=== PATIENT | female | born 1940 | race Caucasian/White ===

== ENCOUNTER → 2016-11-03 | Outpatient (CLI) | payer MEDICARE, BC ==
--- NOTE | 2016-11-04 07:09 | WWHP ---
CHIEF COMPLAINT: Patient is here for her routine gynecologic exam and mammogram. HPI: This is a 76-year-old G4, P4 with an LMP of 1991 who is status post IVY/BSO for uterine fibroids. The patient is without gynecologic complaints. 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 MEDICATIONS: 1. Eliquis daily. 2. Sotalol 80 mg 2 daily. 3. Losartan 125 mg daily. 4. Simvastatin 40 mg daily. 5. Alprazolam 0.5 mg q.h.s. 6. PreserVision with lutein 1 b.i.d. 7. Vitamin D 5000 units daily. 8. Allopurinol 100 mg daily. 9. Potassium supplement daily. 10. Magnesium supplement daily. ALLERGIES: IODINE AND SEAFOOD. 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 SOCIAL HISTORY: She quit smoking in 2013, but briefly smoked again when she stayed with her daughter who does smoke. She has since again quit. She has about 0 to 2 alcoholic drinks per day and denies drug use. She is a and is not sexually active. She does not work outside the home. REVIEW OF SYSTEMS: She has been about 16 pounds over the last year. She denies respiratory, cardiac, or GI problems. She denies maltreatment or falling. : She is not having any significant problems with bladder control. PHYSICAL EXAM: Blood pressure 133/79. Height 5 feet 6 inches. Weight 230 pounds. Temperature 98.3, pulse 93. This a well-developed, heavyset white female who is alert and oriented x3 in no acute distress. HEENT is within normal limits. NECK: Supple without mass or thyromegaly. CHEST AND LUNGS: There is mild prolonged expiration with no wheezes or rales or rhonchi noted. HEART: Regular rate and rhythm. Breasts are without mass or discharge. Axillary exam is negative for adenopathy. BACK: Negative for CVA tenderness. ABDOMEN: Mildly obese, soft, nontender, without palpable masses. PELVIC EXAM: External genitalia reveals mild to moderate atrophy without lesions. Vagina reveals mild to moderate atrophy without lesions. There is no evidence of prolapse. Bimanual exam is negative for mass or tenderness. Rectovaginal exam is negative for mass or tenderness and is negative for occult blood. EXTREMITIES: Nontender. IMPRESSION: 1. A 76-year-old menopausal female, status post total abdominal hysterectomy/bilateral salpingo-oophorectomy for benign reasons. 2. History of osteopenia. 3. Multiple medical problems. PLAN: 1. Pap smears have been discontinued. 2. Self breast examination was discussed. 3. Mammogram will be done today. 4. Osteoporosis prevention was discussed. Will plan on repeating bone density testing in one year. 5. She is planning to get flu shot in the fall. 6. She will return in one year.
--- NOTE | 2016-11-06 13:26 | MM ---
Reason for exam: screening (asymptomatic). Last mammogram was performed 7 months ago. History: Patient is postmenopausal and history of other cancer. Benign US biopsy breast VAD RT of the right breast, March 27, 2016. Benign US biopsy breast VAD RT of the right breast, September 13, 2015. Benign excisional biopsy of the left breast. Physical Findings: A clinical breast exam by your physician is recommended on an annual basis and results should be correlated with mammographic findings. MG 3D Screening Mammo W/Cad Bilateral CC and MLO view(s) were taken. Prior study comparison: March 27, 2016, right breast MG diagnostic mammo RT wo CAD. September 13, 2015, right breast MG diagnostic mammo RT wo CAD. July 13, 2014, bilateral MG screening mammo w CAD. June 12, 2013, bilateral digital screening mammo w/CAD. The breast tissue is heterogeneously dense. This may lower the sensitivity of mammography. Previous mammotome biopsy within the right breast. There is chronic nodularity in the right breast. Grouped calcifications 12 o'clock posterior right breast continue to increase. ASSESSMENT: Incomplete: need additional imaging evaluation, BI-RAD 0 RECOMMENDATION: Special view mammogram of the right breast. If lesion persists on supplemental views, image directed ultrasound is recommended. [facility] will attempt to contact patient to return for supplemental views and ultrasound if indicated.
== END | disposition home or self-care (01) ==
LOC: WWCWWP 13:10
PROVIDERS: ATTEND Obstetrics & Gynecology
DX: Z12.31 Encounter for screening mammogram for malignant neoplasm of breast (principal); R92.8 Other abnormal and inconclusive findings on diagnostic imaging of breast
CPT/HCPCS: 77063; G0202

== ENCOUNTER → 2016-11-11 | Outpatient (CLI) | payer MEDICARE, BC ==
--- NOTE | 2016-11-12 07:04 | MM ---
Reason for exam: additional evaluation requested from abnormal screening. Last mammogram was performed less than 1 month ago. History: Patient is postmenopausal and history of other cancer. Benign US biopsy breast VAD RT of the right breast, March 27, 2016. Benign US biopsy breast VAD RT of the right breast, September 13, 2015. Benign excisional biopsy of the left breast. Physical Findings: Nurse did not find any significant physical abnormalities on exam. MG 3D Work Up W/Cad RT LM, MLO with magnification, and CC with magnification view(s) were taken of the right breast. Prior study comparison: November 03, 2016, bilateral MG 3d screening mammo w/cad. March 27, 2016, right breast MG diagnostic mammo RT wo CAD. March 16, 2016, right breast US breast RT. Finding: There are coarse heterogeneous, grouped/clustered calcifications in the upper quadrant, middle position of the right breast does not layer. These results were verbally communicated with the patient and result sheet given to the patient on 11/11/16. ASSESSMENT: Suspicious, BI-RAD 4 RECOMMENDATION: Stereotactic core biopsy of the right breast. Called Dr. Avila with mammographic findings and has scheduled an appointment for the patient for 11/16/16 at 3:[address] Salinas. PRELIMINARY REPORT CALLED AND FAXED TO DR. SALINAS ON 11/12/16 AT 300/TP.
== END | disposition home or self-care (01) ==
LOC: RADMAMWWP 13:36
PROVIDERS: ATTEND Obstetrics & Gynecology
DX: R92.8 Other abnormal and inconclusive findings on diagnostic imaging of breast (principal)
CPT/HCPCS: G0206; G0279

== ENCOUNTER → 2016-12-03 | Day surgery (SDC) | payer MEDICARE, BC ==
[~2016-12-03] MED LIST: BACITRACIN OINT 1 EACH PACKET TOPICAL ONE; BUPIVACAINE (PF) 0.25% 30 ML VIAL ONE
--- NOTE | 2016-12-03 11:46 | MM ---
EXAMINATION TYPE: MG stereo VAD BX RT DATE OF EXAM: 12/03/2016 COMPARISON: 3-D mammogram November 11, 2016 and older mammograms. CLINICAL HISTORY: Abnormal mammogram, new group of suspicious calcifications right breast. TECHNIQUE: Stereotactic guided core biopsy of right breast with clip placement and follow-up two-view mammogram. FINDINGS: The procedure of stereotactic guided core biopsy was explained to the patient. Benefits, alternatives, and risks were discussed. An informed consent was then obtained. The shortness pathway for biopsy was chosen. Shortness pathway was cranial approach. I performed the localization, then surgeon, Dr. Salinas performed the remainder of the procedure. A vacuum assisted biopsy gun was used to obtain multiple core samples. The patient tolerated the procedure well without any immediate complication. The patient was kept in the radiology department for short stay after the procedure and then discharged home in stable condition. Targeted calcifications are identified in specimen mammogram. Post biopsy mammogram shows the clip to appear in satisfactory position relative to the targeted area of concern on the preprocedure images. IMPRESSION: SUCCESSFUL, UNCOMPLICATED STEREOTACTIC GUIDED CORE BIOPSY OF AREA OF CONCERN IN THE RIGHT BREAST, FULL PATHOLOGY RESULTS TO FOLLOW. Low index of suspicion noted at time of procedure. Pathology Results: Benign BREAST, RIGHT, CORE BIOPSY: FIBROCYSTIC CHANGES INCLUDING FIBROADENOMATOID HYPERPLASIA WITH CALCIFICATIONS, FIBROSIS, SCLEROSING ADENOSIS, CYSTS AND MILD USUAL TYPE DUCTAL HYPERPLASIA. SEE NOTE. Recommendation Follow up mammogram of the right breast in 6 months. MADID
--- NOTE | 2016-12-03 21:25 | PCN ---
DATE OF PROCEDURE: PREPROCEDURE DIAGNOSIS: Suspicious mammogram, calcification right breast. POSTOPERATIVE DIAGNOSIS: Defer to pathology. PROCEDURE: Mammotome biopsy with clip application. This is a 76-year-old female who presented with abnormal mammogram, suspicious calcification of the right breast. The patient was taken to [facility], placed on the mammotome table in the prone position. After coordinates were obtained by the radiologist, the skin was cleaned with Betadine, infiltrating the skin Marcaine 25% plain. The mammotome needle was advanced according to coordinates. Multiple cores were taken. X-rays of the cores showed the calcification in question. Clip was placed for future identification of the area. X-ray showed the clip in good position. The patient tolerated the procedure well.
== END ==
LOC: RADMAMWWP 10:11
PROVIDERS: ATTEND Surgery
DX: N60.31 Fibrosclerosis of right breast (principal); R92.1 Mammographic calcification found on diagnostic imaging of breast; N60.21 Fibroadenosis of right breast; N60.91 Unspecified benign mammary dysplasia of right breast
CPT/HCPCS: 88305; 88342; 88341; 19081; A4648

== ENCOUNTER → 2017-09-21 | Outpatient (CLI) | payer MEDICARE, BC ==
--- NOTE | 2017-09-22 08:06 | MM ---
Reason for exam: additional evaluation requested from prior study. Last mammogram was performed 10 months ago. History: Patient is postmenopausal and history of other cancer. Benign MG stereo VAD BX RT of the right breast, December 03, 2016. Benign US biopsy breast VAD RT of the right breast, March 27, 2016. Benign US biopsy breast VAD RT of the right breast, September 13, 2015. Benign excisional biopsy of the left breast. Physical Findings: Nurse did not find any significant physical abnormalities on exam. MG 3D Diag Mammo W/Cad RT CC and MLO view(s) were taken of the right breast. Prior study comparison: November 11, 2016, right breast MG 3d work up w/cad RT. November 03, 2016, bilateral MG 3d screening mammo w/cad. The breast tissue is heterogeneously dense. This may lower the sensitivity of mammography. No significant new findings when compared with previous films. These results were verbally communicated with the patient and result sheet given to the patient on 09/21/17. ASSESSMENT: Benign, BI-RAD 2 RECOMMENDATION: Follow-up diagnostic mammogram of both breasts in 2 months. Back on schedule for October 2017.
== END | disposition home or self-care (01) ==
LOC: RADMAMWWP 12:57
PROVIDERS: ATTEND Obstetrics & Gynecology
DX: R92.8 Other abnormal and inconclusive findings on diagnostic imaging of breast (principal)
CPT/HCPCS: 77065; G0279

== ENCOUNTER → 2017-12-14 | Outpatient (CLI) | payer MEDICARE, BC ==
[2017-12-14 15:58] VITALS: BP 147/72; PULSE 71; RESP 18; TEMP 97.4; BMI 37.5
--- NOTE | 2017-12-14 17:21 | P.HPOB ---
History of Present Illness H&P Date: 12/14/17 Chief Complaint: The patient is here for her routine gynecologic exam and mammogram. This is a 77-year-old with an LMP of 1991. She is status post IVY BSO for uterine fibroids. The patient is without gynecologic complaints. Review of Systems She has lost about 3 pounds over the last year. She denies respiratory, cardiac , or G.I. problems. : she has a occasional urinary leakage with coughing and sneezing. She is declining a referral for incontinence. She denies maltreatment or falling. Past Medical History Past Medical History: Cancer (Facial skin cancer), COPD, Hyperlipidemia, Hypertension Additional Past Medical History / Comment(s): rapid heart beat, osteopenia. 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 History of Any Multi-Drug Resistant Organisms: None Reported Past Surgical History: Breast Surgery (Benign breast mass removed in 1985. Multiple breast biopsies.), Hysterectomy (IVY BSO in 1991), Tubal Ligation Additional Past Surgical History / Comment(s): kidney surgery for benign masses. thyroid tumors. Colonoscopy 2013. Past Anesthesia/Blood Transfusion Reactions: No Reported Reaction Past Psychological History: No Psychological Hx Reported Smoking Status: Former smoker (Quit June 2017.) Past Alcohol Use History: Occasional (0 3 per day) Past Drug Use History: None Reported Additional History: She is a and is not sexually active. - Past Family History Mother Additional Family Medical History / Comment(s): Maternal grandfather had an NE, maternal aunt had rectal cancer. Medications and Allergies Home Medications Medication Instructions Recorded Confirmed Type ALPRAZolam [Xanax] 0.5 mg PO DAILY PRN 12/14/17 12/14/17 History Cholecalciferol [Vitamin D3] 1,000 unit PO DAILY 12/14/17 12/14/17 History Esomeprazole Magnesium [NexIUM] 20 mg PO DAILY 12/14/17 12/14/17 History Losartan/Hydrochlorothiazide 1 each PO DAILY 12/14/17 12/14/17 History [Losartan-Hctz 100-25 mg Tab] Magnesium Oxide [Mag-Ox] 400 mg PO DAILY 12/14/17 12/14/17 History Potassium Chloride ER [K-Dur 10] 10 meq PO DAILY 12/14/17 12/14/17 History Simvastatin 40 mg PO DAILY 12/14/17 12/14/17 History Sotalol HCl [Sotalol AF] 80 mg PO DAILY 12/14/17 12/14/17 History Allergies Allergy/AdvReac Type Severity Reaction Status Date / Time iodine Allergy Unknown Verified 12/14/17 17:17 Exam - Vital Signs Vital signs: Vital Signs Temp Pulse Resp BP 12/14/17 15:49 97.4 F L 71 18 147/72 Intake and Output 12/14/17 12/14/17 12/14/17 06:59 14:59 22:59 Other: Weight 105.687 kg Height 5'6", BMI 37.6. This is a well-developed well-nourished heavyset white female who is alert and oriented times 3 in no acute distress. HEENT: Within normal limits. NECK: Supple without mass or thyromegaly. CHEST AND LUNGS: Clear to auscultation. HEART: Regular rate and rhythm. BREASTS: Are without mass or discharge. AXILLARY EXAM: Negative for adenopathy. BACK: Negative for CVA tenderness. ABDOMEN: Soft, obese, nontender, without palpable masses. PELVIC EXAM: External genitalia appears normal with mild to moderate atrophy. Vagina appears normal with mild to moderate atrophy. There is no evidence of prolapse. Bimanual examination is negative for mass or tenderness. RECTAL EXAM: Rectovaginal exam is negative for mass or tenderness and is negative for occult blood. EXTREMITIES: Nontender. IMPRESSION: 1. 77-year-old menopausal female who is status post IVY BSO for benign reasons with normal gynecologic exam. 2. History of osteopenia. 3. Multiple medical problems. PLAN: 1. Pap smears have been discontinued. 2. Self breast awareness was discussed. 3. Bilateral diagnostic mammogram was done today. 4. Osteoporosis prevention was discussed. I have recommended bone density testing since it has been about 3 years. She would like to have this done next year. 5. She does get flu shots in the fall. 6. She will check with Dr. Hardin to see what her next colonoscopy will be due. 7. She will return one year.
--- NOTE | 2017-12-15 08:30 | MM ---
Reason for exam: follow-up at short interval from prior study. Last mammogram was performed 3 months ago. History: Patient is postmenopausal and history of other cancer. Benign MG stereo VAD BX RT of the right breast, December 03, 2016. Benign US biopsy breast VAD RT of the right breast, March 27, 2016. Benign US biopsy breast VAD RT of the right breast, September 13, 2015. Benign excisional biopsy of the left breast. Physical Findings: Nurse did not find any significant physical abnormalities on exam. MG 3D Diag Mammo W/Cad YASMANI Bilateral CC and MLO view(s) were taken. Prior study comparison: September 21, 2017, right breast MG 3d diag mammo w/cad RT. November 11, 2016, right breast MG 3d work up w/cad RT. The breast tissue is heterogeneously dense. This may lower the sensitivity of mammography. Finding: There are typically benign vascular, round calcifications in both breasts. Previous mammotome biopsy in the right breast x 3. There is a chronic nodularity in the right breast. Asymmetric breast tissue left inferior position is stable. These results were verbally communicated with the patient and result sheet given to the patient on 12/14/17. ASSESSMENT: Benign, BI-RAD 2 RECOMMENDATION: Routine screening mammogram of both breasts in 1 year.
== END | disposition home or self-care (01) ==
LOC: RADMAMWWP 14:51
PROVIDERS: ATTEND Obstetrics & Gynecology
DX: R92.8 Other abnormal and inconclusive findings on diagnostic imaging of breast (principal)
CPT/HCPCS: 77066; G0279; 77062

== ENCOUNTER → 2018-02-01 | Outpatient (CLI) | payer MEDICARE, BC ==
--- NOTE | 2018-02-01 22:45 | US ---
EXAMINATION TYPE: US venous doppler duplex LE BI DATE OF EXAM: 02/01/2018 4:00 PM COMPARISON: NONE CLINICAL HISTORY: 78-year-old female R60.9 Edema. Off and on for weeks SIDE PERFORMED: Bilateral TECHNIQUE: The lower extremity deep venous system is examined utilizing real time linear array sonog tessa with graded compression, doppler sonography and color-flow sonography. FINDINGS: VESSELS IMAGED: External Iliac Vein (EIV) Common Femoral Vein Deep Femoral Vein Greater Saphenous Vein * Femoral Vein Popliteal Vein Small Saphenous Vein * Right Leg: Negative for DVT Left Leg: Negative for DVT IMPRESSION: No evidence for DVT within the bilateral lower extremities imaged from the groin to the knees.
== END | disposition home or self-care (01) ==
LOC: RADUSWWP 15:04
PROVIDERS: ATTEND Internal Medicine
DX: R60.9 Edema, unspecified (principal)
CPT/HCPCS: 93970

== ENCOUNTER → 2018-02-21 | Outpatient (CLI) | payer MEDICARE, BC ==
--- NOTE | 2018-02-22 14:53 | MR ---
MRCP HISTORY: Abnormal liver function tests Multiplanar multisequence imaging obtained through the biliary system. No comparisons There is cystic focus present within the inferior right lobe of the liver medially measuring 19 mm. P ancreatic head is normal. There is no retroperitoneal adenopathy. Biliary system shows no abnormal fi lling defect. There is a focal stenosis suspected within the left hepatic duct. Question technical fi nding due to patient motion. Common bile duct measures approximately 13 mm. No definite ampullary abn ormality. Gallbladder is normal. Right kidney is not seen. The mediastinal hiatal hernia. Lung bases are clear. IMPRESSION: No evident biliary stone. Question biliary stenosis. Question mild dilation of the common bile duct.
== END | disposition home or self-care (01) ==
LOC: RADMRIMAIN 16:45
PROVIDERS: ATTEND Internal Medicine
DX: R94.5 Abnormal results of liver function studies (principal)
CPT/HCPCS: 74181

== ENCOUNTER → 2018-10-27 | Outpatient (CLI) | payer MEDICARE, BC ==
[2018-10-27 13:14] LABS: Basophils # (A) 0.1 k/uL (0-0.2); Basophils % (A) 1 %; Eosinophils # (A) 0.8 k/uL (0-0.7); Eosinophils % (A) 14 %; HCT 44.8 % (34.0-46.0); HGB 14.4 gm/dL (11.4-16.0); Lymphocytes # (A) 1.4 k/uL (1.0-4.8); Lymphocytes % (A) 24 %; MCH 30.9 pg (25.0-35.0); MCHC 32.1 g/dL (31.0-37.0); MCV 96.2 fL (80.0-100.0); Mean Platelet Volume 6.8; Monocytes # (A) 0.4 k/uL (0-1.0); Monocytes % (A) 7 %; Neutrophils # (A) 3.1 k/uL (1.3-7.7); Neutrophils % (A) 52 %; Platelet Count 157 k/uL (150-450); RBC 4.66 m/uL (3.80-5.40); RDW 13.2 % (11.5-15.5)
[2018-10-27 13:17] LABS: Appearance,Urine Clear (Clear); Bilirubin,Urine Negative (Negative); Blood,Urine Negative (Negative); Color,Urine Yellow; Glucose,Urine (UA) Negative (Negative); Ketones,Urine Negative (Negative); Leukocyte Esterase,Urine Moderate (Negative); Mucus,Urine Rare /hpf; Nitrite,Urine Negative (Negative); PH, Urine 6.5 (5.0-8.0); Protein,Urine Negative (Negative); Specific Gravity,Urine 1.018 (1.001-1.035); Squamous Epithelial Cell,Urine 1 /hpf (0-4); Urobilinogen,Urine <2.0 mg/dL (<2.0); WBC,Urine 11 /hpf (0-5)
[2018-10-27 13:21] LABS: INR 2.2 (<1.2); Prothrombin Time 21.3 sec (9.0-12.0)
[2018-10-27 18:16] LABS: Albumin 4.5 g/dL (3.80-4.90); Albumin/Globulin Ratio 2.25 (1.60-3.17); Anion Gap 8.6 mmol/L (4.00-12.00); Calcium 9.4 mg/dL (8.7-10.3); Carbon Dioxide 27.4 mmol/L (21.6-31.8); LDL Cholesterol,Calculated 95.6 mg/dL (0.0-131.0); Magnesium 1.6 mg/dL (1.5-2.4); Potassium 4.3 mmol/L (3.5-5.5); T4, Free (Free Thyroxine) 1.1 ng/dL (0.80-1.80); Total Protein 6.5 g/dL (6.2-8.2); Uric Acid 7.2 mg/dL (2.9-7.7); VLDL Calculation 38.4 mg/dL (5.00-40.00)
[2018-10-27 20:38] LABS: Hemoglobin A1C 5.4 % (4.0-6.0)
== END ==
LOC: LABWHC1 12:03
PROVIDERS: ATTEND Internal Medicine
DX: R79.9 Abnormal finding of blood chemistry, unspecified (principal); I10 Essential (primary) hypertension; E78.2 Mixed hyperlipidemia; I48.91 Unspecified atrial fibrillation
CPT/HCPCS: 36415; 80053; 80061; 81001; 82550; 83036; 83735; 84439; 84443; 84550; 85025; 85610

== ENCOUNTER 2018-12-18 09:39 | Emergency (ER) | payer MEDICARE, BC ==
[2018-12-18 09:45] VITALS: RESP 18
--- NOTE | 2018-12-18 10:29 | ED ---
Lower Extremity Injury HPI - General Chief Complaint: Extremity Injury, Lower Stated Complaint: misstep on stairway Time Seen by Provider: 12/18/18 10:04 Source: patient Mode of arrival: wheelchair Limitations: no limitations - History of Present Illness Initial Comments: Patient is a 78-year-old female complaining of left knee pain 2 days after falling. Patient states she missed the last step of stairs and fell onto both knees and also hitting the top of her head on a cement wall. Patient states she had a mild headache at the time of the fall but currently denies headache. Patient admits to being on Coumadin. Patient states pain in her left knee is increasing and also has associated swelling and bruising. Pain in worse with getting up from seated position and pain with walking. Patient denies any other complaints at this time. Patient denies any change in vision, dizziness, nausea, vomiting. - Related Data Home Medications Medication Instructions Recorded Confirmed ALPRAZolam [Xanax] 0.5 mg PO DAILY PRN 12/14/17 12/14/17 Cholecalciferol [Vitamin D3] 1,000 unit PO DAILY 12/14/17 12/14/17 Esomeprazole Magnesium [NexIUM] 20 mg PO DAILY 12/14/17 12/14/17 Losartan/Hydrochlorothiazide 1 each PO DAILY 12/14/17 12/14/17 [Losartan-Hctz 100-25 mg Tab] Magnesium Oxide [Mag-Ox] 400 mg PO DAILY 12/14/17 12/14/17 Potassium Chloride ER [K-Dur 10] 10 meq PO DAILY 12/14/17 12/14/17 Simvastatin 40 mg PO DAILY 12/14/17 12/14/17 Sotalol HCl [Sotalol AF] 80 mg PO DAILY 12/14/17 12/14/17 Allergies Allergy/AdvReac Type Severity Reaction Status Date / Time iodine Allergy Unknown Verified 12/18/18 09:45 Review of Systems ROS Statement: Those systems with pertinent positive or pertinent negative responses have been documented in the HPI. ROS Other: All systems not noted in ROS Statement are negative. Past Medical History Past Medical History: Cancer, COPD, Hyperlipidemia, Hypertension Additional Past Medical History / Comment(s): rapid heart beat, osteopenia. 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 History of Any Multi-Drug Resistant Organisms: None Reported Past Surgical History: Breast Surgery, Hysterectomy, Tubal Ligation Additional Past Surgical History / Comment(s): kidney surgery for benign masses. thyroid tumors. Colonoscopy 2013. Past Anesthesia/Blood Transfusion Reactions: No Reported Reaction Past Psychological History: No Psychological Hx Reported Smoking Status: Former smoker Past Alcohol Use History: Occasional Past Drug Use History: None Reported - Past Family History Mother Additional Family Medical History / Comment(s): Maternal grandfather had an ID, maternal aunt had rectal cancer. General Exam - General Exam Comments Initial Comments: GENERAL: Well-appearing, well-nourished and in no acute distress. HEAD: Atraumatic, normocephalic. EYES: Pupils equal round and reactive to light, extraocular movements intact, sclera anicteric, conjunctiva are normal. ENT: TMs normal, nares patent, oropharynx clear without exudates. Moist mucous membranes. NECK: Normal range of motion, supple without lymphadenopathy or JVD. LUNGS: Breath sounds clear to auscultation bilaterally and equal. No wheezes rales or rhonchi. HEART: Regular rate and rhythm without murmurs, rubs or gallops. ABDOMEN: Soft, nontender, normoactive bowel sounds. No guarding, no rebound. No masses appreciated. : Deferred EXTREMITIES: Pain with palpation of the left knee, lateral aspect distal to the joint line. Patient has moderate swelling and bruising. Patient has +1 edema of the left ankle. Patient has mild abrasion to left knee. NEUROLOGICAL: Cranial nerves II through XII grossly intact. Normal speech, normal gait. PSYCH: Normal mood, normal affect. SKIN: Warm, Dry, normal turgor, no rashes or lesions noted. Limitations: no limitations Course Vital Signs 12/18/18 09:42 Temperature 97.3 F L Pulse Rate 90 Respiratory 18 Rate Blood Pressure 121/81 O2 Sat by Pulse 98 Oximetry Medical Decision Making - Medical Decision Making Patient is a 78-year-old female complaining of left knee pain after falling 2 days ago. Patient states she missed the last stair and fell head first into a cement wall and landing on both knees. Patient admits to having a slight headache the day of the fall but denies one currently. Patient states her pain in the left knee is increasing as she is having trouble walking. Patient admits to being on Coumadin. On exam patient's left knee has bruising, edema and pain with flexion. CT of the brain shows no acute bleeding. X-ray of the left knee shows no acute fractures. Patient will be discharged home with instructions to ice and elevate her lower leg. Patient is okay with this plan. No other complaints at this time. Disposition Clinical Impression: Contusion of left lower leg, Fall (on) (from) other stairs and steps, initial encounter Disposition: HOME SELF-CARE Condition: Stable Instructions (If sedation given, give patient instructions): Knee Pain (ED) Additional Instructions: Please return to the Emergency Department if symptoms worsen or any other concerns. Ice and elevate the leg. Follow-up with PCP if symptoms continue. Is patient prescribed a controlled substance at d/c from ED?: No Referrals: Melissa Hardin MD [Primary Care Provider] - 1-2 days
--- NOTE | 2018-12-18 10:42 | XR ---
EXAMINATION TYPE: XR knee complete LT , 3 VIEWS DATE OF EXAM ORDERED: 12/18/2018 HISTORY: Pain. COMPARISON: None. FINDINGS: The study is limited by the patient's tremendous size. No fracture or dislocation is seen. Fullness in the suprapatellar region makes it impossible to exclu de a small knee joint effusion. IMPRESSION: 1. I DO NOT SEE AN ACUTE OSSEOUS LESION. 2. I COULD NOT EXCLUDE A SMALL KNEE JOINT EFFUSION.
--- NOTE | 2018-12-18 10:43 | XR ---
EXAMINATION TYPE: XR tibia fibula LT , 2 VIEWS DATE OF EXAM ORDERED: 12/18/2018 HISTORY: Pain. COMPARISON: None. FINDINGS: No long bone fracture is seen. Note is made of both plantar and calcaneal spurs. IMPRESSION: NO ACUTE OSSEOUS LESION.
--- NOTE | 2018-12-18 10:57 | CT ---
EXAMINATION TYPE: CT brain wo con DATE OF EXAM: 12/18/2018 COMPARISON: NONE HISTORY: HDZ, post fall on Wednesday, struck top of head CT DLP: 1099.4 mGycm Automated exposure control for dose reduction was used. FINDINGS: There are mild, generalized changes of sulcal prominence and ventriculomegaly, compatible with atroph ic change. There is diffuse periventricular white matter lucency, compatible with chronic white matte r ischemic change. There is no focal lesion, mass effect or midline shift identified. I do not see ev idence of intracranial blood. Visualized portions of the paranasal sinuses and mastoids are clear. The bony calvarium is intact. IMPRESSION: 1. NO ACUTE INTRACRANIAL ABNORMALITY. 2. MILD DEGENERATIVE CHANGE.
[2018-12-18 11:42] VITALS: BP 146/74; PULSE 80; TEMP 97.9
== END 2018-12-18 11:30 | disposition home or self-care (01) ==
LOC: EC 09:39
DX: S80.02XA Contusion of left knee, initial encounter (principal); R51 Headache; E78.5 Hyperlipidemia, unspecified; I10 Essential (primary) hypertension; M85.80 Other specified disorders of bone density and structure, unspecified site; Z85.9 Personal history of malignant neoplasm, unspecified; Z87.891 Personal history of nicotine dependence; Z79.899 Other long term (current) drug therapy; Z91.048 Other nonmedicinal substance allergy status; W10.9XXA Fall (on) (from) unspecified stairs and steps, initial encounter; Y93.01 Activity, walking, marching and hiking
CPT/HCPCS: 70450; 99284

== ENCOUNTER → 2019-01-30 | Outpatient (CLI) | payer MEDICARE, BC ==
--- NOTE | 2019-02-01 09:39 | MM ---
Reason for exam: screening (asymptomatic). Last mammogram was performed 1 year and 2 months ago. History: Patient is postmenopausal and history of other cancer. Benign MG stereo VAD BX RT of the right breast, December 03, 2016. Benign US biopsy breast VAD RT of the right breast, March 27, 2016. Benign US biopsy breast VAD RT of the right breast, September 13, 2015. Benign excisional biopsy of the left breast. Physical Findings: A clinical breast exam by your physician is recommended on an annual basis and results should be correlated with mammographic findings. MG 3D Screening Mammo W/Cad Bilateral CC and MLO view(s) were taken. Prior study comparison: December 14, 2017, bilateral MG 3d diag mammo w/cad YASMANI. September 21, 2017, right breast MG 3d diag mammo w/cad RT. The breast tissue is extremely dense which could obscure a lesion on mammography. Extensive calcifications. No significant changes when compared with prior studies. ASSESSMENT: Benign, BI-RAD 2 RECOMMENDATION: Routine screening mammogram of both breasts in 1 year.
== END | disposition home or self-care (01) ==
LOC: RADMAMWWP 11:43
PROVIDERS: ATTEND Obstetrics & Gynecology
DX: Z12.31 Encounter for screening mammogram for malignant neoplasm of breast (principal)
CPT/HCPCS: 77063; 77067

== ENCOUNTER → 2019-01-30 | Outpatient (CLI) | payer MEDICARE, BC ==
--- NOTE | 2019-01-31 11:53 | BD ---
EXAMINATION TYPE: Axial Bone Density DATE OF EXAM: 01/30/2019 COMPARISON: 2014 CLINICAL HISTORY: M 82.0 Height: 65.5 Weight: 230 FRAX RISK QUESTIONS: Alcohol (3 or more units per day): no Family History (Parent hip fracture): no Glucocorticoids (More than 3mos): no (Ex: prednisone, prednisolone, methylprednisolone, dexamethasone, and hydrocortisone). History of Fracture in Adulthood: no Secondary Osteoporosis: 1. Type 1 Diabetes: no 2. Hyperthyroidism: no 3. Menopause before 45: no 4. Malnutrition: no 5. Chronic liver disease: no Rheumatoid Arthritis: no Current Tobacco Use: yes RISK FACTORS HISTORY OF: Family History of Osteoporosis: no Active: no Diet low in dairy products/other sources of calcium: somewhat Postmenopausal woman: yes Take estrogen and/or progesterone medications: no Lost more than 2 inches in height since high school: unsure..states height may have been about 5 ft 7 at one time Frequent falls: no Poor Health: no Hyperparathyroidism: no Adrenal Insufficiency: no MEDICATIONS: Prednisone or other steroids: no Thyroid Medications: no Osteoporosis Medications: no Additional Medications: blood pressure med; cholesterol med; heart meds Additional History: one kidney EXAM MEASUREMENTS: Bone mineral densitometry was performed using the [employer] System. Bone mineral density as measured about the Lumbar spine is: ----- L1-L4(G/cm2): 1.196 T Score Values are as follows: ----- L2: 0.2 ----- L3: -0.3 ----- L4: 0.5 ----- L1-L4: 0.1 Bone mineral density has: Decreased -0.9% since study of: 07/13/2014 Bone mineral density about the R hip (g/cm2): 0.806 Bone mineral density about the L hip (g/cm2): 0.864 T Score values are as follows: -----R Neck: -1.7 -----L Neck: -1.3 -----R Total: -0.6 -----L Total: -0.6 Bone mineral density has: Decreased -1.7% since study of: 07/13/2014 IMPRESSION: Osteopenia (T Score between -2.5 and -1). There is slightly increased risk of fracture and the patient may be considered for treatment. Re-Screen 2-5 years. NOTE: T-SCORE=SD OF THE YOUNG ADULT MEAN.
== END | disposition home or self-care (01) ==
LOC: RADBDWWP 11:40
PROVIDERS: ATTEND Internal Medicine
DX: M85.80 Other specified disorders of bone density and structure, unspecified site (principal)
CPT/HCPCS: 77080

== ENCOUNTER 2019-02-05 17:12 | Inpatient (IN) | payer MEDICARE, BC ==
[2019-02-05] MEDS ORDERED: SODIUM CHLORIDE 0.9% 1,000 ML IV STA (18:14)
[2019-02-05] MEDS ORDERED: MORPHINE SULFATE 4 MG/ML SYRINGE IV STA (18:14)
[2019-02-05 18:36] LABS: Basophils % (A) 0 %; Eosinophils # (A) 0.6 k/uL (0-0.7); Eosinophils % (A) 8 %; HGB 15.1 gm/dL (11.4-16.0); Lymphocytes # (A) 1.1 k/uL (1.0-4.8); Lymphocytes % (A) 15 %; MCH 31.2 pg (25.0-35.0); MCV 97.5 fL (80.0-100.0); Mean Platelet Volume 7.1; Monocytes # (A) 0.1 k/uL (0-1.0); Monocytes % (A) 1 %; Neutrophils # (A) 5.6 k/uL (1.3-7.7); Neutrophils % (A) 75 %; Platelet Count 148 k/uL (150-450); RBC 4.82 m/uL (3.80-5.40); RDW 13.1 % (11.5-15.5); WBC 7.5 k/uL (3.8-10.6)
[2019-02-05] MEDS ORDERED: ONDANSETRON 4 MG/2 ML VIAL IVP STA (18:37)
[2019-02-05 18:44] LABS: Albumin 4.2 g/dL (3.5-5.0); Calcium 8.9 mg/dL (8.4-10.2); Potassium 3.9 mmol/L (3.5-5.1); Total Bilirubin 2.1 mg/dL (0.2-1.3); Total Protein 7.2 g/dL (6.3-8.2)
[2019-02-05 18:45] LABS: INR 2.8 (<1.2); Partial Thromboplastin Time 34.3 sec (22.0-30.0)
--- NOTE | 2019-02-05 18:59 | ED ---
General Adult HPI - General Source: patient, RN notes reviewed, old records reviewed Mode of arrival: ambulatory Limitations: no limitations <Pankaj Suggs - Last Filed: 02/05/19 23:12> <China Cespedes - Last Filed: 02/06/19 01:08> - General Chief complaint: Abdominal Pain Stated complaint: Abd pain Time Seen by Provider: 02/05/19 18:03 - History of Present Illness Initial comments: 79-year-old female patient past medical history of COPD, hypertension, atrial fibrillation anticoagulated on warfarin presents to ED with epigastric abdominal pain which she reports radiates to her back. Patient also had associated nausea and vomiting. Patient reports that this began on Wednesday and has been progressively worse. Patient was that she has been drinking an excessive amount of alcohol recently due to loss of loved one. No ETOH today. Patient also reports that she had transient pain which radiated up to her substernal chest region. Patient denies any chest pain at this time. Denies any previous heart disease. Denies any other complaints at this time. Systemic: Pt denies fatigue, fever/chills, rash. Pt denies weakness, night sweats, weight loss. Neuro: Pt denies headache, visual disturbances, syncope or pre-syncope. HEENT: Pt denies ocular discharge or irritation, otalgia, rhinorrhea, pharyngitis or notable lymphadenopathy. Cardiopulmonary: Pt denies SOB, heart palpitations, dyspnea on exertion. Abdominal/GI: Pt denies diarrhea. : Pt denies dysuria, burning w/ urination, frequency/urgency. Denies new onset urinary or bowel incontinence. MSK: Pt denies myalgia, loss of strength or function in extremities. Neuro: Pt denies new onset weakness, paresthesias. (Pankaj Suggs) - Related Data Home Medications Medication Instructions Recorded Confirmed ALPRAZolam [Xanax] 0.5 mg PO DAILY PRN 12/14/17 12/14/17 Cholecalciferol [Vitamin D3] 1,000 unit PO DAILY 12/14/17 12/14/17 Esomeprazole Magnesium [NexIUM] 20 mg PO DAILY 12/14/17 12/14/17 Losartan/Hydrochlorothiazide 1 each PO DAILY 12/14/17 12/14/17 [Losartan-Hctz 100-25 mg Tab] Magnesium Oxide [Mag-Ox] 400 mg PO DAILY 12/14/17 12/14/17 Potassium Chloride ER [K-Dur 10] 10 meq PO DAILY 12/14/17 12/14/17 Simvastatin 40 mg PO DAILY 12/14/17 12/14/17 Sotalol HCl [Sotalol AF] 80 mg PO DAILY 12/14/17 12/14/17 Allergies Allergy/AdvReac Type Severity Reaction Status Date / Time iodine Allergy Unknown Verified 02/05/19 22:17 Review of Systems ROS Other: All systems not noted in ROS Statement are negative. <Pankaj Suggs - Last Filed: 02/05/19 23:12> ROS Other: All systems not noted in ROS Statement are negative. <China Cespedes - Last Filed: 02/06/19 01:08> ROS Statement: Those systems with pertinent positive or pertinent negative responses have been documented in the HPI. Past Medical History Past Medical History: Cancer, COPD, Hyperlipidemia, Hypertension Additional Past Medical History / Comment(s): rapid heart beat, osteopenia. Past [employer] history: she is no history of STDs. History of Any Multi-Drug Resistant Organisms: None Reported Past Surgical History: Breast Surgery, Hysterectomy, Tubal Ligation Additional Past Surgical History / Comment(s): kidney surgery for benign masses. thyroid tumors. Colonoscopy 2013. Past Anesthesia/Blood Transfusion Reactions: No Reported Reaction Past Psychological History: No Psychological Hx Reported Smoking Status: Former smoker Past Alcohol Use History: Occasional Past Drug Use History: None Reported - Past Family History Mother Additional Family Medical History / Comment(s): Maternal grandfather had an CT, maternal aunt had rectal cancer. <Pankaj Suggs - Last Filed: 02/05/19 23:12> General Exam Limitations: no limitations <Pankaj Suggs - Last Filed: 02/05/19 23:12> - General Exam Comments Initial Comments: Constitutional: NAD, AOX3, Pt has pleasant affect. HEENT: NC/AT, trachea midline, neck supple, no lymphadenopathy. Posterior pharynx non erythematous, without exudates. External ears appear normal, without discharge. Mucous membranes moist. Eyes PERRLA, EOM intact. There is no scleral icterus. No pallor noted. Cardiopulmonary: RRR, no murmurs, rubs or gallops, no JVD noted. Lungs CTAB in anterior and posterior chandler. No peripheral edema. Abdominal exam: Abdomen soft and non-distended. Abdomen mildly tender to palpation in epigastric region. No other areas of abdominal tenderness. Bowel sounds active in LLQ. No hepatosplenomegaly. No ecchymosis Neuro: CN II-XII grossly intact. No nuchal rigidity. No raccon eyes, no moreno sign, no hemotympanum. No cervical spinal tenderness. MSK: No posterior calf tenderness bilaterally, homans sign negative bilaterally. Posterior tibialis and radial pulse +2 bilaterally. Sensation intact in upper and lower extremities. Full active ROM in upper and lower extremities, 5/5 stregnth. (Pankaj Suggs) Course Vital Signs 02/05/19 02/05/19 02/05/19 17:49 18:37 21:00 Temperature 97.8 F Pulse Rate 69 98 146 H Respiratory 18 16 Rate Blood Pressure 122/64 129/66 O2 Sat by Pulse 97 99 Oximetry 02/05/19 02/05/19 02/05/19 21:14 21:44 22:30 Temperature Pulse Rate 128 H 123 H 105 H Respiratory 23 Rate Blood Pressure 145/90 105/29 O2 Sat by Pulse 97 97 Oximetry 02/05/19 23:00 Temperature Pulse Rate 109 H Respiratory 24 Rate Blood Pressure 92/80 O2 Sat by Pulse 97 Oximetry Medical Decision Making - Lab Data Result diagrams: 02/05/19 18:22 02/05/19 18:22 - EKG Data -: EKG Interpreted by Ny (and Dr. Cespedes) <Pankaj Suggs - Last Filed: 02/05/19 23:12> - Lab Data Result diagrams: 02/05/19 18:22 02/05/19 18:22 <China Cespedes - Last Filed: 02/06/19 01:08> - Medical Decision Making 79-year-old female patient presents ED chief complaint of epigastric abdominal pain, nausea vomiting. Also transient chest pain which has resolved without intervention. Patient vital signs stable upon presentation. Physical exam displayed mild epigastric tenderness. CBC non-impressive. CMP revealed therapeutic INR. Patient is on warfarin for atrial fibrillation. CMP revealed transaminitis, 2-1 AST and ALT ratio. Troponin negative. Lipase 46. UA displayed mild tract infection, patient started on Rocephin. CT chest and pelvis without contrast displayed previously known goiter. Displayed No Gallstones, Large, Bile Duct. During Evaluation Patient Did Go into A. fib with Rapid Ventricular Rate. Patient Has a History of This. Patient Not Taken Beta Declan. Patient Administered Lopressor, Heart Rate Stabilized Patient Will Be Admitted for Continued Evaluation Transaminitis, UTI, serial troponins. Case discussed in depth with Dr. Cespedes. (Pankaj Suggs I, Dr. China Cespedes, Personally saw and examined the patient. I have reviewed and agree with the HEALTHCARE BUSINESS ANALYST/PA findings, including all diagnostic interpretations and treatment plans as written unless otherwise stated. I was present for the salazar portions of any procedures and the inclusive time noted for any critical care treatment. (China Cespedes) - Lab Data Lab Results 02/05/19 02/05/19 02/05/19 Range/Units 18:22 18:22 18:22 WBC 7.5 (3.8-10.6) k/uL RBC 4.82 (3.80-5.40) m/uL Hgb 15.1 (11.4-16.0) gm/dL Hct 47.0 H (34.0-46.0) % MCV 97.5 (80.0-100.0) fL MCH 31.2 (25.0-35.0) pg MCHC 32.0 (31.0-37.0) g/dL RDW 13.1 (11.5-15.5) % Plt Count 148 L (150-450) k/uL Neutrophils % 75 % Lymphocytes % 15 % Monocytes % 1 % Eosinophils % 8 % Basophils % 0 % Neutrophils # 5.6 (1.3-7.7) k/uL Lymphocytes # 1.1 (1.0-4.8) k/uL Monocytes # 0.1 (0-1.0) k/uL Eosinophils # 0.6 (0-0.7) k/uL Basophils # 0.0 (0-0.2) k/uL PT (9.0-12.0) sec INR (<1.2) APTT (22.0-30.0) sec Sodium 144 (137-145) mmol/L Potassium 3.9 (3.5-5.1) mmol/L Chloride 105 (98-107) mmol/L Carbon Dioxide 28 (22-30) mmol/L Anion Gap 11 mmol/L BUN 18 H (7-17) mg/dL Creatinine 0.92 (0.52-1.04) mg/dL Est GFR (CKD-EPI)AfAm 69 (>60 ml/min/1.73 sqM) Est GFR (CKD-EPI)NonAf 60 (>60 ml/min/1.73 sqM) Glucose 122 H (74-99) mg/dL Lactic Ac Sepsis Rflx Plasma Lactic Acid Dilip 2.7 H* (0.7-2.0) mmol/L Calcium 8.9 (8.4-10.2) mg/dL Magnesium (1.6-2.3) mg/dL Total Bilirubin 2.1 H (0.2-1.3) mg/dL AST 517 H (14-36) U/L ALT 288 H (9-52) U/L Alkaline Phosphatase 332 H (38-126) U/L Troponin I (0.000-0.034) ng/mL Total Protein 7.2 (6.3-8.2) g/dL Albumin 4.2 (3.5-5.0) g/dL Lipase 486 H (23-300) U/L Urine Color Urine Appearance (Clear) Urine pH (5.0-8.0) Ur Specific [place] (1.001-1.035) Urine Protein (Negative) Urine Glucose (UA) (Negative) Urine Ketones (Negative) Urine Blood (Negative) Urine Nitrite (Negative) Urine Bilirubin (Negative) Urine Urobilinogen (<2.0) mg/dL Ur Leukocyte Esterase (Negative) Urine RBC (0-5) /hpf Urine WBC (0-5) /hpf Ur Squamous Epith Cells (0-4) /hpf Urine Bacteria (None) /hpf Urine Mucus (None) /hpf 02/05/19 02/05/19 02/05/19 Range/Units 18:22 18:22 18:22 WBC (3.8-10.6) k/uL RBC (3.80-5.40) m/uL Hgb (11.4-16.0) gm/dL Hct (34.0-46.0) % MCV (80.0-100.0) fL MCH (25.0-35.0) pg MCHC (31.0-37.0) g/dL RDW (11.5-15.5) % Plt Count (150-450) k/uL Neutrophils % % Lymphocytes % % Monocytes % % Eosinophils % % Basophils % % Neutrophils # (1.3-7.7) k/uL Lymphocytes # (1.0-4.8) k/uL Monocytes # (0-1.0) k/uL Eosinophils # (0-0.7) k/uL Basophils # (0-0.2) k/uL PT 27.0 H (9.0-12.0) sec INR 2.8 H (<1.2) APTT 34.3 H (22.0-30.0) sec Sodium (137-145) mmol/L Potassium (3.5-5.1) mmol/L Chloride (98-107) mmol/L Carbon Dioxide (22-30) mmol/L Anion Gap mmol/L BUN (7-17) mg/dL Creatinine (0.52-1.04) mg/dL Est GFR (CKD-EPI)AfAm (>60 ml/min/1.73 sqM) Est GFR (CKD-EPI)NonAf (>60 ml/min/1.73 sqM) Glucose (74-99) mg/dL Lactic Ac Sepsis Rflx Plasma Lactic Acid Dilip (0.7-2.0) mmol/L Calcium (8.4-10.2) mg/dL Magnesium 1.7 (1.6-2.3) mg/dL Total Bilirubin (0.2-1.3) mg/dL AST (14-36) U/L ALT (9-52) U/L Alkaline Phosphatase (38-126) U/L Troponin I <0.012 (0.000-0.034) ng/mL Total Protein (6.3-8.2) g/dL Albumin (3.5-5.0) g/dL Lipase (23-300) U/L Urine Color Urine Appearance (Clear) Urine pH (5.0-8.0) Ur Specific [place] (1.001-1.035) Urine Protein (Negative) Urine Glucose (UA) (Negative) Urine Ketones (Negative) Urine Blood (Negative) Urine Nitrite (Negative) Urine Bilirubin (Negative) Urine Urobilinogen (<2.0) mg/dL Ur Leukocyte Esterase (Negative) Urine RBC (0-5) /hpf Urine WBC (0-5) /hpf Ur Squamous Epith Cells (0-4) /hpf Urine Bacteria (None) /hpf Urine Mucus (None) /hpf 02/05/19 02/05/19 Range/Units 18:56 20:11 WBC (3.8-10.6) k/uL RBC (3.80-5.40) m/uL Hgb (11.4-16.0) gm/dL Hct (34.0-46.0) % MCV (80.0-100.0) fL MCH (25.0-35.0) pg MCHC (31.0-37.0) g/dL RDW (11.5-15.5) % Plt Count (150-450) k/uL Neutrophils % % Lymphocytes % % Monocytes % % Eosinophils % % Basophils % % Neutrophils # (1.3-7.7) k/uL Lymphocytes # (1.0-4.8) k/uL Monocytes # (0-1.0) k/uL Eosinophils # (0-0.7) k/uL Basophils # (0-0.2) k/uL PT (9.0-12.0) sec INR (<1.2) APTT (22.0-30.0) sec Sodium (137-145) mmol/L Potassium (3.5-5.1) mmol/L Chloride (98-107) mmol/L Carbon Dioxide (22-30) mmol/L Anion Gap mmol/L BUN (7-17) mg/dL Creatinine (0.52-1.04) mg/dL Est GFR (CKD-EPI)AfAm (>60 ml/min/1.73 sqM) Est GFR (CKD-EPI)NonAf (>60 ml/min/1.73 sqM) Glucose (74-99) mg/dL Lactic Ac Sepsis Rflx Y Plasma Lactic Acid Dilip (0.7-2.0) mmol/L Calcium (8.4-10.2) mg/dL Magnesium (1.6-2.3) mg/dL Total Bilirubin (0.2-1.3) mg/dL AST (14-36) U/L ALT (9-52) U/L Alkaline Phosphatase (38-126) U/L Troponin I (0.000-0.034) ng/mL Total Protein (6.3-8.2) g/dL Albumin (3.5-5.0) g/dL Lipase (23-300) U/L Urine Color Yellow Urine Appearance Clear (Clear) Urine pH 5.5 (5.0-8.0) Ur Specific [place] 1.016 (1.001-1.035) Urine Protein Trace H (Negative) Urine Glucose (UA) Negative (Negative) Urine Ketones Negative (Negative) Urine Blood Moderate H (Negative) Urine Nitrite Negative (Negative) Urine Bilirubin Negative (Negative) Urine Urobilinogen 6.0 (<2.0) mg/dL Ur Leukocyte Esterase Moderate H (Negative) Urine RBC 43 H (0-5) /hpf Urine WBC 15 H (0-5) /hpf Ur Squamous Epith Cells <1 (0-4) /hpf Urine Bacteria Few H (None) /hpf Urine Mucus Rare H (None) /hpf - EKG Data EKG Comments: 1) Ventricular rate 134, QRS 82, QT/QTC 396/591. A. fib with RVR. left of his deviation, low-voltage QRS, cannot rule out anterior infarct, age undetermined. No concern for acute ischemia. 2) Ventricular rate 13, patient full 112, QRS 82, QT/QTC 366 is 479. Sinus tachycardia. Anterior infarct age undetermined.objective acute ischemia. (Pankaj Suggs) Disposition Is patient prescribed a controlled substance at d/c from ED?: No <Pankaj Suggs - Last Filed: 02/05/19 23:12> <China Cespedes - Last Filed: 02/06/19 01:08> Clinical Impression: Atrial fibrillation with RVR, Transaminitis, UTI (urinary tract infection) Disposition: ADMITTED IP TO THIS HOSP Condition: Serious
--- NOTE | 2019-02-05 19:18 | CT ---
EXAMINATION TYPE: CT ChestAbdPelvis wo con DATE OF EXAM: 02/05/2019 COMPARISON: None HISTORY: Abdomen pain, radiating into back. Hx single kidney. No contrast. No prior. CT DLP: 925.4 mGycm. Automated Exposure Control for Dose Reduction was Utilized. TECHNIQUE: CT scan of the thorax, abdomen and pelvis is performed without IV contrast. FINDINGS: There is asymmetric enlargement of the left thyroid lobe that extends into the superior mediastinum a nd measures 6 x 4 cm. Thoracic aorta is atheromatous. There are no hilar masses. Heart size is fairly normal. There are a few subpleural noncalcified nodules in the periphery of the lungs that measure 2 to 4 mm. There is no pleural effusion. There is a 5 mm calcified granuloma in the anterior right upp er lobe. Stomach appears normal. Spleen is intact. There is small calcified splenic granuloma. There is no eunice dence of pancreatic mass. Gallbladder appears normal. There is a 2 cm cyst in the inferior right lobe of the liver. The bile ducts are not dilated. There is no adrenal mass. Right kidney is absent. Left kidney shows compensatory hypertrophy. There i s no hydronephrosis. There is no retroperitoneal adenopathy. Bladder distends smoothly. There is no i nguinal hernia. There are numerous diverticula in the large bowel. I see no sign of diverticulitis. There is no ascit es or free air. There is no mesenteric edema. Abdominal aorta is atheromatous. Lumbar spine and thora cic spine appear intact. I see no bony destructive process. Appendix appears normal. IMPRESSION: Atherosclerotic vascular disease. Extensive colonic diverticulosis without diverticulitis. Old granulomatous disease. 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 Some follow-up is recommended since this appears to be a change compared to multiple previous chest x-rays up to 07/13/2014.
--- NOTE | 2019-02-05 20:21 | US ---
EXAMINATION TYPE: US gallbladder DATE OF EXAM: 02/05/2019 COMPARISON: CLINICAL HISTORY: Pain. hx right kidney removal due to benign tumors. N/V. Suboptimal visualization due to patient rapid breathing EXAM MEASUREMENTS: Liver Length: 13.4 cm Gallbladder Wall: 0.3 cm CBD: 1.1 cm Pancreas: Tail obscured by overlying bowel gas. Appears echogenic in appearance. Main pancreatic d uct = 3.6 mm Liver: right posterior cystic appearing lesion = 1.7 x 1.7 x 1.6 cm Gallbladder: wall appears upper limits of normal. No stones or sludge visualized. Evidence for sonographic Silva's sign: neg CBD: Appears dilated Right Kidney: Surgically absent IMPRESSION: No gallstones. Large common bile duct consistent with gallbladder dysfunction. Simple hep atic cyst.
[2019-02-05 20:27] LABS: Appearance,Urine Clear (Clear); Bacteria,Urine Few /hpf; Bilirubin,Urine Negative (Negative); Blood,Urine Moderate (Negative); Color,Urine Yellow; Glucose,Urine (UA) Negative (Negative); Ketones,Urine Negative (Negative); Leukocyte Esterase,Urine Moderate (Negative); Mucus,Urine Rare /hpf; Nitrite,Urine Negative (Negative); PH, Urine 5.5 (5.0-8.0); Protein,Urine Trace (Negative); RBC,Urine 43 /hpf (0-5); Specific Gravity,Urine 1.016 (1.001-1.035); Squamous Epithelial Cell,Urine <1 /hpf (0-4); WBC,Urine 15 /hpf (0-5)
[2019-02-05] MEDS ORDERED: SODIUM CHLORIDE 0.9% 500 ML 500 ML IV STA (21:01)
[2019-02-05] MEDS ORDERED: METOPROLOL TARTRATE 25 MG TAB PO STA (21:04)
[2019-02-05] MEDS ORDERED: METOPROLOL TARTRATE 5 MG/5 ML VIAL IVP STA (21:04)
[2019-02-05] MEDS: METOPROLOL TARTRATE 5 MG/5 ML VIAL IVP SCH (22:17)
[2019-02-05] MEDS ORDERED: NITROGLYCERIN SL TABS 0.4 MG TAB SUBLINGUAL PRN (23:09)
[2019-02-05] MEDS: SODIUM CHLORIDE 0.9% 1,000 ML IV SCH (23:49)
[2019-02-06 07:15] LABS: Cholesterol 103 mg/dL (<200); HDL Cholesterol 34 mg/dL (40-60); LDL Cholesterol,Calculated 40 mg/dL (0-99); Triglycerides 145 mg/dL (<150)
--- NOTE | 2019-02-06 08:36 | P.CRDCN ---
History of Present Illness Consult date: 02/06/19 Requesting physician: Vidya Love Consult reason: atrial fibrillation Chief complaint: Abdominal discomfort and back discomfort History of present illness: This is a pleasant 79-year-old female who used to see Dr. Saucedo in the office, she follows now with Dr. Arzate in the office. She has history of hypertension, hyperlipidemia, emphysema, nicotine dependence, EtOH use, she's b een drinking more heavily recently then she had in the past. She also has history of paroxysmal atrial fibrillation for which she has been taking Coumadin. Patient has not had her INR checked in the office since November. She presents to the hospital on this occasion with symptoms of back pain with associated epigastric discomfort. Symptoms have been occurring since Wednesday. She states that the symptoms initially started in her back, lower back up into her upper back region, ultimately she was noticing symptoms in her mid back epigastric area and lower chest area that she described as a pressure feeling. A CAT scan of the abdomen and pelvis was performed which revealed atherosclerotic vascular disease, extensive colonic diverticulosis without diverticulitis. 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 Ultrasound of the gallbladder was also performed which did not reveal any evidence of gallstones, it did reveal large common bile duct consistent with gallbladder dysfunction. There is also a cyst noted on the liver. EKG on presentation here showed atrial fibrillation with a rapid ventricular response. Blood pressure 102/40, heart rate in the 90s, 94% on room air. White blood cell count is normal, hemoglobin 15.1, platelet count 148. INR 2.8. Sodium 144, potassium 3.9, BUN 18, creatinine 0.9. Plasma lactic acid 2.8 on admission magnesium 1.7 total bilirubin 2.1, AST 517, ALT 288, alk phos 332, troponins negative 3. Lipase 486. Positive UTI. At the time of my examination this morning, patient has no discomfort, she does state that she had a cardiac catheterization by Dr. Saucedo in 2005 which revealed a 20% lesion in the LAD. Most recent stress test was in January 2017 she had a dobutamine echo at that time which was reported to be normal. Past Medical History Past Medical History: Cancer, COPD, Hyperlipidemia, Hypertension Additional Past Medical History / Comment(s): rapid heart beat, osteopenia. 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 History of Any Multi-Drug Resistant Organisms: None Reported Past Surgical History: Breast Surgery, Hysterectomy, Tubal Ligation Additional Past Surgical History / Comment(s): kidney surgery for benign masses. thyroid tumors. Colonoscopy 2013. Past Anesthesia/Blood Transfusion Reactions: No Reported Reaction Past Psychological History: No Psychological Hx Reported Smoking Status: Current every day smoker Past Alcohol Use History: Occasional Past Drug Use History: None Reported - Past Family History Mother Additional Family Medical History / Comment(s): Maternal grandfather had an [place], maternal aunt had rectal cancer. Medications and Allergies Home Medications Medication Instructions Recorded Confirmed Type ALPRAZolam [Xanax] 0.5 mg PO DAILY PRN 12/14/17 12/14/17 History Cholecalciferol [Vitamin D3] 1,000 unit PO DAILY 12/14/17 12/14/17 History Esomeprazole Magnesium [NexIUM] 20 mg PO DAILY 12/14/17 12/14/17 History Losartan/Hydrochlorothiazide 1 each PO DAILY 12/14/17 12/14/17 History [Losartan-Hctz 100-25 mg Tab] Magnesium Oxide [Mag-Ox] 400 mg PO DAILY 12/14/17 12/14/17 History Potassium Chloride ER [K-Dur 10] 10 meq PO DAILY 12/14/17 12/14/17 History Simvastatin 40 mg PO DAILY 12/14/17 12/14/17 History Sotalol HCl [Sotalol AF] 80 mg PO DAILY 12/14/17 12/14/17 History Allergies Allergy/AdvReac Type Severity Reaction Status Date / Time iodine Allergy Unknown Verified 02/05/19 22:17 Physical Exam Vitals: Vital Signs Temp Pulse Pulse Resp BP BP Pulse Ox 02/06/19 07:32 98 02/06/19 04:00 98 F 96 16 102/44 94 L 02/06/19 00:00 97 F L 98 16 100/52 99 02/05/19 23:09 99 02/05/19 23:00 109 H 24 92/80 97 02/05/19 22:30 105 H 23 105/29 97 02/05/19 21:44 123 H 02/05/19 21:14 128 H 145/90 97 02/05/19 21:00 146 H 02/05/19 18:37 98 16 129/66 99 02/05/19 17:49 97.8 F 69 18 122/64 97 Intake and Output 02/05/19 02/06/19 02/06/19 22:59 06:59 14:59 Output Total 1 Balance -1 Output: Urine 1 Other: # Voids 0 Weight 105.233 kg 106.5 kg PHYSICAL EXAMINATION: GENERAL: 79-year-old female in no acute distress at the time of my examination HEENT: Head is atraumatic, normocephalic. Pupils equal, round. Sclera anicteric. Conjunctiva are clear. Mucous membranes of the mouth are moist. Neck is supple. There is no elevated jugular venous pressure. No carotid bruit is heard. HEART EXAMINATION: Heart S1 and S2 irregularly irregular systolic murmur is he abhi. CHEST EXAMINATION: Lungs revealed decreased air exchange with wheezing throughout ABDOMEN: Soft, positive mid epigastric and right upper quadrant tenderness on palpation. EXTREMITIES: 2+ peripheral pulses with trace evidence of peripheral edema and no calf tenderness noted. NEUROLOGIC patient is awake, alert and oriented 3 . . Results 02/05/19 18:22 02/05/19 18:22 Cardiac Enzymes 02/05/19 02/05/19 02/06/19 Range/Units 18:22 18:22 00:52 AST 517 H (14-36) U/L Troponin I <0.012 <0.012 (0.000-0.034) ng/mL 02/06/19 Range/Units 06:29 AST (14-36) U/L Troponin I <0.012 (0.000-0.034) ng/mL Coagulation 02/05/19 Range/Units 18:22 PT 27.0 H (9.0-12.0) sec APTT 34.3 H (22.0-30.0) sec Lipids 02/06/19 Range/Units 06:29 Triglycerides 145 (<150) mg/dL Cholesterol 103 (<200) mg/dL HDL Cholesterol 34 L (40-60) mg/dL CBC 02/05/19 Range/Units 18:22 WBC 7.5 (3.8-10.6) k/uL RBC 4.82 (3.80-5.40) m/uL Hgb 15.1 (11.4-16.0) gm/dL Hct 47.0 H (34.0-46.0) % Plt Count 148 L (150-450) k/uL Comprehensive Metabolic Panel 02/05/19 Range/Units 18:22 Sodium 144 (137-145) mmol/L Potassium 3.9 (3.5-5.1) mmol/L Chloride 105 (98-107) mmol/L Carbon Dioxide 28 (22-30) mmol/L BUN 18 H (7-17) mg/dL Creatinine 0.92 (0.52-1.04) mg/dL Glucose 122 H (74-99) mg/dL Calcium 8.9 (8.4-10.2) mg/dL AST 517 H (14-36) U/L ALT 288 H (9-52) U/L Alkaline Phosphatase 332 H (38-126) U/L Total Protein 7.2 (6.3-8.2) g/dL Albumin 4.2 (3.5-5.0) g/dL Current Medications Generic Name Dose Route Start Last Admin Trade Name Freq PRN Reason Stop Dose Admin Aspirin 325 mg 02/06/19 09:00 Aspirin PO DAILY TYRELL Ceftriaxone Sodium 1 gm/ 50 mls @ 100 mls/hr 02/05/19 23:15 02/05/19 23:48 Sodium Chloride IVPB 100 mls/hr Q24HR TYRELL Administration Sodium Chloride 1,000 mls @ 75 mls/hr 02/05/19 23:30 02/05/19 23:49 Saline 0.9% IV 75 mls/hr .[id number] TYRELL Administration Nitroglycerin 0.4 mg 02/05/19 23:09 Nitrostat SUBLINGUAL Q5M PRN Chest Pain Intake and Output 02/05/19 02/06/19 02/06/19 22:59 06:59 14:59 Output Total 1 Balance -1 Output: Urine 1 Other: # Voids 0 Weight 105.233 kg 106.5 kg 02/05/19 18:22 02/05/19 18:22 EKG Interpretations (text) EKG shows A. fib with RVR Assessment and Plan Plan: Assessment and plan #1 symptoms of back discomfort with associated abdominal and mid epigastric discomfort. Atypical symptoms for acute coronary syndrome. Troponins negative 3. Elevated liver enzymes. Gallbladder ultrasound does not reveal any gallstones, large common bile duct consistent with gallbladder dysfunction. Patient did undergo cardiac catheterization in 2005 that revealed a 20% lesion in the LAD, dobutamine echo in 2017 negative #2 hypertension #3 hyperlipidemia #4 nicotine dependence #5 EtOH abuse #6 emphysema #7 atrial fibrillation with rapid ventricular response, patient has history of paroxysmal A. fib Plan We will obtain an echocardiogram with Doppler study. We'll also check into Eliquis coverage for the patient as she does not have consistent follow-up with her INRs. Discontinue aspirin. Resume statin, replace magnesium, start the patient on beta naomi, if LV function is normal resume the sotalol. Check a TSH level. Further recommendations to follow. DNP note has been reviewed, I agree with a documented findings and plan of care. Patient was seen and examined.
[2019-02-06] MEDS: METOPROLOL TARTRATE 25 MG TAB PO SCH ×2 (08:42→21:05)
[2019-02-06] MEDS: SODIUM CHLORIDE 0.9% 1,000 ML IV SCH (08:44)
[2019-02-06] MEDS ORDERED: ASPIRIN 325 MG TAB PO SCH (09:00)
--- NOTE | 2019-02-06 13:39 | P.HPIM ---
History of Present Illness H&P Date: 02/06/19 Chief Complaint: Abdominal pain This is a 79-year-old female patient of Dr. Hardin with past medical history of hypertension, hyperlipidemia, COPD, nicotine dependence, alcohol abuse, paroxysmal atrial fibrillation on chronic Coumadin, gastroesophageal reflux disease, gout, generalized anxiety disorder. She states she [facility] with [facility] regarding her [facility]R in November and does not have a good explanation why she has been back is that it is summer. She states she normally sees Dr. Arzate every 6 months. Patient states that for several days she has been complaining of back pain which she thought originally was from sitting on zay furniture on her deck. Back pain seemed to be quite severe and worsening and on Wednesday she did not feel right she was too tired to go out with her family and stayed home. On Wednesday, she took an Aleve and did go to the [facility] a friend's birthday republican. She saw the pain was all related to her back as it was going down her spine and she has seen a chiropractor in the past but yesterday she finally realized that it was really coming from her abdomen in the right upper quadrant mid area. She complains of nausea and had emesis in the emergency center. She complains of chills without fever. She denies any urinary symptoms such as dysuria, frequency. She states she does have some memory problems recently. Patient relates that she is drinking at least 3 alcoholic beverages per day and has been drinking for 40 years. She denies having any withdrawal symptoms when she has been without alcohol. Patient is actively smoking 2 packs per day for 40 years. Patient came to [facility] emergency center for evaluation. She was afebrile, heart rate running up to 146, blood pressure 129/66, pulse ox 97%. CBC noted thrombocytopenia 148. Electrolytes were within normal limits, creatinine 0.92, blood sugar 122. Lactic acid 2.7. Total bilirubin 2.1, AST 517, ALT 288, alkaline phosphatase 332, lipase 486. INR is 2.8. Magnesium 1.7, troponin negative. Urinalysis was clear, moderate blood, leukoesterase moderate, RBCs 43, wbc's 15. EKG was atrial fibrillation with RVR. CAT scan of the chest abdomen and pelvis without contrast revealed atherosclerotic vascular disease. Extensive colonic diverticulosis without diverticulitis. Old granulomatous disease. 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 The patient was given Lopressor 5 mg IV push followed by oral 25 mg, Zofran, IV fluids and admitted to the cardiac stepdown unit and cardiology consult requested. Review of Systems Constitutional: Reports poor appetite, Denies chills, Denies fatigue, Denies fever, Denies weakness Ears, nose, mouth and throat: Denies dental pain, Denies dysphagia, Denies nasal congestion, Denies nasal discharge, Denies vertigo Cardiovascular: Denies chest pain, Denies decreased exercise tolerance, Denies dyspnea on exertion, Denies edema, Denies irregular heart beat, Denies leg edema, Denies palpitations, Denies shortness of breath, Denies syncope Respiratory: Denies congestion, Denies cough, Denies cough with sputum, Denies dyspnea, Denies excessive sputum, Denies hemoptysis, Denies home oxygen, Denies wheezing Gastrointestinal: Reports abdominal pain, Reports loss of appetite, Reports nausea, Reports vomiting, Denies constipation, Denies diarrhea Genitourinary: Denies difficulty voiding, Denies dysuria, Denies urgency, Denies urinary frequency Musculoskeletal: Denies frequent falls, Denies gait dysfunction, Denies muscle weakness, Denies myalgias Integumentary: Denies pruritus, Denies rash, Denies wounds Neurological: Denies aphasia, Denies change in mentation, Denies change in speech, Denies gait dysfunction, Denies seizures, Denies vertigo Psychiatric: Denies anxiety, Denies depression Endocrine: Denies fatigue, Denies weight change Past Medical History Past Medical History: Atrial Fibrillation, Cancer, COPD, Hyperlipidemia, Hypertension Additional Past Medical History / Comment(s): Skin cancer, osteopenia. 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 History of Any Multi-Drug Resistant Organisms: None Reported Past Surgical History: Breast Surgery, Hysterectomy, Tubal Ligation Additional Past Surgical History / Comment(s): Right kidney surgery for benign masses. thyroid tumors. Colonoscopy 2013. Past Anesthesia/Blood Transfusion Reactions: No Reported Reaction Past Psychological History: No Psychological Hx Reported Smoking Status: Current every day smoker Past Alcohol Use History: Occasional Additional Past Alcohol Use History / Comment(s): Patient is a smoker of 2 packs per day for 40 years. She drinks alcohol up to 3 drinks per day for 40 years. Patient lives alone. Past Drug Use History: None Reported - Past Family History Mother Additional Family Medical History / Comment(s): Maternal grandfather had an [place], maternal aunt had rectal cancer. Mother at age 91 from old age. Father Additional Family Medical History / Comment(s): Father at age 69 from competitions of COPD and alcohol abuse. Brother(s) Additional Family Medical History / Comment(s): Patient has one brother with diabetes. She does not have any sisters. Patient has 4 children with no major medical problems. Medications and Allergies Home Medications Medication Instructions Recorded Confirmed Type ALPRAZolam [Xanax] 0.5 mg PO DAILY PRN 12/14/17 02/06/19 History Cholecalciferol [Vitamin D3] 5,000 unit PO DAILY 12/14/17 02/06/19 History Losartan/Hydrochlorothiazide 1 tab PO DAILY 12/14/17 02/06/19 History [Losartan-Hctz 100-25 mg Tab] Magnesium Oxide [Mag-Ox] 400 mg PO DAILY 12/14/17 02/06/19 History Potassium Chloride ER [K-Dur 10] 10 meq PO DAILY 12/14/17 02/06/19 History Simvastatin 40 mg PO HS 12/14/17 02/06/19 History Allopurinol [Zyloprim] 100 mg PO DAILY 02/06/19 02/06/19 History Furosemide [Lasix] 40 mg PO DAILY 02/06/19 02/06/19 History Metoprolol Succinate (ER) [Toprol 50 mg PO DAILY 02/06/19 02/06/19 History Xl] Omeprazole 20 mg PO DAILY 02/06/19 02/06/19 History Vit C/E/Zn/Coppr/Lutein/Zeaxan 1 cap PO BID 02/06/19 02/06/19 History [Preservision Areds 2 Softgel] Warfarin Sodium 2.5 mg PO MOWEFR 02/06/19 02/06/19 History Warfarin Sodium 5 mg PO SUTUTHSA 02/06/19 02/06/19 History Allergies Allergy/AdvReac Type Severity Reaction Status Date / Time iodine Allergy Unknown Verified 02/06/19 11:07 Physical Exam Vitals: Vital Signs Temp Pulse Pulse Resp BP BP Pulse Ox 02/06/19 11:26 98.1 F 83 16 107/55 94 L 02/06/19 08:00 98.2 F 89 16 111/61 95 02/06/19 07:32 98 02/06/19 04:00 98 F 96 16 102/44 94 L 02/06/19 00:00 97 F L 98 16 100/52 99 02/05/19 23:09 99 02/05/19 23:00 109 H 24 92/80 97 02/05/19 22:30 105 H 23 105/29 97 02/05/19 21:44 123 H 02/05/19 21:14 128 H 145/90 97 02/05/19 21:00 146 H 02/05/19 18:37 98 16 129/66 99 02/05/19 17:49 97.8 F 69 18 122/64 97 Intake and Output 02/05/19 02/06/19 02/06/19 22:59 06:59 14:59 Output Total 1 Balance -1 Output: Urine 1 Other: # Voids 0 Weight 105.233 kg 106.5 kg Gen: This is a 79-year-old obese female. Patient is resting in bed and appears to be comfortable and in no acute distress. No respiratory distress noted. HEENT: Head is atraumatic, normocephalic. Pupils equal, round. Sclerae is anicteric. Mucous members of the mouth are moist. NECK: Supple. No JVD. No lymphadenopathy. No thyromegaly. LUNGS: Clear to auscultation. No wheezes or rhonchi. No intercostal retractions. HEART: Irregularly irregular rate and rhythm. Systolic murmur. ABDOMEN: Soft. Bowel sounds are present. No masses. Right upper quadrant tenderness. EXTREMITIES: No pedal edema. No calf tenderness. Dorsalis pedis +2 bilaterally. NEUROLOGICAL: Patient is awake, alert and oriented x3. Cranial nerves 2 through 12 are grossly intact. Results CBC & Chem 7: 02/05/19 18:22 02/05/19 18:22 Labs: Abnormal Lab Results - Last 24 Hours (Table) 02/05/19 02/05/19 02/05/19 Range/Units 18:22 18:22 18:22 Hct 47.0 H (34.0-46.0) % Plt Count 148 L (150-450) k/uL PT (9.0-12.0) sec INR (<1.2) APTT (22.0-30.0) sec BUN 18 H (7-17) mg/dL Glucose 122 H (74-99) mg/dL Plasma Lactic Acid Dilip 2.7 H* (0.7-2.0) mmol/L Total Bilirubin 2.1 H (0.2-1.3) mg/dL AST 517 H (14-36) U/L ALT 288 H (9-52) U/L Alkaline Phosphatase 332 H (38-126) U/L HDL Cholesterol (40-60) mg/dL Lipase 486 H (23-300) U/L Urine Protein (Negative) Urine Blood (Negative) Ur Leukocyte Esterase (Negative) Urine RBC (0-5) /hpf Urine WBC (0-5) /hpf Urine Bacteria (None) /hpf Urine Mucus (None) /hpf 02/05/19 02/05/19 02/05/19 Range/Units 18:22 20:11 22:54 Hct (34.0-46.0) % Plt Count (150-450) k/uL PT 27.0 H (9.0-12.0) sec INR 2.8 H (<1.2) APTT 34.3 H (22.0-30.0) sec BUN (7-17) mg/dL Glucose (74-99) mg/dL Plasma Lactic Acid Dilip 2.8 H* (0.7-2.0) mmol/L Total Bilirubin (0.2-1.3) mg/dL AST (14-36) U/L ALT (9-52) U/L Alkaline Phosphatase (38-126) U/L HDL Cholesterol (40-60) mg/dL Lipase (23-300) U/L Urine Protein Trace H (Negative) Urine Blood Moderate H (Negative) Ur Leukocyte Esterase Moderate H (Negative) Urine RBC 43 H (0-5) /hpf Urine WBC 15 H (0-5) /hpf Urine Bacteria Few H (None) /hpf Urine Mucus Rare H (None) /hpf 02/06/19 02/06/19 02/06/19 Range/Units 02:41 06:29 06:29 Hct (34.0-46.0) % Plt Count (150-450) k/uL PT (9.0-12.0) sec INR (<1.2) APTT (22.0-30.0) sec BUN (7-17) mg/dL Glucose (74-99) mg/dL Plasma Lactic Acid Dilip 3.5 H* 2.3 H* (0.7-2.0) mmol/L Total Bilirubin (0.2-1.3) mg/dL AST (14-36) U/L ALT (9-52) U/L Alkaline Phosphatase (38-126) U/L HDL Cholesterol 34 L (40-60) mg/dL Lipase (23-300) U/L Urine Protein (Negative) Urine Blood (Negative) Ur Leukocyte Esterase (Negative) Urine RBC (0-5) /hpf Urine WBC (0-5) /hpf Urine Bacteria (None) /hpf Urine Mucus (None) /hpf 02/06/19 Range/Units 10:49 Hct (34.0-46.0) % Plt Count (150-450) k/uL PT (9.0-12.0) sec INR (<1.2) APTT (22.0-30.0) sec BUN (7-17) mg/dL Glucose (74-99) mg/dL Plasma Lactic Acid Dilip 2.1 H* (0.7-2.0) mmol/L Total Bilirubin (0.2-1.3) mg/dL AST (14-36) U/L ALT (9-52) U/L Alkaline Phosphatase (38-126) U/L HDL Cholesterol (40-60) mg/dL Lipase (23-300) U/L Urine Protein (Negative) Urine Blood (Negative) Ur Leukocyte Esterase (Negative) Urine RBC (0-5) /hpf Urine WBC (0-5) /hpf Urine Bacteria (None) /hpf Urine Mucus (None) /hpf Microbiology - Last 24 Hours (Table) 02/05/19 20:11 Urine Culture - Preliminary Urine,Clean Catch Thrombosis Risk Factor Assmnt - DVT/VTE Prophylaxis DVT/VTE Prophylaxis: Pharmacologic Prophylaxis ordered Assessment and Plan Plan: 1. Back pain and abdominal pain possibly related to passed gallbladder stone, pancreatitis. HIDA scan ordered. After this is completed patient will be started on a clear liquid diet. Recheck CMP and lipase in the morning. Continue IV fluids. 2. Paroxysmal atrial fibrillation presenting with RVR. Cardiology consult appreciated. Eliquis coverage to be checked by telehealth case manager. Coumadin currently on hold, aspirin discontinued. Patient has been started on metoprolol 25 mg twice daily. 3. Acute pancreatitis. Continue IV fluids, clear liquid diet. Recheck lipase in the morning. 4. Acute hepatitis possibly alcoholic hepatitis. Acute hepatitis panel ordered. Patient has been advised to stop alcohol intake. 5. Thrombocytopenia possibly related to suppression from alcohol abuse. Recheck CBC in the morning. 6. Hypertension, patient currently hypotensive. Losartan hydrochlorothiazide on hold. 7. Hyperlipidemia. Continue Lipitor 40 mg at bedtime. 8. Gastroesophageal reflux disease. Continue omeprazole 20 g daily. 9. Gout, chronic. Continue allopurinol 100 mg daily. 10. Generalized anxiety disorder. Continue Xanax 0.5 milligrams daily as needed. 11. Alcohol abuse. Patient counseled regarding alcohol cessation. Medical social work consult to provide information regarding AA etc. 12. Tobacco use and dependence. Patient counseled regarding smoking cessation. 13. DVT prophylaxis. Patient is currently therapeutic with Coumadin, eliquis to be started. Patient will be admitted to the hospital for a minimum of 2 night stay. Discharge plan: Return home Impression and plan of care have been directed as dictated by the signing physician. Farzaneh Delaney nurse practitioner acting as scribe for signing physician.
--- NOTE | 2019-02-06 16:47 | NM ---
EXAMINATION TYPE: NM hepatobiliary wo EF DATE OF EXAM: 02/06/2019 COMPARISON: NONE HISTORY: Right upper quadrant pain TECHNIQUE: After the intravenous administration of 4.9 mCi Tc 99m Mebrofenin hepatobiliary scintigrap hy is performed. Immediate images post injection. FINDINGS: There is uptake of the tracer by the liver that is borderline enlarged. I see no focal defect. Images were obtained up to 4 hours that show persistent tracer in the liver without evidence of any tracer excretion into the biliary tree or the gallbladder. IMPRESSION: No tracer excretion. I would consider possibilities of cystic duct and common bile duct o bstruction as well as severe hepatocellular disease. The ultrasound yesterday showed a large common b ile duct measured 11 mm and distal common bile duct obstruction should be considered.
--- NOTE | 2019-02-06 18:34 | ECHOF ---
Referral Reason:chest pain MEASUREMENTS -------- HEIGHT: 165.1 cm WEIGHT: 106.1 kg BP: 102/44 IVSd: 1.4 cm (0.6 - 1.1) LVIDd: 3.3 cm (3.9 - 5.3) LVPWd: 1.6 cm (0.6 - 1.1) IVSs: 2.6 cm LVIDs: 3.4 cm LVPWs: 1.6 cm LA Diam: 3.8 cm (2.7 - 3.8) RVIDd: 3.9 cm (< 3.3) LAESV Index (A-L): 28.32 ml/m Ao Diam: 2.9 cm (2.0 - 3.7) LA Diam: 4.3 cm (2.7 - 3.8) AV Cusp: 1.6 cm (1.5 - 2.6) EPSS: 0.6 cm MV E Chris: 0.96 m/s MV DecT: 122 ms MV A Chris: 0.21 m/s MV E/A Ratio: 4.61 RAP: 5.00 mmHg RVSP: 24.33 mmHg MV EF SLOPE: 134.00 mm/s (70 - 150) MV EXCURSION: 15.25 mm (> 18.000) FINDINGS -------- Undetermined rhythm. This was a technically adequate study. The left ventricular size is normal. There is mild concentric left ventricular hypertrophy. Overa ll left ventricular systolic function is normal with, an EF between 55 - 60 %. The right ventricle is mild to moderately enlarged. The left atrial size is normal. The right atrial size is normal. There is mild aortic valve sclerosis. There is no evidence of aortic regurgitation. The mitral valve leaflets are mildly thickened. Mild mitral annular calcification present. Mild tricuspid regurgitation present. There is no evidence of pulmonary hypertension. The right v entricular systolic pressure, as measured by Doppler, is 24.33mmHg. There is no pulmonic regurgitation present. The aortic root size is normal. There is no pericardial effusion. CONCLUSIONS -------- 1. This was a technically adequate study. 2. The left ventricular size is normal. 3. There is mild concentric left ventricular hypertrophy. 4. Overall left ventricular systolic function is normal with, an EF between 55 - 60 %. 5. The right ventricle is mild to moderately enlarged. 6. The left atrial size is normal. 7. The right atrial size is normal. 8. There is mild aortic valve sclerosis. 9. The mitral valve leaflets are mildly thickened. 10. Mild mitral annular calcification present. 11. Mild tricuspid regurgitation present. 12. There is no evidence of pulmonary hypertension. 13. The right ventricular systolic pressure, as measured by Doppler, is 24.33mmHg. 14. There is no pulmonic regurgitation present. 15. The aortic root size is normal. 16. There is no pericardial effusion. ELEMENTARY SECRETARY: Shana Hull RDCS
[2019-02-06] MEDS: VIT A,C & E-LUTEIN-MINERALS 1 EACH TAB PO SCH (21:05)
[2019-02-06] MEDS: ATORVASTATIN 40 MG TAB PO SCH ×2 (21:06→22:32)
[2019-02-07] MEDS: ALPRAZolam 0.5 MG TAB PO PRN ×2 (00:15→23:49)
[2019-02-07 01:41] LABS: Appearance,Urine Clear (Clear); Bacteria,Urine Rare /hpf; Bilirubin,Urine 1+ (Negative); Blood,Urine Trace (Negative); Color,Urine Yellow; Glucose,Urine (UA) Negative (Negative); Ketones,Urine Negative (Negative); Leukocyte Esterase,Urine Moderate (Negative); Nitrite,Urine Negative (Negative); PH, Urine 5.5 (5.0-8.0); Protein,Urine Trace (Negative); RBC,Urine 1 /hpf (0-5); Specific Gravity,Urine 1.009 (1.001-1.035); Squamous Epithelial Cell,Urine <1 /hpf (0-4)
[2019-02-07] MEDS: SODIUM CHLORIDE 0.9% 1,000 ML IV SCH ×2 (02:29→15:08)
[2019-02-07 06:23] LABS: Basophils % (A) 0 %; Eosinophils # (A) 0.5 k/uL (0-0.7); Eosinophils % (A) 5 %; HCT 39.3 % (34.0-46.0); HGB 12.7 gm/dL (11.4-16.0); Lymphocytes # (A) 0.7 k/uL (1.0-4.8); Lymphocytes % (A) 7 %; MCH 31.5 pg (25.0-35.0); MCHC 32.2 g/dL (31.0-37.0); MCV 97.9 fL (80.0-100.0); Mean Platelet Volume 7.5; Monocytes # (A) 0.3 k/uL (0-1.0); Monocytes % (A) 3 %; Neutrophils # (A) 8.2 k/uL (1.3-7.7); Neutrophils % (A) 84 %; Platelet Count 112 k/uL (150-450); RBC 4.02 m/uL (3.80-5.40); RDW 13.4 % (11.5-15.5); WBC 9.8 k/uL (3.8-10.6)
[2019-02-07 06:37] LABS: Calcium 7.9 mg/dL (8.4-10.2); Potassium 3.6 mmol/L (3.5-5.1); Total Bilirubin 6.2 mg/dL (0.2-1.3); Total Protein 5.5 g/dL (6.3-8.2)
[2019-02-07] MEDS: PANTOPRAZOLE 40 MG TABLET PO SCH (06:37)
[2019-02-07] MEDS: ALLOPURINOL 100 MG TAB PO SCH (10:04)
[2019-02-07] MEDS: MAGNESIUM OXIDE 400 MG TAB PO SCH (10:04)
[2019-02-07] MEDS: METOPROLOL TARTRATE 50 MG TAB PO SCH ×2 (10:04→21:24)
[2019-02-07] MEDS: VIT A,C & E-LUTEIN-MINERALS 1 EACH TAB PO SCH ×2 (10:04→21:23)
[2019-02-07] MEDS: CHOLECALCIFEROL 1,000 UNIT TAB PO SCH (10:04)
--- NOTE | 2019-02-07 11:30 | P.CONS ---
History of Present Illness - Reason for Consult Consult date: 02/07/19 ERCP evaluation Requesting physician: Vidya Love - Chief Complaint back pain - History of Present Illness 79-year-old female with a past medical history of EtOH abuse, benign right nephrectomy, A. fib maintained on warfarin, COPD, hyperlipidemia, hypertension. Patient with back pain wrapping to the upper abdomen for several days. Now reports darker colored urine. Drinks alcohol on a daily basis. CT chest abdomen and pelvis reported no evidence of pancreatic mass. Gallbladder appeared normal. A 2 cm cyst inferior right lobe of the liver. Bile ducts are not dilated. HIDA scan no tracer excretion consider possibilities of cystic duct and common bile duct obstruction to be considered as well as severe hepatocellular disease. Ultrasound reported a large common bile duct measuring 11 mm. Ultrasound abdomen and gallbladder wall 0.3 cm. CBC 1.1 cm. No gallstones. Large common bile duct consistent with gallbladder dysfunction simple hepatic cyst. 02/05/2019 INR 2.8 Admission total bilirubin 2.1. AST 2017. ALT 280. AP 332. Lipase 46. Today total bilirubin 6.2. AST 419. ALT 560. AP 246. Hepatitis screen nonreactive. White count 9.8. Hemoglobin 12.7. Platelet 112. LFTs normal in October 2018. Review of Systems MConstitutional: Denies fever, chills, sweats, weight gain, or loss. HEENT: Negative for migraines, blurred vision or loss, earaches, drainage, tinnitus, oral mucosal lesions, dysphagia, or odynophagia. CARDIAC: Negative for chest pain, arrhythmias, or palpitation. RESPIRATORY: Negative for shortness of breath, hemoptysis, cough, or sputum production. GI: See HPI for pertinent findings. : Negative for hematuria, urgency, frequency, polyuria, or dysuria. GYNc: Negative vaginal discharge. MUSCULOSKELETAL: Negative for muscle aches, swelling, arthritis, and arthralgias. NEUROLOGIC: Negative for stroke or TIA. ENDOCRINE: Negative for thyroid problems. SKIN: Negative for rash or itching. PSYCHIATRIC: Negative history for depression and anxiety Past Medical History Past Medical History: Atrial Fibrillation, Cancer, COPD, Hyperlipidemia, Hypertension Additional Past Medical History / Comment(s): Skin cancer, osteopenia. 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 History of Any Multi-Drug Resistant Organisms: None Reported Past Surgical History: Breast Surgery, Hysterectomy, Tubal Ligation Additional Past Surgical History / Comment(s): Right kidney surgery for benign masses. thyroid tumors. Colonoscopy 2013. Past Anesthesia/Blood Transfusion Reactions: No Reported Reaction Past Psychological History: No Psychological Hx Reported Smoking Status: Current every day smoker Past Alcohol Use History: Occasional Additional Past Alcohol Use History / Comment(s): Patient is a smoker of 2 packs per day for 40 years. She drinks alcohol up to 3 drinks per day for 40 years. Patient lives alone. Past Drug Use History: None Reported - Past Family History Mother Additional Family Medical History / Comment(s): Maternal grandfather had an SD, maternal aunt had rectal cancer. Mother at age 91 from old age. Father Additional Family Medical History / Comment(s): Father at age 69 from competitions of COPD and alcohol abuse. Brother(s) Additional Family Medical History / Comment(s): Patient has one brother with diabetes. She does not have any sisters. Patient has 4 children with no major medical problems. Medications and Allergies Home Medications Medication Instructions Recorded Confirmed Type ALPRAZolam [Xanax] 0.5 mg PO DAILY PRN 12/14/17 02/06/19 History Cholecalciferol [Vitamin D3] 5,000 unit PO DAILY 12/14/17 02/06/19 History Losartan/Hydrochlorothiazide 1 tab PO DAILY 12/14/17 02/06/19 History [Losartan-Hctz 100-25 mg Tab] Magnesium Oxide [Mag-Ox] 400 mg PO DAILY 12/14/17 02/06/19 History Potassium Chloride ER [K-Dur 10] 10 meq PO DAILY 12/14/17 02/06/19 History Simvastatin 40 mg PO HS 12/14/17 02/06/19 History Allopurinol [Zyloprim] 100 mg PO DAILY 02/06/19 02/06/19 History Furosemide [Lasix] 40 mg PO DAILY 02/06/19 02/06/19 History Metoprolol Succinate (ER) [Toprol 50 mg PO DAILY 02/06/19 02/06/19 History Xl] Omeprazole 20 mg PO DAILY 02/06/19 02/06/19 History Vit C/E/Zn/Coppr/Lutein/Zeaxan 1 cap PO BID 02/06/19 02/06/19 History [Preservision Areds 2 Softgel] Warfarin Sodium 2.5 mg PO MOWEFR 02/06/19 02/06/19 History Warfarin Sodium 5 mg PO SUTUTHSA 02/06/19 02/06/19 History Allergies Allergy/AdvReac Type Severity Reaction Status Date / Time iodine Allergy Unknown Verified 02/06/19 11:07 Physical Exam Vitals: Vital Signs Temp Pulse Pulse Resp BP Pulse Ox 02/07/19 07:34 98.0 F 100 16 167/76 93 L 02/07/19 04:00 97.8 F 96 16 136/75 96 02/07/19 00:00 98 F 92 16 111/68 96 02/06/19 23:09 96 02/06/19 20:00 98.4 F 94 16 123/58 96 02/06/19 16:00 98.6 F 79 16 138/66 95 02/06/19 11:26 98.1 F 83 16 107/55 94 L Intake and Output 02/06/19 02/07/19 02/07/19 22:59 06:59 14:59 Intake Total 50 400 315 Output Total 600 Balance 50 -200 315 Intake: Intake, IV Titration 50 75 Amount Sodium Chloride 0.9% 1, 75 000 ml @ 75 mls/hr IV . [id number] TYRELL Rx#:[id number] cefTRIAXone 1 gm In 50 Sodium Chloride 0.9% 50 ml @ 100 mls/hr IVPB Q24HR TYRELL Rx#:[id number] Oral 400 240 Output: Urine 600 Other: Weight 108.1 kg General appearance: The patient is alert, oriented, in no acute distress. Jaundice HET: Head is normocephalic and atraumatic. Pupils are equal and reactive. Sclera icterus. Oropharynx is clear without lesions. Neck: Supple without lymphadenopathy. Trachea midline. Heart: S1 S2. Regular rate and rhythm. Lungs: No crackles or wheezes are heard. Abdomen: Soft, nontender, nondistended with bowel sounds. No peritoneal signs. No palpable organomegaly or masses. Extremities: Normal skin color and turgor. No cyanosis, rash, ulceration, clubbing, or edema. Radial and pedal pulses are 2/4 bilaterally. Neurological: No focal deficits. Strength and sensation are grossly intact. Results CBC & Chem 7: 02/07/19 05:59 02/07/19 05:59 Labs: Abnormal Lab Results - Last 24 Hours (Table) 02/06/19 02/07/19 02/07/19 Range/Units 10:49 00:30 05:59 Plt Count 112 L (150-450) k/uL Neutrophils # 8.2 H (1.3-7.7) k/uL Lymphocytes # 0.7 L (1.0-4.8) k/uL Chloride (98-107) mmol/L BUN (7-17) mg/dL Glucose (74-99) mg/dL Plasma Lactic Acid Dilip 2.1 H* (0.7-2.0) mmol/L Calcium (8.4-10.2) mg/dL Total Bilirubin (0.2-1.3) mg/dL AST (14-36) U/L ALT (9-52) U/L Alkaline Phosphatase (38-126) U/L Total Protein (6.3-8.2) g/dL Albumin (3.5-5.0) g/dL Urine Protein Trace H (Negative) Urine Blood Trace H (Negative) Urine Bilirubin 1+ H (Negative) Ur Leukocyte Esterase Moderate H (Negative) Urine WBC 15 H (0-5) /hpf Urine Bacteria Rare H (None) /hpf 02/07/19 Range/Units 05:59 Plt Count (150-450) k/uL Neutrophils # (1.3-7.7) k/uL Lymphocytes # (1.0-4.8) k/uL Chloride 108 H (98-107) mmol/L BUN 23 H (7-17) mg/dL Glucose 105 H (74-99) mg/dL Plasma Lactic Acid Dilip (0.7-2.0) mmol/L Calcium 7.9 L (8.4-10.2) mg/dL Total Bilirubin 6.2 H (0.2-1.3) mg/dL AST 419 H (14-36) U/L ALT 568 H (9-52) U/L Alkaline Phosphatase 246 H (38-126) U/L Total Protein 5.5 L (6.3-8.2) g/dL Albumin 3.0 L (3.5-5.0) g/dL Urine Protein (Negative) Urine Blood (Negative) Urine Bilirubin (Negative) Ur Leukocyte Esterase (Negative) Urine WBC (0-5) /hpf Urine Bacteria (None) /hpf Microbiology - Last 24 Hours (Table) 02/07/19 00:30 Urine Culture - Preliminary Urine,Voided 02/05/19 20:11 Urine Culture - Preliminary Urine,Clean Catch Comments: HIDA scan report reviewed by Dr. Wylie CT scan - abdomen: report reviewed (Dr. Wylie) US - abdomen: report reviewed (Dr. Wylie) Assessment and Plan (1) Acute pancreatitis Current Visit: Yes Status: Acute Code(s): K85.90 - ACUTE PANCREATITIS WITHOUT NECROSIS OR INFECTION, UNSP SNOMED Code(s): 462337415 (2) Elevated liver enzymes Narrative/Plan: Decompensated alcohol liver disease versus common bile duct obstruction possibly combination of both. Current Visit: Yes Status: Acute Code(s): R74.8 - ABNORMAL LEVELS OF OTHER SERUM ENZYMES SNOMED Code(s): 765147532 (3) Chronic alcoholism Current Visit: Yes Status: Acute Code(s): F10.20 - ALCOHOL DEPENDENCE, UNCOMPLICATED SNOMED Code(s): 9688280 (4) Atrial fibrillation Current Visit: Yes Status: Acute Code(s): I48.91 - UNSPECIFIED ATRIAL FIBRILLATION SNOMED Code(s): 23227252 (5) Warfarin-induced coagulopathy Current Visit: Yes Status: Acute Code(s): D68.32 - HEMORRHAGIC DISORD D/T EXTRINSIC CIRCULATING ANTICOAGULANTS; T45.515A - ADVERSE EFFECT OF AN TICOAGULANTS, INITIAL ENCOUNTER SNOMED Code(s): 81590880 Plan: 1. Daily CBC CMP PT/INR. MRCP advised and ordered. ERCP contingent on MRCP fin dings. INR correction of INR 1.5 or less. Will follow closely with you. Alcohol abstinence advised. Thank you for this kind referral and the opportunity to participate in the care of your patient. This consultation was discussed with Dr. Wylie. The impression and plan of care have been directed as dictated.
[2019-02-07 13:46] LABS: INR 2.1 (<1.2); Prothrombin Time 20.3 sec (9.0-12.0)
--- NOTE | 2019-02-07 14:46 | P.PN ---
Subjective Progress Note Date: 02/07/19 This is a pleasant 79-year-old female who used to see Dr. Saucedo in the office, she follows now with Dr. Arzate in the office. She has history of hypertension, hyperlipidemia, emphysema, nicotine dependence, EtOH use, she's been drinking more heavily recently then she had in the past. She also has history of paroxysmal atrial fibrillation for which she has been taking Coumadin. Patient has not had her INR checked in the office since November. She presents to the hospital on this occasion with symptoms of back pain with associated epigastric discomfort. Symptoms have been occurring since Wednesday. She states that the symptoms initially started in her back, lower back up into her upper back region, ultimately she was noticing symptoms in her mid back epigastric area and lower chest area that she described as a pressure feeling. A CAT scan of the abdomen and pelvis was performed which revealed atherosclerotic vascular disease, extensive colonic diverticulosis without diverticulitis. 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 Ultrasound of the gallbladder was also performed which did not reveal any evidence of gallstones, it did reveal large common bile duct consistent with gallbladder dysfunction. There is also a cyst noted on the liver. EKG on presentation here showed atrial fibrillation with a rapid ventricular response. Blood pressure 102/40, heart rate in the 90s, 94% on room air. White blood cell count is normal, hemoglobin 15.1, platelet count 148. INR 2.8. Sodium 144, potassium 3.9, BUN 18, creatinine 0.9. Plasma lactic acid 2.8 on admission magnesium 1.7 total bilirubin 2.1, AST 517, ALT 288, alk phos 332, troponins negative 3. Lipase 486. Positive UTI. At the time of my examination this morning, patient has no discomfort, she does state that she had a cardiac catheterization by Dr. Saucedo in 2005 which revealed a 20% lesion in the LAD. Most recent stress test was in January 2017 she had a dobutamine echo at that time which was reported to be normal. 02/07/2019 Patient was seen and examined this morning, heart rate up in the 90s, we will increase her dose of beta naomi today. GI consultation is requested because of abnormal liver functions. The patient did have hepatobiliary scan performed, no tracer excretion. Possibilities of cystic duct and common bile duct obstruction as well as severe hepatocellular disease. The ultrasound yesterday showed a large common bile duct measuring 11 mm. After the dose of beta naomi was increased this morning her subsequent blood pressure came back to be 126/60 with a heart rate of 70. Objective - Vital Signs Vital signs: Vital Signs Temp 98.0 F 02/07/19 07:34 Pulse 77 02/07/19 11:15 Resp 16 02/07/19 11:15 BP 126/60 02/07/19 11:15 Pulse Ox 97 02/07/19 11:15 Intake & Output 02/06/19 02/07/19 02/07/19 18:59 06:59 18:59 Intake Total 50 400 315 Output Total 600 Balance 50 -200 315 Weight 108.1 kg Intake: Intake, IV Titration 50 75 Amount Sodium Chloride 0.9% 1, 75 000 ml @ 75 mls/hr IV . [id number] TYRELL Rx#:[id number] cefTRIAXone 1 gm In 50 Sodium Chloride 0.9% 50 ml @ 100 mls/hr IVPB Q24HR TYRELL Rx#:[id number] Oral 400 240 Output: Urine 600 Other: # Voids 0 1 - Exam PHYSICAL EXAMINATION: GENERAL: 79-year-old female in no acute distress at the time of my e xamination HEENT: Head is atraumatic, normocephalic. Pupils equal, round. Sclera anicteric. Conjunctiva are clear. Mucous membranes of the mouth are moist. Neck is supple. There is no elevated jugular venous pressure. No carotid bruit is heard. HEART EXAMINATION: Heart S1 and S2 irregularly irregular systolic murmur is heard. CHEST EXAMINATION: Lungs revealed decreased air exchange with wheezing throughout ABDOMEN: Soft, positive mid epigastric and right upper quadrant tenderness on palpation. EXTREMITIES: 2+ peripheral pulses with trace evidence of peripheral edema and no calf tenderness noted. NEUROLOGIC patient is awake, alert and oriented 3 . . - Labs CBC & Chem 7: 02/07/19 05:59 02/07/19 05:59 Labs: Abnormal Lab Results - Last 24 Hours (Table) 02/07/19 02/07/19 02/07/19 Range/Units 00:30 05:59 05:59 Plt Count 112 L (150-450) k/uL Neutrophils # 8.2 H (1.3-7.7) k/uL Lymphocytes # 0.7 L (1.0-4.8) k/uL PT (9.0-12.0) sec INR (<1.2) Chloride 108 H (98-107) mmol/L BUN 23 H (7-17) mg/dL Glucose 105 H (74-99) mg/dL Calcium 7.9 L (8.4-10.2) mg/dL Total Bilirubin 6.2 H (0.2-1.3) mg/dL AST 419 H (14-36) U/L ALT 568 H (9-52) U/L Alkaline Phosphatase 246 H (38-126) U/L Total Protein 5.5 L (6.3-8.2) g/dL Albumin 3.0 L (3.5-5.0) g/dL Urine Protein Trace H (Negative) Urine Blood Trace H (Negative) Urine Bilirubin 1+ H (Negative) Ur Leukocyte Esterase Moderate H (Negative) Urine WBC 15 H (0-5) /hpf Urine Bacteria Rare H (None) /hpf 02/07/19 Range/Units 12:59 Plt Count (150-450) k/uL Neutrophils # (1.3-7.7) k/uL Lymphocytes # (1.0-4.8) k/uL PT 20.3 H (9.0-12.0) sec INR 2.1 H (<1.2) Chloride (98-107) mmol/L BUN (7-17) mg/dL Glucose (74-99) mg/dL Calcium (8.4-10.2) mg/dL Total Bilirubin (0.2-1.3) mg/dL AST (14-36) U/L ALT (9-52) U/L Alkaline Phosphatase (38-126) U/L Total Protein (6.3-8.2) g/dL Albumin (3.5-5.0) g/dL Urine Protein (Negative) Urine Blood (Negative) Urine Bilirubin (Negative) Ur Leukocyte Esterase (Negative) Urine WBC (0-5) /hpf Urine Bacteria (None) /hpf Microbiology - Last 24 Hours (Table) 02/05/19 20:11 Urine Culture - Preliminary Urine,Clean Catch Gram Neg Bacilli 02/07/19 00:30 Urine Culture - Preliminary Urine,Voided Assessment and Plan Plan: Assessment and plan #1 symptoms of back discomfort with associated abdominal and mid epigastric discomfort. Atypical symptoms for acute coronary syndrome. Troponins negative 3. Elevated liver enzymes. Gallbladder ultrasound does not reveal any gallstones, large common bile duct consistent with gallbladder dysfunction. Patient did undergo cardiac catheterization in 2005 that revealed a 20% lesion in the LAD, dobutamine echo in 2017 negative #2 hypertension #3 hyperlipidemia #4 nicotine dependence #5 EtOH abuse #6 emphysema #7 atrial fibrillation with rapid ventricular response, patient has history of paroxysmal A. fib Plan Patient has been covered for [employer], he'll cost her $40 a month, we will initiate this from tomorrow. GI consultation is requested because of the abnormality in the liver enzymes. Beta naomi increased today to 50 mg by mouth twice a day. DNP note has been reviewed, I agree with a documented findings and plan of care. Patient was seen and examined.
--- NOTE | 2019-02-07 15:45 | P.PN ---
Subjective Progress Note Date: 02/07/19 This is a 79-year-old female patient of Dr. Hardin with past medical history of hypertension, hyperlipidemia, COPD, nicotine dependence, alcohol abuse, paroxysmal atrial fibrillation on chronic Coumadin, gastroesophageal reflux disease, gout, generalized anxiety disorder. She states she [facility] fol lowed [facility] with [facility] regarding her INR in November and does not have a good explanation why she has been back is that it is summer. She states she normally sees Dr. Arzate every 6 months. Patient states that for several days she has been complaining of back pain which she thought originally was from sitting on zay furniture on her deck. Back pain seemed to be quite severe and worsening and on Wednesday she did not feel right she was too tired to go out with her family and stayed home. On Wednesday, she took an Aleve and did go to the [facility] a friend's birthday constitution party. She saw the pain was all related to her back as it was going down her spine and she has seen a chir opractor in the past but yesterday she finally realized that it was really coming from her abdomen in the right upper quadrant mid area. She complains of nausea and had emesis in the emergency center. She complains of chills without fever. She denies any urinary symptoms such as dysuria, frequency. She states she does have some memory problems recently. Patient relates that she is drinking at least 3 alcoholic beverages per day and has been drinking for 40 years. She denies having any withdrawal symptoms when she has been without alcohol. Patient is actively smoking 2 packs per day for 40 years. Patient came to [facility] emergency center for evaluation. She was afebrile, heart rate running up to 146, blood pressure 129/66, pulse ox 97%. CBC noted thrombocytopenia 148. Electrolytes were within normal limits, creatinine 0.92, blood sugar 122. Lactic acid 2.7. Total bilirubin 2.1, AST 517, ALT 288, alkaline phosphatase 332, lipase 486. INR is 2.8. Magnesium 1.7, troponin negative. Urinalysis was clear, moderate blood, leukoesterase moderate, RBCs 43, wbc's 15. EKG was atrial fibrillation with RVR. CAT scan of the chest abdomen and pelvis without contrast revealed atherosclerotic vascular disease. Extensive colonic diverticulosis without diverticulitis. Old granulomatous disease. 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 The patient was given Lopressor 5 mg IV push followed by oral 25 mg, Zofran, IV fluids and admitted to the cardiac stepdown unit and cardiology consult requested. 02/07: Patient states that her abdominal pain is about the same as yesterday. She thinks it's from getting in and out of bed although this had started prior to her admission to the hospital. HIDA scan revealed no tracer excretion. Consider possibility as well as cystic duct and common bile duct obstruction as well as severe hepatocellular disease. Ultrasound from yesterday revealed a large common bile duct measuring 11 mm and distal common bile duct obstruction should be considered. Consult with GI has been added and MRCP ordered. Patient is to be nothing by mouth for MRCP scheduled for tomorrow. Acute hepatitis panel negative. Repeat lab work reveals total bilirubin now 6.2, AST 419, ALT 568, alkaline phosphatase 246. INR is 2.1. Cardiology is following and eliquis has been priced by case management at $47 per month for the patient. Cardiology has increased metoprolol to 50 mg twice daily. desk monitor is atrial fibrillation with controlled ventricular response. Urine cultures positive for gram-negative bacilli and sensitivity is pending. Objective - Vital Signs Vital signs: Vital Signs Temp 98.0 F 02/07/19 07:34 Pulse 77 02/07/19 11:15 Resp 16 02/07/19 11:15 BP 126/60 02/07/19 11:15 Pulse Ox 97 02/07/19 11:15 Intake & Output 02/06/19 02/07/19 02/07/19 18:59 06:59 18:59 Intake Total 50 400 315 Output Total 600 Balance 50 -200 315 Weight 108.1 kg Intake: Intake, IV Titration 50 75 Amount Sodium Chloride 0.9% 1, 75 000 ml @ 75 mls/hr IV . [id number] [facility] Rx#:[id number] cefTRIAXone 1 gm In 50 Sodium Chloride 0.9% 50 ml @ 100 mls/hr IVPB Q24HR [facility] Rx#:[id number] Oral 400 240 Output: Urine 600 Other: # Voids 0 1 - Exam Review of Systems Constitutional: Reports poor appetite, Denies chills, Denies fatigue, Denies fever, Denies weakness Ears, nose, mouth and throat: Denies dental pain, Denies dysphagia, Denies nasal congestion, Denies nasal discharge, Denies vertigo Cardiovascular: Denies chest pain, Denies decreased exercise tolerance, Denies dyspnea on exertion, Denies edema, Denies irregular heart beat, Denies leg edema, Denies palpitations, Denies shortness of breath, Denies syncope Respiratory: Denies congestion, Denies cough, Denies cough with sputum, Denies dyspnea, Denies excessive sputum, Denies hemoptysis, Denies home oxygen, Denies wheezing Gastrointestinal: Reports abdominal pain, Reports loss of appetite, Reports nausea, denies vomiting, Denies constipation, Denies diarrhea Genitourinary: Denies difficulty voiding, Denies dysuria, Denies urgency, Denies urinary frequency Musculoskeletal: Denies frequent falls, Denies gait dysfunction, Denies muscle weakness, Denies myalgias Integumentary: Denies pruritus, Denies rash, Denies wounds Neurological: Denies aphasia, Denies change in mentation, Denies change in speech, Denies gait dysfunction, Denies seizures, Denies vertigo Psychiatric: Denies anxiety, Denies depression Endocrine: Denies fatigue, Denies weight change Gen: This is a 79-year-old obese female. Patient is resting in bed and appears to be comfortable and in no acute distress. No respiratory distress noted. HEENT: Head is atraumatic, normocephalic. Pupils equal, round. Sclerae is anicteric. Mucous members of the mouth are moist. NECK: Supple. No JVD. No lymphadenopathy. No thyromegaly. LUNGS: Clear to auscultation. No wheezes or rhonchi. No intercostal retractions. HEART: Irregularly irregular rate and rhythm. Systolic murmur. ABDOMEN: Soft. Bowel sounds are present. No masses. Right upper quadrant tenderness-unchanged. EXTREMITIES: No pedal edema. No calf tenderness. Dorsalis pedis +2 bilaterally. NEUROLOGICAL: Patient is awake, alert and oriented x3. Cranial nerves 2 through 12 are grossly intact. - Labs CBC & Chem 7: 02/07/19 05:59 02/07/19 05:59 Labs: Abnormal Lab Results - Last 24 Hours (Table) 02/07/19 02/07/19 02/07/19 Range/Units 00:30 05:59 05:59 Plt Count 112 L (150-450) k/uL Neutrophils # 8.2 H (1.3-7.7) k/uL Lymphocytes # 0.7 L (1.0-4.8) k/uL Chloride 108 H (98-107) mmol/L BUN 23 H (7-17) mg/dL Glucose 105 H (74-99) mg/dL Calcium 7.9 L (8.4-10.2) mg/dL Total Bilirubin 6.2 H (0.2-1.3) mg/dL AST 419 H (14-36) U/L ALT 568 H (9-52) U/L Alkaline Phosphatase 246 H (38-126) U/L Total Protein 5.5 L (6.3-8.2) g/dL Albumin 3.0 L (3.5-5.0) g/dL Urine Protein Trace H (Negative) Urine Blood Trace H (Negative) Urine Bilirubin 1+ H (Negative) Ur Leukocyte Esterase Moderate H (Negative) Urine WBC 15 H (0-5) /hpf Urine Bacteria Rare H (None) /hpf Microbiology - Last 24 Hours (Table) 02/07/19 00:30 Urine Culture - Preliminary Urine,Voided 02/05/19 20:11 Urine Culture - Preliminary Urine,Clean Catch Assessment and Plan Plan: 1. Back pain and abdominal pain possibly related to passed gallbladder stone, biliary obstruction, pancreatitis. HIDA scan as above. Clear liquid diet and nothing by mouth after midnight for MRCP. Recheck CMP and lipase in the morning. Continue IV fluids. GI consult appreciated. 2. Paroxysmal atrial fibrillation presenting with RVR. Cardiology consult appreciated. Eliquis coverage to be checked by insurance case manager. Coumadin esperanza stevens on hold, aspirin discontinued. Patient has been started on metoprolol 25 mg twice daily. 3. Acute pancreatitis. Continue IV fluids, clear liquid diet. Recheck lipase in the morning. 4. Acute hepatitis possibly alcoholic hepatitis rule out other etiology. Acute hepatitis panel normal. Patient has been advised to stop alcohol intake. 5. Thrombocytopenia possibly related to suppression from alcohol abuse. Recheck CBC in the morning. 6. Hypertension, patient currently hypotensive. Losartan hydrochlorothiazide on hold. 7. Hyperlipidemia. Continue Lipitor 40 mg at bedtime. 8. Gastroesophageal reflux disease. Continue omeprazole 20 g daily. 9. Gout, chronic. Continue allopurinol 100 mg daily. 10. Generalized anxiety disorder. Continue Xanax 0.5 milligrams daily as needed. 11. Alcohol abuse. Patient counseled regarding alcohol cessation. Medical social work consult to provide information regarding AA etc. 12. Tobacco use and dependence. Patient counseled regarding smoking cessation. 13. DVT prophylaxis. Patient is currently therapeutic with Coumadin, eliquis to be started. Discharge plan: Return home Impression and plan of care have been directed as dictated by the signing physician. Farzaneh Delaney nurse practitioner acting as scribe for signing physician.
[2019-02-07] MEDS: ATORVASTATIN 40 MG TAB PO SCH (21:23)
[2019-02-07] MEDS: APIXABAN 5 MG TAB PO SCH (21:23)
[2019-02-08] MEDS: PANTOPRAZOLE 40 MG TABLET PO SCH (05:41)
[2019-02-08] MEDS: SODIUM CHLORIDE 0.9% 1,000 ML IV SCH ×2 (05:41→13:12)
[2019-02-08 06:49] LABS: HCT 38.5 % (34.0-46.0); HGB 12.4 gm/dL (11.4-16.0); MCH 31.9 pg (25.0-35.0); MCHC 32.2 g/dL (31.0-37.0); MCV 99.2 fL (80.0-100.0); Mean Platelet Volume 7.7; Platelet Count 105 k/uL (150-450); RBC 3.88 m/uL (3.80-5.40); RDW 14.7 % (11.5-15.5); WBC 7.6 k/uL (3.8-10.6)
[2019-02-08 06:52] LABS: Prothrombin Time 19.2 sec (9.0-12.0)
[2019-02-08 07:21] LABS: Calcium 8.4 mg/dL (8.4-10.2); Potassium 3.6 mmol/L (3.5-5.1); Total Bilirubin 4.7 mg/dL (0.2-1.3); Total Protein 5.7 g/dL (6.3-8.2)
--- NOTE | 2019-02-08 09:39 | P.PN ---
Subjective Progress Note Date: 02/08/19 Principal diagnosis: Elevated liver enzymes pancreatitis MRCP scheduled for 10 AM. Liver enzymes improving total bilirubin 4.7. AST 272. ALT 459. AP 295. Lipase increased 392. Minimal abdominal discomfort. No nausea vomiting. Afebrile. INR 2. Warfarin discontinued patient started on ELIQUIS received a dose last night. Objective - Vital Signs Vital signs: Vital Signs Temp 98.5 F 02/08/19 08:00 Pulse 96 02/08/19 08:00 Resp 18 02/08/19 08:00 BP 155/77 02/08/19 08:00 Pulse Ox 95 02/08/19 08:00 Intake & Output 02/07/19 02/08/19 02/08/19 18:59 06:59 18:59 Intake Total 1155 480 Balance 1155 480 Weight 109.6 kg Intake: Intake, IV Titration 675 Amount Sodium Chloride 0.9% 1, 675 000 ml @ 75 mls/hr IV . [id number] [facility] Rx#:[id number] Oral 480 480 Other: Voiding Method Toilet Toilet # Voids 2 3 # Bowel Movements 1 - Exam General appearance: The patient is alert, oriented, in no acute distress. HET: Head is normocephalic and atraumatic. Pupils are equal and reactive. Sclerae icterus. Oropharynx is clear without lesions. Neck: Supple without lymphadenopathy. Trachea midline. Heart: S1 S2. Regular rate and rhythm. Lungs: No crackles or wheezes are heard. Abdomen: Soft, very mild soreness to the bilateral upper abdomen, nondistended with bowel sounds. No peritoneal signs. No palpable organomegaly or masses. Extremities: Normal skin color and turgor. No cyanosis, rash, ulceration, clubbing, or edema. Radial and pedal pulses are 2/4 bilaterally. Neurological: No focal deficits. Strength and sensation are grossly intact. - Labs CBC & Chem 7: 02/08/19 06:10 02/08/19 06:10 Labs: Abnormal Lab Results - Last 24 Hours (Table) 02/07/19 02/08/19 02/08/19 Range/Units 12:59 06:10 06:10 Plt Count 105 L (150-450) k/uL PT 20.3 H 19.2 H (9.0-12.0) sec INR 2.1 H 2.0 H (<1.2) Chloride (98-107) mmol/L BUN (7-17) mg/dL Glucose (74-99) mg/dL Total Bilirubin (0.2-1.3) mg/dL AST (14-36) U/L ALT (9-52) U/L Alkaline Phosphatase (38-126) U/L Total Protein (6.3-8.2) g/dL Albumin (3.5-5.0) g/dL Lipase (23-300) U/L 02/08/19 Range/Units 06:10 Plt Count (150-450) k/uL PT (9.0-12.0) sec INR (<1.2) Chloride 108 H (98-107) mmol/L BUN 19 H (7-17) mg/dL Glucose 114 H (74-99) mg/dL Total Bilirubin 4.7 H (0.2-1.3) mg/dL AST 272 H (14-36) U/L ALT 459 H (9-52) U/L Alkaline Phosphatase 295 H (38-126) U/L Total Protein 5.7 L (6.3-8.2) g/dL Albumin 3.0 L (3.5-5.0) g/dL Lipase 392 H (23-300) U/L Microbiology - Last 24 Hours (Table) 02/05/19 20:11 Urine Culture - Preliminary Urine,Clean Catch Gram Neg Bacilli 02/07/19 00:30 Urine Culture - Preliminary Urine,Voided Assessment and Plan (1) Acute pancreatitis Current Visit: Yes Status: Acute Code(s): K85.90 - ACUTE PANCREATITIS WITHOUT NECROSIS OR INFECTION, UNSP SNOMED Code(s): 043291227 (2) Elevated liver enzymes Narrative/Plan: Decompensated alcohol liver disease versus common bile duct obstruction possibly combination of both. Current Visit: Yes Status: Acute Code(s): R74.8 - ABNORMAL LEVELS OF OTHER SERUM ENZYMES SNOMED Code(s): 270297292 (3) Chronic alcoholism Current Visit: Yes Status: Acute Code(s): F10.20 - ALCOHOL DEPENDENCE, UNCOMPLICATED SNOMED Code(s): 6375785 (4) Atrial fibrillation Current Visit: Yes Status: Acute Code(s): I48.91 - UNSPECIFIED ATRIAL FIBRILLATION SNOMED Code(s): 79949189 (5) Warfarin-induced coagulopathy Current Visit: Yes Status: Acute Code(s): D68.32 - HEMORRHAGIC DISORD D/T EXTRINSIC CIRCULATING ANTICOAGULANTS; T45.515A - ADVERSE EFFECT OF ANTICOAGULANTS, INITIAL ENCOUNTER SNOMED Code(s): 08860479 Plan: 1. Daily CBC CMP PT/INR. MRCP scheduled for 10 AM. ERCP contingent on MRCP findings. INR correction of INR 1.5 or less. If ERCP is necessary anticoagulation will need to be held for 48 hours. Will follow closely with you. Assessment and plan a care discussed with Dr. Wylie
[2019-02-08] MEDS: METOPROLOL TARTRATE 50 MG TAB PO SCH ×2 (12:00→22:09)
[2019-02-08] MEDS: APIXABAN 5 MG TAB PO SCH ×2 (12:00→22:10)
[2019-02-08] MEDS: ALLOPURINOL 100 MG TAB PO SCH (12:00)
[2019-02-08] MEDS: VIT A,C & E-LUTEIN-MINERALS 1 EACH TAB PO SCH ×2 (12:00→22:09)
[2019-02-08] MEDS: CHOLECALCIFEROL 1,000 UNIT TAB PO SCH (12:00)
[2019-02-08] MEDS: MAGNESIUM OXIDE 400 MG TAB PO SCH (12:00)
--- NOTE | 2019-02-08 14:31 | P.PN ---
Subjective Progress Note Date: 02/08/19 This is a 79-year-old female patient of Dr. Hardin with past medical history of hypertension, hyperlipidemia, COPD, nicotine dependence, alcohol abuse, paroxysmal atrial fibrillation on chronic Coumadin, gastroesophageal reflux disease, gout, generalized anxiety disorder. She states she last fol lowed [facility] with [facility] her [facility]R in November and does not have a good explanation why she has been back is that it is summer. She states she normally sees Dr. Arzate every 6 months. Patient states that for several days she has been complaining of back pain which she thought originally was from sitting on zay furniture on her deck. Back pain seemed to be quite severe and worsening and on Wednesday she did not feel right she was too tired to go out with her family and stayed home. On Wednesday, she took an Aleve and did go to the [facility] a friend's birthday alliance party. She saw the pain was all related to her back as it was going down her spine and she has seen a chir opractor in the past but yesterday she finally realized that it was really coming from her abdomen in the right upper quadrant mid area. She complains of nausea and had emesis in the emergency center. She complains of chills without fever. She denies any urinary symptoms such as dysuria, frequency. She states she does have some memory problems recently. Patient relates that she is drinking at least 3 alcoholic beverages per day and has been drinking for 40 years. She denies having any withdrawal symptoms when she has been without alcohol. Patient is actively smoking 2 packs per day for 40 years. Patient came to [facility] emergency center for evaluation. She was afebrile, heart rate running up to 146, blood pressure 129/66, pulse ox 97%. CBC noted thrombocytopenia 148. Electrolytes were within normal limits, creatinine 0.92, blood sugar 122. Lactic acid 2.7. Total bilirubin 2.1, AST 517, ALT 288, alkaline phosphatase 332, lipase 486. INR is 2.8. Magnesium 1.7, troponin negative. Urinalysis was clear, moderate blood, leukoesterase moderate, RBCs 43, wbc's 15. EKG was atrial fibrillation with RVR. CAT scan of the chest abdomen and pelvis without contrast revealed atherosclerotic vascular disease. Extensive colonic diverticulosis without diverticulitis. Old granulomatous disease. 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 The patient was given Lopressor 5 mg IV push followed by oral 25 mg, Zofran, IV fluids and admitted to the cardiac stepdown unit and cardiology consult requested. 02/07: Patient states that her abdominal pain is about the same as yesterday. She thinks it's from getting in and out of bed although this had started prior to her admission to the hospital. HIDA scan revealed no tracer excretion. Consider possibility as well as cystic duct and common bile duct obstruction as well as severe hepatocellular disease. Ultrasound from yesterday revealed a large common bile duct measuring 11 mm and distal common bile duct obstruction should be considered. Consult with GI has been added and MRCP ordered. Patient is to be nothing by mouth for MRCP scheduled for tomorrow. Acute hepatitis panel negative. Repeat lab work reveals total bilirubin now 6.2, AST 419, ALT 568, alkaline phosphatase 246. INR is 2.1. Cardiology is following and eliquis has been priced by case management at $47 per month for the patient. Cardiology has increased metoprolol to 50 mg twice daily. edi specialist is atrial fibrillation with controlled ventricular response. Urine cultures positive for gram-negative bacilli and sensitivity is pending. 02/08: Patient for MRCP today. GI continues to follow the patient and ERCP is contingent on MRCP findings. INR will need to be 1.5 or less and anticoagulati on is to be held for 48 hours if ERCP is needed. Patient was started on eliquis yesterday by cardiology. We will plan to put this on hold until need for ERCP as determined. Her INR today is at 2. Total bilirubin 4.7, AST 272, ALT 459, alkaline phosphatase 295. Lipase 392. Repeat lab work has been ordered for tomorrow. Objective - Vital Signs Vital signs: Vital Signs Temp 98.5 F 02/08/19 08:00 Pulse 96 02/08/19 08:00 Resp 18 02/08/19 08:00 BP 155/77 02/08/19 08:00 Pulse Ox 95 02/08/19 08:00 Intake & Output 02/07/19 02/08/19 02/08/19 18:59 06:59 18:59 Intake Total 1155 480 Balance 1155 480 Weight 109.6 kg Intake: Intake, IV Titration 675 Amount Sodium Chloride 0.9% 1, 675 000 ml @ 75 mls/hr IV . [id number] [facility] Rx#:[id number] Oral 480 480 Other: Voiding Method Toilet Toilet # Voids 2 3 # Bowel Movements 1 - Exam Review of Systems Constitutional: Reports poor appetite, Denies chills, Denies fatigue, Denies fever, Denies weakness Ears, nose, mouth and throat: Denies dental pain, Denies dysphagia, Denies nasal congestion, Denies nasal discharge, Denies vertigo Cardiovascular: Denies chest pain, Denies decreased exercise tolerance, Denies dyspnea on exertion, Denies edema, Denies irregular heart beat, Denies leg edema, Denies palpitations, Denies shortness of breath, Denies syncope Respiratory: Denies congestion, Denies cough, Denies cough with sputum, Denies dyspnea, Denies excessive sputum, Denies hemoptysis, Denies home oxygen, Denies wheezing Gastrointestinal: Reports abdominal pain, Reports loss of appetite, Reports nausea, denies vomiting, Denies constipation, Denies diarrhea Genitourinary: Denies difficulty voiding, Denies dysuria, Denies urgency, Denies urinary frequency Musculoskeletal: Denies frequent falls, Denies gait dysfunction, Denies muscle weakness, Denies myalgias Integumentary: Denies pruritus, Denies rash, Denies wounds Neurological: Denies aphasia, Denies change in mentation, Denies change in speech, Denies gait dysfunction, Denies seizures, Denies vertigo Psychiatric: Denies anxiety, Denies depression Endocrine: Denies fatigue, Denies weight change Gen: This is a 79-year-old obese female. Patient is resting in bed and appears to be comfortable and in no acute distress. No respiratory distress noted. HEENT: Head is atraumatic, normocephalic. Pupils equal, round. Sclerae is anicteric. Mucous members of the mouth are moist. NECK: Supple. No JVD. No lymphadenopathy. No thyromegaly. LUNGS: Clear to auscultation. No wheezes or rhonchi. No intercostal retractions. HEART: Irregularly irregular rate and rhythm. Systolic murmur. ABDOMEN: Soft. Bowel sounds are present. No masses. Right upper quadrant tenderness-unchanged. EXTREMITIES: No pedal edema. No calf tenderness. Dorsalis pedis +2 bilaterally. NEUROLOGICAL: Patient is awake, alert and oriented x3. Cranial nerves 2 through 12 are grossly intact. - Labs CBC & Chem 7: 02/08/19 06:10 02/08/19 06:10 Labs: Abnormal Lab Results - Last 24 Hours (Table) 02/07/19 02/08/19 02/08/19 Range/Units 12:59 06:10 06:10 Plt Count 105 L (150-450) k/uL PT 20.3 H 19.2 H (9.0-12.0) sec INR 2.1 H 2.0 H (<1.2) Chloride (98-107) mmol/L BUN (7-17) mg/dL Glucose (74-99) mg/dL Total Bilirubin (0.2-1.3) mg/dL AST (14-36) U/L ALT (9-52) U/L Alkaline Phosphatase (38-126) U/L Total Protein (6.3-8.2) g/dL Albumin (3.5-5.0) g/dL Lipase (23-300) U/L 02/08/19 Range/Units 06:10 Plt Count (150-450) k/uL PT (9.0-12.0) sec INR (<1.2) Chloride 108 H (98-107) mmol/L BUN 19 H (7-17) mg/dL Glucose 114 H (74-99) mg/dL Total Bilirubin 4.7 H (0.2-1.3) mg/dL AST 272 H (14-36) U/L ALT 459 H (9-52) U/L Alkaline Phosphatase 295 H (38-126) U/L Total Protein 5.7 L (6.3-8.2) g/dL Albumin 3.0 L (3.5-5.0) g/dL Lipase 392 H (23-300) U/L Microbiology - Last 24 Hours (Table) 02/05/19 20:11 Urine Culture - Preliminary Urine,Clean Catch Gram Neg Bacilli 02/07/19 00:30 Urine Culture - Preliminary Urine,Voided Assessment and Plan Plan: 1. Back pain and abdominal pain possibly related to passed gallbladder stone, biliary obstruction, pancreatitis. HIDA scan as above. Clear liquid diet and nothing by mouth after midnight for MRCP. Recheck CMP and lipase in the morning. Continue IV fluids. GI consult appreciated. Patient may require ERCP depending on results of MRCP 2. Paroxysmal atrial fibrillation presenting with RVR. Cardiology consult appreciated. Eliquis coverage to be checked by case specialist. Coumadin currently on hold, aspirin discontinued. Patient has been started on metoprolol 25 mg twice daily. 3. Acute pancreatitis. Continue IV fluids, clear liquid diet. Recheck lipase in the morning. 4. Acute hepatitis possibly alcoholic hepatitis rule out other etiology. Acute hepatitis panel normal. Patient has been advised to stop alcohol intake. 5. Thrombocytopenia possibly related to suppression from alcohol abuse. Recheck CBC in the morning. 6. Hypertension, patient currently hypotensive. Losartan hydrochlorothiazide on hold. 7. Hyperlipidemia. Continue Lipitor 40 mg at bedtime. 8. Gastroesophageal reflux disease. Continue omeprazole 20 g daily. 9. Gout, chronic. Continue allopurinol 100 mg daily. 10. Generalized anxiety disorder. Continue Xanax 0.5 milligrams daily as needed. 11. Alcohol abuse. Patient counseled regarding alcohol cessation. Medical social work consult to provide information regarding AA etc. 12. Tobacco use and dependence. Patient counseled regarding smoking cessation. 13. DVT prophylaxis. Patient is currently therapeutic with Coumadin, eliquis to be started once determine if patient needs ERCP. Discharge plan: Return home Impression and plan of care have been directed as dictated by the signing physician. Farzaneh Delaney nurse practitioner acting as scribe for signing physician.
--- NOTE | 2019-02-08 14:55 | P.PN ---
Subjective Progress Note Date: 02/08/19 This is a pleasant 79-year-old female who used to see Dr. Saucedo in the office, she follows now with Dr. Arzate in the office. She has history of hypertension, hyperlipidemia, emphysema, nicotine dependence, EtOH use, she's been drinking more heavily recently then she had in the past. She also has history of paroxysmal atrial fibrillation for which she has been taking Coumadin. Patient has not had her INR checked in the office since November. She presents to the hospital on this occasion with symptoms of back pain with associated epigastric discomfort. Symptoms have been occurring since Wednesday. She states that the symptoms initially started in her back, lower back up into her upper back region, ultimately she was noticing symptoms in her mid back epigastric area and lower chest area that she described as a pressure feeling. A CAT scan of the abdomen and pelvis was performed which revealed atherosclerotic vascular disease, extensive colonic diverticulosis without diverticulitis. 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 Ultrasound of the gallbladder was also performed which did not reveal any evidence of gallstones, it did reveal large common bile duct consistent with gallbladder dysfunction. There is also a cyst noted on the liver. EKG on presentation here showed atrial fibrillation with a rapid ventricular response. Blood pressure 102/40, heart rate in the 90s, 94% on room air. White blood cell count is normal, hemoglobin 15.1, platelet count 148. INR 2.8. Sodium 144, potassium 3.9, BUN 18, creatinine 0.9. Plasma lactic acid 2.8 on admission magnesium 1.7 total bilirubin 2.1, AST 517, ALT 288, alk phos 332, troponins negative 3. Lipase 486. Positive UTI. At the time of my examination this morning, patient has no discomfort, she does state that she had a cardiac catheterization by Dr. Saucedo in 2005 which revealed a 20% lesion in the LAD. Most recent stress test was in January 2017 she had a dobutamine echo at that time which was reported to be normal. 02/07/2019 Patient was seen and examined this morning, heart rate up in the 90s, we will increase her dose of beta naomi today. GI consultation is requested because of abnormal liver functions. The patient did have hepatobiliary scan performed, no tracer excretion. Possibilities of cystic duct and common bile duct obstruction as well as severe hepatocellular disease. The ultrasound yesterday showed a large common bile duct measuring 11 mm. After the dose of beta naomi was increased this morning her subsequent blood pressure came back to be 126/60 with a heart rate of 70. 02/08/2019 Shunt seen and examined today, heart rate under better control. Scheduled for MRCP today. Objective - Vital Signs Vital signs: Vital Signs Temp 98.4 F 02/08/19 11:59 Pulse 96 02/08/19 14:40 Resp 18 02/08/19 14:40 BP 135/96 02/08/19 11:59 Pulse Ox 96 02/08/19 11:59 Intake & Output 02/07/19 02/08/19 02/08/19 18:59 06:59 18:59 Intake Total 1155 480 Balance 1155 480 Weight 109.6 kg Intake: Intake, IV Titration 675 Amount Sodium Chloride 0.9% 1, 675 000 ml @ 75 mls/hr IV . [id number] TYRELL Rx#:[id number] Oral 480 480 Other: Voiding Method Toilet Toilet # Voids 2 3 # Bowel Movements 1 - Exam PHYSICAL EXAMINATION: GENERAL: 79-year-old female in no acute distress at the time of my examination HEENT: Head is atraumatic, normocephalic. Pupils equal, round. Sclera anicteric. Conjunctiva are clear. Mucous membranes of the mouth are moist. Neck is supple. There is no elevated jugular venous pressure. No carotid bruit is heard. HEART EXAMINATION: Heart S1 and S2 irregularly irregular systolic murmur is heard. CHEST EXAMINATION: Lungs revealed decreased air exchange with wheezing thro ughout ABDOMEN: Soft, positive mid epigastric and right upper quadrant tenderness on palpation. EXTREMITIES: 2+ peripheral pulses with trace evidence of peripheral edema and no calf tenderness noted. NEUROLOGIC patient is awake, alert and oriented 3 . . - Labs CBC & Chem 7: 02/08/19 06:10 02/08/19 06:10 Labs: Abnormal Lab Results - Last 24 Hours (Table) 02/08/19 02/08/19 02/08/19 Range/Units 06:10 06:10 06:10 Plt Count 105 L (150-450) k/uL PT 19.2 H (9.0-12.0) sec INR 2.0 H (<1.2) Chloride 108 H (98-107) mmol/L BUN 19 H (7-17) mg/dL Glucose 114 H (74-99) mg/dL Total Bilirubin 4.7 H (0.2-1.3) mg/dL AST 272 H (14-36) U/L ALT 459 H (9-52) U/L Alkaline Phosphatase 295 H (38-126) U/L Total Protein 5.7 L (6.3-8.2) g/dL Albumin 3.0 L (3.5-5.0) g/dL Lipase 392 H (23-300) U/L Microbiology - Last 24 Hours (Table) 02/07/19 00:30 Urine Culture - Final Urine,Voided 02/05/19 20:11 Urine Culture - Final Urine,Clean Catch Escherichia coli Klebsiella pneumoniae Assessment and Plan Plan: Assessment and plan #1 symptoms of back discomfort with associated abdominal and mid epigastric discomfort. Atypical symptoms for acute coronary syndrome. Troponins negative 3. Elevated liver enzymes. Gallbladder ultrasound does not reveal any gallstones, large common bile duct consistent with gallbladder dysfunction. Patient did undergo cardiac catheterization in 2005 that revealed a 20% lesion in the LAD, dobutamine echo in 2017 negative #2 hypertension #3 hyperlipidemia #4 nicotine dependence #5 EtOH abuse #6 emphysema #7 atrial fibrillation with rapid ventricular response, patient has history of paroxysmal A. fib Plan Once the patient is cleared from a GI perspective we will start her on Eliquis 5 mg one tablet by mouth twice a day. We will follow her along with you now on an as-needed basis only, please don't hesitate to call with any questions. DNP note has been reviewed, I agree with a documented findings and plan of care. Patient was seen and examined.
--- NOTE | 2019-02-08 16:02 | MR ---
EXAMINATION TYPE: MR MRCP DATE OF EXAM: 02/08/2019 COMPARISON: 02/21/2018 HISTORY: biliary obstruction Standard multiplanar, multisequence MRI departmental protocol Multiplanar, multisequence images of the MRCP were acquired. FINDINGS: Severe artifact limits the exam. However, there appears to be an area of low signal within the distal common bile duct that was 2 suspected distal CBD stone near the ampulla. Estimated size is approxima tely 5.5 mm in diameter of the largest suspected stone. This results in dilation the common bile duct and gallbladder. Multiple appearing hepatic cysts are noted. Heart is enlarged and is a small right pleural effusion with basilar consolidation. Spleen is homogeneous in signal. Aorta of normal caliber. Pancreas has a normal appearance. Changes of diverticulosis of colon. Right adrenal gland has a kusum l morphology. Left adrenal gland is not well visualized and may be atrophic.. Hypertrophic and degene rative change of the spine. IMPRESSION: 1. Biliary obstruction secondary to two areas of low signal on T2 sequence at the level of the distal CBD suggestive of two obstructing biliary stones. Recommend follow-up dedicated ERCP.
[2019-02-08] MEDS: ATORVASTATIN 40 MG TAB PO SCH (22:09)
[2019-02-09] MEDS: PANTOPRAZOLE 40 MG TABLET PO SCH (07:01)
[2019-02-09 07:19] LABS: INR 1.5 (<1.2); Prothrombin Time 15.3 sec (9.0-12.0)
[2019-02-09] MEDS: APIXABAN 5 MG TAB PO SCH ×2 (07:30→19:16)
[2019-02-09 07:34] LABS: Albumin 2.9 g/dL (3.5-5.0); Calcium 8.8 mg/dL (8.4-10.2); Potassium 3.7 mmol/L (3.5-5.1); Total Bilirubin 2.9 mg/dL (0.2-1.3); Total Protein 5.7 g/dL (6.3-8.2)
[2019-02-09] MEDS: METOPROLOL TARTRATE 50 MG TAB PO SCH ×2 (08:31→21:42)
[2019-02-09] MEDS: CHOLECALCIFEROL 1,000 UNIT TAB PO SCH (08:31)
[2019-02-09] MEDS: ALLOPURINOL 100 MG TAB PO SCH (08:31)
[2019-02-09] MEDS: VIT A,C & E-LUTEIN-MINERALS 1 EACH TAB PO SCH ×2 (08:31→21:41)
[2019-02-09] MEDS: MAGNESIUM OXIDE 400 MG TAB PO SCH (08:32)
[2019-02-09] MEDS ORDERED: IPRATROPIUM-ALBUTEROL 3 ML NEB INHALATION PRN (10:11)
--- NOTE | 2019-02-09 10:19 | P.PN ---
Subjective Progress Note Date: 02/09/19 Principal diagnosis: Elevated liver enzymes pancreatitis Reports dyspnea this morning. Liver enzymes improving total bilirubin 2.9. MRCP reported 2 DCBD stones. Minimal abdominal discomfort. No nausea vomiting. Afebrile. INR 1.5. Anticoagulation on hold. Objective - Vital Signs Vital signs: Vital Signs Temp 98.2 F 02/09/19 08:00 Pulse 88 02/09/19 08:00 Resp 18 02/09/19 08:00 BP 173/98 02/09/19 08:00 Pulse Ox 95 02/09/19 08:00 Intake & Output 02/08/19 02/09/19 02/09/19 18:59 06:59 18:59 Intake Total 369 240 Balance 369 240 Weight 108.5 kg Intake: Oral 369 240 Other: Voiding Method Toilet Toilet Toilet # Voids 0 1 - Exam General appearance: The patient is alert, oriented, in no acute distress. HET: Head is normocephalic and atraumatic. Pupils are equal and reactive. Sclerae icterus. Oropharynx is clear without lesions. Neck: Supple without lymphadenopathy. Trachea midline. Heart: S1 S2. Regular rate and rhythm. Lungs: Audible exp wheeze. Abdomen: Soft, very mild soreness to the bilateral upper abdomen, nondistended with bowel sounds. No peritoneal signs. No palpable organomegaly or masses. Extremities: Normal skin color and turgor. No cyanosis, rash, ulceration, clubbing, or edema. Radial and pedal pulses are 2/4 bilaterally. Neurological: No focal deficits. Strength and sensation are grossly intact. - Labs CBC & Chem 7: 02/08/19 06:10 02/09/19 06:32 Labs: Abnormal Lab Results - Last 24 Hours (Table) 02/09/19 02/09/19 Range/Units 06:32 06:32 PT 15.3 H (9.0-12.0) sec INR 1.5 H (<1.2) Chloride 108 H (98-107) mmol/L BUN 19 H (7-17) mg/dL Glucose 110 H (74-99) mg/dL Total Bilirubin 2.9 H (0.2-1.3) mg/dL AST 148 H (14-36) U/L ALT 356 H (9-52) U/L Alkaline Phosphatase 285 H (38-126) U/L Total Protein 5.7 L (6.3-8.2) g/dL Albumin 2.9 L (3.5-5.0) g/dL Lipase 373 H (23-300) U/L Microbiology - Last 24 Hours (Table) 02/07/19 00:30 Urine Culture - Final Urine,Voided 02/05/19 20:11 Urine Culture - Final Urine,Clean Catch Escherichia coli Klebsiella pneumoniae Assessment and Plan (1) Choledocholithiasis Current Visit: Yes Status: Acute Code(s): K80.50 - CALCULUS OF BILE DUCT W/O CHOLANGITIS OR CHOLECYST W/O OBST SNOMED Code(s): 739960430 (2) Acute pancreatitis Current Visit: Yes Status: Acute Code(s): K85.90 - ACUTE PANCREATITIS WITHOUT NECROSIS OR INFECTION, UNSP SNOMED Code(s): 884925861 (3) Elevated liver enzymes Current Visit: Yes Status: Acute Code(s): R74.8 - ABNORMAL LEVELS OF OTHER SERUM ENZYMES SNOMED Code(s): 759760538 (4) Chronic alcoholism Current Visit: Yes Status: Acute Code(s): F10.20 - ALCOHOL DEPENDENCE, UNCOMPLICATED SNOMED Code(s): 7744332 (5) Atrial fibrillation Current Visit: Yes Status: Acute Code(s): I48.91 - UNSPECIFIED ATRIAL FIBRILLATION SNOMED Code(s): 65568412 (6) Warfarin-induced coagulopathy Current Visit: Yes Status: Acute Code(s): D68.32 - HEMORRHAGIC DISORD D/T EXTRINSIC CIRCULATING ANTICOAGULANTS; T45.515A - ADVERSE EFFECT OF ANTICOAGULANTS, INITIAL ENCOUNTER SNOMED Code(s): 33253821 Plan: Respiratory optimization. Will reevaluate later. Tentative plan to proceed w/ ERCP at 0700. Assessment and plan of care discussed w/ Dr. Wylie
[2019-02-09] MEDS: IPRATROPIUM-ALBUTEROL 3 ML NEB INHALATION SCH ×2 (10:40→19:18)
[2019-02-09] MEDS ORDERED: FUROSEMIDE 10 MG/ML 4 ML VIAL IV STA (11:03)
[2019-02-09] MEDS: LOSARTAN-HCTZ 50-12.5 MG 1 EACH TAB PO SCH (11:27)
[2019-02-09 12:06] LABS: Glucose,Whole Blood 113 mg/dL (75-99)
[2019-02-09] MEDS: methylPREDNISolone SOD SUCCI 125 MG/2 ML VIAL IV SCH ×3 (13:04→23:27)
[2019-02-09] MEDS: INSULIN ASPART (NovoLOG) 100 UNIT/ML VIAL SQ SCH ×3 (13:04→21:49)
--- NOTE | 2019-02-09 13:50 | XR ---
EXAMINATION TYPE: XR chest 1V portable DATE OF EXAM: 02/09/2019 COMPARISON: CT of the chest dated 02/05/2019 HISTORY: COPD TECHNIQUE: Single frontal view of the chest is obtained. FINDINGS: There is no focal air space opacity, pleural effusion, or pneumothorax seen. Scattered ca lcified granulomas. The cardiac silhouette size is within normal limits. The osseous structures are intact. IMPRESSION: No acute process.
--- NOTE | 2019-02-09 15:27 | P.PN ---
Subjective Progress Note Date: 02/09/19 This is a 79-year-old female patient of Dr. Hardin with past medical history of hypertension, hyperlipidemia, COPD, nicotine dependence, alcohol abuse, paroxysmal atrial fibrillation on chronic Coumadin, gastroesophageal reflux disease, gout, generalized anxiety disorder. She states she last fol lowed [facility] with [facility] regarding her INR in November and does not have a good explanation why she has been back is that it is summer. She states she normally sees Dr. Arzate every 6 months. Patient states that for several days she has been complaining of back pain which she thought originally was from sitting on zay furniture on her deck. Back pain seemed to be quite severe and worsening and on Wednesday she did not feel right she was too tired to go out with her family and stayed home. On Wednesday, she took an Aleve and did go to the [facility] a friend's birthday green party. She saw the pain was all related to her back as it was going down her spine and she has seen a chir opractor in the past but yesterday she finally realized that it was really coming from her abdomen in the right upper quadrant mid area. She complains of nausea and had emesis in the emergency center. She complains of chills without fever. She denies any urinary symptoms such as dysuria, frequency. She states she does have some memory problems recently. Patient relates that she is drinking at least 3 alcoholic beverages per day and has been drinking for 40 years. She denies having any withdrawal symptoms when she has been without alcohol. Patient is actively smoking 2 packs per day for 40 years. Patient came to [facility] emergency center for evaluation. She was afebrile, heart rate running up to 146, blood pressure 129/66, pulse ox 97%. CBC noted thrombocytopenia 148. Electrolytes were within normal limits, creatinine 0.92, blood sugar 122. Lactic acid 2.7. Total bilirubin 2.1, AST 517, ALT 288, alkaline phosphatase 332, lipase 486. INR is 2.8. Magnesium 1.7, troponin negative. Urinalysis was clear, moderate blood, leukoesterase moderate, RBCs 43, wbc's 15. EKG was atrial fibrillation with RVR. CAT scan of the chest abdomen and pelvis without contrast revealed atherosclerotic vascular disease. Extensive colonic diverticulosis without diverticulitis. Old granulomatous disease. 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 The patient was given Lopressor 5 mg IV push followed by oral 25 mg, Zofran, IV fluids and admitted to the cardiac stepdown unit and cardiology consult requested. 02/07: Patient states that her abdominal pain is about the same as yesterday. She thinks it's from getting in and out of bed although this had started prior to her admission to the hospital. HIDA scan revealed no tracer excretion. Consider possibility as well as cystic duct and common bile duct obstruction as well as severe hepatocellular disease. Ultrasound from yesterday revealed a large common bile duct measuring 11 mm and distal common bile duct obstruction should be considered. Consult with GI has been added and MRCP ordered. Patient is to be nothing by mouth for MRCP scheduled for tomorrow. Acute hepatitis panel negative. Repeat lab work reveals total bilirubin now 6.2, AST 419, ALT 568, alkaline phosphatase 246. INR is 2.1. Cardiology is following and eliquis has been priced by case management at $47 per month for the patient. Cardiology has increased metoprolol to [address] researcher is atrial fibrillation with controlled ventricular response. Urine cultures positive for gram-negative bacilli and sensitivity is pending. 02/08: Patient for MRCP today. GI continues to follow the patient and ERCP is contingent on MRCP findings. INR will need to be 1.5 or less and anticoagulati on is to be held for 48 hours if ERCP is needed. Patient was started on eliquis yesterday by cardiology. We will plan to put this on hold until need for ERCP as determined. Her INR today is at 2. Total bilirubin 4.7, AST 272, ALT 459, alkaline phosphatase 295. Lipase 392. Repeat lab work has been ordered for tomorrow. 02/09: Patient is having intermittent right upper abdominal pain, it seems to be improving since admission. She is scheduled for ERCP tomorrow with Dr. Wylie. Patient is having some shortness of breath and wheezing for which DuoNeb treatment and one dose of IV Lasix given. Blood pressure is elevated today and she will be resumed on her Hyzaar as well as oral Lasix. The patient has been started on DuoNeb treatments, IV Solu-Medrol and Pulmicort. Consult with Dr. eBrmudez. Patient states that she does not currently have a programming specialist. Objective - Vital Signs Vital signs: Vital Signs Temp 98.2 F 02/09/19 11:10 Pulse 89 02/09/19 11:13 Resp 18 02/09/19 11:13 BP 174/80 02/09/19 11:10 Pulse Ox 97 02/09/19 11:10 Intake & Output 02/08/19 02/09/19 02/09/19 18:59 06:59 18:59 Intake Total 369 240 Balance 369 240 Weight 108.5 kg Intake: Oral 369 240 Other: Voiding Method Toilet Toilet Toilet # Voids 0 1 - Exam Review of Systems Constitutional: Reports poor appetite, Denies chills, Denies fatigue, Denies fever, Denies weakness Ears, nose, mouth and throat: Denies dental pain, Denies dysphagia, Denies nasal congestion, Denies nasal discharge, Denies vertigo Cardiovascular: Denies chest pain, Denies decreased exercise tolerance, Denies dyspnea on exertion, Denies edema, Denies irregular heart beat, Denies leg edema, Denies palpitations, Denies shortness of breath, Denies syncope Respiratory: Denies congestion, Denies cough, Denies cough with sputum, Denies dyspnea, Denies excessive sputum, Denies hemoptysis, Denies home oxygen, reports wheezing Gastrointestinal: Reports abdominal pain, Reports loss of appetite, Reports nausea, denies vomiting, Denies constipation, Denies diarrhea Genitourinary: Denies difficulty voiding, Denies dysuria, Denies urgency, Denies urinary frequency Musculoskeletal: Denies frequent falls, Denies gait dysfunction, Denies muscle weakness, Denies myalgias Integumentary: Denies pruritus, Denies rash, Denies wounds Neurological: Denies aphasia, Denies change in mentation, Denies change in speech, Denies gait dysfunction, Denies seizures, Denies vertigo Psychiatric: Denies anxiety, Denies depression Endocrine: Denies fatigue, Denies weight change Gen: This is a 79-year-old obese female. Patient is resting in bed and appears to be comfortable and in no acute distress. No respiratory distress noted. HEENT: Head is atraumatic, normocephalic. Pupils equal, round. Sclerae is anicteric. Mucous members of the mouth are moist. NECK: Supple. No JVD. No lymphadenopathy. No thyromegaly. LUNGS: A few scattered expiratory wheezes, crackles in the bases.. No intercostal retractions. HEART: Irregularly irregular rate and rhythm. Systolic murmur. ABDOMEN: Soft. Bowel sounds are present. No masses. Right upper quadrant tenderness-unchanged. EXTREMITIES: No pedal edema. No calf tenderness. Dorsalis pedis +2 bilaterally. NEUROLOGICAL: Patient is awake, alert and oriented x3. Cranial nerves 2 through 12 are grossly intact. - Labs CBC & Chem 7: 02/08/19 06:10 02/09/19 06:32 Labs: Abnormal Lab Results - Last 24 Hours (Table) 02/09/19 02/09/19 02/09/19 Range/Units 06:32 06:32 12:03 PT 15.3 H (9.0-12.0) sec INR 1.5 H (<1.2) Chloride 108 H (98-107) mmol/L BUN 19 H (7-17) mg/dL Glucose 110 H (74-99) mg/dL POC Glucose (mg/dL) 113 H (75-99) mg/dL Total Bilirubin 2.9 H (0.2-1.3) mg/dL AST 148 H (14-36) U/L ALT 356 H (9-52) U/L Alkaline Phosphatase 285 H (38-126) U/L Total Protein 5.7 L (6.3-8.2) g/dL Albumin 2.9 L (3.5-5.0) g/dL Lipase 373 H (23-300) U/L Microbiology - Last 24 Hours (Table) 02/07/19 00:30 Urine Culture - Final Urine,Voided 02/05/19 20:11 Urine Culture - Final Urine,Clean Catch Escherichia coli Klebsiella pneumoniae Assessment and Plan Plan: 1. Back pain and abdominal pain possibly related to passed gallbladder stone, biliary obstruction, pancreatitis. HIDA scan as above. Clear liquid diet and nothing by mouth after midnight for ERCP. Recheck CMP and lipase in the morning. Discontinue IV fluids. GI consult appreciated. 2. Paroxysmal atrial fibrillation presenting with RVR. Cardiology consult appreciated. Eliquis on hold until ERCP completed. Coumadin currently on hold, aspirin discontinued. Patient has been started on metoprolol 25 mg twice daily. 3. Acute pancreatitis. Continue clear liquid diet. Recheck lipase in the morning. 4. Acute hepatitis possibly alcoholic hepatitis rule out other etiology. Acute hepatitis panel normal. Patient has been advised to stop alcohol intake. 5. Thrombocytopenia possibly related to suppression from alcohol abuse. Recheck CBC in the morning. 6. Hypertension, patient currently hypotensive. Losartan hydrochlorothiazide resumed, oral Lasix resumed. 7. Hyperlipidemia. Continue Lipitor 40 mg at bedtime. 8. Gastroesophageal reflux disease. Continue omeprazole 20 g daily. 9. Gout, chronic. Continue allopurinol 100 mg daily. 10. Generalized anxiety disorder. Continue Xanax 0.5 milligrams daily as needed. 11. Alcohol abuse. Patient counseled regarding alcohol cessation. Medical social work consult to provide information regarding AA etc. 12. Tobacco use and dependence. Patient counseled regarding smoking cessation. 13. DVT prophylaxis. Patient is currently therapeutic with Coumadin, eliquis to be started once determine if patient needs ERCP. 14. Mild COPD exacerbation. Patient started on DuoNeb treatments 3 times daily 4 times daily as needed, Solu-Medrol 60 mg IV every 8 hours, Pulmicort 0.5 mg twice daily, consult with Dr. Bermudez. 15. Mild fluid overload. One dose of IV Lasix, IV fluids discontinued and patient placed on oral Lasix. Discharge plan: Return home Impression and plan of care have been directed as dictated by the signing elma abbott. Farzaneh Delaney nurse practitioner acting as scribe for signing physician.
--- NOTE | 2019-02-09 16:05 | P.CNPUL ---
History of Present Illness Consult date: 02/09/19 Reason for consult: dyspnea, COPD History of present illness: A 79-year-old female patient was originally hospitalized because of abdominal pain more so on the right and further investigation showed that the patient had abnormal LFTs and MRCP was done and showed biliary obstruction secondary to 2 areas of low signal on T2 sequence and there was also distal common bile duct dilatation suggestive of to obstructive biliary stones. Based on this the patient is going to have an ERCP by gastroenterology tomorrow. The LFTs are still abnormal although they're improving. I was asked even with the patient has the patient was having increased shortness of breath. She is a chronic smoker and drinker. She has been told to have COPD however, she hasn't been using any form of respiratory medications are ventilation treatment. She is not action dependent. Currently she is having increased dyspnea cough chest tightness and wheezing typical of an underlying COPD exacerbation. She also has other comorbidities including hypertension, hyperlipidemia and she has history of chronic alcohol use and she has paroxysmal atrial fibrillation and she is maintained on warfarin on outpatient basis which is currently on hold and INR is down to 1.5. She has acid reflux, gout, and generalized anxiety. No reported aspiration. She is currently on empiric antibiotic coverage with IV Rocephin. She has some limited congested cough. No hemoptysis. No pleurisy. Pulse ox 2 L of oxygen is 97%. No 71 child with asthma. Review of Systems Constitutional: Reports poor appetite, Denies chills, Denies fatigue, Denies fever, Denies weakness Ears, nose, mouth and throat: Denies dental pain, Denies dysphagia, Denies nasal congestion, Denies nasal discharge, Denies vertigo Cardiovascular: Denies chest pain, endorses decreased exercise tolerance, endorses dyspnea on exertion, Denies edema, Denies irregular heart beat, Denies leg edema, Denies palpitations, Denies shortness of breath, Denies syncope Respiratory: Denies congestion, Denies cough, Denies cough with sputum, patient denies having any significant shortness of breath at time of admission. Since her admission she became progressively more dyspneic and currently she is having his cough chest tightness and wheezing Gastrointestinal: Reports abdominal pain, Reports loss of appetite, Reports nausea, Reports vomiting, Denies constipation, Denies diarrhea Genitourinary: Denies difficulty voiding, Denies dysuria, Denies urgency, Denies urinary frequency Musculoskeletal: Denies frequent falls, Denies gait dysfunction, Denies muscle weakness, Denies myalgias Integumentary: Denies pruritus, Denies rash, Denies wounds Neurological: Denies aphasia, Denies change in mentation, Denies change in speech, Denies gait dysfunction, Denies seizures, Denies vertigo Psychiatric: Denies anxiety, Denies depression Endocrine: Denies fatigue, Denies weight change Past Medical History Past Medical History: Atrial Fibrillation, Cancer (Skin cancer), COPD, Hyperlipidemia, Hypertension Additional Past Medical History / Comment(s): History of hypertension, hyperlipidemia, COPD, acid reflux, gout, generalized anxiety disorder, chronic smoking, chronic alcohol abuse, paroxysmal atrial fibrillation on long-term anticoagulation with warfarin and recent hospitalization for gallstone pancreatitis and the patient will need ERCP. She has osteopenia in addition., Skin cancer History of Any Multi-Drug Resistant Organisms: None Reported Past Surgical History: Breast Surgery, Hysterectomy, Tubal Ligation Additional Past Surgical History / Comment(s): Right kidney surgery for benign masses. thyroid tumors. Colonoscopy 2013. Past Anesthesia/Blood Transfusion Reactions: No Reported Reaction Past Psychological History: No Psychological Hx Reported Smoking Status: Current every day smoker Past Alcohol Use History: Occasional Additional Past Alcohol Use History / Comment(s): Patient is a smoker of 2 packs per day for 40 years. She drinks alcohol up to 3 drinks per day for 40 years. Patient lives alone. Past Drug Use History: None Reported - Past Family History Mother Additional Family Medical History / Comment(s): Maternal grandfather had an NC, maternal aunt had rectal cancer. Mother at age 91 from old age. Father Additional Family Medical History / Comment(s): Father at age 69 from competitions of COPD and alcohol abuse. Brother(s) Additional Family Medical History / Comment(s): Patient has one brother with diabetes. She does not have any sisters. Patient has 4 children with no major medical problems. Medications and Allergies Home Medications Medication Instructions Recorded Confirmed Type ALPRAZolam [Xanax] 0.5 mg PO DAILY PRN 12/14/17 02/06/19 History Cholecalciferol [Vitamin D3] 5,000 unit PO DAILY 12/14/17 02/06/19 History Losartan/Hydrochlorothiazide 1 tab PO DAILY 12/14/17 02/06/19 History [Losartan-Hctz 100-25 mg Tab] Magnesium Oxide [Mag-Ox] 400 mg PO DAILY 12/14/17 02/06/19 History Potassium Chloride ER [K-Dur 10] 10 meq PO DAILY 12/14/17 02/06/19 History Simvastatin 40 mg PO HS 12/14/17 02/06/19 History Allopurinol [Zyloprim] 100 mg PO DAILY 02/06/19 02/06/19 History Furosemide [Lasix] 40 mg PO DAILY 02/06/19 02/06/19 History Metoprolol Succinate (ER) [Toprol 50 mg PO DAILY 02/06/19 02/06/19 History Xl] Omeprazole 20 mg PO DAILY 02/06/19 02/06/19 History Vit C/E/Zn/Coppr/Lutein/Zeaxan 1 cap PO BID 02/06/19 02/06/19 History [Preservision Areds 2 Softgel] Warfarin Sodium 2.5 mg PO MOWEFR 02/06/19 02/06/19 History Warfarin Sodium 5 mg PO SUTUTHSA 02/06/19 02/06/19 History Allergies Allergy/AdvReac Type Severity Reaction Status Date / Time iodine Allergy Unknown Verified 02/06/19 11:07 Physical Exam Vitals: Vital Signs Temp Pulse Pulse Resp BP Pulse Ox 02/09/19 11:13 89 18 02/09/19 11:10 98.2 F 89 18 174/80 97 02/09/19 10:51 76 02/09/19 10:40 76 02/09/19 08:00 98.2 F 88 18 173/98 95 02/09/19 04:00 98.2 F 85 18 180/75 92 L 02/09/19 00:00 98.1 F 91 18 141/71 97 02/08/19 20:00 97.6 F 83 18 163/83 96 02/08/19 16:00 98.5 F 86 18 135/61 96 Intake and Output 02/09/19 02/09/19 02/09/19 06:59 14:59 22:59 Intake Total 480 Balance 480 Intake: Oral 480 Other: Voiding Method Toilet Toilet # Voids 0 1 4 Weight 108.5 kg Gen. appearance, comfortable likely distress. She is able to speak up. This is and she is not using excessive muscle breathing. Head exam was generally normal. There was no scleral icterus or corneal arcus. Mucous membranes were moist. Neck was supple and without jugular venous distension, thyromegaly, or carotid bruits. Carotids were easily palpable bilaterally. There was no adenopathy. Mild hepatic S4 and there is no goiter or neck masses. Lungs sounds are diminished bilaterally along with prolongation of the expiratory phase of breathing and scattered expiratory wheezes throughout the lung his bilaterally. Cardiac exam revealed the PMI to be normally situated and sized. The rhythm was regular and no extrasystoles were noted during several minutes of auscultation. The first and second heart sounds were normal and physiologic splitting of the second heart sound was noted. There were no murmurs, rubs, clicks, or gallops. Abdomen is soft bowel sounds are present. There is some mild right upper quadrant tenderness. No rebound tensile guarding. No ascites. No organomegaly. Examination of the extremities revealed easily palpable radial, femoral and pedal pulses. There was no cyanosis, clubbing or edema. Examination of the skin revealed no evidence of significant rashes, suspicious appearing nevi or other concerning lesions. Neurologically the patient is awake and alert and is no focal neurological deficits. Results - Laboratory Findings CBC and BMP: 02/08/19 06:10 02/09/19 06:32 PT/INR, D-dimer PT 15.3 sec (9.0-12.0) H 02/09/19 06:32 INR 1.5 (<1.2) H 02/09/19 06:32 Abnormal lab findings: Abnormal Labs 02/05/19 02/05/19 02/05/19 18:22 18:22 18:22 Hct 47.0 H Plt Count 148 L Neutrophils # Lymphocytes # PT INR APTT Chloride BUN 18 H Glucose 122 H POC Glucose (mg/dL) Plasma Lactic Acid Dilip 2.7 H* Calcium Total Bilirubin 2.1 H AST 517 H ALT 288 H Alkaline Phosphatase 332 H Total Protein Albumin HDL Cholesterol Lipase 486 H Urine Protein Urine Blood Urine Bilirubin Ur Leukocyte Esterase Urine RBC Urine WBC Urine Bacteria Urine Mucus 02/05/19 02/05/19 02/05/19 18:22 20:11 22:54 Hct Plt Count Neutrophils # Lymphocytes # PT 27.0 H INR 2.8 H APTT 34.3 H Chloride BUN Glucose POC Glucose (mg/dL) Plasma Lactic Acid Dilip 2.8 H* Calcium Total Bilirubin AST ALT Alkaline Phosphatase Total Protein Albumin HDL Cholesterol Lipase Urine Protein Trace H Urine Blood Moderate H Urine Bilirubin Ur Leukocyte Esterase Moderate H Urine RBC 43 H Urine WBC 15 H Urine Bacteria Few H Urine Mucus Rare H 02/06/19 02/06/19 02/06/19 02:41 06:29 06:29 Hct Plt Count Neutrophils # Lymphocytes # PT INR APTT Chloride BUN Glucose POC Glucose (mg/dL) Plasma Lactic Acid Dilip 3.5 H* 2.3 H* Calcium Total Bilirubin AST ALT Alkaline Phosphatase Total Protein Albumin HDL Cholesterol 34 L Lipase Urine Protein Urine Blood Urine Bilirubin Ur Leukocyte Esterase Urine RBC Urine WBC Urine Bacteria Urine Mucus 02/06/19 02/07/19 02/07/19 10:49 00:30 05:59 Hct Plt Count 112 L Neutrophils # 8.2 H Lymphocytes # 0.7 L PT INR APTT Chloride BUN Glucose POC Glucose (mg/dL) Plasma Lactic Acid Dilip 2.1 H* Calcium Total Bilirubin AST ALT Alkaline Phosphatase Total Protein Albumin HDL Cholesterol Lipase Urine Protein Trace H Urine Blood Trace H Urine Bilirubin 1+ H Ur Leukocyte Esterase Moderate H Urine RBC Urine WBC 15 H Urine Bacteria Rare H Urine Mucus 02/07/19 02/07/19 02/08/19 05:59 12:59 06:10 Hct Plt Count 105 L Neutrophils # Lymphocytes # PT 20.3 H INR 2.1 H APTT Chloride 108 H BUN 23 H Glucose 105 H POC Glucose (mg/dL) Plasma Lactic Acid Dilip Calcium 7.9 L Total Bilirubin 6.2 H AST 419 H ALT 568 H Alkaline Phosphatase 246 H Total Protein 5.5 L Albumin 3.0 L HDL Cholesterol Lipase Urine Protein Urine Blood Urine Bilirubin Ur Leukocyte Esterase Urine RBC Urine WBC Urine Bacteria Urine Mucus 02/08/19 02/08/19 02/09/19 06:10 06:10 06:32 Hct Plt Count Neutrophils # Lymphocytes # PT 19.2 H 15.3 H INR 2.0 H 1.5 H APTT Chloride 108 H BUN 19 H Glucose 114 H POC Glucose (mg/dL) Plasma Lactic Acid Dilip Calcium Total Bilirubin 4.7 H AST 272 H ALT 459 H Alkaline Phosphatase 295 H Total Protein 5.7 L Albumin 3.0 L HDL Cholesterol Lipase 392 H Urine Protein Urine Blood Urine Bilirubin Ur Leukocyte Esterase Urine RBC Urine WBC Urine Bacteria Urine Mucus 02/09/19 02/09/19 06:32 12:03 Hct Plt Count Neutrophils # Lymphocytes # PT INR APTT Chloride 108 H BUN 19 H Glucose 110 H POC Glucose (mg/dL) 113 H Plasma Lactic Acid Dilip Calcium Total Bilirubin 2.9 H AST 148 H ALT 356 H Alkaline Phosphatase 285 H Total Protein 5.7 L Albumin 2.9 L HDL Cholesterol Lipase 373 H Urine Protein Urine Blood Urine Bilirubin Ur Leukocyte Esterase Urine RBC Urine WBC Urine Bacteria Urine Mucus Assessment and Plan Plan: 1 shortness of breath secondary to an acute COPD exacerbation. The patient is actively bronchospastic and wheezy. 2 gallstone pancreatitis and the patient has 2 stones obstructing the common bile duct with secondary dilatation and the patient will need ERCP. Please refer to the abnormal LFTs and the abnormal results on the MRCP. 3 abnormal LFTs secondary to above 4 alcoholism 5 chronic tobacco use 6 a cardiac thrombus cytopenia 7 paroxysmal atrial fibrillation and the patient on long-term articulation with warfarin which is currently on hold and INR is down to 1.5 8 hypertension 9 hyperlipidemia 10 gout 11 generalized anxiety disorder Plan Obtain a baseline chest x-ray. Use DuoNeb nebulized treatments around the clock. Pulmicort Respules were added. IV Solu-Medrol 60 mg every 8 hours. Rest of the medication will be kept unchanged. Patient will need to be taken to an ERCP in a.m. unless there is a significant changes and the pulmonary status over the next 12-24 hours. Smoking cessation counseling was done. Keep the Coumadin on hold for now.
[2019-02-09 17:03] LABS: Glucose,Whole Blood 182 mg/dL (75-99)
[2019-02-09] MEDS: BUDESONIDE 0.5 MG/2 ML NEBU INHALATION SCH (19:17)
[2019-02-09 21:39] LABS: Glucose,Whole Blood 229 mg/dL (75-99)
[2019-02-09] MEDS: ATORVASTATIN 40 MG TAB PO SCH (21:41)
[2019-02-09] MEDS: SODIUM CHLORIDE 0.9% 1,000 ML IV SCH (21:52)
[2019-02-10] MEDS ORDERED: LEVOFLOXACIN 500MG-D5W PMX 500 MG in DEXTROSE/WATER 1 100ML.BAG IVPB ONE (06:00)
[2019-02-10] MEDS ORDERED: INDOMETHACIN 50MG SUPPOSITORY RECTAL ONE (06:00)
[2019-02-10 06:54] LABS: Glucose,Whole Blood 213 mg/dL (75-99)
[2019-02-10] MEDS: INSULIN ASPART (NovoLOG) 100 UNIT/ML VIAL SQ SCH ×4 (06:56→21:45)
[2019-02-10] MEDS ORDERED: IOPAMIDOL-300 50ML BTL INJ ONE ×2 (07:00→07:40)
[2019-02-10] MEDS ORDERED: LIDOCAINE 1% INJ 10MG/ML (20 ML MDV) ONE (07:04)
[2019-02-10] MEDS ORDERED: GLYCOPYRROLATE 0.2 MG/ML 2 ML VIAL ONE (07:04)
[2019-02-10] MEDS ORDERED: MIDAZOLAM 2 MG/2 ML VIAL ONE (07:04)
[2019-02-10] MEDS ORDERED: IV FLUID CONTINUATION 500 ML IV ONE (07:04)
[2019-02-10] MEDS ORDERED: PROPOFOL 10 MG/ML 20 ML VIAL IV ONE (07:04)
[2019-02-10] MEDS ORDERED: KETAMINE 10 MG/ML 20 ML VIAL ONE (07:04)
--- NOTE | 2019-02-10 08:37 | P.PCN ---
Date of Procedure: 02/10/19 Procedure(s) Performed: Brief history: Patient is a 79 year-old pleasant lady scheduled for an ERCP as part of evaluation of abdominal pain and elevated serum transaminases for the last 2 days' duration. Procedure performed: ERCP with biliary sphincterotomy and balloon stone extraction Preoperative diagnoses: Elevated LFTs/abdominal pain and CBD stones IV sedation per anesthesia: Procedure: After informed consent was obtained from the patient and after the risks benefits and complications including bleeding perforation and pancreatitis explained in detail the patient was brought into the endoscopy unit. The patient was placed in prone position and IV conscious sedation was administered by anesthesia under continuous monitoring. The Olympus side-viewing duodenoscope was then inserted into the mouth and esophagus intubated without any difficulty. The scope was gradually advanced into the stomach and duodenum. The major papilla was identified without any difficulty. 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 Initially attempted cannulating the CBD with the catheter was but was not successful. Subsequent and using the guidewire technique I was able to cannulate the common bile duct and upon injection of the dye there were 2 small common bile duct stones noted measuring about 4-5 mm in size. At this time a biliary sphincterotomy was performed over the guidewire using a biliary sphincterotome and this was extended to at least 1 cm at 12 O'CLOCK POSITION. Following this the sphincter tome was exchanged over a guidewire and balloon catheter was passed into the proximal CBD. It was inflated and withdrawn and 2 stones were seen exiting the ampulla. This maneuver was repeated several times. The pancreatic duct was not intentionally cannulated. Patient tolerated the procedure well. Impression: Slightly dilated CBD with 2 small filling defects status post sphincterotomy and balloon stone extraction as described above Pancreatic duct intentionally not cannulated Recommendations: The findings of this examination were discussed with the patient as well as a family. She'll be on a liquid liquid diet today. Repeat labs in the morning. Consult surgery for cholecystectomy.
[2019-02-10] MEDS: IPRATROPIUM-ALBUTEROL 3 ML NEB INHALATION SCH ×3 (08:42→19:58)
[2019-02-10] MEDS: BUDESONIDE 0.5 MG/2 ML NEBU INHALATION SCH ×2 (08:42→19:58)
[2019-02-10] MEDS ORDERED: METOPROLOL SUCCINATE (ER) 50 MG TAB.ER.24H PO SCH (09:00)
--- NOTE | 2019-02-10 09:10 | FL ---
Fluoroscopy HISTORY: Choledocholithiasis 2 minutes 38 seconds fluoroscopy time supplied to the referring clinician. 1 intraoperative C-arm im ages document the procedure. See dictated report from gastroenterology.
[2019-02-10] MEDS: METOPROLOL TARTRATE 50 MG TAB PO SCH ×2 (09:21→21:32)
[2019-02-10] MEDS: FUROSEMIDE 40 MG TAB PO SCH (09:22)
[2019-02-10] MEDS: ALLOPURINOL 100 MG TAB PO SCH (09:22)
[2019-02-10] MEDS: VIT A,C & E-LUTEIN-MINERALS 1 EACH TAB PO SCH ×2 (09:22→21:32)
[2019-02-10] MEDS: CHOLECALCIFEROL 1,000 UNIT TAB PO SCH (09:22)
[2019-02-10] MEDS: LOSARTAN-HCTZ 50-12.5 MG 1 EACH TAB PO SCH (09:22)
[2019-02-10] MEDS: PANTOPRAZOLE 40 MG TABLET PO SCH (09:23)
[2019-02-10] MEDS: POTASSIUM CHLORIDE ER 10 MEQ TAB.ER.PRT PO SCH (09:23)
[2019-02-10] MEDS: MAGNESIUM OXIDE 400 MG TAB PO SCH (09:23)
[2019-02-10] MEDS: APIXABAN 5 MG TAB PO SCH ×2 (09:23→21:33)
[2019-02-10] MEDS: methylPREDNISolone SOD SUCCI 125 MG/2 ML VIAL IV SCH (09:23)
[2019-02-10 12:00] LABS: Glucose,Whole Blood 176 mg/dL (75-99)
[2019-02-10] MEDS: hydrALAZINE HCL 50 MG TAB PO SCH ×2 (12:32→21:32)
[2019-02-10 13:17] VITALS: BMI 37.3
--- NOTE | 2019-02-10 14:07 | P.PN ---
Subjective Progress Note Date: 02/10/19 This is a 79-year-old female patient of Dr. Hardin with past medical history of hypertension, hyperlipidemia, COPD, nicotine dependence, alcohol abuse, paroxysmal atrial fibrillation on chronic Coumadin, gastroesophageal reflux disease, gout, generalized anxiety disorder. She states she last fol lowed up with [facility] regarding her INR in November and does not have a good explanation why she has been back is that it is summer. She states she normally sees Dr. Arzate every 6 months. Patient states that for several days she has been complaining of back pain which she thought originally was from sitting on zay furniture on her deck. Back pain seemed to be quite severe and worsening and on Wednesday she did not feel right she was too tired to go out with her family and stayed home. On Wednesday, she took an Aleve and did go to the [facility] a friend's birthday green party. She saw the pain was all related to her back as it was going down her spine and she has seen a chir opractor in the past but yesterday she finally realized that it was really coming from her abdomen in the right upper quadrant mid area. She complains of nausea and had emesis in the emergency center. She complains of chills without fever. She denies any urinary symptoms such as dysuria, frequency. She states she does have some memory problems recently. Patient relates that she is drinking at least 3 alcoholic beverages per day and has been drinking for 40 years. She denies having any withdrawal symptoms when she has been without alcohol. Patient is actively smoking 2 packs per day for 40 years. Patient came to [facility] emergency center for evaluation. She was afebrile, heart rate running up to 146, blood pressure 129/66, pulse ox 97%. CBC noted thrombocytopenia 148. Electrolytes were within normal limits, creatinine 0.92, blood sugar 122. Lactic acid 2.7. Total bilirubin 2.1, AST 517, ALT 288, alkaline phosphatase 332, lipase 486. INR is 2.8. Magnesium 1.7, troponin negative. Urinalysis was clear, moderate blood, leukoesterase moderate, RBCs 43, wbc's 15. EKG was atrial fibrillation with RVR. CAT scan of the chest abdomen and pelvis without contrast revealed atherosclerotic vascular disease. Extensive colonic diverticulosis without diverticulitis. Old granulomatous disease. 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 The patient was given Lopressor 5 mg IV push followed by oral 25 mg, Zofran, IV fluids and admitted to the cardiac stepdown unit and cardiology consult requested. 02/07: Patient states that her abdominal pain is about the same as yesterday. She thinks it's from getting in and out of bed although this had started prior to her admission to the hospital. HIDA scan revealed no tracer excretion. Consider possibility as well as cystic duct and common bile duct obstruction as well as severe hepatocellular disease. Ultrasound from yesterday revealed a large common bile duct measuring 11 mm and distal common bile duct obstruction should be considered. Consult with GI has been added and MRCP ordered. Patient is to be nothing by mouth for MRCP scheduled for tomorrow. Acute hepatitis panel negative. Repeat lab work reveals total bilirubin now 6.2, AST 419, ALT 568, alkaline phosphatase 246. INR is 2.1. Cardiology is following and eliquis has been priced by case management at $47 per month for the patient. Cardiology has increased metoprolol to 50 mg twice daily. 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 Urine cultures positive for gram-negative bacilli and sensitivity is pending. 02/08: Patient for MRCP today. GI continues to follow the patient and ERCP is contingent on MRCP findings. INR will need to be 1.5 or less and anticoagulati on is to be held for 48 hours if ERCP is needed. Patient was started on eliquis yesterday by cardiology. We will plan to put this on hold until need for ERCP as determined. Her INR today is at 2. Total bilirubin 4.7, AST 272, ALT 459, alkaline phosphatase 295. Lipase 392. Repeat lab work has been ordered for tomorrow. 02/09: Patient is having intermittent right upper abdominal pain, it seems to be improving since admission. She is scheduled for ERCP tomorrow with Dr. Wylie. Patient is having some shortness of breath and wheezing for which DuoNeb treatment and one dose of IV Lasix given. Blood pressure is elevated today and she will be resumed on her Hyzaar as well as oral Lasix. The patient has been started on DuoNeb treatments, IV Solu-Medrol and Pulmicort. Consult with Dr. Bermudez. 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 Patient did have a drop in her pulse ox to 87%. 02/10: Patient is seen today and appears to be comfortable. Her respiratory d istress is much improved and resolved today. We will decrease Solu-Medrol and start prednisone tomorrow. Her blood pressure remains elevated and hydralazine will be added to her regime. Miguel remains on hold for ERCP scheduled for today. Dr. Miguel A Wylie has recommended consult with general surgery for possible cholecystectomy. Dr. Woodward will be added. 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 Objective - Vital Signs Vital signs: Vital Signs Temp 97.6 F 02/10/19 04:00 Pulse 79 02/10/19 04:00 Resp 18 02/10/19 04:00 BP 166/90 02/10/19 04:00 Pulse Ox 91 L 02/10/19 04:00 Intake & Output 02/09/19 02/10/19 02/10/19 18:59 06:59 18:59 Intake Total 702 540 Balance 702 540 Weight 105.1 kg Intake: Oral 702 540 Other: Voiding Method Toilet Toilet # Voids 4 2 - Exam Review of Systems Constitutional: Reports poor appetite, Denies chills, Denies fatigue, Denies fever, Denies weakness Ears, nose, mouth and throat: Denies dental pain, Denies dysphagia, Denies nasal congestion, Denies nasal discharge, Denies vertigo Cardiovascular: Denies chest pain, Denies decreased exercise tolerance, Denies dyspnea on exertion, Denies edema, Denies irregular heart beat, Denies leg edema, Denies palpitations, Denies shortness of breath, Denies syncope Respiratory: Denies congestion, Denies cough, Denies cough with sputum, Denies dyspnea, Denies excessive sputum, Denies hemoptysis, Denies home oxygen, reports wheezing Gastrointestinal: Reports abdominal pain-improving, Reports loss of appetite, Reports nausea, denies vomiting, Denies constipation, Denies diarrhea Genitourinary: Denies difficulty voiding, Denies dysuria, Denies urgency, Denies urinary frequency Musculoskeletal: Denies frequent falls, Denies gait dysfunction, Denies muscle weakness, Denies myalgias Integumentary: Denies pruritus, Denies rash, Denies wounds Neurological: Denies aphasia, Denies change in mentation, Denies change in speech, Denies gait dysfunction, Denies seizures, Denies vertigo Psychiatric: Denies anxiety, Denies depression Endocrine: Denies fatigue, Denies weight change Gen: This is a 79-year-old obese female. Patient is resting in bed and appears to be comfortable and in no acute distress. No respiratory distress noted. HEENT: Head is atraumatic, normocephalic. Pupils equal, round. Sclerae is anicteric. Mucous members of the mouth are moist. NECK: Supple. No JVD. No lymphadenopathy. No thyromegaly. LUNGS: Clear to auscultation. No wheezes. No rhonchi. No intercostal retractions. No accessory muscle usage. HEART: Irregularly irregular rate and rhythm. Systolic murmur. ABDOMEN: Soft. Bowel sounds are present. No masses. Right upper quadrant tenderness-mild. EXTREMITIES: No pedal edema. No calf tenderness. Dorsalis pedis +2 bilaterally. NEUROLOGICAL: Patient is awake, alert and oriented x3. Cranial nerves 2 through 12 are grossly intact. - Labs CBC & Chem 7: 02/08/19 06:10 02/09/19 06:32 Labs: Abnormal Lab Results - Last 24 Hours (Table) 02/09/19 02/09/19 02/09/19 Range/Units 12:03 17:01 21:38 POC Glucose (mg/dL) 113 H 182 H 229 H (75-99) mg/dL 02/10/19 Range/Units 06:53 POC Glucose (mg/dL) 213 H (75-99) mg/dL Assessment and Plan Plan: 1. Back pain and abdominal pain possibly related to choledocholithiasis, cholecystitis, pancreatitis. HIDA scan as above. ERCP today. Recheck CMP and lipase in the morning. Discontinue IV fluids. GI consult appreciated. Consult with Dr. Woodward added. 2. Paroxysmal atrial fibrillation presenting with RVR. Cardiology consult appreciated. Eliquis on hold until ERCP completed. Coumadin and aspirin discontinued. Patient has been started on metoprolol 50 mg twice daily. 3. Acute pancreatitis. Recheck lipase in the morning. 4. Acute hepatitis possibly due to common bile duct obstruction versus alcoholic hepatitis rule out other etiology. Acute hepatitis panel normal. Patient has been advised to stop alcohol intake. 5. Thrombocytopenia possibly related to suppression from alcohol abuse. Recheck CBC in the morning. 6. Hypertension. Hypotension has resolved. Losartan hydrochlorothiazide resumed, oral Lasix resumed. Added hydralazine 50 mg twice daily 7. Hyperlipidemia. Continue Lipitor 40 mg at bedtime. 8. Gastroesophageal reflux disease. Continue omeprazole 20 g daily. 9. Gout, chronic. Continue allopurinol 100 mg daily. 10. Generalized anxiety disorder. Continue Xanax 0.5 milligrams daily as needed. 11. Alcohol abuse. Patient counseled regarding alcohol cessation. Medical social work consult to provide information regarding AA etc. 12. Tobacco use and dependence. Patient counseled regarding smoking cessation. 13. DVT prophylaxis. Patient initially therapeutic with Coumadin, eliquis to be started once determine if patient needs ERCP. 14. Mild COPD exacerbation with acute hypoxic respiratory failure and drop in pulse ox to 97%. Patient started on DuoNeb treatments 3 times daily 4 times daily as needed, Solu-Medrol will be decreased today and start prednisone in the morning, continue Pulmicort 0.5 mg twice daily, consult with Dr. Aidan zhang. 15. Mild fluid overload secondary to IV fluids. One dose of IV Lasix, IV fluids discontinued and patient placed on oral Lasix. Discharge plan: Return home possibly over the weekend. Impression and plan of care have been directed as dictated by the signing physician. Farzaneh Delaney nurse practitioner acting as scribe for signing physician.
--- NOTE | 2019-02-10 15:29 | P.PN ---
Subjective Progress Note Date: 02/10/19 Principal diagnosis: Gallstone pancreatitis. Acute exacerbation of COPD. A 79-year-old female patient was originally hospitalized because of abdominal pain more so on the right and further investigation showed that the patient had abnormal LFTs and MRCP was done and showed biliary obstruction secondary to 2 areas of low signal on T2 sequence and there was also distal common bile duct dilatation suggestive of to obstructive biliary stones. Based on this the patient is going to have an ERCP by gastroenterology tomorrow. The LFTs are still abnormal although they're improving. I was asked even with the patient has the patient was having increased shortness of breath. She is a chronic smoker and drinker. She has been told to have COPD however, she hasn't been using any form of respiratory medications are ventilation treatment. She is not action dependent. Currently she is having increased dyspnea cough chest tightness and wheezing typical of an underlying COPD exacerbation. She also has other comorbidities including hypertension, hyperlipidemia and she has history of chronic alcohol use and she has paroxysmal atrial fibrillation and she is maintained on warfarin on outpatient basis which is currently on hold and INR is down to 1.5. She has acid reflux, gout, and generalized anxiety. No reported aspiration. She is currently on empiric antibiotic coverage with IV Rocephin. She has some limited congested cough. No hemoptysis. No pleurisy. Pulse ox 2 L of oxygen is 97% The patient is seen today 02/10/2018 in follow-up on the selective care unit. She is currently resting comfortably in bed. Awake and alert in no acute distress. No worsening shortness of breath, cough or congestion. She is maintaining good O2 saturations in the 90s on room air. She's afebrile. She did undergo an ERCP with biliary sphincterotomy and balloon stone extraction this morning. No specific abdominal complaints. Her urine is positive for E. coli and Klebsiella pneumoniae. Currently on ceftriaxone. Remains on DuoNeb inhalations, Pulmicort inhalations, transitioned to oral prednisone. Anticoagulated with Eliquis. Objective - Vital Signs Vital signs: Vital Signs Temp 98.6 F 02/10/19 11:12 Pulse 78 02/10/19 11:12 Resp 18 02/10/19 11:12 BP 183/86 02/10/19 11:12 Pulse Ox 93 L 02/10/19 11:12 Intake & Output 02/09/19 02/10/19 02/10/19 18:59 06:59 18:59 Intake Total 702 540 400 Balance 702 540 400 Weight 105.1 kg 105.1 kg Intake: IV 400 Oral 702 540 Other: Voiding Method Toilet Toilet Toilet # Voids 4 2 - Exam Gen. appearance, comfortable in no acute distress. On room air. Head exam was generally normal. There was no scleral icterus or corneal arcus. Mucous membranes were moist. Neck was supple and without jugular venous distension, thyromegaly, or carotid bruits. Carotids were easily palpable bilaterally. There was no adenopathy. Mild hepatic S4 and there is no goiter or neck masses. Lungs sounds are diminished bilaterally along with scattered expiratory wheezes throughout the lung his bilaterally. Cardiac exam revealed the PMI to be normally situated and sized. The rhythm was regular and no extrasystoles were noted during several minutes of auscultation. The first and second heart sounds were normal and physiologic splitting of the second heart sound was noted. There were no murmurs, rubs, clicks, or gallops. Abdomen is soft bowel sounds are present. There is no right upper quadrant tenderness. No rebound tensile guarding. No ascites. No organomegaly. Examination of the extremities revealed easily palpable radial, femoral and pedal pulses. There was no cyanosis, clubbing or edema. Examination of the skin revealed no evidence of significant rashes, suspicious appearing nevi or other concerning lesions. Neurologically the patient is awake and alert and is no focal neurological deficits. - Labs CBC & Chem 7: 02/08/19 06:10 02/09/19 06:32 Labs: Abnormal Lab Results - Last 24 Hours (Table) 02/09/19 02/09/19 02/10/19 Range/Units 17:01 21:38 06:53 POC Glucose (mg/dL) 182 H 229 H 213 H (75-99) mg/dL 02/10/19 Range/Units 11:58 POC Glucose (mg/dL) 176 H (75-99) mg/dL Assessment and Plan Assessment: Impression: 1 shortness of breath secondary to an acute COPD exacerbation. The patient is actively bronchospastic and wheezy. 2 gallstone pancreatitis and the patient has 2 stones obstructing the common bile duct with secondary dilatation and the patient will need ERCP. Please refer to the abnormal LFTs and the abnormal results on the MRCP. 3 abnormal LFTs secondary to above 4 alcoholism 5 chronic tobacco use 6 a cardiac thrombus cytopenia 7 paroxysmal atrial fibrillation and the patient on long-term articulation with warfarin which is currently on hold and INR is down to 1.5 8 hypertension 9 hyperlipidemia 10 gout 11 generalized anxiety disorder Plan I'll and The patient was seen and evaluated by Dr. Bermudez. She is currently stable from the pulmonary standpoint. She'll complete a prednisone taper. Continue DuoNeb's and Pulmicort. Status post ERCP. She is again educated regarding the importance of complete smoking cessation. We'll continue to follow. I, the cosigning physician, performed a history & physical examination of the patient. Lungs sounds with faint end expiratory wheeze bilaterally. Maintaining good O2 saturations in the 90s on room air. I discussed the assessment and plan of care with my nurse practitioner, Hattie Lomax. I attest to the above note as dictated by her.
[2019-02-10] MEDS ORDERED: methylPREDNISolone SOD SUCCI 40 MG/ML 1 ML VIAL IV SCH (16:00)
--- NOTE | 2019-02-10 17:10 | P.GSCN ---
History of Present Illness Consult date: 02/10/19 Reason for Consult: Choledocholithiasis History of present illness: Patient admitted with pain upper abdomen radiating to the back. Patient was found have elevated liver enzymes. Workup included ultrasound, MRCP, HIDA scan, and ERCP. Patient was found to have 2 distal common bile duct stones. Patient had her ERCP performed this morning. Doing well at this time. Pain has resolved. We were consulted for cholecystectomy. Patient had episodes of uncontrolled hypertension and atrophic fibrillation during the hospital stay. Some fluid overload as well. Patient feels weak. She is hoping to go home tomorrow. Tolerating diet. History of EtOH abuse in the past. History of previous right nephrectomy laparoscopically. Review of Systems The patient denies any acute changes in vision or hearing, no dysphagia or odynophagia, no chest pain or shortness of breath, no dysuria or hematuria, no headache, no runny nose, no rectal bleeding or melena, no unexplained weight loss Past Medical History Past Medical History: Atrial Fibrillation, Cancer (Skin cancer), COPD, Hyperlipidemia, Hypertension Additional Past Medical History / Comment(s): History of hypertension, hyperlipidemia, COPD, acid reflux, gout, generalized anxiety disorder, chronic smoking, chronic alcohol abuse, paroxysmal atrial fibrillation on long-term anticoagulation with warfarin and recent hospitalization for gallstone pancreatitis and the patient will need ERCP. She has osteopenia in addition., Skin cancer History of Any Multi-Drug Resistant Organisms: None Reported Past Surgical History: Breast Surgery, Hysterectomy, Tubal Ligation Additional Past Surgical History / Comment(s): Right kidney surgery for benign masses. thyroid tumors. Colonoscopy 2013. Past Anesthesia/Blood Transfusion Reactions: No Reported Reaction Past Psychological History: No Psychological Hx Reported Smoking Status: Current every day smoker Past Alcohol Use History: Occasional Additional Past Alcohol Use History / Comment(s): Patient is a smoker of 2 packs per day for 40 years. She drinks alcohol up to 3 drinks per day for 40 years. Patient lives alone. Past Drug Use History: None Reported - Past Family History Mother Additional Family Medical History / Comment(s): Maternal grandfather had an SC, maternal aunt had rectal cancer. Mother at age 91 from old age. Father Additional Family Medical History / Comment(s): Father at age 69 from competitions of COPD and alcohol abuse. Brother(s) Additional Family Medical History / Comment(s): Patient has one brother with diabetes. She does not have any sisters. Patient has 4 children with no major medical problems. Medications and Allergies Home Medications Medication Instructions Recorded Confirmed Type ALPRAZolam [Xanax] 0.5 mg PO DAILY PRN 12/14/17 02/06/19 History Cholecalciferol [Vitamin D3] 5,000 unit PO DAILY 12/14/17 02/06/19 History Losartan/Hydrochlorothiazide 1 tab PO DAILY 12/14/17 02/06/19 History [Losartan-Hctz 100-25 mg Tab] Magnesium Oxide [Mag-Ox] 400 mg PO DAILY 12/14/17 02/06/19 History Potassium Chloride ER [K-Dur 10] 10 meq PO DAILY 12/14/17 02/06/19 History Simvastatin 40 mg PO HS 12/14/17 02/06/19 History Allopurinol [Zyloprim] 100 mg PO DAILY 02/06/19 02/06/19 History Furosemide [Lasix] 40 mg PO DAILY 02/06/19 02/06/19 History Metoprolol Succinate (ER) [Toprol 50 mg PO DAILY 02/06/19 02/06/19 History Xl] Omeprazole 20 mg PO DAILY 02/06/19 02/06/19 History Vit C/E/Zn/Coppr/Lutein/Zeaxan 1 cap PO BID 02/06/19 02/06/19 History [Preservision Areds 2 Softgel] Warfarin Sodium 2.5 mg PO MOWEFR 02/06/19 02/06/19 History Warfarin Sodium 5 mg PO SUTUTHSA 02/06/19 02/06/19 History Allergies Allergy/AdvReac Type Severity Reaction Status Date / Time iodine Allergy Unknown Verified 02/06/19 11:07 Surgical - Exam Vital Signs Temp Pulse Resp BP Pulse Ox 97.8 F 69 18 122/64 97 02/05/19 17:49 02/05/19 17:49 02/05/19 17:49 02/05/19 17:49 02/05/19 17:49 Physical exam: General: Well-developed, well-nourished HEENT: Normocephalic, sclerae nonicteric Abdomen: Nontender, nondistended, paramedian incision to the right and superior to the umbilicus from previous right kidney extraction Extremities: No edema Neuro: Alert and oriented Results - Labs 02/08/19 06:10 02/09/19 06:32 Abnormal Lab Results - Last 24 Hours (Table) 02/09/19 02/10/19 02/10/19 Range/Units 21:38 06:53 11:58 POC Glucose (mg/dL) 229 H 213 H 176 H (75-99) mg/dL Assessment and Plan (1) Choledocholithiasis Narrative/Plan: Patient with choledocholithiasis. Will proceed with cholecystectomy as outpatient. Patient with previous laparoscopic right nephrectomy however states mesh was used when I closed her extraction site. That area could interfere slightly with our laparoscopic procedure. Patient will follow-up in the office next week and we'll schedule laparoscopic cholecystectomy following that. Risks of bleeding, infection, bile leak, bile duct injury, retained common bile duct stone, trocar injury, conversion to an open procedure, hernia, anesthesia related complications were reviewed. The patient understands and wishes to proceed. Current Visit: Yes Status: Acute Code(s): K80.50 - CALCULUS OF BILE DUCT W/O CHOLANGITIS OR CHOLECYST W/O OBST SNOMED Code(s): 459234750
[2019-02-10 17:14] LABS: Glucose,Whole Blood 131 mg/dL (75-99)
[2019-02-10 20:44] LABS: Glucose,Whole Blood 176 mg/dL (75-99)
[2019-02-10] MEDS: ATORVASTATIN 40 MG TAB PO SCH (21:33)
[2019-02-10] MEDS ORDERED: MORPHINE SULFATE 4 MG/ML SYRINGE IVP PRN (22:56)
[2019-02-11] MEDS: ALPRAZolam 0.5 MG TAB PO PRN (01:11)
[2019-02-11 06:22] LABS: Glucose,Whole Blood 145 mg/dL (75-99)
[2019-02-11 06:39] LABS: HCT 39.7 % (34.0-46.0); MCH 31.5 pg (25.0-35.0); MCHC 32.8 g/dL (31.0-37.0); MCV 96.2 fL (80.0-100.0); RBC 4.12 m/uL (3.80-5.40); RDW 14.6 % (11.5-15.5); WBC 12.8 k/uL (3.8-10.6)
[2019-02-11 06:43] LABS: INR 1.2 (<1.2); Prothrombin Time 12.6 sec (9.0-12.0)
[2019-02-11 06:46] LABS: Albumin 3.4 g/dL (3.5-5.0); Calcium 8.8 mg/dL (8.4-10.2); Potassium 3.6 mmol/L (3.5-5.1); Total Bilirubin 5.2 mg/dL (0.2-1.3); Total Protein 6.3 g/dL (6.3-8.2)
[2019-02-11] MEDS: INSULIN ASPART (NovoLOG) 100 UNIT/ML VIAL SQ SCH ×3 (06:47→17:37)
[2019-02-11] MEDS: PANTOPRAZOLE 40 MG TABLET PO SCH (06:47)
[2019-02-11 07:00] LABS: Platelet Count 178 k/uL (150-450)
[2019-02-11] MEDS: IPRATROPIUM-ALBUTEROL 3 ML NEB INHALATION SCH ×3 (08:26→19:44)
[2019-02-11] MEDS: BUDESONIDE 0.5 MG/2 ML NEBU INHALATION SCH ×2 (08:29→19:44)
[2019-02-11] MEDS: METOPROLOL TARTRATE 50 MG TAB PO SCH ×2 (09:42→22:16)
[2019-02-11] MEDS: ALLOPURINOL 100 MG TAB PO SCH (09:42)
[2019-02-11] MEDS: POTASSIUM CHLORIDE ER 10 MEQ TAB.ER.PRT PO SCH (09:42)
[2019-02-11] MEDS: FUROSEMIDE 40 MG TAB PO SCH (09:42)
[2019-02-11] MEDS: hydrALAZINE HCL 50 MG TAB PO SCH ×2 (09:42→22:17)
[2019-02-11] MEDS: predniSONE 20 MG TAB PO SCH (09:42)
[2019-02-11] MEDS: LOSARTAN-HCTZ 50-12.5 MG 1 EACH TAB PO SCH (09:42)
[2019-02-11] MEDS: MAGNESIUM OXIDE 400 MG TAB PO SCH (09:42)
[2019-02-11] MEDS: VIT A,C & E-LUTEIN-MINERALS 1 EACH TAB PO SCH ×2 (09:42→22:16)
[2019-02-11] MEDS: CHOLECALCIFEROL 1,000 UNIT TAB PO SCH (10:30)
[2019-02-11] MEDS: APIXABAN 5 MG TAB PO SCH ×2 (10:31→22:16)
--- NOTE | 2019-02-11 11:22 | P.PN ---
Subjective Progress Note Date: 02/11/19 Principal diagnosis: Abdominal pain Patient continued to be pain-free tolerating diet without difficulties but her liver function tests came back elevated this morning Objective - Vital Signs Vital signs: Vital Signs Temp 97.8 F 02/11/19 08:01 Pulse 84 02/11/19 08:37 Resp 18 02/11/19 08:01 BP 141/81 02/11/19 08:01 Pulse Ox 98 02/11/19 08:01 Intake & Output 02/10/19 02/11/19 02/11/19 18:59 06:59 18:59 Intake Total 520 640 Balance 520 640 Weight 105.1 kg 105.2 kg Intake: IV 400 Oral 120 640 Other: Voiding Method Toilet # Voids 2 1 - Exam Gen.: in stated age, no acute distress Heart: Normal S1-S2 Lungs: Clear to auscultation bilaterally Abdomen: Soft, no tenderness, positive bowel sounds in all 4 quadrant no guarding or rebound Skin: No new rash Psych: Alert and oriented 3 Neuro: No focal deficit - Labs CBC & Chem 7: 02/11/19 06:11 02/11/19 06:11 Labs: Abnormal Lab Results - Last 24 Hours (Table) 02/10/19 02/10/19 02/10/19 Range/Units 11:58 17:05 20:43 WBC (3.8-10.6) k/uL PT (9.0-12.0) sec INR (<1.2) Carbon Dioxide (22-30) mmol/L BUN (7-17) mg/dL Glucose (74-99) mg/dL POC Glucose (mg/dL) 176 H 131 H 176 H (75-99) mg/dL Total Bilirubin (0.2-1.3) mg/dL AST (14-36) U/L ALT (9-52) U/L Alkaline Phosphatase (38-126) U/L Albumin (3.5-5.0) g/dL 02/11/19 02/11/19 02/11/19 Range/Units 06:11 06:11 06:11 WBC 12.8 H (3.8-10.6) k/uL PT 12.6 H (9.0-12.0) sec INR 1.2 H (<1.2) Carbon Dioxide 31 H (22-30) mmol/L BUN 28 H (7-17) mg/dL Glucose 146 H (74-99) mg/dL POC Glucose (mg/dL) (75-99) mg/dL Total Bilirubin 5.2 H (0.2-1.3) mg/dL AST 526 H (14-36) U/L ALT 506 H (9-52) U/L Alkaline Phosphatase 346 H (38-126) U/L Albumin 3.4 L (3.5-5.0) g/dL 02/11/19 Range/Units 06:21 WBC (3.8-10.6) k/uL PT (9.0-12.0) sec INR (<1.2) Carbon Dioxide (22-30) mmol/L BUN (7-17) mg/dL Glucose (74-99) mg/dL POC Glucose (mg/dL) 145 H (75-99) mg/dL Total Bilirubin (0.2-1.3) mg/dL AST (14-36) U/L ALT (9-52) U/L Alkaline Phosphatase (38-126) U/L Albumin (3.5-5.0) g/dL Assessment and Plan Assessment: 1. Elevated liver enzymes and bilirubin. 2. Cholelithiasis. 3. Status post right nephrectomy. 4. Atrial fibrillation. 5. Urinary tract infection. 6. Morbid obesity. GI evaluated the patient and recommended low fiber diet to be continued for the next 24 hours repeat liver function test and lipase in the morning and if it still elevated patient may benefit from ERCP. Patient currently is asymptomatic with no signs or symptoms of sepsis we'll monitor closely repeat blood work in the morning and follow-up with GI regarding ERCP need during this hospital stay. Patient stated that if she stays until Wednesday she would like gallbladder to be resected and we will consult with general surgery in that regard after stabilizing patient. Prognosis remained guarded at this point
--- NOTE | 2019-02-11 11:31 | P.PN ---
Subjective Progress Note Date: 02/11/19 Principal diagnosis: Elevated liver enzymes, choledocholithiasis No abdominal pain. Bowel movement yesterday. Tolerated liquids and asking for diet to be advanced today. Objective - Vital Signs Vital signs: Vital Signs Temp 97.8 F 02/11/19 08:01 Pulse 84 02/11/19 08:37 Resp 18 02/11/19 08:01 BP 141/81 02/11/19 08:01 Pulse Ox 98 02/11/19 08:01 Intake & Output 02/10/19 02/11/19 02/11/19 18:59 06:59 18:59 Intake Total 520 640 Balance 520 640 Weight 105.1 kg 105.2 kg Intake: IV 400 Oral 120 640 Other: Voiding Method Toilet # Voids 2 1 - Exam On physical examination, patient appears comfortable in no apparent distress. HEAD: Normocephalic, atraumatic. EYES: No scleral icterus. No conjunctival injection. MOUTH: No lesions, tongue midline. NECK: Trachea midline, no gross abnormalities. CHEST: Clear to auscultation with no wheezing or rhonchi appreciated. ABDOMEN: Soft, obese. Bowel sounds are positive. No organomegaly. No guarding or rigidity. EXTREMITIES: No pedal edema. SKIN: No rashes, no jaundice. NEUROLOGIC: Alert and oriented x3. No focal deficits. - Labs CBC & Chem 7: 02/11/19 06:11 02/11/19 06:11 Labs: Abnormal Lab Results - Last 24 Hours (Table) 02/10/19 02/10/19 02/10/19 Range/Units 11:58 17:05 20:43 WBC (3.8-10.6) k/uL PT (9.0-12.0) sec INR (<1.2) Carbon Dioxide (22-30) mmol/L BUN (7-17) mg/dL Glucose (74-99) mg/dL POC Glucose (mg/dL) 176 H 131 H 176 H (75-99) mg/dL Total Bilirubin (0.2-1.3) mg/dL AST (14-36) U/L ALT (9-52) U/L Alkaline Phosphatase (38-126) U/L Albumin (3.5-5.0) g/dL 02/11/19 02/11/19 02/11/19 Range/Units 06:11 06:11 06:11 WBC 12.8 H (3.8-10.6) k/uL PT 12.6 H (9.0-12.0) sec INR 1.2 H (<1.2) Carbon Dioxide 31 H (22-30) mmol/L BUN 28 H (7-17) mg/dL Glucose 146 H (74-99) mg/dL POC Glucose (mg/dL) (75-99) mg/dL Total Bilirubin 5.2 H (0.2-1.3) mg/dL AST 526 H (14-36) U/L ALT 506 H (9-52) U/L Alkaline Phosphatase 346 H (38-126) U/L Albumin 3.4 L (3.5-5.0) g/dL 02/11/19 Range/Units 06:21 WBC (3.8-10.6) k/uL PT (9.0-12.0) sec INR (<1.2) Carbon Dioxide (22-30) mmol/L BUN (7-17) mg/dL Glucose (74-99) mg/dL POC Glucose (mg/dL) 145 H (75-99) mg/dL Total Bilirubin (0.2-1.3) mg/dL AST (14-36) U/L ALT (9-52) U/L Alkaline Phosphatase (38-126) U/L Albumin (3.5-5.0) g/dL Assessment and Plan (1) Choledocholithiasis Narrative/Plan: 79-year-old who is status post ERCP with sphincterotomy and balloon sweep of the common bile duct with 2 small stones removed. Patient feeling well this morning and asking for diet to be advanced. Amylase and lipase within normal limits. Liver enzymes however are elevated from initial presentation at 5.2 total bilirubin, 346 alkaline phosphatase, 526 AST and 506 ALT. Current Visit: Yes Status: Acute Code(s): K80.50 - CALCULUS OF BILE DUCT W/O CHOLANGITIS OR CHOLECYST W/O OBST SNOMED Code(s): 713737640 (2) Elevated liver enzymes Current Visit: Yes Status: Acute Code(s): R74.8 - ABNORMAL LEVELS OF OTHER SERUM ENZYMES SNOMED Code(s): 314853009 Plan: Supportive care Low-fat diet Repeat liver enzymes in the morning Further recommendations regarding repeat ERCP contingent on clinical course and laboratory evaluation tomorrow, no CMP performed yesterday so unclear if liver enzymes have trended up or down after procedure, but are higher than presentation Thank you for allowing us to just been in the care of the patient we will continue to follow
[2019-02-11 12:06] LABS: Glucose,Whole Blood 126 mg/dL (75-99)
[2019-02-11 16:41] LABS: Glucose,Whole Blood 198 mg/dL (75-99)
[2019-02-11 20:58] LABS: Glucose,Whole Blood 152 mg/dL (75-99)
[2019-02-11] MEDS: ATORVASTATIN 40 MG TAB PO SCH (22:16)
[2019-02-12] MEDS: ALPRAZolam 0.5 MG TAB PO PRN (01:44)
[2019-02-12 06:24] LABS: HCT 40.8 % (34.0-46.0); HGB 13.3 gm/dL (11.4-16.0); MCH 31.4 pg (25.0-35.0); MCHC 32.7 g/dL (31.0-37.0); MCV 96.2 fL (80.0-100.0); Mean Platelet Volume 7.9; Platelet Count 206 k/uL (150-450); RBC 4.24 m/uL (3.80-5.40); RDW 15.1 % (11.5-15.5); WBC 8.9 k/uL (3.8-10.6)
[2019-02-12 06:34] LABS: INR 1.1 (<1.2); Prothrombin Time 11.3 sec (9.0-12.0)
[2019-02-12 06:46] LABS: Albumin 3.4 g/dL (3.5-5.0); Calcium 8.7 mg/dL (8.4-10.2); Potassium 3.3 mmol/L (3.5-5.1); Total Bilirubin 2.6 mg/dL (0.2-1.3); Total Protein 6.3 g/dL (6.3-8.2)
[2019-02-12] MEDS: PANTOPRAZOLE 40 MG TABLET PO SCH (06:46)
[2019-02-12] MEDS: LOSARTAN-HCTZ 50-12.5 MG 1 EACH TAB PO SCH (07:51)
[2019-02-12] MEDS: METOPROLOL TARTRATE 50 MG TAB PO SCH ×2 (07:51→20:08)
[2019-02-12] MEDS: VIT A,C & E-LUTEIN-MINERALS 1 EACH TAB PO SCH ×2 (07:51→20:08)
[2019-02-12] MEDS: CHOLECALCIFEROL 1,000 UNIT TAB PO SCH (07:51)
[2019-02-12] MEDS: hydrALAZINE HCL 50 MG TAB PO SCH ×2 (07:51→20:08)
[2019-02-12] MEDS: predniSONE 20 MG TAB PO SCH (07:51)
[2019-02-12] MEDS: ALLOPURINOL 100 MG TAB PO SCH (07:51)
[2019-02-12] MEDS: FUROSEMIDE 40 MG TAB PO SCH (07:51)
[2019-02-12] MEDS: MAGNESIUM OXIDE 400 MG TAB PO SCH (07:52)
[2019-02-12] MEDS: POTASSIUM CHLORIDE ER 10 MEQ TAB.ER.PRT PO SCH (07:52)
[2019-02-12] MEDS: APIXABAN 5 MG TAB PO SCH ×2 (07:52→21:41)
[2019-02-12] MEDS: IPRATROPIUM-ALBUTEROL 3 ML NEB INHALATION SCH ×3 (08:04→20:26)
[2019-02-12] MEDS: BUDESONIDE 0.5 MG/2 ML NEBU INHALATION SCH ×2 (08:04→20:26)
--- NOTE | 2019-02-12 12:05 | P.PN ---
Subjective Progress Note Date: 02/12/19 Principal diagnosis: A. fib, abdominal pain Patient continued to be hemodynamically stable no major events reported by nursing staff patient is denying nausea vomiting or abdominal pain stated that she is tolerating current recommended diet by GI Objective - Vital Signs Vital signs: Vital Signs Temp 97 F L 02/12/19 04:00 Pulse 73 02/12/19 11:22 Resp 18 02/12/19 11:22 BP 134/63 02/12/19 11:22 Pulse Ox 95 02/12/19 11:22 Intake & Output 02/11/19 02/12/19 02/12/19 18:59 06:59 18:59 Intake Total 458 487 240 Balance 458 487 240 Weight 105.1 kg Intake: Intake, IV Titration 100 Amount cefTRIAXone 1 gm In 100 Sodium Chloride 0.9% 50 ml @ 100 mls/hr IVPB Q24HR [facility] Rx#:[id number] Oral 358 487 240 Other: # Voids 1 2 1 - Exam Gen.: in stated age, no acute distress Heart: Normal S1-S2 Lungs: Clear to auscultation bilaterally Abdomen: Soft, no tenderness, positive bowel sounds in all 4 quadrant no guarding or rebound Skin: No new rash Psych: Alert and oriented 3 Neuro: No focal deficit - Labs CBC & Chem 7: 02/12/19 06:02 02/12/19 06:02 Labs: Abnormal Lab Results - Last 24 Hours (Table) 02/11/19 02/11/19 02/11/19 Range/Units 11:46 16:39 20:56 Potassium (3.5-5.1) mmol/L Carbon Dioxide (22-30) mmol/L BUN (7-17) mg/dL Creatinine (0.52-1.04) mg/dL Glucose (74-99) mg/dL POC Glucose (mg/dL) 126 H 198 H 152 H (75-99) mg/dL Total Bilirubin (0.2-1.3) mg/dL AST (14-36) U/L ALT (9-52) U/L Alkaline Phosphatase (38-126) U/L Albumin (3.5-5.0) g/dL Lipase (23-300) U/L 02/12/19 Range/Units 06:02 Potassium 3.3 L (3.5-5.1) mmol/L Carbon Dioxide 31 H (22-30) mmol/L BUN 33 H (7-17) mg/dL Creatinine 1.08 H (0.52-1.04) mg/dL Glucose 117 H (74-99) mg/dL POC Glucose (mg/dL) (75-99) mg/dL Total Bilirubin 2.6 H (0.2-1.3) mg/dL AST 469 H (14-36) U/L ALT 618 H (9-52) U/L Alkaline Phosphatase 366 H (38-126) U/L Albumin 3.4 L (3.5-5.0) g/dL Lipase 471 H (23-300) U/L Assessment and Plan Assessment: 1. Elevated liver enzymes and bilirubin. 2. Cholelithiasis. 3. Status post right nephrectomy. 4. Atrial fibrillation. 5. Urinary tract infection. 6. Morbid obesity. Bilirubin has improved significantly, liver enzymes are still mildly elevated, GI at the bedside discussing with family conservative management at this point and recommendation for cholecystectomy as soon as possible, I would like to reconsult general surgery for cholecystectomy during this hospital stay as pat ient had complication with the gallstones and elevated bilirubin and, bile duct obstruction and underwent ERCP. Patient is agreeable to the current treatment plan and family at the bedside who are agreeable as well would keep patient nothing by mouth after midnight tonight and follow-up with surgery recommendation
--- NOTE | 2019-02-12 18:40 | P.PN ---
Subjective Progress Note Date: 02/12/19 Principal diagnosis: Elevated liver enzymes, choledocholithiasis No abdominal pain. She has tolerated her diet. Denying any jaundice or dark colored urine. Objective - Vital Signs Vital signs: Vital Signs Temp 97 F L 02/12/19 04:00 Pulse 75 02/12/19 08:21 Resp 18 02/12/19 07:55 BP 142/82 02/12/19 07:55 Pulse Ox 99 02/12/19 08:04 Intake & Output 02/11/19 02/12/19 02/12/19 18:59 06:59 18:59 Intake Total 458 487 240 Balance 458 487 240 Weight 105.1 kg Intake: Intake, IV Titration 100 Amount cefTRIAXone 1 gm In 100 Sodium Chloride 0.9% 50 ml @ 100 mls/hr IVPB Q24HR [facility] Rx#:[id number] Oral 358 487 240 Other: # Voids 1 2 - Exam On physical examination, patient appears comfortable in no apparent distress. HEAD: Normocephalic, atraumatic. EYES: No scleral icterus. No conjunctival injection. MOUTH: No lesions, tongue midline. NECK: Trachea midline, no gross abnormalities. CHEST: Clear to auscultation with no wheezing or rhonchi appreciated. ABDOMEN: Soft, obese. Bowel sounds are positive. No organomegaly. No guarding or rigidity. EXTREMITIES: No pedal edema. SKIN: No rashes, no jaundice. NEUROLOGIC: Alert and oriented x3. No focal deficits. - Labs CBC & Chem 7: 02/12/19 06:02 02/12/19 06:02 Labs: Abnormal Lab Results - Last 24 Hours (Table) 02/11/19 02/11/19 02/11/19 Range/Units 11:46 16:39 20:56 Potassium (3.5-5.1) mmol/L Carbon Dioxide (22-30) mmol/L BUN (7-17) mg/dL Creatinine (0.52-1.04) mg/dL Glucose (74-99) mg/dL POC Glucose (mg/dL) 126 H 198 H 152 H (75-99) mg/dL Total Bilirubin (0.2-1.3) mg/dL AST (14-36) U/L ALT (9-52) U/L Alkaline Phosphatase (38-126) U/L Albumin (3.5-5.0) g/dL Lipase (23-300) U/L // Range/Units 06:02 Potassium 3.3 L (3.5-5.1) mmol/L Carbon Dioxide 31 H (22-30) mmol/L BUN 33 H (7-17) mg/dL Creatinine 1.08 H (0.52-1.04) mg/dL Glucose 117 H (74-99) mg/dL POC Glucose (mg/dL) (75-99) mg/dL Total Bilirubin 2.6 H (0.2-1.3) mg/dL AST 469 H (14-36) U/L ALT 618 H (9-52) U/L Alkaline Phosphatase 366 H (38-126) U/L Albumin 3.4 L (3.5-5.0) g/dL Lipase 471 H (23-300) U/L Assessment and Plan (1) Choledocholithiasis Narrative/Plan: 79-year-old who is status post ERCP with sphincterotomy and balloon sweep of the common bile duct with 2 small stones removed. Patient feeling well this morning and asking for diet to be advanced. Amylase and lipase within normal limits. Liver enzymes overall improved. Current Visit: Yes Status: Acute Code(s): K80.50 - CALCULUS OF BILE DUCT W/O CHOLANGITIS OR CHOLECYST W/O OBST SNOMED Code(s): 578109734 (2) Elevated liver enzymes Current Visit: Yes Status: Acute Code(s): R74.8 - ABNORMAL LEVELS OF OTHER SERUM ENZYMES SNOMED Code(s): 359711253 Plan: Supportive care Low-fat diet Timing of cholecystectomy to determine by surgical service, possible intervention planned for tomorrow Case discussed with the primary team Thank you for allowing us to participate in the care of the patient, the GI service will stand by, please call us back with any questions or concerns
[2019-02-12] MEDS: ATORVASTATIN 40 MG TAB PO SCH (20:08)
[2019-02-13] MEDS: PANTOPRAZOLE 40 MG TABLET PO SCH (07:01)
[2019-02-13 07:20] LABS: Basophils % (A) 0 %; Eosinophils # (A) 0.1 k/uL (0-0.7); Eosinophils % (A) 1 %; HCT 42.9 % (34.0-46.0); HGB 13.6 gm/dL (11.4-16.0); Lymphocytes # (A) 2.8 k/uL (1.0-4.8); Lymphocytes % (A) 29 %; MCH 30.5 pg (25.0-35.0); MCHC 31.6 g/dL (31.0-37.0); MCV 96.5 fL (80.0-100.0); Mean Platelet Volume 7.8; Monocytes # (A) 0.8 k/uL (0-1.0); Monocytes % (A) 8 %; Neutrophils # (A) 5.9 k/uL (1.3-7.7); Neutrophils % (A) 61 %; Platelet Count 234 k/uL (150-450); RBC 4.45 m/uL (3.80-5.40); RDW 14.8 % (11.5-15.5); WBC 9.8 k/uL (3.8-10.6)
[2019-02-13 07:26] LABS: Calcium 8.9 mg/dL (8.4-10.2); Potassium 3.4 mmol/L (3.5-5.1)
[2019-02-13] MEDS: IPRATROPIUM-ALBUTEROL 3 ML NEB INHALATION SCH ×3 (08:45→20:03)
[2019-02-13] MEDS: BUDESONIDE 0.5 MG/2 ML NEBU INHALATION SCH ×2 (08:45→20:03)
[2019-02-13] MEDS: VIT A,C & E-LUTEIN-MINERALS 1 EACH TAB PO SCH ×2 (09:23→20:52)
[2019-02-13] MEDS: ALLOPURINOL 100 MG TAB PO SCH (09:23)
[2019-02-13] MEDS: FUROSEMIDE 40 MG TAB PO SCH (09:23)
[2019-02-13] MEDS: predniSONE 20 MG TAB PO SCH (09:23)
[2019-02-13] MEDS: CHOLECALCIFEROL 1,000 UNIT TAB PO SCH (09:23)
[2019-02-13] MEDS: LOSARTAN-HCTZ 50-12.5 MG 1 EACH TAB PO SCH (09:23)
[2019-02-13] MEDS: METOPROLOL TARTRATE 50 MG TAB PO SCH ×2 (09:24→20:52)
[2019-02-13] MEDS: hydrALAZINE HCL 50 MG TAB PO SCH ×2 (09:24→20:52)
[2019-02-13] MEDS: MAGNESIUM OXIDE 400 MG TAB PO SCH (09:24)
[2019-02-13] MEDS: POTASSIUM CHLORIDE ER 10 MEQ TAB.ER.PRT PO SCH (09:24)
[2019-02-13] MEDS ORDERED: POTASSIUM CHLORIDE ER 20 MEQ TAB.ER PO STA (10:45)
[2019-02-13] MEDS: APIXABAN 5 MG TAB PO SCH ×2 (11:23→20:52)
[2019-02-13 11:38] LABS: Albumin 3.5 g/dL (3.5-5.0); Bilirubin, Delta 1.1 mg/dL (0.0-0.2); Bilirubin,Unconjugated 0.5 mg/dL (0.0-1.1); Total Bilirubin 1.6 mg/dL (0.2-1.3); Total Protein 6.5 g/dL (6.3-8.2)
--- NOTE | 2019-02-13 16:53 | P.PN ---
Subjective Progress Note Date: 02/13/19 Principal diagnosis: Choledocholithiasis Patient denies pain. Apparently over the weekend her liver enzymes did increase somewhat. She was advised to proceed with cholecystectomy this hospitalization. Her blood thinners were held. Tolerating diet otherwise. Today her liver enzymes are improved from yesterday. Objective - Vital Signs Vital signs: Vital Signs Temp 98.2 F 02/13/19 16:00 Pulse 69 02/13/19 16:00 Resp 17 02/13/19 16:00 BP 121/60 02/13/19 16:00 Pulse Ox 97 02/13/19 16:00 Intake & Output 02/12/19 02/13/19 02/13/19 18:59 06:59 18:59 Intake Total 720 400 120 Balance 720 400 120 Weight 100.6 kg Intake: Oral 720 400 120 Other: Voiding Method Toilet Toilet # Voids 0 2 1 - Exam Abdomen: Soft, nondistended, nontender - Labs CBC & Chem 7: 02/13/19 06:13 02/13/19 06:13 Labs: Abnormal Lab Results - Last 24 Hours (Table) 02/13/19 02/13/19 Range/Units 06:13 06:13 Potassium 3.4 L (3.5-5.1) mmol/L Carbon Dioxide 31 H (22-30) mmol/L BUN 34 H (7-17) mg/dL Glucose 100 H (74-99) mg/dL Total Bilirubin 1.6 H (0.2-1.3) mg/dL Delta Bilirubin 1.1 H (0.0-0.2) mg/dL AST 153 H (14-36) U/L ALT 452 H (9-52) U/L Alkaline Phosphatase 343 H (38-126) U/L Lipase 500 H (23-300) U/L Assessment and Plan (1) Choledocholithiasis Narrative/Plan: Options reviewed with the patient in detail. Repeat labs tomorrow. Will tent atively plan laparoscopic, possible open cholecystectomy tomorrow. Risks of bleeding, infection, bile leak, bile duct injury, retained common bile duct stone, trocar injury, conversion to an open procedure, hernia, anesthesia related complications were reviewed. The patient understands and wishes to proceed. Current Visit: Yes Status: Acute Code(s): K80.50 - CALCULUS OF BILE DUCT W/O CHOLANGITIS OR CHOLECYST W/O OBST SNOMED Code(s): 670834617
[2019-02-13] MEDS: ATORVASTATIN 40 MG TAB PO SCH (20:52)
[2019-02-14] MEDS: PANTOPRAZOLE 40 MG TABLET PO SCH (06:39)
[2019-02-14 06:55] LABS: Albumin 3.6 g/dL (3.5-5.0); Calcium 8.9 mg/dL (8.4-10.2); Potassium 3.9 mmol/L (3.5-5.1); Total Bilirubin 1.5 mg/dL (0.2-1.3); Total Protein 6.7 g/dL (6.3-8.2)
[2019-02-14] MEDS: BUDESONIDE 0.5 MG/2 ML NEBU INHALATION SCH ×2 (09:14→19:11)
[2019-02-14] MEDS: IPRATROPIUM-ALBUTEROL 3 ML NEB INHALATION SCH ×3 (09:14→19:11)
[2019-02-14] MEDS: LOSARTAN-HCTZ 50-12.5 MG 1 EACH TAB PO SCH (09:25)
[2019-02-14] MEDS: POTASSIUM CHLORIDE ER 10 MEQ TAB.ER.PRT PO SCH (09:26)
[2019-02-14] MEDS: FUROSEMIDE 40 MG TAB PO SCH (09:26)
[2019-02-14] MEDS: hydrALAZINE HCL 50 MG TAB PO SCH ×2 (09:26→21:41)
[2019-02-14] MEDS: MAGNESIUM OXIDE 400 MG TAB PO SCH (09:26)
[2019-02-14] MEDS: METOPROLOL TARTRATE 50 MG TAB PO SCH ×2 (09:26→21:41)
--- NOTE | 2019-02-14 10:11 | P.PN ---
Subjective Progress Note Date: 02/13/19 This is a 79-year-old female patient of Dr. Hardin with past medical history of hypertension, hyperlipidemia, COPD, nicotine dependence, alcohol abuse, paroxysmal atrial fibrillation on chronic Coumadin, gastroesophageal reflux disease, gout, generalized anxiety disorder. She states she last fol lowed [facility] with [facility] regarding her INR in November and does not have a good explanation why she has been back is that it is summer. She states she normally sees Dr. Arzate every 6 months. Patient states that for several days she has been complaining of back pain which she thought originally was from sitting on zay furniture on her deck. Back pain seemed to be quite severe and worsening and on Wednesday she did not feel right she was too tired to go out with her family and stayed home. On Wednesday, she took an Aleve and did go to the [facility] a friend's birthday green party. She saw the pain was all related to her back as it was going down her spine and she has seen a chir opractor in the past but yesterday she finally realized that it was really coming from her abdomen in the right upper quadrant mid area. She complains of nausea and had emesis in the emergency center. She complains of chills without fever. She denies any urinary symptoms such as dysuria, frequency. She states she does have some memory problems recently. Patient relates that she is drinking at least 3 alcoholic beverages per day and has been drinking for 40 years. She denies having any withdrawal symptoms when she has been without alcohol. Patient is actively smoking 2 packs per day for 40 years. Patient came to [facility] emergency center for evaluation. She was afebrile, heart rate running up to 146, blood pressure 129/66, pulse ox 97%. CBC noted thrombocytopenia 148. Electrolytes were within normal limits, creatinine 0.92, blood sugar 122. Lactic acid 2.7. Total bilirubin 2.1, AST 517, ALT 288, alkaline phosphatase 332, lipase 486. INR is 2.8. Magnesium 1.7, troponin negative. Urinalysis was clear, moderate blood, leukoesterase moderate, RBCs 43, wbc's 15. EKG was atrial fibrillation with RVR. CAT scan of the chest abdomen and pelvis without contrast revealed atherosclerotic vascular disease. Extensive colonic diverticulosis without diverticulitis. Old granulomatous disease. 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 The patient was given Lopressor 5 mg IV push followed by oral 25 mg, Zofran, IV fluids and admitted to the cardiac stepdown unit and cardiology consult requested. 02/07: Patient states that her abdominal pain is about the same as yesterday. She thinks it's from getting in and out of bed although this had started prior to her admission to the hospital. HIDA scan revealed no tracer excretion. Consider possibility as well as cystic duct and common bile duct obstruction as well as severe hepatocellular disease. Ultrasound from yesterday revealed a large common bile duct measuring 11 mm and distal common bile duct obstruction should be considered. Consult with GI has been added and MRCP ordered. Patient is to be nothing by mouth for MRCP scheduled for tomorrow. Acute hepatitis panel negative. Repeat lab work reveals total bilirubin now 6.2, AST 419, ALT 568, alkaline phosphatase 246. INR is 2.1. Cardiology is following and eliquis has been priced by case management at $47 per month for the patient. Cardiology has increased metoprolol to 50 mg twice daily. equipment monitor phototypesetting is atrial fibrillation with controlled ventricular response. Urine cultures positive for gram-negative bacilli and sensitivity is pending. 02/08: Patient for MRCP today. GI continues to follow the patient and ERCP is contingent on MRCP findings. INR will need to be 1.5 or less and anticoagulati on is to be held for 48 hours if ERCP is needed. Patient was started on eliquis yesterday by cardiology. We will plan to put this on hold until need for ERCP as determined. Her INR today is at 2. Total bilirubin 4.7, AST 272, ALT 459, alkaline phosphatase 295. Lipase 392. Repeat lab work has been ordered for tomorrow. 02/09: Patient is having intermittent right upper abdominal pain, it seems to be improving since admission. She is scheduled for ERCP tomorrow with Dr. Wylie. Patient is having some shortness of breath and wheezing for which DuoNeb treatment and one dose of IV Lasix given. Blood pressure is elevated today and she will be resumed on her Hyzaar as well as oral Lasix. The patient has been started on DuoNeb treatments, IV Solu-Medrol and Pulmicort. Consult with Dr. Bermudez. Patient states that she does not currently have a visitor services specialist. Patient did have a drop in her pulse ox to 87%. 02/10: Patient is seen today and appears to be comfortable. Her respiratory d istress is much improved and resolved today. We will decrease Solu-Medrol and start prednisone tomorrow. Her blood pressure remains elevated and hydralazine will be added to her regime. Eliquis remains on hold for ERCP scheduled for today. Dr. Miguel A Wylie has recommended consult with general surgery for possible cholecystectomy. Dr. Woodward will be added. equipment monitor phototypesetting is atrial fibrillation, rate controlled. 02/13: Dr. Woodward did see the patient on Wednesday and we have asked to reconsult for evaluation of cholecystectomy during this hospitalization. Lab work continues to improve with total bilirubin 2.6, AST 469, ALT 618, alkaline phosphatase 366. Lipase 471. Potassium today is 3.4 and will be replaced. Patient did not receive last evening's dose of eliquis nor this morning. Breathing status is stable. Patient is on oral prednisone. Objective - Vital Signs Vital signs: Vital Signs Temp 97.8 F 02/13/19 09:28 Pulse 80 02/13/19 09:28 Resp 17 02/13/19 09:28 BP 142/64 02/13/19 09:28 Pulse Ox 95 02/13/19 09:28 Intake & Output 02/12/19 02/13/19 02/13/19 18:59 06:59 18:59 Intake Total 720 400 Balance 720 400 Weight 100.6 kg Intake: Oral 720 400 Other: Voiding Method Toilet Toilet # Voids 0 2 - Exam Review of Systems Constitutional: Reports poor appetite, Denies chills, Denies fatigue, Denies fever, Denies weakness Ears, nose, mouth and throat: Denies dental pain, Denies dysphagia, Denies nasal congestion, Denies nasal discharge, Denies vertigo Cardiovascular: Denies chest pain, Denies decreased exercise tolerance, Denies dyspnea on exertion, Denies edema, Denies irregular heart beat, Denies leg edema, Denies palpitations, Denies shortness of breath, Denies syncope Respiratory: Denies congestion, Denies cough, Denies cough with sputum, Denies dyspnea, Denies excessive sputum, Denies hemoptysis, Denies home oxygen, reports wheezing Gastrointestinal: Reports abdominal pain-improving, denies loss of appetite, denies nausea, denies vomiting, Denies constipation, Denies diarrhea Genitourinary: Denies difficulty voiding, Denies dysuria, Denies urgency, Denies urinary frequency Musculoskeletal: Denies frequent falls, Denies gait dysfunction, Denies muscle weakness, Denies myalgias Integumentary: Denies pruritus, Denies rash, Denies wounds Neurological: Denies aphasia, Denies change in mentation, Denies change in speech, Denies gait dysfunction, Denies seizures, Denies vertigo Psychiatric: Denies anxiety, Denies depression Endocrine: Denies fatigue, Denies weight change Gen: This is a 79-year-old obese female. Patient is resting in bed and appears to be comfortable and in no acute distress. No respiratory distress noted. HEENT: Head is atraumatic, normocephalic. Pupils equal, round. Sclerae is anicteric. Mucous members of the mouth are moist. NECK: Supple. No JVD. No lymphadenopathy. No thyromegaly. LUNGS: Clear to auscultation. No wheezes. No rhonchi. No intercostal retractions. No accessory muscle usage. HEART: Irregularly irregular rate and rhythm. Systolic murmur. ABDOMEN: Soft. Bowel sounds are present. No masses. No abdominal tenderness EXTREMITIES: No pedal edema. No calf tenderness. Dorsalis pedis +2 bilaterally. NEUROLOGICAL: Patient is awake, alert and oriented x3. Cranial nerves 2 through 12 are grossly intact. - Labs CBC & Chem 7: 02/13/19 06:13 02/14/19 06:01 Labs: Abnormal Lab Results - Last 24 Hours (Table) 02/13/19 Range/Units 06:13 Potassium 3.4 L (3.5-5.1) mmol/L Carbon Dioxide 31 H (22-30) mmol/L BUN 34 H (7-17) mg/dL Glucose 100 H (74-99) mg/dL Assessment and Plan Plan: 1. Back pain and abdominal pain possibly related to choledocholithiasis, cholecystitis, pancreatitis. HIDA scan as above. Status post ERCP on Wednesday. Discontinue IV fluids. GI consult appreciated. Consult with Dr. Woodward to reevaluate for cholecystectomy during this hospitalization. 2. Paroxysmal atrial fibrillation presenting with RVR. Cardiology consult appreciated. Eliquis on hold until reevaluated for cholecystectomy. Coumadin and aspirin discontinued. Patient has been started on metoprolol 50 mg twice d aily. 3. Acute pancreatitis. 4. Acute hepatitis possibly due to common bile duct obstruction versus alcoholic hepatitis rule out other etiology. Acute hepatitis panel normal. Patient has been advised to stop alcohol intake. 5. Thrombocytopenia possibly related to suppression from alcohol abuse. 6. Hypertension. Hypotension has resolved. Losartan hydrochlorothiazide resumed, oral Lasix resumed. Added hydralazine 50 mg twice daily 7. Hyperlipidemia. Continue Lipitor 40 mg at bedtime. 8. Gastroesophageal reflux disease. Continue omeprazole 20 g daily. 9. Gout, chronic. Continue allopurinol 100 mg daily. 10. Generalized anxiety disorder. Continue Xanax 0.5 milligrams daily as needed. 11. Alcohol abuse. Patient counseled regarding alcohol cessation. Medical social work consult to provide information regarding AA etc. 12. Tobacco use and dependence. Patient counseled regarding smoking cessation. 13. DVT prophylaxis. Patient initially therapeutic with Coumadin, eliquis to be started once determine if patient needs cholecystectomy 14. Mild COPD exacerbation with acute hypoxic respiratory failure and drop in pulse ox to 87%. Patient started on DuoNeb treatments 3 times daily 4 times daily as needed, prednisone, continue Pulmicort 0.5 mg twice daily, consult with Dr. Aidan zhang. 15. Mild fluid overload secondary to IV fluids. One dose of IV Lasix, IV fluids discontinued and patient placed on oral Lasix. Discharge plan: Return home Impression and plan of care have been directed as dictated by the signing physician. Farzaneh Delaney nurse practitioner acting as scribe for signing physician.
[2019-02-14] MEDS ORDERED: LACTATED RINGERS 1,000 ML IV ONE ×2 (15:04→18:28)
--- NOTE | 2019-02-14 15:10 | P.PN ---
Subjective Progress Note Date: 02/14/19 This is a 79-year-old female patient of Dr. Hardin with past medical history of hypertension, hyperlipidemia, COPD, nicotine dependence, alcohol abuse, paroxysmal atrial fibrillation on chronic Coumadin, gastroesophageal reflux disease, gout, generalized anxiety disorder. She states she last fol lowed [facility] with [facility] regarding her INR in November and does not have a good explanation why she has been back is that it is summer. She states she normally sees Dr. Arzate every 6 months. Patient states that for several days she has been complaining of back pain which she thought originally was from sitting on zay furniture on her deck. Back pain seemed to be quite severe and worsening and on Wednesday she did not feel right she was too tired to go out with her family and stayed home. On Wednesday, she took an Aleve and did go to the [facility] a friend's birthday libertarian. She saw the pain was all related to her back as it was going down her spine and she has seen a chir opractor in the past but yesterday she finally realized that it was really coming from her abdomen in the right upper quadrant mid area. She complains of nausea and had emesis in the emergency center. She complains of chills without fever. She denies any urinary symptoms such as dysuria, frequency. She states she does have some memory problems recently. Patient relates that she is drinking at least 3 alcoholic beverages per day and has been drinking for 40 years. She denies having any withdrawal symptoms when she has been without alcohol. Patient is actively smoking 2 packs per day for 40 years. Patient came to [facility] emergency center for evaluation. She was afebrile, heart rate running up to 146, blood pressure 129/66, pulse ox 97%. CBC noted thrombocytopenia 148. Electrolytes were within normal limits, creatinine 0.92, blood sugar 122. Lactic acid 2.7. Total bilirubin 2.1, AST 517, ALT 288, alkaline phosphatase 332, lipase 486. INR is 2.8. Magnesium 1.7, troponin negative. Urinalysis was clear, moderate blood, leukoesterase moderate, RBCs 43, wbc's 15. EKG was atrial fibrillation with RVR. CAT scan of the chest abdomen and pelvis without contrast revealed atherosclerotic vascular disease. Extensive colonic diverticulosis without diverticulitis. Old granulomatous disease. 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 The patient was given Lopressor 5 mg IV push followed by oral 25 mg, Zofran, IV fluids and admitted to the cardiac stepdown unit and cardiology consult requested. 02/07: Patient states that her abdominal pain is about the same as yesterday. She thinks it's from getting in and out of bed although this had started prior to her admission to the hospital. HIDA scan revealed no tracer excretion. Consider possibility as well as cystic duct and common bile duct obstruction as well as severe hepatocellular disease. Ultrasound from yesterday revealed a large common bile duct measuring 11 mm and distal common bile duct obstruction should be considered. Consult with GI has been added and MRCP ordered. Patient is to be nothing by mouth for MRCP scheduled for tomorrow. Acute hepatitis panel negative. Repeat lab work reveals total bilirubin now 6.2, AST 419, ALT 568, alkaline phosphatase 246. INR is 2.1. Cardiology is following and eliquis has been priced by case management at $47 per month for the patient. Cardiology has increased metoprolol to 50 mg twice daily. monitoring tech is atrial fibrillation with controlled ventricular response. Urine cultures positive for gram-negative bacilli and sensitivity is pending. 02/08: Patient for MRCP today. GI continues to follow the patient and ERCP is contingent on MRCP findings. INR will need to be 1.5 or less and anticoagulati on is to be held for 48 hours if ERCP is needed. Patient was started on eliquis yesterday by cardiology. We will plan to put this on hold until need for ERCP as determined. Her INR today is at 2. Total bilirubin 4.7, AST 272, ALT 459, alkaline phosphatase 295. Lipase 392. Repeat lab work has been ordered for tomorrow. 02/09: Patient is having intermittent right upper abdominal pain, it seems to be improving since admission. She is scheduled for ERCP tomorrow with Dr. Wylie. Patient is having some shortness of breath and wheezing for which DuoNeb treatment and one dose of IV Lasix given. Blood pressure is elevated today and she will be resumed on her Hyzaar as well as oral Lasix. The patient has been started on DuoNeb treatments, IV Solu-Medrol and Pulmicort. Consult with Dr. Bermudez. 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 Patient did have a drop in her pulse ox to 87%. 02/10: Patient is seen today and appears to be comfortable. Her respiratory d istress is much improved and resolved today. We will decrease Solu-Medrol and start prednisone tomorrow. Her blood pressure remains elevated and hydralazine will be added to her regime. Eliquis remains on hold for ERCP scheduled for today. Dr. Miguel A Wylie has recommended consult with general surgery for possible cholecystectomy. Dr. Woodward will be added. monitoring tech is atrial fibrillation, rate controlled. 02/13: Dr. Woodward did see the patient on Wednesday and we have asked to reconsult for evaluation of cholecystectomy during this hospitalization. Lab work continues to improve with total bilirubin 2.6, AST 469, ALT 618, alkaline phosphatase 366. Lipase 471. Potassium today is 3.4 and will be replaced. Patient did not receive last evening's dose of eliquis nor this morning. Breathing status is stable. Patient is on oral prednisone. 02/14: Patient has been reevaluated by Dr. Woodward and plan for laparoscopic, possible open cholecystectomy this afternoon/evening. However, patient changed her mind that she did not want to take a chance on having open surgery and decided not to go through with the. Dr. Hardin had long discussion with the patient and she is now agreeable to undergo cholecystectomy that is scheduled for this afternoon. Patient remains afebrile, heart rate 76, blood pressure 150/78, pulse ox 95% on room air. Total bilirubin 1.5, AST 91, ALT 316, alkaline phosphatase 314. We will plan to resume eliquis following surgery if okay with Dr. Woodward. Cardiology has signed off patient's case. Patient will be transferred to Medr floor. Objective - Vital Signs Vital signs: Vital Signs Temp 89.3 F L 02/14/19 05:20 Pulse 76 02/14/19 09:33 Resp 17 02/14/19 05:20 BP 150/78 02/14/19 05:20 Pulse Ox 95 02/14/19 05:20 Intake & Output 02/13/19 02/14/19 02/14/19 18:59 06:59 18:59 Intake Total 120 600 Balance 120 600 Weight 100 kg Intake: Oral 120 600 Other: Voiding Method Toilet Toilet # Voids 1 3 - Exam Review of Systems Constitutional: Reports poor appetite, Denies chills, Denies fatigue, Denies fever, Denies weakness Ears, nose, mouth and throat: Denies dysphagia, Denies nasal congestion, Denies nasal discharge, Denies vertigo Cardiovascular: Denies chest pain, Denies decreased exercise tolerance, Denies dyspnea on exertion, Denies edema, Denies irregular heart beat, Denies leg edema, Denies palpitations, Denies shortness of breath Respiratory: Denies congestion, Denies cough, Denies cough with sputum, Denies dyspnea, Denies excessive sputum, Denies hemoptysis, Denies home oxygen, reports wheezing Gastrointestinal: Reports abdominal pain-improving, denies loss of appetite, denies nausea, denies vomiting, Denies constipation, Denies diarrhea Genitourinary: Denies difficulty voiding, Denies dysuria, Denies urgency, Denies urinary frequency Musculoskeletal: Denies frequent falls, Denies gait dysfunction, Denies muscle weakness, Denies myalgias Integumentary: Denies pruritus, Denies rash, Denies wounds Neurological: Denies aphasia, Denies change in mentation, Denies change in speech, Denies gait dysfunction, Denies seizures, Denies vertigo Psychiatric: Denies anxiety, Denies depression Endocrine: Denies fatigue, Denies weight change Gen: This is a 79-year-old obese female. Patient is resting in bed and appears to be comfortable and in no acute distress. HEENT: Head is atraumatic, normocephalic. Pupils equal, round. Sclerae is anicteric. Mucous members of the mouth are moist. NECK: Supple. No JVD. No lymphadenopathy. No thyromegaly. LUNGS: Clear to auscultation. No wheezes. No rhonchi. No intercostal retractions. No accessory muscle usage. HEART: Irregularly irregular rate and rhythm. Systolic murmur. ABDOMEN: Soft. Bowel sounds are present. No masses. No abdominal tenderness EXTREMITIES: No pedal edema. No calf tenderness. Dorsalis pedis +2 bilaterally. NEUROLOGICAL: Patient is awake, alert and oriented x3. Cranial nerves 2 through 12 are grossly intact. - Labs CBC & Chem 7: 02/13/19 06:13 02/14/19 06:01 Labs: Abnormal Lab Results - Last 24 Hours (Table) 02/13/19 02/14/19 Range/Units 06:13 06:01 Sodium 136 L (137-145) mmol/L BUN 38 H (7-17) mg/dL Glucose 100 H (74-99) mg/dL Total Bilirubin 1.6 H 1.5 H (0.2-1.3) mg/dL Delta Bilirubin 1.1 H (0.0-0.2) mg/dL AST 153 H 91 H (14-36) U/L ALT 452 H 316 H (9-52) U/L Alkaline Phosphatase 343 H 314 H (38-126) U/L Lipase 500 H (23-300) U/L Assessment and Plan Plan: 1. Back pain and abdominal pain possibly related to choledocholithiasis, cholecystitis, pancreatitis. HIDA scan as above. Status post ERCP on Wednesday. Discontinue IV fluids. GI consult appreciated. Consult with Dr. Woodward to reevaluate for cholecystectomy during this hospitalization. Laparoscopic cholecystectomy scheduled for today. 2. Paroxysmal atrial fibrillation presenting with RVR. Cardiology consult appreciated. Eliquis on hold until reevaluated for cholecystectomy. Coumadin and aspirin discontinued. Patient has been started on metoprolol 50 mg twice daily. 3. Acute pancreatitis. 4. Acute hepatitis possibly due to common bile duct obstruction versus alcoholic hepatitis rule out other etiology. Acute hepatitis panel normal. Patient has been advised to stop alcohol intake. 5. Thrombocytopenia possibly related to suppression from alcohol abuse. 6. Hypertension. Hypotension has resolved. Losartan hydrochlorothiazide resumed, oral Lasix resumed. Added hydralazine 50 mg twice daily 7. Hyperlipidemia. Continue Lipitor 40 mg at bedtime. 8. Gastroesophageal reflux disease. Continue omeprazole 20 g daily. 9. Gout, chronic. Continue allopurinol 100 mg daily. 10. Generalized anxiety disorder. Continue Xanax 0.5 milligrams daily as needed. 11. Alcohol abuse. Patient counseled regarding alcohol cessation. Medical social work consult to provide information regarding AA etc. 12. Tobacco use and dependence. Patient counseled regarding smoking cessation. 13. DVT prophylaxis. Patient initially therapeutic with Coumadin, eliquis to be started once determine if patient needs cholecystectomy 14. Mild COPD exacerbation with acute hypoxic respiratory failure and drop in pulse ox to 87%. Patient started on DuoNeb treatments 3 times daily 4 times daily as needed, prednisone, continue Pulmicort 0.5 mg twice daily, consult with Dr. Aidan zhang. 15. Mild fluid overload secondary to IV fluids. One dose of IV Lasix, IV fluids discontinued and patient placed on oral Lasix. Discharge plan: Return home Impression and plan of care have been directed as dictated by the signing physician. Farzaneh Delaney nurse practitioner acting as scribe for signing physician.
[2019-02-14] MEDS ORDERED: ONDANSETRON 4 MG/2 ML VIAL IVP ONE (15:23)
[2019-02-14] MEDS ORDERED: BUPIVACAIN-EPI 0.25%-1:200,000 30 ML VIAL SQ ONE ×4 (15:47→17:00)
[2019-02-14] MEDS ORDERED: SUCCINYLCHOLINE CHLORIDE 100 MG/5 ML SYR IV ONE (16:33)
[2019-02-14] MEDS ORDERED: GLYCOPYRROLATE 0.2 MG/ML 2 ML VIAL ONE (16:33)
[2019-02-14] MEDS ORDERED: fentaNYL (PF) 50 MCG/ML 2 ML AMP ONE (16:33)
[2019-02-14] MEDS ORDERED: PROPOFOL 10 MG/ML 100 ML VIAL IV ONE (16:33)
[2019-02-14] MEDS ORDERED: NEOSTIGMINE 1 MG/ML 10 ML VIAL ONE (16:33)
[2019-02-14] MEDS ORDERED: LIDOCAINE 1% INJ 10MG/ML (20 ML MDV) ONE (16:33)
[2019-02-14] MEDS ORDERED: ROCURONIUM BROMIDE 10 MG/ML 10 ML VIAL IV ONE (16:33)
[2019-02-14] MEDS ORDERED: MIDAZOLAM 2 MG/2 ML VIAL ONE (16:33)
[2019-02-14] MEDS ORDERED: PHENYLEPHRINE-0.9% NACL SYG 1 MG/10 ML SYRINGE ONE (16:33)
[2019-02-14] MEDS ORDERED: HEPARIN SODIUM,PORCINE 5,000 UNIT/ML 1 ML VIAL SQ ONE (16:34)
[2019-02-14] MEDS ORDERED: SODIUM CHLORIDE 0.9% 50 ML with ceFAZolin 2,000 MG IV ONE ×2 (16:40)
[2019-02-14] MEDS ORDERED: SODIUM CHLORIDE 0.9% IV ONE ×2 (16:40)
[2019-02-14] MEDS ORDERED: CEFAZOLIN IV ONE ×2 (16:40)
--- NOTE | 2019-02-14 17:49 | P.OP ---
Date of Procedure: 02/14/19 Procedure(s) Performed: PREOPERATIVE DIAGNOSIS: Chronic cholecystitis with choledocholithiasis POSTOPERATIVE DIAGNOSIS: Same, intra-abdominal adhesions PROCEDURE: Laparoscopic cholecystectomy with lysis of adhesions SURGEON: Trace EBL: Minimal see anesthesia record ANESTHESIA: Gen. COMPLICATIONS: None OPERATIVE PROCEDURE: The patient was brought and placed on the operating room table in the supine position. The patient was placed under general anesthesia at that time. The abdomen was prepped and draped in the usual sterile fashion. Because of the patient's previous periumbilical scar I decided to place a optical 5 mm trocar in the left upper quadrant. This was advanced into the peritoneal cavity without difficulty. Full insufflation took place at that time. The patient had adhesions between the omentum and the abdominal wall in the supraumbilical and right periumbilical location. These adhesions were lysed sharply and with blunt dissection as well. Once I had adequate space a 5 mm suprapubic umbilical trocar was placed under direct visualization as well as 25 mm trochars in the right upper quadrant and a 12 mm trocar in the epigastrium. The gallbladder was mildly inflamed. The gallbladder was retracted superiorly and laterally. The peritoneum overlying the infundibulum was bluntly dissected. The patient's cystic duct was visualized. The junction between the cystic duct common and hepatic duct was identified. The cystic duct was then divided after placement of 3 12 mm clips on the patient's side and one on the specimen side. The cystic artery was identified and clipped as well. A small vessel was seen along the gallbladder fossa and clipped as well. The gallbladder was then removed from the liver bed using electrocautery. The gallbladder was then removed from the epigastric trocar site with an Endo Catch bag. The gallbladder fossa was irrigated with saline. There was no evidence of any bleeding or biliary drainage seen. The fascia at the 12 millimeter site was closed using a Dru-Sharyn 0 Vicryl stitch. The trochars were then removed. The skin at all 4 sites was closed using a 4-0 Monocryl stitch. Skin glue was utilized on the incision sites. At the end of this procedure the sponge and needle counts were correct. DISPOSITION: Stable to the recovery room
[2019-02-14] MEDS: APIXABAN 5 MG TAB PO SCH ×2 (18:24→21:55)
[2019-02-14] MEDS: VIT A,C & E-LUTEIN-MINERALS 1 EACH TAB PO SCH ×2 (18:24→21:41)
[2019-02-14] MEDS: predniSONE 20 MG TAB PO SCH (18:24)
[2019-02-14] MEDS: CHOLECALCIFEROL 1,000 UNIT TAB PO SCH (18:24)
[2019-02-14] MEDS: ALLOPURINOL 100 MG TAB PO SCH (18:24)
[2019-02-14] MEDS: HYDROcodone/APAP 5-325MG 1 EACH TAB PO PRN (18:48)
[2019-02-14] MEDS: ATORVASTATIN 40 MG TAB PO SCH (21:55)
[2019-02-15 06:29] LABS: Basophils % (A) 0 %; Eosinophils # (A) 0.1 k/uL (0-0.7); Eosinophils % (A) 1 %; HCT 49.4 % (34.0-46.0); HGB 15.6 gm/dL (11.4-16.0); Lymphocytes # (A) 2.8 k/uL (1.0-4.8); Lymphocytes % (A) 23 %; MCH 30.5 pg (25.0-35.0); MCHC 31.7 g/dL (31.0-37.0); MCV 96.2 fL (80.0-100.0); Mean Platelet Volume 7.1; Monocytes # (A) 0.6 k/uL (0-1.0); Monocytes % (A) 5 %; Neutrophils # (A) 8.6 k/uL (1.3-7.7); Neutrophils % (A) 70 %; Platelet Count 339 k/uL (150-450); RBC 5.13 m/uL (3.80-5.40); RDW 13.2 % (11.5-15.5); WBC 12.3 k/uL (3.8-10.6)
[2019-02-15 06:41] LABS: Albumin 3.8 g/dL (3.5-5.0); Calcium 9.2 mg/dL (8.4-10.2); Potassium 4.7 mmol/L (3.5-5.1); Total Bilirubin 2.2 mg/dL (0.2-1.3); Total Protein 7.1 g/dL (6.3-8.2)
[2019-02-15] MEDS: PANTOPRAZOLE 40 MG TABLET PO SCH (06:58)
[2019-02-15] MEDS: BUDESONIDE 0.5 MG/2 ML NEBU INHALATION SCH ×2 (07:45→19:40)
[2019-02-15] MEDS: IPRATROPIUM-ALBUTEROL 3 ML NEB INHALATION SCH ×3 (07:45→19:40)
[2019-02-15] MEDS: VIT A,C & E-LUTEIN-MINERALS 1 EACH TAB PO SCH ×2 (08:31→21:50)
[2019-02-15] MEDS: LOSARTAN-HCTZ 50-12.5 MG 1 EACH TAB PO SCH (08:31)
[2019-02-15] MEDS: MAGNESIUM OXIDE 400 MG TAB PO SCH (08:31)
[2019-02-15] MEDS: CHOLECALCIFEROL 1,000 UNIT TAB PO SCH (08:31)
[2019-02-15] MEDS: POTASSIUM CHLORIDE ER 10 MEQ TAB.ER.PRT PO SCH (08:32)
[2019-02-15] MEDS: hydrALAZINE HCL 50 MG TAB PO SCH ×2 (08:32→21:49)
[2019-02-15] MEDS: METOPROLOL TARTRATE 50 MG TAB PO SCH ×2 (08:32→21:49)
[2019-02-15] MEDS: predniSONE 20 MG TAB PO SCH (08:32)
[2019-02-15] MEDS: FUROSEMIDE 40 MG TAB PO SCH (08:32)
[2019-02-15] MEDS: ALLOPURINOL 100 MG TAB PO SCH (08:32)
[2019-02-15] MEDS: APIXABAN 5 MG TAB PO SCH ×2 (08:33→08:38)
[2019-02-15] MEDS: HYDROcodone/APAP 5-325MG 1 EACH TAB PO PRN (11:43)
--- NOTE | 2019-02-15 12:08 | P.PN ---
<Ronda Noe Chris - Last Filed: 02/15/19 11:52> Subjective Progress Note Date: 02/15/19 CHIEF COMPLAINT: Chronic cholecystitis HISTORY OF PRESENT ILLNESS: Patient underwent laparoscopic cholecystectomy with lysis of adhesions yesterday with Dr. Woodward. POD #1. Patient examined this morning at the bedside. Patient's pain is controlled. She denies nausea or vomiting. Tolerating diet. WBC 12.3. Hemoglobin 15.6. Bilirubin 2.2. AST 101. ALT 259. Alkaline phosphatase 272. PHYSICAL EXAM: VITAL SIGNS: Reviewed. GENERAL: Well-developed in no acute distress. HEENT: No sclera icterus. Extraocular movements grossly intact. Moist buccal mucosa. Head is atraumatic, normocephalic. ABDOMEN: Soft. Nondistended. Nontender. Surgical incision sites clean dry and intact without drainage or signs of infection. NEUROLOGIC: Alert and oriented. Cranial nerves II through XII grossly intact. ASSESSMENT: 1. Chronic cholecystitis with choledocholithiasis, status post laparoscopic cholecystectomy PLAN: 1. Continue current diet 2. Incentive spirometry 3. Activity as tolerated 4. Pain control 5. Patient may resume Eliquis 5 mg twice a day beginning tomorrow morning Nurse practitioner note has been reviewed by physician. Signing provider agrees with the documented findings, assessment, and plan of care. Objective - Vital Signs Vital signs: Vital Signs Temp 98.2 F 02/15/19 08:40 Pulse 65 02/15/19 08:40 Resp 19 02/15/19 08:40 BP 138/79 02/15/19 08:40 Pulse Ox 94 L 02/15/19 08:40 Intake & Output 02/14/19 02/15/19 02/15/19 18:59 06:59 18:59 Intake Total 1325 600 480 Output Total 402 Balance 923 600 480 Weight 100.1 kg Intake: IV 1125 Oral 200 600 480 Output: Urine 400 Estimated Blood Loss 2 Other: Voiding Method Toilet # Voids 3 - Labs CBC & Chem 7: 02/15/19 05:53 02/15/19 05:53 Labs: Abnormal Lab Results - Last 24 Hours (Table) 02/15/19 02/15/19 Range/Units 05:53 05:53 WBC 12.3 H (3.8-10.6) k/uL Hct 49.4 H (34.0-46.0) % Neutrophils # 8.6 H (1.3-7.7) k/uL Sodium 136 L (137-145) mmol/L Chloride 97 L (98-107) mmol/L BUN 40 H (7-17) mg/dL Creatinine 1.11 H (0.52-1.04) mg/dL Total Bilirubin 2.2 H (0.2-1.3) mg/dL AST 101 H (14-36) U/L ALT 259 H (9-52) U/L Alkaline Phosphatase 272 H (38-126) U/L <Connor Woodward - Last Filed: 02/15/19 19:11> Subjective As above. Patient doing well. Pain is improving. Resume an anticoagulation tomorrow. Probable discharge tomorrow. Objective - Vital Signs Vital signs: Vital Signs Temp 96.6 F L 02/15/19 15:12 Pulse 80 02/15/19 15:12 Resp 18 02/15/19 15:12 BP 115/62 02/15/19 15:12 Pulse Ox 94 L 02/15/19 08:40 Intake & Output 02/15/19 02/15/19 02/16/19 06:59 18:59 06:59 Intake Total 600 960 Balance 600 960 Weight 100.1 kg Intake: Oral 600 960 Other: Voiding Method Toilet # Voids 3 3 - Labs CBC & Chem 7: 02/15/19 05:53 02/15/19 05:53 Labs: Abnormal Lab Results - Last 24 Hours (Table) 02/15/19 02/15/19 Range/Units 05:53 05:53 WBC 12.3 H (3.8-10.6) k/uL Hct 49.4 H (34.0-46.0) % Neutrophils # 8.6 H (1.3-7.7) k/uL Sodium 136 L (137-145) mmol/L Chloride 97 L (98-107) mmol/L BUN 40 H (7-17) mg/dL Creatinine 1.11 H (0.52-1.04) mg/dL Total Bilirubin 2.2 H (0.2-1.3) mg/dL AST 101 H (14-36) U/L ALT 259 H (9-52) U/L Alkaline Phosphatase 272 H (38-126) U/L Assessment and Plan (1) Choledocholithiasis Current Visit: Yes Status: Acute Code(s): K80.50 - CALCULUS OF BILE DUCT W/O CHOLANGITIS OR CHOLECYST W/O OBST SNOMED Code(s): 538799767
--- NOTE | 2019-02-15 14:23 | P.PN ---
Subjective Progress Note Date: 02/15/19 This is a 79-year-old female patient of Dr. Hardin with past medical history of hypertension, hyperlipidemia, COPD, nicotine dependence, alcohol abuse, paroxysmal atrial fibrillation on chronic Coumadin, gastroesophageal reflux disease, gout, generalized anxiety disorder. She states she last fol lowed [facility] with [facility] regarding her INR in November and does not have a good explanation why she has been back is that it is summer. She states she normally sees Dr. Arzate every 6 months. Patient states that for several days she has been complaining of back pain which she thought originally was from sitting on zay furniture on her deck. Back pain seemed to be quite severe and worsening and on Wednesday she did not feel right she was too tired to go out with her family and stayed home. On Wednesday, she took an Aleve and did go to the [facility] a friend's birthday republican. She saw the pain was all related to her back as it was going down her spine and she has seen a chir opractor in the past but yesterday she finally realized that it was really coming from her abdomen in the right upper quadrant mid area. She complains of nausea and had emesis in the emergency center. She complains of chills without fever. She denies any urinary symptoms such as dysuria, frequency. She states she does have some memory problems recently. Patient relates that she is drinking at least 3 alcoholic beverages per day and has been drinking for 40 years. She denies having any withdrawal symptoms when she has been without alcohol. Patient is actively smoking 2 packs per day for 40 years. Patient came to [facility] emergency center for evaluation. She was afebrile, heart rate running up to 146, blood pressure 129/66, pulse ox 97%. CBC noted thrombocytopenia 148. Electrolytes were within normal limits, creatinine 0.92, blood sugar 122. Lactic acid 2.7. Total bilirubin 2.1, AST 517, ALT 288, alkaline phosphatase 332, lipase 486. INR is 2.8. Magnesium 1.7, troponin negative. Urinalysis was clear, moderate blood, leukoesterase moderate, RBCs 43, wbc's 15. EKG was atrial fibrillation with RVR. CAT scan of the chest abdomen and pelvis without contrast revealed atherosclerotic vascular disease. Extensive colonic diverticulosis without diverticulitis. Old granulomatous disease. 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 The patient was given Lopressor 5 mg IV push followed by oral 25 mg, Zofran, IV fluids and admitted to the cardiac stepdown unit and cardiology consult requested. 02/07: Patient states that her abdominal pain is about the same as yesterday. She thinks it's from getting in and out of bed although this had started prior to her admission to the hospital. HIDA scan revealed no tracer excretion. Consider possibility as well as cystic duct and common bile duct obstruction as well as severe hepatocellular disease. Ultrasound from yesterday revealed a large common bile duct measuring 11 mm and distal common bile duct obstruction should be considered. Consult with GI has been added and MRCP ordered. Patient is to be nothing by mouth for MRCP scheduled for tomorrow. Acute hepatitis panel negative. Repeat lab work reveals total bilirubin now 6.2, AST 419, ALT 568, alkaline phosphatase 246. INR is 2.1. Cardiology is following and eliquis has been priced by case management at $47 per month for the patient. Cardiology has increased metoprolol to 50 mg twice daily. 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 Urine cultures positive for gram-negative bacilli and sensitivity is pending. 02/08: Patient for MRCP today. GI continues to follow the patient and ERCP is contingent on MRCP findings. INR will need to be 1.5 or less and anticoagulati on is to be held for 48 hours if ERCP is needed. Patient was started on eliquis yesterday by cardiology. We will plan to put this on hold until need for ERCP as determined. Her INR today is at 2. Total bilirubin 4.7, AST 272, ALT 459, alkaline phosphatase 295. Lipase 392. Repeat lab work has been ordered for tomorrow. 02/09: Patient is having intermittent right upper abdominal pain, it seems to be improving since admission. She is scheduled for ERCP tomorrow with Dr. Wylie. Patient is having some shortness of breath and wheezing for which DuoNeb treatment and one dose of IV Lasix given. Blood pressure is elevated today and she will be resumed on her Hyzaar as well as oral Lasix. The patient has been started on DuoNeb treatments, IV Solu-Medrol and Pulmicort. Consult with Dr. Bermudez. 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 Patient did have a drop in her pulse ox to 87%. 02/10: Patient is seen today and appears to be comfortable. Her respiratory d istress is much improved and resolved today. We will decrease Solu-Medrol and start prednisone tomorrow. Her blood pressure remains elevated and hydralazine will be added to her regime. Eliquis remains on hold for ERCP scheduled for today. Dr. Miguel A Wylie has recommended consult with general surgery for possible cholecystectomy. Dr. Woodward will be added. 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 02/13: Dr. Woodward did see the patient on Wednesday and we have asked to reconsult for evaluation of cholecystectomy during this hospitalization. Lab work continues to improve with total bilirubin 2.6, AST 469, ALT 618, alkaline phosphatase 366. Lipase 471. Potassium today is 3.4 and will be replaced. Patient did not receive last evening's dose of eliquis nor this morning. Breathing status is stable. Patient is on oral prednisone. 02/14: Patient has been reevaluated by Dr. Woodward and plan for laparoscopic, possible open cholecystectomy this afternoon/evening. However, patient changed her mind that she did not want to take a chance on having open surgery and decided not to go through with the. Dr. Hardin had long discussion with the patient and she is now agreeable to undergo cholecystectomy that is scheduled for this afternoon. Patient remains afebrile, heart rate 76, blood pressure 150/78, pulse ox 95% on room air. Total bilirubin 1.5, AST 91, ALT 316, alkaline phosphatase 314. We will plan to resume eliquis following surgery if okay with Dr. Woodward. Cardiology has signed off patient's case. Patient will be transferred to [facility] floor. 02/15: Patient underwent laparoscopic cholecystectomy and lysis of adhesions with Dr. Woodward yesterday. Patient has had no postop complications. Patient states her pain is controlled. Patient is to start back on eliquis this evening. Repeat lab work reveals white count 12.3, hemoglobin 15.6, BUN 14 creatinine 1.11. Blood sugar 84. Sodium 136, potassium 4.7, chloride 97, CO2 27. Total bilirubin 2.2, AST 101, ALT 259, alk phos is 272. Patient is waiting for a [facility] bed. 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 Patient will most likely be ready for discharge tomorrow. Objective - Vital Signs Vital signs: Vital Signs Temp 96.8 F L 02/15/19 13:51 Pulse 79 02/15/19 13:51 Resp 18 02/15/19 13:51 BP 110/58 02/15/19 13:51 Pulse Ox 94 L 02/15/19 08:40 Intake & Output 02/14/19 02/15/19 02/15/19 18:59 06:59 18:59 Intake Total 1325 600 480 Output Total 402 Balance 923 600 480 Weight 100.1 kg Intake: IV 1125 Oral 200 600 480 Output: Urine 400 Estimated Blood Loss 2 Other: Voiding Method Toilet # Voids 3 - Exam Review of Systems Constitutional: Reports poor appetite, Denies chills, Denies fatigue, Denies fever, Denies weakness Ears, nose, mouth and throat: Denies dysphagia, Denies nasal congestion, Denies nasal discharge, Denies vertigo Cardiovascular: Denies chest pain, Denies decreased exercise tolerance, Denies dyspnea on exertion, Denies edema, Denies irregular heart beat, Denies leg edema, Denies palpitations, Denies shortness of breath Respiratory: Denies congestion, Denies cough, Denies cough with sputum, Denies dyspnea, Denies excessive sputum, Denies hemoptysis, Denies home oxygen, denies wheezing Gastrointestinal: Reports abdominal pain-improving, denies loss of appetite, denies nausea, denies vomiting, Denies constipation, Denies diarrhea Genitourinary: Denies difficulty voiding, Denies dysuria, Denies urgency, Denies urinary frequency Musculoskeletal: Denies frequent falls, Denies gait dysfunction, Denies muscle weakness, Denies myalgias Integumentary: Denies pruritus, Denies rash, Denies wounds Neurological: Denies aphasia, Denies change in mentation, Denies change in speech, Denies gait dysfunction, Denies seizures, Denies vertigo Psychiatric: Denies anxiety, Denies depression Endocrine: Denies fatigue, Denies weight change Gen: This is a 79-year-old obese female. Patient is resting in bed and appears to be comfortable and in no acute distress. HEENT: Head is atraumatic, normocephalic. Pupils equal, round. Sclerae is anicteric. Mucous members of the mouth are moist. NECK: Supple. No JVD. No lymphadenopathy. No thyromegaly. LUNGS: Clear to auscultation. No wheezes. No rhonchi. No intercostal retractions. No accessory muscle usage. HEART: Irregularly irregular rate and rhythm. Systolic murmur. ABDOMEN: Soft. Bowel sounds are present. No masses. No abdominal tenderness. Puncture sites from laparoscopic surgery show no signs of infection. EXTREMITIES: No pedal edema. No calf tenderness. Dorsalis pedis +2 bilaterally. NEUROLOGICAL: Patient is awake, alert and oriented x3. Cranial nerves 2 through 12 are grossly intact. - Labs CBC & Chem 7: 02/15/19 05:53 02/15/19 05:53 Labs: Abnormal Lab Results - Last 24 Hours (Table) 02/15/19 02/15/19 Range/Units 05:53 05:53 WBC 12.3 H (3.8-10.6) k/uL Hct 49.4 H (34.0-46.0) % Neutrophils # 8.6 H (1.3-7.7) k/uL Sodium 136 L (137-145) mmol/L Chloride 97 L (98-107) mmol/L BUN 40 H (7-17) mg/dL Creatinine 1.11 H (0.52-1.04) mg/dL Total Bilirubin 2.2 H (0.2-1.3) mg/dL AST 101 H (14-36) U/L ALT 259 H (9-52) U/L Alkaline Phosphatase 272 H (38-126) U/L Assessment and Plan Plan: 1. Back pain and abdominal pain possibly related to choledocholithiasis, cholecystitis, pancreatitis. HIDA scan as above. Status post ERCP on Wednesday. Discontinue IV fluids. GI consult appreciated. Consult with Dr. Woodward to reevaluate for cholecystectomy during this hospitalization. Status post Laparoscopic cholecystectomyy. 2. Paroxysmal atrial fibrillation presenting with RVR. Cardiology consult appreciated. Eliquis on hold until reevaluated for cholecystectomy. Coumadin and aspirin discontinued. Patient has been started on metoprolol 50 mg twice daily. 3. Acute pancreatitis. 4. Acute hepatitis possibly due to common bile duct obstruction versus alcoholic hepatitis rule out other etiology. Acute hepatitis panel normal. Patient has been advised to stop alcohol intake. 5. Thrombocytopenia possibly related to suppression from alcohol abuse. 6. Hypertension. Hypotension has resolved. Losartan hydrochlorothiazide resumed, oral Lasix resumed. Added hydralazine 50 mg twice daily 7. Hyperlipidemia. Continue Lipitor 40 mg at bedtime. 8. Gastroesophageal reflux disease. Continue omeprazole 20 g daily. 9. Gout, chronic. Continue allopurinol 100 mg daily. 10. Generalized anxiety disorder. Continue Xanax 0.5 milligrams daily as needed. 11. Alcohol abuse. Patient counseled regarding alcohol cessation. Medical social work consult to provide information regarding AA etc. 12. Tobacco use and dependence. Patient counseled regarding smoking cessation. 13. DVT prophylaxis. Patient initially therapeutic with Coumadin, eliquis to be started once determine if patient needs cholecystectomy 14. Mild COPD exacerbation with acute hypoxic respiratory failure and drop in pulse ox to 87%. Patient started on DuoNeb treatments 3 times daily 4 times daily as needed, prednisone, continue Pulmicort 0.5 mg twice daily, consult with Dr. Aidan zhang. 15. Mild fluid overload secondary to IV fluids. One dose of IV Lasix, IV fluids discontinued and patient placed on oral Lasix. Discharge plan: Return home tomorrow Impression and plan of care have been directed as dictated by the signing physician. Farzaneh Delaney nurse practitioner acting as scribe for signing physician.
[2019-02-15] MEDS: ATORVASTATIN 40 MG TAB PO SCH (21:49)
[2019-02-15] MEDS: ALPRAZolam 0.5 MG TAB PO PRN (23:43)
[2019-02-16 04:55] VITALS: BP 104/61; TEMP 97.6
[2019-02-16] MEDS: METOPROLOL TARTRATE 50 MG TAB PO SCH (07:57)
[2019-02-16] MEDS: VIT A,C & E-LUTEIN-MINERALS 1 EACH TAB PO SCH (07:58)
[2019-02-16] MEDS: LOSARTAN-HCTZ 50-12.5 MG 1 EACH TAB PO SCH (07:58)
[2019-02-16] MEDS: POTASSIUM CHLORIDE ER 10 MEQ TAB.ER.PRT PO SCH (07:58)
[2019-02-16] MEDS: PANTOPRAZOLE 40 MG TABLET PO SCH (07:58)
[2019-02-16] MEDS: MAGNESIUM OXIDE 400 MG TAB PO SCH (07:58)
[2019-02-16] MEDS: CHOLECALCIFEROL 1,000 UNIT TAB PO SCH (07:59)
[2019-02-16] MEDS: FUROSEMIDE 40 MG TAB PO SCH (07:59)
[2019-02-16] MEDS: ALLOPURINOL 100 MG TAB PO SCH (07:59)
[2019-02-16] MEDS: hydrALAZINE HCL 50 MG TAB PO SCH (07:59)
[2019-02-16] MEDS: BUDESONIDE 0.5 MG/2 ML NEBU INHALATION SCH (08:05)
[2019-02-16] MEDS: IPRATROPIUM-ALBUTEROL 3 ML NEB INHALATION SCH ×2 (08:05→12:19)
[2019-02-16 08:09] VITALS: RESP 16
[2019-02-16 08:25] VITALS: PULSE 72
[2019-02-16] MEDS ORDERED: predniSONE 10 MG TAB PO SCH (09:00)
[2019-02-16] MEDS ORDERED: APIXABAN 5 MG TAB PO SCH (09:00)
--- NOTE | 2019-02-16 11:52 | P.PN ---
Subjective Progress Note Date: 02/16/19 CHIEF COMPLAINT: Chronic cholecystitis HISTORY OF PRESENT ILLNESS: Patient underwent laparoscopic cholecystectomy with lysis of adhesions yesterday with Dr. Woodward. POD #2. Patient examined this morning at the bedside. Patient's pain is controlled. She denies nausea or vomiting. Tolerating diet. PHYSICAL EXAM: VITAL SIGNS: Reviewed. GENERAL: Well-developed in no acute distress. HEENT: No sclera icterus. Extraocular movements grossly intact. Moist buccal mucosa. Head is atraumatic, normocephalic. ABDOMEN: Soft. Nondistended. Nontender. Surgical incision sites clean dry and intact without drainage or signs of infection. NEUROLOGIC: Alert and oriented. Cranial nerves II through XII grossly intact. ASSESSMENT: 1. Chronic cholecystitis with choledocholithiasis, status post laparoscopic cholecystectomy PLAN: 1. Continue current diet 2. Incentive spirometry 3. Activity as tolerated 4. Pain control 5. Resume Eliquis this AM 6. Stable for DC home today. Follow up outpatient with Dr. Woodward. Nurse practitioner note has been reviewed by physician. Signing provider agrees with the documented findings, assessment, and plan of care. Objective - Vital Signs Vital signs: Vital Signs Temp 97.6 F 02/16/19 04:50 Pulse 72 02/16/19 08:20 Resp 16 02/16/19 08:20 BP 104/61 02/16/19 04:50 Pulse Ox 93 L 02/16/19 04:50 Intake & Output 02/15/19 02/16/19 02/16/19 18:59 06:59 18:59 Intake Total 960 201 Balance 960 201 Intake: Oral 960 201 Other: Voiding Method Toilet Toilet # Voids 3 1 - Labs CBC & Chem 7: 02/15/19 05:53 02/15/19 05:53
--- NOTE | 2019-02-16 12:49 | P.DS ---
Providers Date of admission: 02/05/19 21:53 Expected date of discharge: 02/16/19 Attending physician: Vidya Love Consults: 02/05/19 23:09 Consult Physician Urgent Consulting Provider: Aubrey Penn Consult Reason/Comments: a fib with rvr, chest pain Do you want consulting provider notified?: Yes, Notify in am 02/09/19 11:02 Consult Physician Routine Consulting Provider: Ayaka Bermudez Consult Reason/Comments: copd Do you want consulting provider notified?: Yes 02/10/19 09:54 Consult Physician Routine Consulting Provider: Connor Woodward Consult Reason/Comments: cholecystectomy op Do you want consulting provider notified?: Yes 02/12/19 10:32 Consult Physician Routine Consulting Provider: Connor Woodward Consult Reason/Comments: cholecystectomy Do you want consulting provider notified?: Yes 02/13/19 10:50 Consult Physician Routine Consulting Provider: Connor Woodward Consult Reason/Comments: GB Do you want consulting provider notified?: Already Contacted Primary care physician: Melissa Hardin [facility] Course: This is a 79-year-old female patient of Dr. Hardin with past medical history of hypertension, hyperlipidemia, COPD, nicotine dependence, alcohol abuse, paroxysmal atrial fibrillation on chronic Coumadin, gastroesophageal reflux disease, gout, generalized anxiety disorder. She states she last followed up with [facility] regarding her INR in November and does not have a good explanation why she has been back is that it is summer. She states she normally sees Dr. Arzate every 6 months. Patient states that for several days she has been complaining of back pain which she thought originally was from sitting on zay furniture on her deck. Back pain seemed to be quite severe and worsening and on Wednesday she did not feel right she was too tired to go out with her family and stayed home. On Wednesday, she took an Aleve and did go to the [facility] a friend's birthday democrat. She saw the pain was all rela teresa to her back as it was going down her spine and she has seen a chiropractor in the past but yesterday she finally realized that it was really coming from her abdomen in the right upper quadrant mid area. She complains of nausea and had emesis in the emergency center. She complains of chills without fever. She denies any urinary symptoms such as dysuria, frequency. She states she does have some memory problems recently. Patient relates that she is drinking at least 3 alcoholic beverages per day and has been drinking for 40 years. She denies having any withdrawal symptoms when she has been without alcohol. Patient is actively smoking 2 packs per day for 40 years. Patient came to [facility] emergency center for evaluation. She was afebrile, heart rate running up to 146, blood pressure 129/66, pulse ox 97%. CBC noted thrombocytopenia 148. Electrolytes were within normal limits, creatinine 0.92, blood sugar 122. Lactic acid 2.7. Total bilirubin 2.1, AST 517, ALT 288, alkaline phosphatase 332, lipase 486. INR is 2.8. Magnesium 1.7, troponin negative. Urinalysis was clear, moderate blood, leukoesterase moderate, RBCs 43, wbc's 15. EKG was atrial fibrillation with RVR. CAT scan of the chest abdomen and pelvis without contrast revealed atherosclerotic vascular disease. Extensive colonic diverticulosis without diverticulitis. Old granulomatous dise ase. 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 The patient was given Lopressor 5 mg IV push followed by oral 25 mg, Zofran, IV fluids and admitted to the cardiac stepdown unit and cardiology consult requested. 02/07: Patient states that her abdominal pain is about the same as yesterday. She thinks it's from getting in and out of bed although this had started prior to her admission to the hospital. HIDA scan revealed no tracer excretion. Consider possibility as well as cystic duct and common bile duct obstruction as well as severe hepatocellular disease. Ultrasound from yesterday revealed a large common bile duct measuring 11 mm and distal common bile duct obstruction should be considered. Consult with GI has been added and MRCP ordered. Patient is to be nothing by mouth for MRCP scheduled for tomorrow. Acute hepatitis panel negative. Repeat lab work reveals total bilirubin now 6.2, AST 419, ALT 568, alkaline phosphatase 246. INR is 2.1. Cardiology is following and eliquis has been priced by case management at $47 per month for the patient. Cardiology has increased metoprolol to 50 mg twice daily. environmental monitoring specialist is atrial fibrillation with controlled ventricular response. Urine cultures positive for gram-negative bacilli and sensitivity is pending. 8/14: Patient for MRCP today. GI continues to follow the patient and ERCP is contingent on MRCP findings. INR will need to be 1.5 or less and anticoagulation is to be held for 48 hours if ERCP is needed. Patient was started on eliquis yesterday by cardiology. We will plan to put this on hold until need for ERCP as determined. Her INR today is at 2. Total bilirubin 4.7, AST 272, ALT 459, alkaline phosphatase 295. Lipase 392. Repeat lab work has been ordered for tomorrow. 02/09: Patient is having intermittent right upper abdominal pain, it seems to be improving since admission. She is scheduled for ERCP tomorrow with Dr. Wylie. Patient is having some shortness of breath and wheezing for which DuoNeb treatment and one dose of IV Lasix given. Blood pressure is elevated today and she will be resumed on her Hyzaar as well as oral Lasix. The patient has been started on DuoNeb treatments, IV Solu-Medrol and Pulmicort. Consult with Dr. Bermudez. Patient states that she does not currently have a medical or surgical instrument maker. Patient did have a drop in her pulse ox to 87%. 02/10: Patient is seen today and appears to be comfortable. Her respiratory distress is much improved and resolved today. We will decrease Solu-Medrol and start prednisone tomorrow. Her blood pressure remains elevated and hydralazine will be added to her regime. Eliquis remains on hold for ERCP scheduled for today. Dr. Miguel A Wylie has recommended consult with general surgery for possible cholecystectomy. Dr. Woodward will be added. environmental monitoring specialist is atrial fibrillation, rate controlled. 02/13: Dr. Woodward did see the patient on Wednesday and we have asked to reconsult for evaluation of cholecystectomy during this hospitalization. Lab work continues to improve with total bilirubin 2.6, AST 469, ALT 618, alkaline phosphatase 366. Lipase 471. Potassium today is 3.4 and will be replaced. Patient did not receive last evening's dose of eliquis nor this morning. Breathing status is stable. Patient is on oral prednisone. 02/14: Patient has been reevaluated by Dr. Woodward and plan for laparoscopic, pos sible open cholecystectomy this afternoon/evening. However, patient changed her mind that she did not want to take a chance on having open surgery and decided not to go through with the. Dr. Hardin had long discussion with the patient and she is now agreeable to undergo cholecystectomy that is scheduled for this afternoon. Patient remains afebrile, heart rate 76, blood pressure 150/78, pulse ox 95% on room air. Total bilirubin 1.5, AST 91, ALT 316, alkaline phosphatase 314. We will plan to resume eliquis following surgery if okay with Dr. Woodward. Cardiology has signed off patient's case. Patient will be transferred to [facility]. 02/15: Patient underwent laparoscopic cholecystectomy and lysis of adhesions with Dr. Woodward yesterday. Patient has had no postop complications. Patient states her pain is controlled. Patient is to start back on eliquis this evening. Repeat lab work reveals white count 12.3, hemoglobin 15.6, BUN 14 creatinine 1.11. Blood sugar 84. Sodium 136, potassium 4.7, chloride 97, CO2 27. Total bilirubin 2.2, AST 101, ALT 259, alk phos is 272. Patient is waiting for a [facility] bed. environmental monitoring specialist is atrial fibrillation. Patient will most likely be ready for discharge tomorrow. 02/16: The patient's abdominal pain is controlled. She denies any chest pain or shortness of breath, no palpitations. Her breathing status is stable. The patient has been resumed on eliquis. Patient will be discharged home today in stable condition. Discharge diagnoses: 1. Back pain and abdominal pain possibly related to choledocholithiasis, cholecystitis, pancreatitis. 2. Paroxysmal atrial fibrillation presenting with RVR. 3. Acute pancreatitis. 4. Acute hepatitis possibly due to common bile duct obstruction possible under lying alcoholic hepatitis. 5. Thrombocytopenia possibly related to suppression from alcohol abuse. 6. Hypertension. 7. Hyperlipidemia. 8. Gastroesophageal reflux disease. 9. Gout, chronic. 10. Generalized anxiety disorder. 11. Alcohol abuse. 12. Tobacco use and dependence. 13. Mild COPD exacerbation with acute hypoxic respiratory failure and drop in pulse ox to 87%. 14. Mild fluid overload secondary to IV fluids. Discharge plan: Return home Impression and plan of care have been directed as dictated by the signing physician. Farzaneh Delaney nurse practitioner acting as scribe for signing physician. Patient Condition at Discharge: Good Plan - Discharge Summary Discharge Rx Participant: No New Discharge Prescriptions: New Hydrocodone/Acetaminophen [[place] 5-325] 1 tab PO Q4HR PRN 3 Days #18 tab PRN Reason: Pain Docusate [Colace] 100 mg PO BID PRN #30 capsule PRN Reason: Constipation Apixaban [Eliquis] 5 mg PO BID #60 tab Metoprolol Tartrate [Lopressor] 50 mg PO BID #60 tab Continue Cholecalciferol [Vitamin D3 (25 Mcg = 1000 Iu)] 5,000 unit PO DAILY ALPRAZolam [Xanax] 0.5 mg PO DAILY PRN PRN Reason: Anxiety Magnesium Oxide [Mag-Ox] 400 mg PO DAILY Simvastatin 40 mg PO HS Potassium Chloride ER [K-Dur 10] 10 meq PO DAILY Losartan/Hydrochlorothiazide [Losartan-Hctz 100-25 mg Tab] 1 tab PO DAILY Warfarin Sodium 2.5 mg PO MOWEFR Warfarin Sodium 5 mg PO SUTUTHSA Omeprazole 20 mg PO DAILY Furosemide [Lasix] 40 mg PO DAILY Vit C/E/Zn/Coppr/Lutein/Zeaxan [Preservision Areds 2 Softgel] 1 cap PO BID Allopurinol [Zyloprim] 100 mg PO DAILY Discontinued Metoprolol Succinate (ER) [Toprol Xl] 50 mg PO DAILY Discharge Medication List ALPRAZolam [Xanax] 0.5 mg PO DAILY PRN 12/14/17 [History] Cholecalciferol [Vitamin D3 (25 Mcg = 1000 Iu)] 5,000 unit PO DAILY 12/14/17 [History] Losartan/Hydrochlorothiazide [Losartan-Hctz 100-25 mg Tab] 1 tab PO DAILY 12/14/17 [History] Magnesium Oxide [Mag-Ox] 400 mg PO DAILY 12/14/17 [History] Potassium Chloride ER [K-Dur 10] 10 meq PO DAILY 12/14/17 [History] Simvastatin 40 mg PO HS 12/14/17 [History] Allopurinol [Zyloprim] 100 mg PO DAILY 02/06/19 [History] Furosemide [Lasix] 40 mg PO DAILY 02/06/19 [History] Omeprazole 20 mg PO DAILY 02/06/19 [History] Vit C/E/Zn/Coppr/Lutein/Zeaxan [Preservision Areds 2 Softgel] 1 cap PO BID 02/06/19 [History] Warfarin Sodium 2.5 mg PO MOWEFR 02/06/19 [History] Warfarin Sodium 5 mg PO SUTUTHSA 02/06/19 [History] Apixaban [Eliquis] 5 mg PO BID #60 tab 02/16/19 [Rx] Docusate [Colace] 100 mg PO BID PRN #30 capsule 02/16/19 [Rx] Hydrocodone/Acetaminophen [[place] 5-325] 1 tab PO Q4HR PRN 3 Days #18 tab 02/16/19 [Rx] Metoprolol Tartrate [Lopressor] 50 mg PO BID #60 tab 02/16/19 [Rx] Follow up Appointment(s)/Referral(s): Connor Woodward MD [Medical Doctor] - 1 Week Tyrone Arzate MD [STAFF PHYSICIAN] - 2 Weeks (Follow-up with Dr. Arzate/Torri Samuels/Mary Bautista) Melissa Hardin MD [Primary Care Provider] - 1 Week Patient Instructions/Handouts: A-fib (Atrial Fibrillation) (DC), Urinary Tract Infection in Women (DC), Heart Healthy Diet (DC) Activity/Diet/Wound Care/Special Instructions: Pts monthly copay for Eliquis is $47 [address] while taking [place] No lifting over 10 pounds You may shower. No soaking or tub baths Very light activity until you are reevaluated at your follow up appointment with your surgeon Discharge Disposition: HOME SELF-CARE
== END 2019-02-16 14:12 | disposition home health service (06) | DRG 417 ==
LOC: EC 17:12 → 3SCARD 21:53 → 4MS4W 02-15 19:52
PROVIDERS: ADMIT Family Medicine; ATTEND Family Medicine
PROC: 0FC98ZZ Extirpation of Matter from Common Bile Duct, Via Natural or Artificial Opening Endoscopic (ICD-10-PCS; 2019-02-10)
PROC: 0F798ZZ Dilation of Common Bile Duct, Via Natural or Artificial Opening Endoscopic (ICD-10-PCS; 2019-02-10 07:00)
PROC: 0FT44ZZ Resection of Gallbladder, Percutaneous Endoscopic Approach (ICD-10-PCS; principal; 2019-02-14 10:25)
DX: K85.10 Biliary acute pancreatitis without necrosis or infection (principal); K72.00 Acute and subacute hepatic failure without coma; J96.01 Acute respiratory failure with hypoxia; K80.65 Calculus of gallbladder and bile duct with chronic cholecystitis with obstruction; N39.0 Urinary tract infection, site not specified; I95.9 Hypotension, unspecified; D69.6 Thrombocytopenia, unspecified; E87.70 Fluid overload, unspecified; I48.0 Paroxysmal atrial fibrillation; E66.01 Morbid (severe) obesity due to excess calories; K66.0 Peritoneal adhesions (postprocedural) (postinfection); J43.9 Emphysema, unspecified; K70.10 Alcoholic hepatitis without ascites; K76.89 Other specified diseases of liver; K82.8 Other specified diseases of gallbladder; I10 Essential (primary) hypertension; K21.9 Gastro-esophageal reflux disease without esophagitis; F41.1 Generalized anxiety disorder; E78.5 Hyperlipidemia, unspecified; K57.30 Diverticulosis of large intestine without perforation or abscess without bleeding; E04.9 Nontoxic goiter, unspecified; M85.80 Other specified disorders of bone density and structure, unspecified site; R79.1 Abnormal coagulation profile; T45.515A Adverse effect of anticoagulants, initial encounter; M1A.9XX0 Chronic gout, unspecified, without tophus (tophi); Z68.35 Body mass index [BMI] 35.0-35.9, adult; F17.210 Nicotine dependence, cigarettes, uncomplicated; Z71.6 Tobacco abuse counseling; F10.20 Alcohol dependence, uncomplicated; Z71.41 Alcohol abuse counseling and surveillance of alcoholic; Z79.01 Long term (current) use of anticoagulants; Z79.899 Other long term (current) drug therapy; Z90.710 Acquired absence of both cervix and uterus; Z98.51 Tubal ligation status; Z98.890 Other specified postprocedural states; Z90.5 Acquired absence of kidney; Z85.828 Personal history of other malignant neoplasm of skin; Z88.8 Allergy status to other drugs, medicaments and biological substances; Z91.041 Radiographic dye allergy status; Z80.0 Family history of malignant neoplasm of digestive organs; Z81.1 Family history of alcohol abuse and dependence; Z82.49 Family history of ischemic heart disease and other diseases of the circulatory system; Z82.5 Family history of asthma and other chronic lower respiratory diseases; Z83.3 Family history of diabetes mellitus
CPT/HCPCS: 36415; 43262; 43277; 71045; 71250; 74176; 74181; 74330; 76705; 78226; 80048; 80053; 80061; 80074; 80076; 81001; 82150; 83605; 83690; 83735; 84443; 84484; 85025; 85027; 85610; 85730; 87077; 87086; 87186; 88304; 93005; 93306; 94640; 94760; 96361; 96365; 96375; 99285

== ENCOUNTER 2019-04-19 08:09 | Day surgery (SDC) | payer MEDICARE, BC ==
[2019-04-17 11:54] VITALS: BMI 37.5
[~2019-04-19 08:09] MED LIST changes: -BACITRACIN OINT 1 EACH PACKET TOPICAL ONE; -BUPIVACAINE (PF) 0.25% 30 ML VIAL ONE; +LACTATED RINGERS 1,000 ML IV SCH; +LIDOCAINE 1% 20 ML VIAL (10MG/ML) FOR IV START INTRADERMA PRN
[2019-04-19 08:40] VITALS: TEMP 96.8
[2019-04-19] MEDS ORDERED: PROPOFOL 10 MG/ML 20 ML VIAL IV ONE (09:04)
[2019-04-19] MEDS ORDERED: LIDOCAINE 1% INJ 10MG/ML (20 ML MDV) ONE (09:04)
--- NOTE | 2019-04-19 09:31 | P.PCN ---
Date of Procedure: 04/19/19 Procedure(s) Performed: BRIEF HISTORY: Patient is a 79-year-old pleasant white female scheduled for an elective colonoscopy as a part of evaluation of prior history of colon polyps. Last colonoscopy was 3 years ago and was noted to have a tubular villous adenoma PROCEDURE PERFORMED: Colonoscopy with snare polypectomy. PREOPERATIVE DIAGNOSIS: History of colon polyps. IV sedation per Anesthesia. PROCEDURE: After informed consent was obtained, the patient, was brought into the endoscopy unit. IV sedation was administered by Anesthesia under continuous monitoring. Digital rectal examination was normal. Initially the Olympus CF-160 flexible video colonoscope was then inserted in the rectum, gradually advanced into the cecum without any difficulty. Careful examination was performed as the scope was gradually being withdrawn. Ileocecal valve and the appendiceal orifice were visualized and appeared normal. Prep was excellent. Mucosa of the cecum, ascending colon, transverse colon, descending colon appeared normal. The sigmoid: There was a 5 limited polyp that was removed by snare polypectomy. There were diffuse diverticula cyst noted throughout the entire colon. Rest of the sigmoid colon, and rectum appeared normal. Retroflexion was performed in the rectum and no lesions were seen. The patient tolerated the procedure well. IMPRESSION: 5 mm sigmoid colon Polyp status post snare olypectomy Diffuse diverticulosis RECOMMENDATIONS: Findings of this examination were discussed with the patient as well as a family.. She was advised to follow with the biopsy results. If the biopsy shows an adenoma she can have a repeat colonoscopy in 3-5 years.
[2019-04-19 09:57] VITALS: BP 126/65; PULSE 60; RESP 18
== END 2019-04-19 10:30 | disposition home or self-care (01) ==
LOC: ORWHC2ENDO 08:09
PROVIDERS: ATTEND Internal Medicine Gastroenterology
DX: Z12.11 Encounter for screening for malignant neoplasm of colon (principal); Z86.010 Personal history of colon polyps; K57.30 Diverticulosis of large intestine without perforation or abscess without bleeding; D12.5 Benign neoplasm of sigmoid colon; Z88.3 Allergy status to other anti-infective agents; I10 Essential (primary) hypertension; E78.5 Hyperlipidemia, unspecified; I48.91 Unspecified atrial fibrillation; Z79.01 Long term (current) use of anticoagulants; Z79.899 Other long term (current) drug therapy
CPT/HCPCS: 88305; 45385; J2001; J2704

== ENCOUNTER → 2020-04-30 | Outpatient (CLI) | payer MEDICARE, BC ==
[2020-04-30 14:02] VITALS: BP 115/59; TEMP 97.7
[2020-04-30 14:16] VITALS: PULSE 82; RESP 20
--- NOTE | 2020-04-30 14:53 | P.HPOB ---
History of Present Illness H&P Date: 04/30/20 Chief Complaint: The patient is here for her routine gynecologic exam and ma mmogram. This is a 80-year-old with an LMP of 1990. The patient is status post IVY/BSO for uterine fibroids. The patient is without gynecologic complaints. Review of Systems She has lost about 17 pounds over the past 2 years. She denies respiratory or cardiac problems. GI: Occasional loose stools. She denies maltreatment or problems with falling. : She occasionally has to get to the bathroom right away. Past Medical History Past Medical History: Atrial Fibrillation, Cancer, COPD, Hyperlipidemia, Hypertension, Pneumonia Additional Past Medical History / Comment(s): states no rx for COPD, states unsure about gout, Skin cancer. Osteopenia. 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 History of Any Multi-Drug Resistant Organisms: None Reported Past Surgical History: Breast Surgery, Cholecystectomy, Hysterectomy, Tubal Ligation Additional Past Surgical History / Comment(s): ERCP, Right kidney removed for benign masses. thyroid tumors. Colonoscopy 2019. Past Anesthesia/Blood Transfusion Reactions: No Reported Reaction Past Psychological History: Anxiety Smoking Status: Current some day smoker (Up to 1 pack per day on and off.) Past Alcohol Use History: Daily (2 per Day) Additional Past Alcohol Use History / Comment(s): States currently smokes occasionally, Patient was a smoker of 2 packs per day for 40 years. Past Drug Use History: None Reported Additional History: She is a and is not sexually active. - Past Family History Mother Additional Family Medical History / Comment(s): Maternal grandfather had an SD, maternal aunt had rectal cancer. Mother at age 91 from old age. Father Family Medical History: COPD Additional Family Medical History / Comment(s): Father at age 69 from competitions of COPD and alcohol abuse. Brother(s) Family Medical History: Diabetes Mellitus Additional Family Medical History / Comment(s): Patient has one brother with diabetes. She does not have any sisters. Patient has 4 children with no major medical problems. Medications and Allergies Home Medications Medication Instructions Recorded Confirmed Type ALPRAZolam [Xanax] 0.5 mg PO HS 12/14/17 04/30/20 History Cholecalciferol [Vitamin D3 (25 5,000 unit PO DAILY 12/14/17 04/30/20 History Mcg = 1000 Iu)] Losartan/Hydrochlorothiazide 1 tab PO DAILY 12/14/17 04/30/20 History [Losartan-Hctz 100-25 mg Tab] Magnesium Oxide [Mag-Ox] 400 mg PO DAILY 12/14/17 04/30/20 History Potassium Chloride ER [K-Dur 10] 10 meq PO DAILY 12/14/17 04/30/20 History Simvastatin 40 mg PO HS 12/14/17 04/30/20 History Furosemide [Lasix] 40 mg PO DAILY 02/06/19 04/30/20 History Vit C/E/Zn/Coppr/Lutein/Zeaxan 1 cap PO BID 02/06/19 04/30/20 History [Preservision Areds 2 Softgel] allopurinoL [Zyloprim] 100 mg PO DAILY 02/06/19 04/30/20 History Metoprolol Tartrate [Lopressor] 50 mg PO BID #60 tab 02/16/19 04/30/20 Rx Oxybutynin Chloride 5 mg PO DAILY 04/30/20 04/30/20 History Warfarin [Coumadin] 2.5 mg PO DAILY 04/30/20 04/30/20 History Allergies Allergy/AdvReac Type Severity Reaction Status Date / Time iodine Allergy Unknown Verified 04/30/20 13:58 Exam Vital Signs Temp Pulse Resp BP Pulse Ox 04/30/20 14:03 97.7 F 82 20 115/59 96 04/30/20 13:59 97.7 F 89 18 115/59 96 Intake and Output 04/29/20 04/30/20 04/30/20 22:59 06:59 14:59 Other: Weight 97.522 kg Height 5 feet 5 inches, weight 215 pounds, BMI 35.8. This is a well-developed well-nourished heavyset white female who is alert and oriented times 3 in no acute distress. HEENT: Within normal limits. NECK: Supple without mass or thyromegaly. CHEST AND LUNGS: Clear to auscultation. HEART: Regular rate and rhythm. BREASTS: Are without mass or discharge. AXILLARY EXAM: Negative for adenopathy. BACK: Negative for CVA tenderness. ABDOMEN: Soft, nontender, without palpable masses. PELVIC EXAM: External genitalia appears normal with mild to moderate atrophy. Vagina appears normal with mild atrophy. There is no evidence of prolapse. Bimanual examination is negative for mass or tenderness. RECTAL EXAM: Rectovaginal exam is negative for mass or tenderness and is neg ative for occult blood. EXTREMITIES: Nontender. IMPRESSION: 1. 80-year-old menopausal female status post IVY/BSO for benign reasons with normal gynecologic exam. 2. History of osteopenia. 3. Multiple medical problems. PLAN: 1. Pap smears have been discontinued. 2. Self breast awareness was discussed with the patient. 3. Screening mammogram will be done today. 4. Osteoporosis prevention was discussed. I have stressed the importance of adequate calcium, vitamin D and regular exercise. Recommended amounts of calcium and vitamin D were also discussed. I have recommended bone density song ting and the order slip was given to the patient for this. 5. She did receive her flu shot this fall. 6. The patient was advised to return in 1-2 years for her well woman examination.
--- NOTE | 2020-05-01 12:04 | MM ---
Reason for exam: screening (asymptomatic). Last mammogram was performed 1 year and 3 months ago. History: Patient is postmenopausal and history of other cancer. Benign MG stereo VAD BX RT of the right breast, December 03, 2016. Benign US biopsy breast VAD RT of the right breast, March 27, 2016. Benign US biopsy breast VAD RT of the right breast, September 13, 2015. Benign excisional biopsy of the left breast. Physical Findings: A clinical breast exam by your physician is recommended on an annual basis and results should be correlated with mammographic findings. MG 3D Screening Mammo W/Cad Bilateral CC and MLO view(s) were taken. Prior study comparison: January 30, 2019, bilateral MG 3d screening mammo w/cad. December 14, 2017, bilateral MG 3d diag mammo w/cad YASMANI. The breast tissue is extremely dense which could obscure a lesion on mammography. Finding #1: There is a 13 mm obscured oval mass located 5-6 cm from the nipple in the middle position of the left breast on CC 23/69 and MLO 30/. Finding #2: There are typically benign vascular, round calcifications in both breasts. Previous mammotome biopsy in the right breast x 3. There is a chronic nodularity bilaterally. Asymmetric breast tissue right inferior, stable. New finding since January 30, 2019 and December 14, 2017. ASSESSMENT: Incomplete: need additional imaging evaluation, BI-RAD 0 RECOMMENDATION: Ultrasound of the left breast. [facility] will attempt to contact patient to return for ultrasound.
== END | disposition home or self-care (01) ==
LOC: WWCWWP 13:29
PROVIDERS: ATTEND Obstetrics & Gynecology
DX: Z12.31 Encounter for screening mammogram for malignant neoplasm of breast (principal)
CPT/HCPCS: 77063; 77067

== ENCOUNTER → 2020-05-10 | Outpatient (CLI) | payer MEDICARE, BC ==
--- NOTE | 2020-05-10 14:40 | USB ---
Reason for exam: additional evaluation requested from abnormal screening. History: Patient is postmenopausal and history of other cancer. Benign MG stereo VAD BX RT of the right breast, December 03, 2016. Benign US biopsy breast VAD RT of the right breast, March 27, 2016. Benign US biopsy breast VAD RT of the right breast, September 13, 2015. Benign excisional biopsy of the left breast. Physical Findings: Nurse did not find any significant physical abnormalities on exam. US Breast Workup Limited LT Left limited breast ultrasound including focal area of concern, retroareolar and axilla demonstrates a 0.5 x 0.5 x 0.5cm oval, hypoechoic lesion at 2 o'clock. These results were verbally communicated with the patient and result sheet given to the patient on 05/10/20. ASSESSMENT: Suspicious, BI-RAD 4 RECOMMENDATION: Ultrasound core biopsy of the left breast. (with clip correlate with mammogram) Called Dr. Avila's office with mammographic findings and has scheduled an appointment for the patient for 06/07/20 at 3:[address] Weeks. Biopsy scheduled for 06/11/20 at 12:00. PRELIMINARY REPORT CALLED AND FAXED TO DR. WEEKS ON 05/10/20.
== END | disposition home or self-care (01) ==
LOC: RADUSWWP 13:19
PROVIDERS: ATTEND Obstetrics & Gynecology
DX: R92.8 Other abnormal and inconclusive findings on diagnostic imaging of breast (principal)

== ENCOUNTER → 2020-07-19 | Outpatient (CLI) | payer MEDICARE, BC ==
[2020-07-19 11:24] VITALS: BP 103/73; PULSE 76; RESP 18; TEMP 97.9
--- NOTE | 2020-07-19 11:32 | P.GSHP ---
History of Present Illness H&P Date: 07/19/20 Chief Complaint: abnormal left breast mammogram and ultrasound Shani is a 80 year old white female seen in consultation for Dr. Avila regarding a radiographic abnormality in the left breast. [place] [address]. There were some changes noted in the left breast for which an ultrasound was recommended ultrasound revealed a 0.5 lesion at 2:00 an ultrasound core biopsy was recommended with clip to correlate the if this is the area seen on mammogram. She does not note any new lumps masses or nodules in her breast but she does not examine them frequently. She is status post sterile core biopsy of the right breast in 2017 and ultrasound biopsy of the right breast in 2016 both of these were benign. She had a benign excisional biopsy of the left breast many years ago. She is not complaining of any nipple discharge or skin changes. She is not complaining of any trauma or infection in the breast. Caffeine:2 cups in AM smoke: intermittent-1/PPD theobromine:occasional Family History: maternal aunt: colon cancer maternal aunt: cancer ? source patient has had skin cancer on her face Hormonal History: menarche: 15 , breast fed: none, age at first : 22 menopause: hysterectomy at 51, took ovaries, no cancer BCP: none hormones: 1 year Surgical History: hysterectomy and bilateral oophrectomy tubaligation kidney removed from fibrous tumors breast biopsy Medical History: diverticular disease HTN tachy goiter Social History: smoke: 1/PPD alcohol: three timess/week drugs: none - Constitutional Constitutional: Denies chills, Denies fever - EENT Comment: bilateral cataracts Ears: bilateral: decreased hearing, tinnitus Ears, nose, mouth and throat: Denies headache, Denies sore throat - Breasts Breasts: bilateral: as per HPI - Cardiovascular Comment: atrial fibrillation Cardiovascular: Reports shortness of breath, Denies chest pain - Respiratory Comment: COPD, smoker - Gastrointestinal Gastrointestinal: Reports as per HPI, Denies abdominal pain, Denies diarrhea, Denies nausea, Denies vomiting - Genitourinary (Female) Genitourinary: Reports as per HPI - Menstruation Menstruation: Reports post hysterectomy - Musculoskeletal Comment: arthritis - Integumentary Integumentary: Reports rash - Neurological Neurological: Denies numbness, Denies weakness - Psychiatric Psychiatric: Reports anxiety, Reports depression - Endocrine Endocrine: Reports weight change - Allergic/Immunologic Comment: on coumadin Allergic/Immunologic: Reports seasonal allergies Past Medical History Past Medical History: Atrial Fibrillation, Cancer, COPD, Hyperlipidemia, Hypertension, Pneumonia Additional Past Medical History / Comment(s): states no rx for COPD, states unsure about gout, Skin cancer. Osteopenia. PAST [employer] HISTORY: She has no history of STDs. History of Any Multi-Drug Resistant Organisms: None Reported Past Surgical History: Breast Surgery, Cholecystectomy, Hysterectomy, Tubal Ligation Additional Past Surgical History / Comment(s): ERCP, Right kidney removed for benign masses. thyroid tumors. Colonoscopy 2019. Past Anesthesia/Blood Transfusion Reactions: No Reported Reaction Past Psychological History: Anxiety Smoking Status: Current some day smoker Past Alcohol Use History: Daily Additional Past Alcohol Use History / Comment(s): States currently smokes occasionally, Patient was a smoker of 2 packs per day for 40 years. Pt states she drinks almost daily 2-3 day Past Drug Use History: None Reported - Past Family History Mother Family Medical History: Cancer Additional Family Medical History / Comment(s): Maternal grandfather had an OR, maternal aunt had rectal cancer. Mother at age 91 from old age. Father Family Medical History: COPD Additional Family Medical History / Comment(s): Father at age 69 from competitions of COPD and alcohol abuse. Brother(s) Family Medical History: Diabetes Mellitus Additional Family Medical History / Comment(s): Patient has one brother with diabetes. She does not have any sisters. Patient has 4 children with no major medical problems. Medications and Allergies Home Medications Medication Instructions Recorded Confirmed Type ALPRAZolam [Xanax] 0.5 mg PO HS 12/14/17 04/30/20 History Cholecalciferol [Vitamin D3 (25 5,000 unit PO DAILY 12/14/17 07/17/20 History Mcg = 1000 Iu)] Losartan/Hydrochlorothiazide 1 tab PO DAILY 12/14/17 07/17/20 History [Losartan-Hctz 100-25 mg Tab] Magnesium Oxide [Mag-Ox] 400 mg PO DAILY 12/14/17 07/17/20 History Potassium Chloride ER [K-Dur 10] 10 meq PO DAILY 12/14/17 07/17/20 History Simvastatin 40 mg PO HS 12/14/17 07/17/20 History Furosemide [Lasix] 40 mg PO DAILY 02/06/19 07/17/20 History Vit C/E/Zn/Coppr/Lutein/Zeaxan 1 cap PO BID 02/06/19 07/17/20 History [Preservision Areds 2 Softgel] allopurinoL [Zyloprim] 100 mg PO DAILY 02/06/19 07/17/20 History Metoprolol Tartrate [Lopressor] 50 mg PO BID #60 tab 02/16/19 07/17/20 Rx Oxybutynin Chloride 5 mg PO DAILY 04/30/20 07/17/20 History Warfarin [Coumadin] 2.5 mg PO DAILY 04/30/20 07/17/20 History Allergies Allergy/AdvReac Type Severity Reaction Status Date / Time iodine Allergy Unknown Verified 07/19/20 11:03 Surgical - Exam BMI 38.5 - General well developed, no distress - Eyes normal ocular movement - ENT normal pinna, normal nares - Neck no masses, trachea midline - Respiratory normal expansion, normal respiratory effort - Cardiovascular Heart Sounds: normal: S1, S2 - Abdomen Abdomen: soft, bowel sounds - Integumentary dry skin in patches on back Patchy skin change left inner arm - Neurologic no disoriented, no combative - Musculoskeletal some difficulty with ambulation - Psychiatric oriented to time, oriented to person, oriented to place, speech is normal breast exam: BRA: 38D insepction: grade 3 ptosis bilateral palpation: right breast: Multi-positional exam fibrocystic changes no dominant masses or nodules of concern Right axilla: No adenopathy of concern Left breast: Multi-positional exam fibrocystic changes, no dominant masses or nodules of concern Left axilla: No adenopathy of concern Results mammogram and ultrasound reviewed Assessment and Plan Assessment: Impression: diverticular disease HTN tachy goiter atrial fibrillation Abnormal left breast mammogram and ultrasound Fibrocystic breast changes Family history cancer decreased hearing Patchy skin change left upper arm/dry skin back Plan: 1. ultrasound core biopsy left breast/ need to be sure correlates with mammogram change 2. follow up with dermatology 3. medical management of medical conditions 4. atrial fibrillation will stop anticoagulation as per cardiology; PT & INR in am of biopsy CC: Dr. Hardin, Dr. Avila, Dr. Arzate encounter 45 minutes, > 50% of time in planning and counselling Time with Patient: Greater than 30
--- NOTE | 2020-08-02 12:03 | P.PN ---
Progress Note - Text Progress Note Date: 08/02/20 The patient failed to come for her appointment on 2420. The patient [place] [id number]. This was sclerosing adenosis with focal microcalcification, fibrocystic change, and apocrine metaplasia. It was negative for invasive cancer or in situ cancer. I have talked to the patient on the phone regarding these results. I reviewed this with radiology and is felt to be 9 concordant. She understands that she will have a repeat left breast mammogram and ultrasound in 6 months with examination at that time. She states she had no complications related to the biopsy and is doing well.
== END | disposition home or self-care (01) ==
LOC: WWCWWP 10:52
PROVIDERS: ATTEND Surgery
DX: Z53.9 Procedure and treatment not carried out, unspecified reason (principal)

== ENCOUNTER → 2020-07-24 | Day surgery (SDC) | payer MEDICARE, BC ==
[2020-07-24 12:03] LABS: INR 1.1 (<1.2); Partial Thromboplastin Time 23.9 sec (22.0-30.0); Prothrombin Time 11.9 sec (9.0-12.0)
[2020-07-24 14:08] VITALS: BP 127/82; PULSE 76; RESP 16; TEMP 98.1
--- NOTE | 2020-07-24 14:38 | USB ---
EXAMINATION TYPE: US biopsy breast VAD LT DATE OF EXAM: 07/24/2020 CLINICAL HISTORY: R92.8 abnormal mammogram. Abnormal ultrasound TECHNIQUE: Ultrasound guided vaccuum assisted core biopsy of left breast. COMPARISON: NONE FINDINGS: The ultrasound guided core biopsy procedure was explained to the patient. The risks, benefits, alternatives were discussed. An informed consent was then obtained. Timeout was performed. The patient was placed in supine positioning for imaging and for the procedure. The overlying skin was prepped with betadine and sterilely draped in usual sterile fashion. Lidocaine 1% was used as anesthetic into the skin and deeper breast tissue up to area of concern in the breast. A small skin nathaly was made with surgical scalpel. Under ultrasound guidance, a 12-gauge vacuum assisted biopsy device was used to obtain 6 core samples. A biopsy clip was left in lesion. Ribbon clip was utilized Good hemostasis was obtained with direct pressure. Discharge instructions were discussed with the patient. The patient will follow up with the referring physician for results. Postprocedure mammogram: The patient was transferred to mammography for physician ordered post procedure mammogram for clip placement verification. The clip is in the expected region of the biopsy. The patient tolerated the procedure well without any immediate complication. The patient was discharged to home in stable condition. IMPRESSION: 1. Successful ultrasound guided biopsy left breast. Recommendations: 1. Recommendations are pending pathology results. Pathology Results: Benign LEFT BREAST, CORE BIOPSY: Sclerosing adenosis with focal microcalcification, fibrocystic change with apocrine metaplasia, hyalinizing stromal fibrosis and focal florid usual ductal hyperplasia (see note). Negative for in situ or invasive carcinoma. Recommendation Follow up mammogram of the left breast in 6 months. [place]
--- NOTE | 2020-07-24 14:39 | MM ---
EXAMINATION TYPE: US biopsy breast VAD LT DATE OF EXAM: 07/24/2020 CLINICAL HISTORY: R92.8 abnormal mammogram. Abnormal ultrasound TECHNIQUE: Ultrasound guided vaccuum assisted core biopsy of left breast. COMPARISON: NONE FINDINGS: The ultrasound guided core biopsy procedure was explained to the patient. The risks, benef its, alternatives were discussed. An informed consent was then obtained. Timeout was performed. The patient was placed in supine positioning for imaging and for the procedure. The overlying skin w as prepped with betadine and sterilely draped in usual sterile fashion. Lidocaine 1% was used as ane sthetic into the skin and deeper breast tissue up to area of concern in the breast. A small skin grayson k was made with surgical scalpel. Under ultrasound guidance, a 12-gauge vacuum assisted biopsy device was used to obtain 6 core samples . A biopsy clip was left in lesion. Ribbon clip was utilized Good hemostasis was obtained with direct pressure. Discharge instructions were discussed with the leah thomas. The patient will follow up with the referring physician for results. Postprocedure mammogram: The patient was transferred to mammography for physician ordered post proced ure mammogram for clip placement verification. The clip is in the expected region of the biopsy. The patient tolerated the procedure well without any immediate complication. The patient was dischar ged to home in stable condition. IMPRESSION: 1. Successful ultrasound guided biopsy left breast. Recommendations: 1. Recommendations are pending pathology results.
== END ==
LOC: RADUSWWP 11:24
PROVIDERS: ATTEND Surgery
DX: R92.0 Mammographic microcalcification found on diagnostic imaging of breast (principal); N60.12 Diffuse cystic mastopathy of left breast; N60.82 Other benign mammary dysplasias of left breast; N62 Hypertrophy of breast; R92.8 Other abnormal and inconclusive findings on diagnostic imaging of breast; Z91.013 Allergy to seafood
CPT/HCPCS: 88305; 85610; 85730; 88342; 88341; 77065; 19083; 36415; A4648; J2001

== ENCOUNTER → 2021-01-21 | Outpatient (CLI) | payer MEDICARE, BC ==
--- NOTE | 2021-01-24 13:10 | MM ---
Reason for exam: follow-up at short interval from prior study. Last mammogram was performed 6 months ago. History: Patient is postmenopausal and history of other cancer. Benign US biopsy breast VAD LT of the left breast, July 24, 2020. Benign MG stereo VAD BX RT of the right breast, December 03, 2016. Benign US biopsy breast VAD RT of the right breast, March 27, 2016. Benign US biopsy breast VAD RT of the right breast, September 13, 2015. Benign excisional biopsy of the left breast. Physical Findings: Nurse did not find any significant physical abnormalities on exam. MG 3D Diag Mammo W/Cad LT CC and MLO view(s) were taken of the left breast. Prior study comparison: July 24, 2020, left breast MG diagnostic mammo LT wo CAD. April 30, 2020, bilateral MG 3d screening mammo w/cad. The breast tissue is heterogeneously dense. This may lower the sensitivity of mammography. Stable benign calcifications. Previous mammotome biopsy in the left breast. No significant new findings when compared with previous films. These results were verbally communicated with the patient and result sheet given to the patient on 01/21/21. ASSESSMENT: Incomplete: need additional imaging evaluation, BI-RAD 0 RECOMMENDATION: Ultrasound of the left breast.
--- NOTE | 2021-01-24 13:12 | USB ---
Reason for exam: additional evaluation requested from abnormal screening. History: Patient is postmenopausal and history of other cancer. Benign US biopsy breast VAD LT of the left breast, July 24, 2020. Benign MG stereo VAD BX RT of the right breast, December 03, 2016. Benign US biopsy breast VAD RT of the right breast, March 27, 2016. Benign US biopsy breast VAD RT of the right breast, September 13, 2015. Benign excisional biopsy of the left breast. US Breast Limited LT Left limited breast ultrasound including focal area of concern, retroareolar and axilla demonstrates a 4 x 3 x 4mm oval, cystic lesion at 2 o'clock, smaller in size. These results were verbally communicated with the patient and result sheet given to the patient on 01/21/21. ASSESSMENT: Benign, BI-RAD 2 RECOMMENDATION: Follow-up diagnostic mammogram of both breasts in 6 months.
== END | disposition home or self-care (01) ==
LOC: RADMAMWWP 14:07
PROVIDERS: ATTEND Surgery
DX: R92.8 Other abnormal and inconclusive findings on diagnostic imaging of breast (principal)
CPT/HCPCS: 77065; 76642; G0279; 77061

== ENCOUNTER → 2021-03-06 | Outpatient (CLI) | payer MEDICARE, BC ==
[2021-03-06 15:45] VITALS: BP 145/71; PULSE 80; RESP 18; TEMP 97.7
--- NOTE | 2021-03-06 15:59 | P.PN ---
Subjective Progress Note Date: 03/06/21 Principal diagnosis: fibrocystic breast disease Shani is an 81 year old white female seen in consultation for Dr. Avila on 07-19-20 regarding a radiographic abnormality in the left breast. [place] [address]. There were some changes noted in the left breast for which an ultrasound was recommended ultrasound revealed a 0.5 lesion at 2:00 an ultrasound core biopsy was recommended with clip to correlate the if this is the area seen on mammogram. She did not note any new lumps masses or nodules in her breast but she does not examine them frequently. She was status post ultrasound core biopsy of the right breast in 2017 and ultrasound biopsy of the right breast in 2016 both of these were benign. She had a benign excisional biopsy of the left breast many years ago. Ultrasound core biopsy on 07-24-20 was benign. She had a left breast mammogram on [id number] this was felt to be inconclusive and an ultrasound was recommended. The ultrasound revealed a 4 x 4 mm cystic lesion at 2:00 and it was felt to be benign BIRADS 2 follow-up mammogram of both breasts in 6 months recommended. She is not complaining of any nipple discharge or skin changes. She is not complaining of any trauma or infection in the breast. Caffeine:2 cups in AM smoke: intermittent-1/PPD theobromine:occasional Family History: maternal aunt: colon cancer maternal aunt: cancer ? source patient has had skin cancer on her face Hormonal History: menarche: 15 , breast fed: none, age at first : 22 menopause: hysterectomy at 51, took ovaries, no cancer BCP: none hormones: 1 year Surgical History: hysterectomy and bilateral oophrectomy tubaligation kidney removed from fibrous tumors breast biopsy Medical History: diverticular disease HTN tachy goiter afib Social History: smoke: 1/PPD alcohol: three timess/week drugs: none - Constitutional Constitutional: Denies chills, Denies fever - EENT Comment: bilateral cataracts Ears: bilateral: decreased hearing, tinnitus Ears, nose, mouth and throat: Denies headache, Denies sore throat - Breasts Breasts: bilateral: as per HPI - Cardiovascular Comment: atrial fibrillation Cardiovascular: Reports shortness of breath, Denies chest pain - Respiratory Comment: COPD, smoker - Gastrointestinal Gastrointestinal: Reports as per HPI, Denies abdominal pain, Denies diarrhea, Denies nausea, Denies vomiting - Genitourinary (Female) Genitourinary: Reports as per HPI - Menstruation Menstruation: Reports post hysterectomy - Musculoskeletal Comment: arthritis - Integumentary Integumentary: Reports rash - Neurological Neurological: Denies numbness, Denies weakness - Psychiatric Psychiatric: Reports anxiety, Reports depression - Endocrine Endocrine: Reports weight change - Allergic/Immunologic Comment: on coumadin Allergic/Immunologic: Reports seasonal allergies Objective - Vital Signs Vital signs: Vital Signs Temp 97.7 F 03/06/21 15:42 Pulse 80 03/06/21 15:42 Resp 18 03/06/21 15:42 BP 145/71 03/06/21 15:42 Pulse Ox 95 03/06/21 15:42 Intake & Output 03/05/21 03/06/21 03/06/21 18:59 06:59 18:59 Weight 106.594 kg - Exam BMI 37.9 - Constitutional General appearance: Present: cooperative - EENT Eyes: Present: EOMI ENT: Present: hearing grossly normal - Neck Neck: Present: normal ROM - Respiratory Details: Inspiratory wheezing Respiratory: bilateral: CTA - Cardiovascular Heart sounds: normal: S1, S2 - Integumentary Integumentary: Present: normal turgor - Musculoskeletal Musculoskeletal: Present: gait normal - Psychiatric Psychiatric: Present: A&O x's 3, appropriate affect, intact judgment & insight - Additional findings Additional findings: Breast Exam: BRA: 38D inspection: bilateral grade 3 ptosis Palpation: Right breast: Positional exam fibrocystic changes no dominant masses or nodules of concern Right axilla: No adenopathy of concern Left breast: Multi-positional exam no dominant masses or nodules of concern Left axilla: No adenopathy of concern Assessment and Plan Assessment: Impression: diverticular disease HTN tachy goiter afib fibrocystic breast disease Plan: medical management of medical conditions bilateral mammogram in June 2021 with appointment CC: DR. Garrett
== END ==
LOC: WWCWWP 15:27
PROVIDERS: ATTEND Surgery
DX: N60.11 Diffuse cystic mastopathy of right breast (principal); K57.90 Diverticulosis of intestine, part unspecified, without perforation or abscess without bleeding; I10 Essential (primary) hypertension; E04.9 Nontoxic goiter, unspecified; I48.91 Unspecified atrial fibrillation; F17.210 Nicotine dependence, cigarettes, uncomplicated; Z91.041 Radiographic dye allergy status; Z91.013 Allergy to seafood

== ENCOUNTER → 2021-07-28 | Outpatient (CLI) | payer MEDICARE, BC ==
--- NOTE | 2021-07-28 12:16 | MM ---
Reason for exam: history of benign breast biopsy. Last mammogram was performed 6 months ago. History: Patient is postmenopausal and history of other cancer. Benign US biopsy breast VAD LT of the left breast, July 24, 2020. Benign MG stereo VAD BX RT of the right breast, December 03, 2016. Benign US biopsy breast VAD RT of the right breast, March 27, 2016. Benign US biopsy breast VAD RT of the right breast, September 13, 2015. Benign excisional biopsy of the left breast. Physical Findings: Nurse did not find any significant physical abnormalities on exam. MG 3D Diag Mammo W/Cad YASMANI Bilateral CC, MLO, and XCCL view(s) were taken. CC with magnification and ML with magnification view(s) were taken of the left breast. Prior study comparison: January 21, 2021, left breast MG 3d diag mammo w/cad LT. July 24, 2020, left breast MG diagnostic mammo LT wo CAD. December 14, 2017, bilateral MG 3d diag mammo w/cad YASMANI. September 21, 2017, right breast MG 3d diag mammo w/cad RT. The breast tissue is heterogeneously dense. This may lower the sensitivity of mammography. Previous mammotome biopsy in the right breast x 3 and in the left breast. Accessory breast tissue at the right axilla. Diffuse round and punctate calcifications bilaterally. Increasing grouped calcifications 12 o'clock posterior left breast are heterogeneous and biopsy will be needed. These results were verbally communicated with the patient and result sheet given to the patient on 07/28/21. ASSESSMENT: Suspicious, BI-RAD 4 RECOMMENDATION: Stereotactic core biopsy of the left breast. Called office with mammographic findings and has scheduled an appointment for the patient for 08/01/[address] Weeks. Biopsy scheduled for 08/21/21 at 8:00. PRELIMINARY REPORT CALLED AND FAXED TO DR. WEEKS ON 07/28/21.
== END | disposition home or self-care (01) ==
LOC: RADMAMWWP 10:10
PROVIDERS: ATTEND Surgery
DX: R92.1 Mammographic calcification found on diagnostic imaging of breast (principal); Z78.0 Asymptomatic menopausal state
CPT/HCPCS: 77066; G0279; 77062

== ENCOUNTER → 2021-08-21 | Day surgery (SDC) | payer MEDICARE, BC ==
[2021-08-21 08:02] VITALS: BP 136/76; PULSE 66; RESP 16; TEMP 98.2
[2021-08-21 08:27] LABS: INR 1.4 (<1.2); Partial Thromboplastin Time 31.6 sec (22.0-30.0); Prothrombin Time 14.3 sec (9.0-12.0)
--- NOTE | 2021-08-21 12:59 | P.PCN ---
Date of Procedure: 08/21/21 Preoperative Diagnosis: Microcalcifications of concern left breast Postoperative Diagnosis: Same Procedure(s) Performed: Stereotactic core biopsy left breast Anesthesia: local Surgeon: Marsha Weeks Pathology: other (Breast tissue/radiograph the specimen reveals microcalcifications of concern) Condition: stable Disposition: same day Indications for Procedure: Microcalcifications of concern left breast 12 o'clock position Operative Findings: Radiograph of specimen reveals microcalcifications of concern Description of Procedure: The patient is an 81-year-old white female who is noted to have increasing group calcifications 12 o'clock position of the left breast. Stereotactic core biopsy was recommended. Risks and benefits of the procedure were discussed with the patient. She wished to proceed. Alternatives such as watchful waiting or resection of the operating room were noted but not recommended. The patient was brought to [facility] core biopsy room. A CC from above approach was utilized. The area of concern was identified. A stereo pair was obtained and the lesion was targeted. The breast was prepped using Betadine. 10 mL of 1% lidocaine were used to anesthetize the area of concern. A 12-gauge vacuum-assisted core rotating biopsy needle was given to the correct coordinates. The patient moved however and a prefire film revealed the needle to be in the wrong location. Therefore the needle was withdrawn and a repeat stereo pair was obtained. The lesion was again targeted. The breast was prepped using Betadine. An additional 10 mL of 1% lidocaine were used to anesthetize the area of concern. 12-gauge vacuum-assisted core rotating biopsy needle was driven to the correct coordinates. Prefire film was obtained and the needle was noted to be in the correct location. The needle was fired and the needle was noted to be in the correct location. An additional 10 mL of 1% lidocaine with epinephrine was used in the procedure. 13 core biopsy specimens were obtained. Radiograph of the specimen revealed the calcifications of concern had been adequately sampled. A secure marked top clip was placed. A postprocedure film revealed the clip to be in the correct location. The patient tolerated the procedure in stable condition. The patient will follow-up with Dr. Philip next week. The specimen was sent to pathology.
--- NOTE | 2021-08-21 14:45 | MM ---
The patient is an 81-year-old white female who is noted to have increasing group calcifications 12 o'clock position of the left breast. Stereotactic core biopsy was recommended. Risks and benefits of the procedure were discussed with the patient. She wished to proceed. Alternatives such as watchful waiting or resection in the operating room were noted but not recommended. The patient was brought to the [facility] core biopsy room. A CC from above approach was utilized. The area of concern was identified. A stereo pair was obtained and the lesion was identified and targeted. The breast was prepped using Betadine. 10 mL of 1% lidocaine were used to anesthetize the area of concern. A 12-gauge vacuum-assisted core rotating biopsy needle was driven to the correct coordinates. The patient moved however and a prefire film revealed the needle to be in the wrong location. Therefore the needle was withdrawn and a repeat stereo pair was obtained. The lesion was again targeted. The breast was prepped using Betadine. An additional 10 mL of 1% lidocaine were used to anesthetize the area of concern. A 12-gauge vacuum-assisted core rotating biopsy needle was driven to the correct coordinates. A prefire film was obtained and the needle was noted to be in the correct location. The needle was fired and on a post fire film the needle was noted to be in the correct location. An additional 10 mL of 1% lidocaine with epinephrine was used in the procedure. 13 core biopsy specimens were obtained. Radiograph of the specimen revealed the calcifications of concern had been adequately sampled. A secure marked top clip was placed. A postprocedure film revealed the clip to be in the correct location. The patient tolerated the procedure in stable condition. The patient will follow-up with Dr. Philip next week. The specimen was sent to pathology. [facility]
== END | disposition home or self-care (01) ==
LOC: RADMAMWWP 07:17
PROVIDERS: ATTEND Surgery
DX: N60.22 Fibroadenosis of left breast (principal); R92.1 Mammographic calcification found on diagnostic imaging of breast
CPT/HCPCS: 88305; 85610; 85730; 19081; A4648; J2001

== ENCOUNTER 2021-08-24 13:23 | Observation (INO) | payer MEDICARE, BC ==
--- NOTE | 2021-08-24 13:39 | ED ---
Back Pain HPI - General Chief Complaint: Back Pain/Injury Stated Complaint: Fall/Back Injury Time Seen by Provider: 08/24/21 13:38 Source: patient, RN notes reviewed Limitations: no limitations - History of Present Illness Initial Comments: This is a pleasant 81-year-old female history of atrial fibrillation, skin cancer, COPD, hyperlipidemia, hypertension. She presents to the ER 4 days after mechanical fall at home. He tripped in her bedroom and fell onto her back. There was no head injury. Patient recalls the entire event. This occurred 4 days ago on . States that the back pain has continued since then. Patient states that movement is exacerbating pain in her low back. She denies any other injuries or pain elsewhere. Patient described a sharp in the back exacerbated by movement. Pain located in the lumbar area more on the right side. No radicular pain. No symptoms of saddle anesthesia. No headache, no fever or chills, no changes in vision or hearing, no sore throat or difficulty with speech, no neck pain, no chest pain or shortness of breath, no abdominal pain, no nausea or vomiting, no changes in urination or bowel mo vements, no numbness or tingling, no extremity pain, no skin rashes or lesions. - Related Data Home Medications Medication Instructions Recorded Confirmed ALPRAZolam [Xanax] 0.5 mg PO BID 12/14/17 08/24/21 Magnesium Oxide [Mag-Ox] 400 mg PO DAILY 12/14/17 08/24/21 Potassium Chloride ER [K-Dur 10] 10 meq PO DAILY 12/14/17 08/24/21 Simvastatin 40 mg PO HS 12/14/17 08/24/21 Furosemide [Lasix] 40 mg PO DAILY 02/06/19 08/24/21 allopurinoL [Zyloprim] 100 mg PO HS 02/06/19 08/24/21 Warfarin [Coumadin] 2.5 mg PO SUTUWETHSA 04/30/20 08/24/21 Pantoprazole [Protonix] 40 mg PO DAILY 07/19/20 08/24/21 Losartan-Hctz 50-12.5 mg [Hyzaar 1 tab PO DAILY 08/24/21 08/24/21 50-12.5] Oxybutynin Chloride [Oxybutynin 15 mg PO DAILY 08/24/21 08/24/21 Chloride ER] Venlafaxine HCl ER [Effexor Xr] 37.5 mg PO DAILY 08/24/21 08/24/21 Warfarin [Coumadin] 5 mg PO MOFR 08/24/21 08/24/21 Previous Rx's Medication Instructions Recorded Metoprolol Tartrate [Lopressor] 50 mg PO BID #60 tab 02/16/19 Allergies Allergy/AdvReac Type Severity Reaction Status Date / Time iodine Allergy Nausea & Verified 08/24/21 15:42 Vomiting & Diarrhea shellfish derived Allergy Nausea & Verified 08/24/21 15:42 Vomiting & Diarrhea Review of Systems ROS Statement: Those systems with pertinent positive or pertinent negative responses have been documented in the HPI. ROS Other: All systems not noted in ROS Statement are negative. Past Medical History Past Medical History: Atrial Fibrillation, Cancer, COPD, Hyperlipidemia, Hypertension, Pneumonia Additional Past Medical History / Comment(s): Skin cancer. Osteopenia. PAST GY N HISTORY History of Any Multi-Drug Resistant Organisms: None Reported Past Surgical History: Breast Surgery, Cholecystectomy, Hysterectomy, Tubal Lig ation Additional Past Surgical History / Comment(s): ERCP, Right kidney removed for benign masses. thyroid tumors. Colonoscopy 2019. Past Anesthesia/Blood Transfusion Reactions: Previous Problems w/ Anesthesia Additional Past Anesthesia/Blood Transfusion Reaction / Comment(s): pt states vomiting with anesthesia when she gave , she states she had a gas mask Past Psychological History: Anxiety Smoking Status: Current every day smoker - Past Family History Mother Family Medical History: Cancer Additional Family Medical History / Comment(s): Maternal grandfather had an AR, maternal aunt had rectal cancer. Mother at age 91 from old age. Father Family Medical History: COPD Additional Family Medical History / Comment(s): Father at age 69 from competitions of COPD and alcohol abuse. Brother(s) Family Medical History: Diabetes Mellitus Additional Family Medical History / Comment(s): Patient has one brother with diabetes. She does not have any sisters. Patient has 4 children with no major medical problems. General Exam - General Exam Comments Initial Comments: Cranial nerves II through XII grossly intact. Patient does not appear to be ill or toxic. Neurologically intact. Limitations: no limitations General appearance: alert, in no apparent distress Head exam: Present: atraumatic, normocephalic, normal inspection Eye exam: Present: normal appearance, PERRL, EOMI. Absent: scleral icterus, conjunctival injection, periorbital swelling ENT exam: Present: normal exam, mucous membranes moist Neck exam: Present: normal inspection. Absent: tenderness, meningismus, lymphadenopathy Respiratory exam: Present: normal lung sounds bilaterally. Absent: respiratory distress, wheezes, rales, rhonchi, stridor Cardiovascular Exam: Present: regular rate, normal rhythm, normal heart sounds, other (Pulses intact, no evidence of neurovascular compromise, no evidence of infectious process). Absent: systolic murmur, diastolic murmur, rubs, gallop, clicks GI/Abdominal exam: Present: soft, normal bowel sounds. Absent: distended, tenderness, guarding, rebound, rigid Extremities exam: Present: normal inspection, full ROM, normal capillary refill. Absent: tenderness, pedal edema, joint swelling, calf tenderness Back exam: Present: normal inspection, tenderness, paraspinal tenderness, other (Significant pain with any attempted range of motion regarding lumbar spine. No spinal tenderness elsewhere. No break in skin integrity. Straight leg raise negative.). Absent: full ROM, CVA tenderness (R), CVA tenderness (L), muscle spasm, vertebral tenderness, rash noted Neurological exam: Present: alert, oriented X3, CN II-XII intact, reflexes normal, other (Patient able to walk however movement exacerbates her back pain. Straight leg raise negative bilaterally. Great toe extensor strength intact bilaterally). Absent: motor sensory deficit Psychiatric exam: Present: normal affect, normal mood Skin exam: Present: warm, dry, intact, normal color. Absent: rash Course Vital Signs 08/24/21 13:26 Temperature 98 F Pulse Rate 57 L Respiratory 16 Rate Blood Pressure 119/66 O2 Sat by Pulse 97 Oximetry - Reevaluation(s) Reevaluation #1: 08/24/21 16:58 Medical record is reviewed Patient does have some relief after morphine. However patient's sodium is 125. Patient is informed of results and questions answered Patient in no distress Medical Decision Making - Medical Decision Making Gen. labwork, we'll obtain a INR since patient is on warfarin. Injury occurred 4 days ago. Patient neurologically intact. Patient denying any head or neck injury. I think we can defer CT of the head and neck at this time. However has significant back pain since injury. CT will be ordered of the lumbar spine Case discussed in detail with ED attending physician, Dr. Durand. Patient will be admitted for hyponatremia and T12 compression fracture. Gentle rehydration at 100 mL per hour with normal saline. I discussed the case with the patient's primary care physician, Dr. Hardin who agreed to be admission. - Lab Data Result diagrams: 08/24/21 14:37 08/24/21 14:37 Lab Results 08/24/21 08/24/21 08/24/21 Range/Units 14:37 14:37 14:37 WBC 6.2 (3.8-10.6) k/uL RBC 3.84 (3.80-5.40) m/uL Hgb 12.8 (11.4-16.0) gm/dL Hct 36.7 (34.0-46.0) % MCV 95.4 (80.0-100.0) fL MCH 33.2 (25.0-35.0) pg MCHC 34.8 (31.0-37.0) g/dL RDW 12.6 (11.5-15.5) % Plt Count 164 (150-450) k/uL MPV 7.7 Neutrophils % 53 % Lymphocytes % 24 % Monocytes % 9 % Eosinophils % 11 % Basophils % 1 % Neutrophils # 3.3 (1.3-7.7) k/uL Lymphocytes # 1.5 (1.0-4.8) k/uL Monocytes # 0.6 (0-1.0) k/uL Eosinophils # 0.7 (0-0.7) k/uL Basophils # 0.1 (0-0.2) k/uL PT 13.7 H (9.0-12.0) sec INR 1.3 H (<1.2) Sodium 125 L (137-145) mmol/L Potassium 3.7 (3.5-5.1) mmol/L Chloride 91 L (98-107) mmol/L Carbon Dioxide 24 (22-30) mmol/L Anion Gap 10 mmol/L BUN 42 H (7-17) mg/dL Creatinine 1.23 H (0.52-1.04) mg/dL Est GFR (CKD-EPI)AfAm 48 (>60 ml/min/1.73 sqM) Est GFR (CKD-EPI)NonAf 42 (>60 ml/min/1.73 sqM) Glucose 111 H (74-99) mg/dL Calcium 7.8 L (8.4-10.2) mg/dL Total Bilirubin 1.1 (0.2-1.3) mg/dL AST 26 (14-36) U/L ALT 21 (4-34) U/L Alkaline Phosphatase 83 (38-126) U/L Total Protein 6.5 (6.3-8.2) g/dL Albumin 3.9 (3.5-5.0) g/dL Disposition Clinical Impression: Thoracic compression fracture, Hyponatremia Narrative: T12 compression fracture Disposition: ADMITTED IP TO THIS [facility] Condition: Stable Instructions (If sedation given, give patient instructions): Vertebral Compression Fracture (ED) Additional Instructions: Call the back specialist at 8 AM tomorrow morning. Go to the medical supply store to get the TLSO brace. Return to the ER immediately if any symptoms worsen, new symptoms arise, or any other problems develop. Decision to Admit Reason: Admit from EC Decision Time: 16:58
[2021-08-24] MEDS ORDERED: ONDANSETRON 4 MG/2 ML VIAL IVP STA (13:55)
[2021-08-24] MEDS ORDERED: MORPHINE SULFATE 4 MG/ML SYRINGE IV STA (13:55)
[2021-08-24 14:52] LABS: Basophils # (A) 0.1 k/uL (0-0.2); Basophils % (A) 1 %; Eosinophils # (A) 0.7 k/uL (0-0.7); Eosinophils % (A) 11 %; HCT 36.7 % (34.0-46.0); HGB 12.8 gm/dL (11.4-16.0); Lymphocytes # (A) 1.5 k/uL (1.0-4.8); Lymphocytes % (A) 24 %; MCH 33.2 pg (25.0-35.0); MCHC 34.8 g/dL (31.0-37.0); MCV 95.4 fL (80.0-100.0); Mean Platelet Volume 7.7; Monocytes # (A) 0.6 k/uL (0-1.0); Monocytes % (A) 9 %; Neutrophils # (A) 3.3 k/uL (1.3-7.7); Neutrophils % (A) 53 %; Platelet Count 164 k/uL (150-450); Potassium 3.7 mmol/L (3.5-5.1); RBC 3.84 m/uL (3.80-5.40); RDW 12.6 % (11.5-15.5); WBC 6.2 k/uL (3.8-10.6)
[2021-08-24 14:53] LABS: Albumin 3.9 g/dL (3.5-5.0); Calcium 7.8 mg/dL (8.4-10.2); Total Bilirubin 1.1 mg/dL (0.2-1.3); Total Protein 6.5 g/dL (6.3-8.2)
[2021-08-24 15:22] LABS: INR 1.3 (<1.2); Prothrombin Time 13.7 sec (9.0-12.0)
--- NOTE | 2021-08-24 15:49 | CT ---
EXAMINATION TYPE: CT lumbar spine wo con DATE OF EXAM: 08/24/2021 COMPARISON: None HISTORY: Fall x4 days ago. CT DLP: 1269.6 mGycm Automated exposure control for dose reduction was used. Images obtained from T12 through S2 2 vertebra without contrast. Lumbar vertebrae are fairly normal alignment. There is a minimal L4-5 subluxation. There is no spondy lolysis. There is vacuum disc at L3-4. There is spurring of the endplates throughout the lumbar spine and more noticeable at L3-4. There is T12 compression fracture with depression of the superior endplate 15%. Fracture appears acut e. There is no bony destructive process. IMPRESSION: There is mild acute compression fracture of T12 vertebral body. There is a mild degenerative first-degree L4-5 subluxation deformity and spondylolisthesis. Spondylot ic changes at L3-4.
[2021-08-24] MEDS ORDERED: ONDANSETRON 4 MG/2 ML VIAL IVP PRN (16:59)
[2021-08-24] MEDS ORDERED: MORPHINE SULFATE 4 MG/ML SYRINGE IV PRN (16:59)
[2021-08-24] MEDS ORDERED: DOCUSATE 100 MG CAP PO PRN (16:59)
[2021-08-24] MEDS ORDERED: NALOXONE 0.4 MG/ML 1 ML VIAL IV PRN (16:59)
[2021-08-24] MEDS ORDERED: ACETAMINOPHEN TAB 325 MG TAB PO PRN (16:59)
[2021-08-24] MEDS ORDERED: NA PHOS,M-B/NA PHOS,DI-BA 133 ML ENEMA RECTAL PRN (16:59)
[2021-08-24 17:02] LABS: Appearance,Urine Clear (Clear); Bilirubin,Urine Negative (Negative); Blood,Urine Negative (Negative); Color,Urine Light Yellow; Glucose,Urine (UA) Negative (Negative); Ketones,Urine Negative (Negative); Leukocyte Esterase,Urine Negative (Negative); Nitrite,Urine Negative (Negative); Protein,Urine Negative (Negative); Specific Gravity,Urine 1.005 (1.001-1.035); Urobilinogen,Urine <2.0 mg/dL (<2.0)
[2021-08-24] MEDS ORDERED: WARFARIN 5 MG TAB PO STA (17:03)
[2021-08-24] MEDS: SODIUM CHLORIDE 0.9% 1,000 ML IV SCH (17:29)
[2021-08-25] MEDS: SODIUM CHLORIDE 0.9% 1,000 ML IV SCH ×3 (07:53→21:34)
[2021-08-25] MEDS: LOSARTAN 50 MG TAB PO SCH (08:39)
[2021-08-25] MEDS: HYDROcodone/APAP 7.5-325MG 1 EACH TAB PO PRN (08:39)
[2021-08-25] MEDS: MAGNESIUM OXIDE 400 MG TAB PO SCH (08:39)
[2021-08-25] MEDS: ALPRAZolam 0.5 MG TAB PO SCH ×2 (08:39→20:14)
[2021-08-25] MEDS: PANTOPRAZOLE 40 MG TABLET PO SCH (08:39)
[2021-08-25] MEDS: VENLAFAXINE HCL ER 37.5 MG CAP PO SCH (08:39)
[2021-08-25] MEDS: METOPROLOL TARTRATE 50 MG TAB PO SCH (08:39)
--- NOTE | 2021-08-25 08:56 | P.HPIM ---
History of Present Illness H&P Date: 08/25/21 HISTORY OF PRESENT ILLNESS This is an 81-year-old female patient with past medical history of hypertension, hyperlipidemia, paroxysmal atrial fibrillation, aortic valve replacement on Coumadin, gastroesophageal reflux disease, borderline diabetic, generalized anxiety disorder and recurrent depression, Parkinson's disease, history of C. difficile colitis. Patient states that she had a fall on . 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 On Wednesday her granddaughter and fibora were at the house to help her. Yesterday family for surgical into the hospital for evaluation and treatment. Patient was found to be afebrile, heart rate in the 50s to 70s, blood pressure 119/66, pulse ox 97% on room air. CBC was unremarkable. Sodium 125, potassium 3.7, chloride 91, CO2 24, BUN 42 and creatinine 1.23. Glucose 111. Calcium 7.8. Total bilirubin and liver function tests were normal. Urinalysis negative for infection. CAT scan of the lumbar spine revealed mild acute compression fr acture T12. Mild degenerative first-degree L4-5 subluxation deformity and spondylolisthesis. Spondylotic changes at L3-4. Patient was started on IV morphine and placed in the observation unit, consult with orthopedic spine. REVIEW OF SYSTEMS Constitutional: No fever, no chills, no night sweats. No weight change. No weakness, fatigue or lethargy. No daytime sleepiness. EENT: No headache. No blurred vision or double vision, no loss of vision. No loss of Hearing, reports dry mouth. No nasal drainage or congestion. No epistaxis. No sore throat. Lungs: No shortness of breath, cough, no sputum production. No wheezing. Cardiovascular: No chest pain, no lower extremity edema. No palpitations. No paroxysmal nocturnal dyspnea. No orthopnea. No lightheadedness or dizziness. No syncopal episodes. Abdominal: No abdominal pain. No nausea, vomiting. No diarrhea. No constipation. No bloody or tarry stools. Reports loss of appetite. Genitourinary: No dysuria, increased frequency, urgency. No urinary retention. Musculoskeletal: No myalgias. No muscle weakness, Reports gait dysfunction, no frequent falls. Reports back pain. No neck pain. Integumentary: No wounds, no lesions. No rash or pruritus. No unusual bruising. No change in hair or nails. Neurologic: No aphasia. No facial droop. No change in mentation. No head injury. No headache. No paralysis. No paresthesia. Psychiatric: No depression. No anxiety. No mood swings. Endocrine: No abnormal blood sugars. No weight change. No excessive sweating or thirst. No cold intolerance. MEDICAL HISTORY Hypertension Hyperlipidemia Paroxysmal atrial fibrillation Aortic valve replacement on Coumadin Gastroesophageal reflux disease Overactive bladder Borderline diabetic Generalized anxiety disorder Diverticulosis SURGICAL HISTORY Tubal ligation Hysterectomy Right kidney removed for benign masses ERCP Breast surgery right side Laparoscopic cholecystectomy in 2019 Colonoscopy 03/2019 SOCIAL HISTORY Patient was a smoker of 2 packs per day for 40 years and continues to smoke a pack a day. She drinks socially. No illicit drug use. FAMILY HISTORY Father at age 69 from complications of COPD and alcohol abuse. Mother at age 91 from old age. Patient has one brother with diabetes. She has 2 sons and 2 daughters with no major medical problems. She has a maternal grandfather with history of PR and maternal aunt with rectal cancer. PHYSICAL EXAMINATION Gen: This is an 81-year-old female. Patient is resting in bed and appears to be somewhat uncomfortable secondary to pain. She experiences pain with minimal movement. HEENT: Head is atraumatic, normocephalic. Pupils equal, round. Sclerae is anicteric. NECK: Supple. No JVD. No lymphadenopathy. No thyromegaly. LUNGS: Clear to auscultation. No wheezes or rhonchi. No intercostal retractions. HEART: First heart sound is depressed, second heart sound is normal, 2/6 systolic ejection murmur at the left sternal border, no S3, no S4. ABDOMEN: Soft. Bowel sounds are present. No masses. No tenderness. EXTREMITIES: No pedal edema. No calf tenderness. Dorsalis pedis +2 bilatera lly. NEUROLOGICAL: Patient is awake, alert and oriented x3. Cranial nerves 2 through 12 are grossly intact. ASSESSMENT AND PLAN 1. T12 acute compression fracture. Consult with orthopedic spine, transition IV morphine to [place] 7.5 every 6 hours as needed, PT and OT consult. 2. Dehydration and hyponatremia. Patient to be started on IV fluids 75 mL per hour. Hold hydrochlorothiazide and Lasix. 3. Chronic kidney disease stage III, stable. 4. Subtherapeutic INR. Patient was resumed on Coumadin last evening, pharmacy dosing. 5. Hypertension. Continue losartan 50 mg daily, Lopressor 50 mg twice daily, hold hydrochlorothiazide and Lasix. 6. Hyperlipidemia. Continue Lipitor 20 mg at bedtime. 7. Aortic valve replacement on Coumadin. Continue Coumadin, pharmacy dosing. 8. Gastroesophageal reflux disease and GI prophylaxis. Continue Protonix. 9. Overactive bladder. Hold oxybutynin. 10. Generalized anxiety disorder. Continue Effexor X are 37.5 mg daily and Xanax 0.5 mg twice daily. 11. Borderline diabetes, stable. 12. Chronic gout. Continue allopurinol 100 mg at bedtime Patient will be admitted to the hospital for a minimum of 2 night stay. DISCHARGE PLAN Return home Impression and plan of care have been directed as dictated by the signing physician. Farzaneh Delaney nurse practitioner acting as scribe for signing physician. Past Medical History Past Medical History: Atrial Fibrillation, Cancer, COPD, Hyperlipidemia, Hypertension, Pneumonia Additional Past Medical History / Comment(s): Skin cancer. Osteopenia. 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 thyroid tumors. Colonoscopy 2019. Past Anesthesia/Blood Transfusion Reactions: Previous Problems w/ Anesthesia Additional Past Anesthesia/Blood Transfusion Reaction / Comment(s): pt states vomiting with anesthesia when she gave , she states she had a gas mask Past Psychological History: Anxiety Smoking Status: Current every day smoker - Past Family History Mother Family Medical History: Cancer Additional Family Medical History / Comment(s): Maternal grandfather had an PR, maternal aunt had rectal cancer. Mother at age 91 from old age. Father Family Medical History: COPD Additional Family Medical History / Comment(s): Father at age 69 from competitions of COPD and alcohol abuse. Brother(s) Family Medical History: Diabetes Mellitus Additional Family Medical History / Comment(s): Patient has one brother with diabetes. She does not have any sisters. Patient has 4 children with no major medical problems. Medications and Allergies Home Medications Medication Instructions Recorded Confirmed Type ALPRAZolam [Xanax] 0.5 mg PO BID 12/14/17 08/24/21 History Magnesium Oxide [Mag-Ox] 400 mg PO DAILY 12/14/17 08/24/21 History Potassium Chloride ER [K-Dur 10] 10 meq PO DAILY 12/14/17 08/24/21 History Simvastatin 40 mg PO HS 12/14/17 08/24/21 History Furosemide [Lasix] 40 mg PO DAILY 02/06/19 08/24/21 History allopurinoL [Zyloprim] 100 mg PO HS 02/06/19 08/24/21 History Metoprolol Tartrate [Lopressor] 50 mg PO BID #60 tab 02/16/19 08/24/21 Rx Warfarin [Coumadin] 2.5 mg PO SUTUWETHSA 04/30/20 08/24/21 History Pantoprazole [Protonix] 40 mg PO DAILY 07/19/20 08/24/21 History Losartan-Hctz 50-12.5 mg [Hyzaar 1 tab PO DAILY 08/24/21 08/24/21 History 50-12.5] Oxybutynin Chloride [Oxybutynin 15 mg PO DAILY 08/24/21 08/24/21 History Chloride ER] Venlafaxine HCl ER [Effexor Xr] 37.5 mg PO DAILY 08/24/21 08/24/21 History Warfarin [Coumadin] 5 mg PO MOFR 08/24/21 08/24/21 History Allergies Allergy/AdvReac Type Severity Reaction Status Date / Time iodine Allergy Nausea & Verified 08/24/21 15:42 Vomiting & Diarrhea shellfish derived Allergy Nausea & Verified 08/24/21 15:42 Vomiting & Diarrhea Physical Exam Vitals: Vital Signs Temp Pulse Resp BP Pulse Ox 08/25/21 04:32 76 16 139/74 98 08/25/21 00:12 58 L 16 134/57 95 08/24/21 22:12 71 18 118/64 97 08/24/21 20:23 98 F 58 L 114/43 96 08/24/21 16:28 98 F 60 18 115/44 96 08/24/21 13:26 98 F 57 L 16 119/66 97 Results CBC & Chem 7: 08/24/21 14:37 08/24/21 14:37 Labs: Abnormal Lab Results - Last 24 Hours (Table) 08/24/21 08/24/21 Range/Units 14:37 14:37 PT 13.7 H (9.0-12.0) sec INR 1.3 H (<1.2) Sodium 125 L (137-145) mmol/L Chloride 91 L (98-107) mmol/L BUN 42 H (7-17) mg/dL Creatinine 1.23 H (0.52-1.04) mg/dL Glucose 111 H (74-99) mg/dL Calcium 7.8 L (8.4-10.2) mg/dL
[2021-08-25 10:04] LABS: Basophils # (A) 0.05 X 10*3/uL (0.00-0.10); Basophils % (A) 0.8 %; Eosinophils # (A) 0.79 X 10*3/uL (0.04-0.35); Eosinophils % (A) 12.1 %; HCT 35.7 % (37.2-46.3); HGB 11.8 g/dL (12.0-15.0); Immature Grans, Automated 0.3 %; Lymphocytes # (A) 1.91 X 10*3/uL (0.90-5.00); Lymphocytes % (A) 29.2 %; MCH 31.7 pg (27.0-32.0); MCHC 33.1 g/dL (32.0-37.0); Mean Platelet Volume 10.4 fL (9.5-12.2); Monocytes # (A) 0.71 X 10*3/uL (0.20-1.00); Monocytes % (A) 10.8 %; NRBC Per 100 WBC 0 /100 WBCS (0.0-0.0); Neutrophils # (A) 3.07 X 10*3/uL (1.80-7.70); Neutrophils % (A) 46.8 %; Platelet Count 144 X 10*3/uL (140-440); RBC 3.72 X 10*6/uL (4.10-5.20); WBC 6.55 X 10*3/uL (4.50-10.00)
[2021-08-25 10:12] LABS: INR 1.45 (0.90-1.11); Prothrombin Time 16.1 sec (9.9-11.9)
[2021-08-25 11:25] LABS: African American GFR (CKD) 44.9 (60.0-200.0); Anion Gap 14.7 mmol/L (10.00-18.00); BUN/Creat Ratio 30.77 Ratio (12.00-20.00); Calcium 8.2 mg/dL (8.7-10.3); Carbon Dioxide 21.3 mmol/L (20.0-27.5); Magnesium 1.9 mg/dL (1.5-2.4); Non-African American GFR(CKD) 38.7 (60.0-200.0); Potassium 3.2 mmol/L (3.5-5.5)
--- NOTE | 2021-08-25 13:07 | P.CNOR ---
History of Present Illness - [facility] Consult date: 08/25/21 Requesting physician: Kwabena Siddiqui Consult reason: fracture (Acute traumatic T12 fracture status post fall), back pain (Thoracolumbar pain) History of present illness: Patient is a very pleasant 81-year-old female who is seen and examined at the bedside for further evaluation of her thoracolumbar spine. She states on , 08/21/2021, she fell trying to get into her bed. She fell backwards landing on her back. She's had significant pain of her thoracolumbar spine sinc e that time. She states she is known to have chronic degenerative changes in her lumbar spine and has chronic low back pain across the midline at the lumbosacral junction. She states currently she has this pain along with other pain extending up to the thoracolumbar junction. She states her pain is well- controlled while at rest, sitting, and standing. Her pain is exacerbated with coughing, sneezing, laughing, bending, twisting activities. When her pain had not been improving, she presented to [facility] for further evaluation. CT imaging was taken at that time which showed evidence of an acute T12 compression fracture deformity. Imaging also showed other degenerative changes in her lumbar spine. She is currently being seen and examined by medicine for her other medical diagnoses. She denies any lower extremity weakness or radiculopathy bilaterally. She denies any loss of consciousness at the time of the fall. She states she bought this bed approximately 1 year ago and it is high off of the floor. She states she has fallen from her bed approximately 4 times. Patient's other medical diagnoses include hypertension, hyperlipidemia, aortic valve replacement on Coumadin, paroxysmal atrial fibrillation, borderline diabetic, generalized anxiety disorder, and obesity. Patient states she would like to avoid surgical intervention at this time in regards to her thoracolumbar spine. Past Medical History Past Medical History: Atrial Fibrillation, Cancer, COPD, Hyperlipidemia, Hypertension, Pneumonia Additional Past Medical History / Comment(s): Skin cancer. Osteopenia. PAST [employer] HISTORY History of Any Multi-Drug Resistant Organisms: None Reported Past Surgical History: Breast Surgery, Cholecystectomy, Hysterectomy, Tubal Liga tion Additional Past Surgical History / Comment(s): ERCP, Right kidney removed for benign masses. thyroid tumors. Colonoscopy 2019. Past Anesthesia/Blood Transfusion Reactions: Previous Problems w/ Anesthesia Additional Past Anesthesia/Blood Transfusion Reaction / Comm: pt states vomiting with anesthesia when she gave , she states she had a gas mask Past Psychological History: Anxiety Smoking Status: Current every day smoker - Past Family History Mother Family Medical History: Cancer Additional Family Medical History / Comment(s): Maternal grandfather had an LA, maternal aunt had rectal cancer. Mother at age 91 from old age. Father Family Medical History: COPD Additional Family Medical History / Comment(s): Father at age 69 from competitions of COPD and alcohol abuse. Brother(s) Family Medical History: Diabetes Mellitus Additional Family Medical History / Comment(s): Patient has one brother with diabetes. She does not have any sisters. Patient has 4 children with no major medical problems. Medications and Allergies Home Medications Medication Instructions Recorded Confirmed Type ALPRAZolam [Xanax] 0.5 mg PO BID 12/14/17 08/24/21 History Magnesium Oxide [Mag-Ox] 400 mg PO DAILY 12/14/17 08/24/21 History Potassium Chloride ER [K-Dur 10] 10 meq PO DAILY 12/14/17 08/24/21 History Simvastatin 40 mg PO HS 12/14/17 08/24/21 History Furosemide [Lasix] 40 mg PO DAILY 02/06/19 08/24/21 History allopurinoL [Zyloprim] 100 mg PO HS 02/06/19 08/24/21 History Metoprolol Tartrate [Lopressor] 50 mg PO BID #60 tab 02/16/19 08/24/21 Rx Warfarin [Coumadin] 2.5 mg PO SUTUWETHSA 04/30/20 08/24/21 History Pantoprazole [Protonix] 40 mg PO DAILY 07/19/20 08/24/21 History Losartan-Hctz 50-12.5 mg [Hyzaar 1 tab PO DAILY 08/24/21 08/24/21 History 50-12.5] Oxybutynin Chloride [Oxybutynin 15 mg PO DAILY 08/24/21 08/24/21 History Chloride ER] Venlafaxine HCl ER [Effexor Xr] 37.5 mg PO DAILY 08/24/21 08/24/21 History Warfarin [Coumadin] 5 mg PO MOFR 08/24/21 08/24/21 History Allergies Allergy/AdvReac Type Severity Reaction Status Date / Time iodine Allergy Nausea & Verified 08/24/21 15:42 Vomiting & Diarrhea shellfish derived Allergy Nausea & Verified 08/24/21 15:42 Vomiting & Diarrhea Physical Examination Physical exam: Patient is awake, alert, and oriented 3 Vital signs stable Good chest excursion with deep inspiration and expiration Examination of thoracic and lumbar spine reveals skin is intact with no abrasions, lacerations, or bruises; no erythema, purulence or signs of infection Generalized pain with palpation over the thoracolumbar junction and lumbosacral spine Dorsiflexion, plantarflexion, and extensor hallucis longus positive sustained bilaterally Lower extremity strength 5/5 bilaterally Patient does not have any specific weakness of the bilateral lower extremities Patient is able to perform active range of motion bilateral lower extremities but movements are slow with hip flexion and knee flexion bilaterally No lower extremity hyperreflexia bilaterally Straight leg test negative bilateral lower extremities No signs or symptoms of DVT; no calf pain No pain with internal and external rotation of the hips bilaterally Neurovascularly intact Results Pertinent studies: CT of the lumbar spine taken on 08/24/2021: Degenerative scoliosis centered at L3-4; T12 superior endplate compression fracture deformity of approximately 10%- 15% height loss; L3-4 degenerative disc disease with vacuum disc phenomenon and endplate change; L4-5 spondylolisthesis; L5-S1 degenerative disc disease - Labs Labs: Abnormal Lab Results - Last 24 Hours (Table) 08/24/21 08/24/21 08/25/21 Range/Units 14:37 14:37 05:24 RBC 3.72 L (4.10-5.20) X 10*6/uL Hgb 11.8 L (12.0-15.0) g/dL Hct 35.7 L (37.2-46.3) % Eosinophils # 0.79 H (0.04-0.35) X 10*3/uL PT 13.7 H (9.0-12.0) sec INR 1.3 H (<1.2) Sodium 125 L (137-145) mmol/L Potassium (3.5-5.5) mmol/L Chloride 91 L (98-107) mmol/L BUN 42 H (7-17) mg/dL Creatinine 1.23 H (0.52-1.04) mg/dL Est GFR (CKD-EPI)AfAm (60.0-200.0) Est GFR (CKD-EPI)NonAf (60.0-200.0) BUN/Creatinine Ratio (12.00-20.00) Ratio Glucose 111 H (74-99) mg/dL Calcium 7.8 L (8.4-10.2) mg/dL 08/25/21 08/25/21 Range/Units 05:24 05:24 RBC (4.10-5.20) X 10*6/uL Hgb (12.0-15.0) g/dL Hct (37.2-46.3) % Eosinophils # (0.04-0.35) X 10*3/uL PT 16.1 H (9.0-12.0) sec INR 1.45 H (<1.2) Sodium 132 L (137-145) mmol/L Potassium 3.2 L (3.5-5.5) mmol/L Chloride (98-107) mmol/L BUN 40.0 H (7-17) mg/dL Creatinine (0.52-1.04) mg/dL Est GFR (CKD-EPI)AfAm 44.9 L (60.0-200.0) Est GFR (CKD-EPI)NonAf 38.7 L (60.0-200.0) BUN/Creatinine Ratio 30.77 H (12.00-20.00) Ratio Glucose (74-99) mg/dL Calcium 8.2 L (8.4-10.2) mg/dL H & H 08/24/21 08/25/21 Range/Units 14:37 05:24 Hgb 12.8 11.8 L (11.4-16.0) gm/dL Hct 36.7 35.7 L (34.0-46.0) % Coagulation 08/24/21 08/25/21 Range/Units 14:37 05:24 INR 1.3 H 1.45 H (<1.2) Result Diagrams: 08/25/21 05:24 08/25/21 05:24 Assessment and Plan Assessment: Assessment: Acute traumatic T12 superior endplate compression fracture deformity Status post fall Acute thoracolumbar pain Chronic low back pain Lumbar degenerative disc disease Degenerative scoliosis L4-5 spondylolisthesis L5-S1 degenerative disc disease Hypertension Hyperlipidemia Aortic valve replacement on Coumadin Paroxysmal atrial fibrillation Borderline diabetes Generalized anxiety disorder Obesity (1) Traumatic compression fracture of T12 thoracic vertebra Current Visit: Yes Status: Acute Code(s): S22.080A - WEDGE COMPRESSION FRACTURE OF T11-T12 VERTEBRA, INIT SNOMED Code(s): 700515081 (2) Status post fall Current Visit: Yes Status: Acute Code(s): Z91.81 - HISTORY OF FALLING SNOMED Code(s): 447832135 (3) Thoracolumbar back pain Current Visit: Yes Status: Acute Code(s): M54.50 - LOW BACK PAIN, UNSPECIFIED; M54.6 - PAIN IN THORACIC SPINE SNOMED Code(s): 870671812 (4) Chronic low back pain Current Visit: Yes Status: Acute Code(s): M54.50 - LOW BACK PAIN, UNSPECIFIED; G89.29 - OTHER CHRONIC PAIN SNOMED Code(s): 400735189 (5) Spondylolisthesis, lumbar region Current Visit: Yes Status: Acute Code(s): M43.16 - SPONDYLOLISTHESIS, LUMBAR REGION SNOMED Code(s): 608716982245926 (6) Lumbar degenerative disc disease Current Visit: Yes Status: Acute Code(s): M51.36 - OTHER INTERVERTEBRAL DISC DEGENERATION, LUMBAR REGION SNOMED Code(s): 47219386 (7) DDD (degenerative disc disease), lumbosacral Current Visit: Yes Status: Acute Code(s): M51.37 - OTHER INTERVERTEBRAL DISC DEGENERATION, LUMBOSACRAL REGION SNOMED Code(s): 82158468 (8) Degenerative scoliosis Current Visit: Yes Status: Acute Code(s): M41.80 - OTHER FORMS OF SCOLIOSIS, SITE UNSPECIFIED SNOMED Code(s): 621856907 (9) Hypertension Current Visit: Yes Status: Acute Code(s): I10 - ESSENTIAL (PRIMARY) HYPERTENSION SNOMED Code(s): 88914444 (10) Hyperlipidemia Current Visit: Yes Status: Acute Code(s): E78.5 - HYPERLIPIDEMIA, UNS PECIFIED SNOMED Code(s): 94550803 (11) Aortic valve replaced Current Visit: Yes Status: Acute Code(s): Z95.2 - PRESENCE OF PROSTHETIC HEART VALVE SNOMED Code(s): 5913010636772 (12) Current use of penitentiary anticoagulation Current Visit: Yes Status: Acute Code(s): Z79.01 - CUSTODIAL (CURRENT) USE OF ANTICOAGULANTS SNOMED Code(s): 344033831 (13) Paroxysmal atrial fibrillation Current Visit: Yes Status: Acute Code(s): I48.0 - PAROXYSMAL ATRIAL FIBRILLATION SNOMED Code(s): 198656297 (14) Generalized anxiety disorder Current Visit: Yes Status: Acute Code(s): F41.1 - GENERALIZED ANXIETY DISORDER SNOMED Code(s): 68382806 (15) Borderline diabetes Current Visit: Yes Status: Acute Code(s): R73.03 - PREDIABETES SNOMED Code(s): 260519355 (16) Obesity (BMI 30-39.9) Current Visit: Yes Status: Acute Code(s): E66.9 - OBESITY, UNSPECIFIED SNOMED Code(s): 256006198 Plan: Plan: 1. The patient sustained a fall on 08/21/2021 after falling backwards trying to get into her bed falling on her back. She has had increased thoracolumbar pain since that time. She does have chronic low back pain. She presented to [facility] for further evaluation. CT imaging was taken at that time which showed evidence of acute T12 compression fracture deformity. CT imaging also showed other degenerative changes at her lumbar spine. After reviewing of imaging, physical examination the patient, and further discussion with the patient, will currently plan to have the patient work through conservative treatment at this time. At this time we'll plan for bracing. A prescription has been written and provided to case management for a Spinomed TLSO brace. Once this brace is delivered and fitted appropriately, patient should wear this brace while sitting upright at greater than 45, during increase activities, during ambulation. Brace is not have to or while lying in bed or while bathing. Following fitting of this brace, patient is clear for discharge from an orthopedic spine standpoint. Following discharge, patient may follow-up with Ashu Mcdonald PA-C or Dr. Arnel Bray at [facility]. We will work through conservative treatment options before discussing the possibility of surgical intervention. Patient states at this time she would like to avoid surgical intervention regards to her thoracolumbar spine. 2. Patient will continue to be seen again by medicine for her other medical diagnoses 3. Continue pain control medications as prescribed by medicine Time with Patient: Greater than 30 (Including obtaining history, physical examination, reviewing of imaging, and dictation.)
[2021-08-25 15:02] VITALS: RESP 16
[2021-08-25] MEDS ORDERED: WARFARIN 5 MG TAB PO ONE (18:00)
[2021-08-25] MEDS ORDERED: allopurinoL 100 MG TAB PO SCH (21:00)
[2021-08-25] MEDS ORDERED: ATORVASTATIN 20 MG TAB PO SCH (21:00)
[2021-08-26] MEDS: METOPROLOL TARTRATE 50 MG TAB PO SCH ×2 (01:42→08:18)
[2021-08-26] MEDS: HYDROcodone/APAP 7.5-325MG 1 EACH TAB PO PRN ×2 (06:05→14:52)
[2021-08-26 08:09] LABS: INR 1.9 (<1.2); Prothrombin Time 19.5 sec (9.0-12.0)
[2021-08-26] MEDS: LOSARTAN 50 MG TAB PO SCH (08:16)
[2021-08-26] MEDS: VENLAFAXINE HCL ER 37.5 MG CAP PO SCH (08:19)
[2021-08-26] MEDS: MAGNESIUM OXIDE 400 MG TAB PO SCH (08:20)
[2021-08-26] MEDS: PANTOPRAZOLE 40 MG TABLET PO SCH (08:20)
[2021-08-26] MEDS: ALPRAZolam 0.5 MG TAB PO SCH (08:20)
[2021-08-26] MEDS ORDERED: POTASSIUM CHLORIDE ER 20 MEQ TAB.ER PO STA (08:36)
--- NOTE | 2021-08-26 08:41 | P.DS ---
Providers Date of admission: 08/24/21 18:13 Expected date of discharge: 08/26/21 Attending physician: Melissa Hardin Consults: 08/24/21 16:59 Consult Physician Urgent Consulting Provider: Natalya Bray Consult Reason/Comments: T12 compression fracture Do you want consulting provider notified?: Yes Primary care physician: Melissa Hardin Hospital Course: HISTORY OF PRESENT ILLNESS This is an 81-year-old female patient with past medical history of hypertension, hyperlipidemia, paroxysmal atrial fibrillation, aortic valve replacement on Coumadin, gastroesophageal reflux disease, borderline diabetic, generalized anxiety disorder and recurrent depression, Parkinson's disease, history of C. difficile colitis. Patient states that she had a fall on . She states she was getting off a high 4-rides attendant bed and fell backwards and developed back pain at the level of her waist. On Wednesday her granddaughter and fianc were at the house to help her. Yesterday family for surgical into the hospital for evaluation and treatment. Patient was found to be afebrile, heart rate in the 50s to 70s, blood pressure 119/66, pulse ox 97% on room air. CBC was unremarkable. Sodium 125, potassium 3.7, chloride 91, CO2 24, BUN 42 and creatinine 1.23. Glucose 111. Calcium 7.8. Total bilirubin and liver function tests were normal. Urinalysis negative for infection. CAT scan of the lumbar spine revealed mild acute compression fracture T12. Mild degenerative first-degree L4-5 subluxation deformity and spondylolisthesis. Spondylotic changes at L3-4. Patient was started on IV morphine and placed in the observation unit, consult with orthopedic spine. 08/26: Patient has been seen by orthopedic spine with recommendations for TLSO brace and patient was cleared for discharge once this is obtained. Patient should wear the brace while sitting upright at greater than 45, during increase activities, during ambulation. PT and OT will be seeing the patient today. Discharge plan is for [facility]. Patient is complaining of constipation for which Senokot-S and MiraLAX added. Patient will be discharged to [facility] once all arrangements are completed. DISCHARGE DIAGNOSES 1. T12 acute compression fracture. 2. Dehydration and hyponatremia. 3. Chronic kidney disease stage III, stable. 4. Subtherapeutic INR. 5. Hypertension. 6. Hyperlipidemia. 7. Aortic valve replacement on Coumadin. 8. Gastroesophageal reflux disease. 9. Overactive bladder. 10. Generalized anxiety disorder. 11. Borderline diabetes, stable. 12. Chronic gout. DISCHARGE PLAN Subacute rehab at [facility] Greater than 35 minutes was utilized and coordinating patient's discharge. Impression and plan of care have been directed as dictated by the signing physician. Farzaneh Delaney nurse practitioner acting as scribe for signing physician. Patient Condition at Discharge: Stable Plan - Discharge Summary New Discharge Prescriptions: New Docusate [Colace] 100 mg PO BID PRN cap PRN Reason: Constipation Polyethylene Glycol 3350 [Miralax] 17 gm PO DAILY #527 gm Acetaminophen Tab [Tylenol] 650 mg PO Q6HR PRN tab PRN Reason: Mild Pain Or Fever > 100.5 HYDROcodone/APAP 7.5-325MG [[place] 7.5-325] 1 each PO Q6HR PRN #12 tab PRN Reason: Pain Continue Magnesium Oxide [Mag-Ox] 400 mg PO DAILY Simvastatin 40 mg PO HS Potassium Chloride ER [K-Dur 10] 10 meq PO DAILY Furosemide [Lasix] 40 mg PO DAILY allopurinoL [Zyloprim] 100 mg PO HS Metoprolol Tartrate [Lopressor] 50 mg PO BID #60 tab Warfarin [Coumadin] 2.5 mg PO SUTUWETHSA Pantoprazole [Protonix] 40 mg PO DAILY Warfarin [Coumadin] 5 mg PO MOFR Oxybutynin Chloride [Oxybutynin Chloride ER] 15 mg PO DAILY ALPRAZolam [Xanax] 0.5 mg PO BID #6 tab Venlafaxine HCl ER [Effexor XR] 37.5 mg PO DAILY Losartan-Hctz 50-12.5 mg [Hyzaar 50-12.5] 1 tab PO DAILY #0 Discharge Medication List Magnesium Oxide [Mag-Ox] 400 mg PO DAILY 12/14/17 [History] Potassium Chloride ER [K-Dur 10] 10 meq PO DAILY 12/14/17 [History] Simvastatin 40 mg PO HS 12/14/17 [History] Furosemide [Lasix] 40 mg PO DAILY 02/06/19 [History] allopurinoL [Zyloprim] 100 mg PO HS 02/06/19 [History] Metoprolol Tartrate [Lopressor] 50 mg PO BID #60 tab 02/16/19 [Rx] Warfarin [Coumadin] 2.5 mg PO SUTUWETHSA 04/30/20 [History] Pantoprazole [Protonix] 40 mg PO DAILY 07/19/20 [History] Oxybutynin Chloride [Oxybutynin Chloride ER] 15 mg PO DAILY 08/24/21 [History] Venlafaxine HCl ER [Effexor XR] 37.5 mg PO DAILY 08/24/21 [History] Warfarin [Coumadin] 5 mg PO MOFR 08/24/21 [History] ALPRAZolam [Xanax] 0.5 mg PO BID #6 tab 08/26/21 [Rx] Acetaminophen Tab [Tylenol] 650 mg PO Q6HR PRN tab 08/26/21 [Rx] Docusate [Colace] 100 mg PO BID PRN cap 08/26/21 [Rx] HYDROcodone/APAP 7.5-325MG [[place] 7.5-325] 1 each PO Q6HR PRN #12 tab 08/26/21 [Rx] Losartan-Hctz 50-12.5 mg [Hyzaar 50-12.5] 1 tab PO DAILY #0 08/26/21 [Rx] Polyethylene Glycol 3350 [Miralax] 17 gm PO DAILY #527 gm 08/26/21 [Rx] Follow up Appointment(s)/Referral(s): Ashu Mcdonald PAC [PHYSICIAN MACHINE SORTER] - 2 Weeks (Patient may follow-up with Ashu Mcdonald PA-C or Dr. Arnel Bray at [facility] in 2-3 weeks following discharge. ) [employer] [NON-STAFF] - As Needed (Supplier of TLSO Back Brace ) Melissa Hardin MD [Primary Care Provider] - 1 Week (AT [facility]) Patient Instructions/Handouts: Vertebral Compression Fracture (ED) Activity/Diet/Wound Care/Special Instructions: Call the back specialist at 8 AM tomorrow morning. Go to the medical supply store to get the TLSO brace. Return to the ER immediately if any symptoms worsen, new symptoms arise, or any other problems develop. 1. Patient should wear Spinomed TLSO brace for comfort and support while sitting upright at greater than 45, while working with therapy, and while ambulating; patient does not have to wear the brace while lying in bed or bathing 2. Patient should avoid excessive bending, twisting, and lifting; no lifting greater than 10 pounds Discharge Disposition: TRANSFER TO SNF/ECF
--- NOTE | 2021-08-26 09:28 | P.PN ---
Progress Note - Text Progress Note Date: 08/26/21 Orthopedic spine: History of present illness: Patient is a very pleasant 81-year-old female who is seen and examined at the bedside for follow-up evaluation of her thoracolumbar spine. She states on , 08/21/2021, she fell trying to get into her bed. She fell backwards landing on her back. She's had significant pain of her thoracolumbar spine since that time. She states she is known to have chronic degenerative changes in her lumbar spine and has chronic low back pain across the midline at the lumbosacral junction. She states currently she has this pain along with other pain extending up to the thoracolumbar junction. She states her pain is well- controlled while at rest, sitting, and standing. Her pain is exacerbated with coughing, sneezing, laughing, bending, twisting activities. When her pain had not been improving, she presented to [facility] for further evaluation. CT imaging was taken at that time which showed evidence of an acute T12 compression fracture deformity. Imaging also showed other degenerative changes in her lumbar spine. She is currently being seen and examined by medicine for her other medical diagnoses. She denies any lower extremity weakness or radiculopathy bilaterally. She denies any loss of consciousness at the time of the fall. She states she bought this bed approximately 1 year ago and it is high off of the floor. She states she has fallen from her bed appr oximately 4 times. Patient's other medical diagnoses include hypertension, hyperlipidemia, aortic valve replacement on Coumadin, paroxysmal atrial fibrillation, borderline diabetic, generalized anxiety disorder, and obesity. Patient states she would like to avoid surgical intervention at this time in regards to her thoracolumbar spine. Since being seen and examined yesterday, the TLSO brace has been delivered and fitted appropriately. Patient states she is currently planning for discharge tomorrow to a rehabilitation facility. She states her symptoms are well controlled today. She has no new complaints at bedside. Physical exam: Patient is awake, alert, and oriented 3 Vital signs stable Good chest excursion with deep inspiration and expiration Dorsiflexion, plantarflexion, and extensor hallucis longus positive sustained bilaterally Lower extremity strength 5/5 bilaterally Patient does not have any specific weakness of the bilateral lower extremities Patient is able to perform active range of motion bilateral lower extremities but movements are slow with hip flexion and knee flexion bilaterally No lower extremity hyperreflexia bilaterally Straight leg test negative bilateral lower extremities No signs or symptoms of DVT; no calf pain No pain with internal and external rotation of the hips bilaterally Neurovascularly intact Pertinent studies: CT of the lumbar spine taken on 08/24/2021: Degenerative scoliosis centered at L3-4; T12 superior endplate compression fracture deformity of approximately 10%-15% height loss; L3-4 degenerative disc disease with vacuum disc phenomenon and endplate change; L4-5 spondylolisthesis; L5-S1 degenerative disc disease Assessment: Acute traumatic T12 superior endplate compression fracture deformity Status post fall Acute thoracolumbar pain Chronic low back pain Lumbar degenerative disc disease Degenerative scoliosis L4-5 spondylolisthesis L5-S1 degenerative disc disease Hypertension Hyperlipidemia Aortic valve replacement on Coumadin Paroxysmal atrial fibrillation Borderline diabetes Generalized anxiety disorder Obesity Plan: 1. We will continue with our plan as set forth yesterday. The patient sustained a fall on 08/21/2021 after falling backwards trying to get into her bed falling on her back. She has had increased thoracolumbar pain since that time. She does have chronic low back pain. She presented to [facility] for further evaluation. CT imaging was taken at that time which showed evidence of acute T12 compression fracture deformity. CT imaging also showed other degenerative changes at her lumbar spine. After reviewing of imaging, physical examination the patient, and further discussion with the patient, we will currently plan to have the patient work through conservative treatment at this time. At this time we'll plan for bracing. A prescription has been wri tten and provided to case management for a Spinomed TLSO brace. This brace was delivered and fitted appropriately yesterday. Patient should wear this brace while sitting upright at greater than 45, during increase activities, during ambulation. Brace does not have to or while lying in bed or while bathing. Patient is clear for discharge from an orthopedic spine standpoint. Following discharge, patient may follow-up with Ashu Mcdonald PA-C or Dr. Arnel Bray at [facility]. We will work through conservative treatment options before discussing the possibility of surgical intervention. Patient states at this time she would like to avoid surgical intervention regards to her thoracolumbar spine. 2. Patient will continue to be seen again by medicine for her other medical diagnoses; patient currently planning for discharge to a rehabilitation facility tomorrow per recommendations by medicine 3. Continue pain control medications as prescribed by medicine
[2021-08-26 15:01] VITALS: PULSE 57
[2021-08-26 15:30] VITALS: BP 109/55; TEMP 97.7
[2021-08-26] MEDS ORDERED: WARFARIN 5 MG TAB PO ONE (18:00)
== END 2021-08-26 15:35 ==
LOC: EC 13:23 → 6NMEDSUR 18:13
PROVIDERS: ADMIT Internal Medicine; ATTEND Internal Medicine
DX: M48.54XA Collapsed vertebra, not elsewhere classified, thoracic region, initial encounter for fracture (principal); E86.0 Dehydration; E87.1 Hypo-osmolality and hyponatremia; Z20.822 Contact with and (suspected) exposure to COVID-19; I12.9 Hypertensive chronic kidney disease with stage 1 through stage 4 chronic kidney disease, or unspecified chronic kidney disease; N18.30 Chronic kidney disease, stage 3 unspecified; W01.0XXA Fall on same level from slipping, tripping and stumbling without subsequent striking against object, initial encounter; R79.1 Abnormal coagulation profile; E78.5 Hyperlipidemia, unspecified; K21.9 Gastro-esophageal reflux disease without esophagitis; N32.81 Overactive bladder; F41.1 Generalized anxiety disorder; R73.03 Prediabetes; M1A.9XX0 Chronic gout, unspecified, without tophus (tophi); J44.9 Chronic obstructive pulmonary disease, unspecified; Z79.899 Other long term (current) drug therapy; G20 Parkinson's disease; E66.9 Obesity, unspecified; Z68.30 Body mass index [BMI] 30.0-30.9, adult; F17.210 Nicotine dependence, cigarettes, uncomplicated; F33.9 Major depressive disorder, recurrent, unspecified; G89.29 Other chronic pain; I48.0 Paroxysmal atrial fibrillation; K59.00 Constipation, unspecified; M41.80 Other forms of scoliosis, site unspecified; M43.16 Spondylolisthesis, lumbar region; M51.36 Other intervertebral disc degeneration, lumbar region; M51.37 Other intervertebral disc degeneration, lumbosacral region; M85.80 Other specified disorders of bone density and structure, unspecified site; D49.7 Neoplasm of unspecified behavior of endocrine glands and other parts of nervous system; Y92.009 Unspecified place in unspecified non-institutional (private) residence as the place of occurrence of the external cause; Z79.01 Long term (current) use of anticoagulants; Z91.013 Allergy to seafood; Z91.048 Other nonmedicinal substance allergy status; Z90.710 Acquired absence of both cervix and uterus; Z91.81 History of falling; Z86.19 Personal history of other infectious and parasitic diseases; Z90.49 Acquired absence of other specified parts of digestive tract; Z87.01 Personal history of pneumonia (recurrent); Z85.828 Personal history of other malignant neoplasm of skin; Z95.2 Presence of prosthetic heart valve; Z80.0 Family history of malignant neoplasm of digestive organs; Z82.49 Family history of ischemic heart disease and other diseases of the circulatory system; Z82.5 Family history of asthma and other chronic lower respiratory diseases; Z83.3 Family history of diabetes mellitus
CPT/HCPCS: 99285; 96374; 96375; 96361 ×2; 36415; 97116; 97162; 97166; 80053; 80048; 83735; 84100; 85025 ×2; 85610 ×3; 81003; 87635; 72131; G0378 ×3; J2270; J2405

== ENCOUNTER 2022-09-25 14:40 | Emergency (ER) | payer MEDICARE, BC ==
[2022-09-25 14:52] VITALS: BP 118/65; PULSE 75; RESP 16; TEMP 98
[2022-09-25 15:23] LABS: Basophils # (A) 0.1 k/uL (0-0.2); Basophils % (A) 1 %; Eosinophils % (A) 9 %; HCT 43.5 % (34.0-46.0); HGB 14.2 gm/dL (11.4-16.0); Lymphocytes # (A) 1.2 k/uL (1.0-4.8); Lymphocytes % (A) 11 %; MCH 31.4 pg (25.0-35.0); MCHC 32.7 g/dL (31.0-37.0); Mean Platelet Volume 7.6; Monocytes # (A) 0.7 k/uL (0-1.0); Monocytes % (A) 6 %; Neutrophils # (A) 8.4 k/uL (1.3-7.7); Neutrophils % (A) 73 %; Platelet Count 197 k/uL (150-450); RBC 4.53 m/uL (3.80-5.40); RDW 12.9 % (11.5-15.5); WBC 11.6 k/uL (3.8-10.6)
--- NOTE | 2022-09-25 15:34 | XR ---
EXAMINATION TYPE: XR KUB DATE OF EXAM: 09/25/2022 3:26 PM CLINICAL HISTORY: Lower abdominal pain. TECHNIQUE: Two Upright KUB images of the abdomen are obtained. COMPARISON: CT February 05, 2019 FINDINGS: Gas is seen in nondistended stomach. Scattered gas is seen in non-distended small bowel loo ps. Cholecystectomy clips are present. Underlying levoconvex scoliosis centered at L2-L3 level. No fr ee air. Lung bases are clear. Ovoid 7 mm density over the right iliac bone could reflect new appendic olith. IMPRESSION: Overall nonobstructive bowel gas pattern. Possible appendicolith.
[2022-09-25 15:35] LABS: INR 1.6 (<1.2); Partial Thromboplastin Time 34.2 sec (22.0-30.0); Prothrombin Time 15.5 sec (9.0-12.0)
[2022-09-25 15:42] LABS: Calcium 8.9 mg/dL (8.4-10.2); Total Bilirubin 0.5 mg/dL (0.2-1.3); Total Protein 6.8 g/dL (6.3-8.2)
[2022-09-25 15:53] LABS: Mucus,Urine Rare /hpf; RBC,Urine <1 /hpf (0-5); Squamous Epithelial Cell,Urine <1 /hpf (0-4); WBC,Urine 9 /hpf (0-5)
[2022-09-25 16:20] LABS: Appearance,Urine Clear (Clear); Color,Urine Yellow; PH, Urine 5.5 (5.0-8.0); Specific Gravity,Urine 1.017 (1.001-1.035)
[2022-09-25 16:21] LABS: Bilirubin,Urine Negative (Negative); Blood,Urine Negative (Negative); Glucose,Urine (UA) Negative (Negative); Ketones,Urine Negative (Negative); Protein,Urine Trace (Negative)
[2022-09-25 16:22] LABS: Leukocyte Esterase,Urine Moderate (Negative); Nitrite,Urine Negative (Negative)
--- NOTE | 2022-09-25 17:47 | ED ---
Abdominal Pain HPI - General Chief Complaint: Abdominal Pain Stated Complaint: Abd pain Time Seen by Provider: 09/25/22 17:45 Source: patient, RN notes reviewed Mode of arrival: ambulatory Limitations: no limitations - History of Present Illness Initial Comments: This is an 82-year-old female who presents to the emergency department for abdominal pain. Patient states that she's been treated with antibiotics for diverticulitis over the last week. She continues to have left lower quadrant abdominal pain. She is taking the antibiotic as prescribed. Denies any nausea, vomiting, diarrhea, or constipation. MD Complaint: abdominal pain Location: [facility]Q - Related Data Home Medications Medication Instructions Recorded Confirmed Magnesium Oxide [Mag-Ox] 400 mg PO DAILY 12/14/17 08/24/21 Potassium Chloride ER [K-Dur 10] 10 meq PO DAILY 12/14/17 08/24/21 Simvastatin 40 mg PO HS 12/14/17 08/24/21 Furosemide [Lasix] 40 mg PO DAILY 02/06/19 08/24/21 allopurinoL [Zyloprim] 100 mg PO HS 02/06/19 08/24/21 Warfarin [Coumadin] 2.5 mg PO SUTUWETHSA 04/30/20 08/24/21 Pantoprazole [Protonix] 40 mg PO DAILY 07/19/20 08/24/21 Oxybutynin Chloride [Oxybutynin 15 mg PO DAILY 08/24/21 08/24/21 Chloride ER] Venlafaxine HCl ER [Effexor XR] 37.5 mg PO DAILY 08/24/21 08/24/21 Warfarin [Coumadin] 5 mg PO MOFR 08/24/21 08/24/21 Previous Rx's Medication Instructions Recorded Metoprolol Tartrate [Lopressor] 50 mg PO BID #60 tab 02/16/19 ALPRAZolam [Xanax] 0.5 mg PO BID #6 tab 08/26/21 Acetaminophen Tab [Tylenol] 650 mg PO Q6HR PRN tab 08/26/21 Docusate [Colace] 100 mg PO BID PRN cap 08/26/21 HYDROcodone/APAP 7.5-325MG [[place] 1 each PO Q6HR PRN #12 tab 08/26/21 7.5-325] Losartan-Hctz 50-12.5 mg [Hyzaar 1 tab PO DAILY #0 08/26/21 50-12.5] polyethylene glycoL 3350 [Miralax] 17 gm PO DAILY #527 gm 08/26/21 Allergies Allergy/AdvReac Type Severity Reaction Status Date / Time iodine Allergy Nausea & Verified 08/24/21 15:42 Vomiting & Diarrhea shellfish derived Allergy Nausea & Verified 08/24/21 15:42 Vomiting & Diarrhea Review of Systems ROS Statement: Those systems with pertinent positive or pertinent negative responses have been documented in the HPI. ROS Other: All systems not noted in ROS Statement are negative. Past Medical History Past Medical History: Atrial Fibrillation, Cancer, COPD, Hyperlipidemia, Hypertension, Pneumonia Additional Past Medical History / Comment(s): Skin cancer. Osteopenia. 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 thyroid tumors. Colonoscopy 2019. Past Anesthesia/Blood Transfusion Reactions: Previous Problems w/ Anesthesia Additional Past Anesthesia/Blood Transfusion Reaction / Comment(s): pt states vomiting with anesthesia when she gave , she states she had a gas mask Past Psychological History: Anxiety Smoking Status: Current every day smoker - Past Family History Mother Family Medical History: Cancer Additional Family Medical History / Comment(s): Maternal grandfather had an [place], maternal aunt had rectal cancer. Mother at age 91 from old age. Father Family Medical History: COPD Additional Family Medical History / Comment(s): Father at age 69 from competitions of COPD and alcohol abuse. Brother(s) Family Medical History: Diabetes Mellitus Additional Family Medical History / Comment(s): Patient has one brother with diabetes. She does not have any sisters. Patient has 4 children with no major medical problems. General Exam - General Exam Comments Initial Comments: Visual Physical Exam Vital signs reviewed General: Well-appearing, nontoxic, no acute distress. Head: Normocephalic, atraumatic Eyes: PERRLA, EOMI ENT: Airway patent Chest: Nonlabored breathing Skin: No visual rash, normal skin tone Neuro: Alert and oriented 3 Musculoskeletal: No gross abnormalities Limitations: no limitations Course Vital Signs 09/25/22 14:47 Temperature 98.0 F Pulse Rate 75 Respiratory 16 Rate Blood Pressure 118/65 O2 Sat by Pulse 95 Oximetry Medical Decision Making - Medical Decision Making Patient eloped from the emergency department prior to completion and review of the ordered testing. - Lab Data Result diagrams: 09/25/22 14:53 09/25/22 14:53 Lab Results 09/25/22 09/25/22 09/25/22 Range/Units 14:53 14:53 14:53 WBC 11.6 H (3.8-10.6) k/uL RBC 4.53 (3.80-5.40) m/uL Hgb 14.2 (11.4-16.0) gm/dL Hct 43.5 (34.0-46.0) % MCV 96.0 (80.0-100.0) fL MCH 31.4 (25.0-35.0) pg MCHC 32.7 (31.0-37.0) g/dL RDW 12.9 (11.5-15.5) % Plt Count 197 (150-450) k/uL MPV 7.6 Neutrophils % 73 % Lymphocytes % 11 % Monocytes % 6 % Eosinophils % 9 % Basophils % 1 % Neutrophils # 8.4 H (1.3-7.7) k/uL Lymphocytes # 1.2 (1.0-4.8) k/uL Monocytes # 0.7 (0-1.0) k/uL Eosinophils # 1.0 H (0-0.7) k/uL Basophils # 0.1 (0-0.2) k/uL PT 15.5 H (9.0-12.0) sec INR 1.6 H (<1.2) APTT 34.2 H (22.0-30.0) sec Sodium (137-145) mmol/L Potassium (3.5-5.1) mmol/L Chloride (98-107) mmol/L Carbon Dioxide (22-30) mmol/L Anion Gap mmol/L BUN (7-17) mg/dL Creatinine (0.52-1.04) mg/dL Est GFR (CKD-EPI)AfAm (>60 ml/min/1.73 sqM) Est GFR (CKD-EPI)NonAf (>60 ml/min/1.73 sqM) Glucose (74-99) mg/dL Calcium (8.4-10.2) mg/dL Total Bilirubin (0.2-1.3) mg/dL AST (14-36) U/L ALT (4-34) U/L Alkaline Phosphatase (38-126) U/L Troponin I (0.000-0.034) ng/mL Total Protein (6.3-8.2) g/dL Albumin (3.5-5.0) g/dL Amylase (30-110) U/L Lipase (23-300) U/L Urine Color Yellow Urine Appearance Clear (Clear) Urine pH 5.5 (5.0-8.0) Ur Specific [place] 1.017 (1.001-1.035) Urine Protein Trace H (Negative) Urine Glucose (UA) Negative (Negative) Urine Ketones Negative (Negative) Urine Blood Negative (Negative) Urine Nitrite Negative (Negative) Urine Bilirubin Negative (Negative) Urine Urobilinogen 2.0 (<2.0) mg/dL Ur Leukocyte Esterase Moderate (Negative) Urine RBC <1 (0-5) /hpf Urine WBC 9 H (0-5) /hpf Ur Squamous Epith Cells <1 (0-4) /hpf Urine Mucus Rare H (None) /hpf 09/25/22 09/25/22 Range/Units 14:53 14:53 WBC (3.8-10.6) k/uL RBC (3.80-5.40) m/uL Hgb (11.4-16.0) gm/dL Hct (34.0-46.0) % MCV (80.0-100.0) fL MCH (25.0-35.0) pg MCHC (31.0-37.0) g/dL RDW (11.5-15.5) % Plt Count (150-450) k/uL MPV Neutrophils % % Lymphocytes % % Monocytes % % Eosinophils % % Basophils % % Neutrophils # (1.3-7.7) k/uL Lymphocytes # (1.0-4.8) k/uL Monocytes # (0-1.0) k/uL Eosinophils # (0-0.7) k/uL Basophils # (0-0.2) k/uL PT (9.0-12.0) sec INR (<1.2) APTT (22.0-30.0) sec Sodium 137 (137-145) mmol/L Potassium 4.0 (3.5-5.1) mmol/L Chloride 102 (98-107) mmol/L Carbon Dioxide 26 (22-30) mmol/L Anion Gap 9 mmol/L BUN 29 H (7-17) mg/dL Creatinine 1.01 (0.52-1.04) mg/dL Est GFR (CKD-EPI)AfAm 60 (>60 ml/min/1.73 sqM) Est GFR (CKD-EPI)NonAf 52 (>60 ml/min/1.73 sqM) Glucose 117 H (74-99) mg/dL Calcium 8.9 (8.4-10.2) mg/dL Total Bilirubin 0.5 (0.2-1.3) mg/dL AST 21 (14-36) U/L ALT 19 (4-34) U/L Alkaline Phosphatase 113 (38-126) U/L Troponin I <0.012 (0.000-0.034) ng/mL Total Protein 6.8 (6.3-8.2) g/dL Albumin 4.0 (3.5-5.0) g/dL Amylase 57 (30-110) U/L Lipase 260 (23-300) U/L Urine Color Urine Appearance (Clear) Urine pH (5.0-8.0) Ur Specific [place] (1.001-1.035) Urine Protein (Negative) Urine Glucose (UA) (Negative) Urine Ketones (Negative) Urine Blood (Negative) Urine Nitrite (Negative) Urine Bilirubin (Negative) Urine Urobilinogen (<2.0) mg/dL Ur Leukocyte Esterase (Negative) Urine RBC (0-5) /hpf Urine WBC (0-5) /hpf Ur Squamous Epith Cells (0-4) /hpf Urine Mucus (None) /hpf Disposition Clinical Impression: Diverticulitis Disposition: Left Against Medical Advice Referrals: Melissa Hardin MD [Primary Care Provider] - 1-2 days
== END 2022-09-25 18:06 | disposition left against medical advice (07) ==
LOC: EC 14:40
DX: K57.92 Diverticulitis of intestine, part unspecified, without perforation or abscess without bleeding (principal); I10 Essential (primary) hypertension; F41.9 Anxiety disorder, unspecified; E78.5 Hyperlipidemia, unspecified; I48.91 Unspecified atrial fibrillation; J44.9 Chronic obstructive pulmonary disease, unspecified; F17.200 Nicotine dependence, unspecified, uncomplicated; Z79.899 Other long term (current) drug therapy; Z91.018 Allergy to other foods; Z88.8 Allergy status to other drugs, medicaments and biological substances; Z53.29 Procedure and treatment not carried out because of patient's decision for other reasons
CPT/HCPCS: 36415; 74018; 80053; 81001; 82150; 83690; 84484; 85025; 85610; 85730; 99284

== ENCOUNTER → 2022-11-11 | Outpatient (CLI) | payer MEDICARE, BC ==
--- NOTE | 2022-11-11 14:02 | MM ---
Reason for Exam: Additional evaluation requested from prior study. Last mammogram was performed 1 year(s) and 4 month(s) ago. Patient History: Menarche at age 15. First Full-Term at age 22. Left ovary removed at age 53. Right ovary removed at age 53. Hysterectomy at age 53. Postmenopausal. Patient used Estrogen and Progesterone for 1 year. Benign Excisional Biopsy on the left side. 08/21/2021, Benign Core Biopsy on the left side. 07/24/2020, Benign Core Biopsy on the left side. 12/03/2016, Benign Core Biopsy on the right side. 03/27/2016, Benign Core Biopsy on the right side. 09/13/2015, Benign Core Biopsy on the right side. Risk Values: Yamilet 5 year model risk: 2.0%. NCI Lifetime model risk: 2.8%. Prior Study Comparison: 09/13/2015 Right Diagnostic Mammogram, [facility]. 03/16/2016 Right Diagnostic Ultrasound, [facility]. 03/27/2016 Right Diagnostic Mammogram, [facility]. 11/03/2016 Bilateral Screening Mammogram, [facility]. 11/11/2016 Right Diagnostic Mammogram, [facility]. 09/21/2017 Right Diagnostic Mammogram, [facility]. 12/14/2017 Bilateral Diagnostic Mammogram, [facility]. 01/30/2019 Bilateral Screening Mammogram, [facility]. 04/30/2020 Bilateral Screening Mammogram, [facility]. 05/10/2020 Left Diagnostic Ultrasound, [facility]. 07/24/2020 Left Diagnostic Mammogram, [facility]. 01/21/2021 Left Diagnostic Mammogram, [facility]. 01/21/2021 Left Diagnostic Ultrasound, [facility]. 02/18/2022 Left MG 3D diag mammo w/cad LT, [facility]. Tissue Density: The breast tissue is heterogeneously dense. This may lower the sensitivity of mammography. Findings: Analyzed By CAD. Scattered benign-appearing calcifications. Right breast biopsy clips. Left breast biopsy clip. No new suspicious masses, calcifications or distortions. Overall Assessment: Benign, BI-RAD 2 Management: Screening Mammogram of both breasts in 1 year. The contralateral breast was imaged because had been over a year since last mammography of the right breast. Results were given to the patient verbally at the time of exam. Patient should continue monthly self-breast exams. A clinical breast exam by your physician is recommended on an annual basis. This exam should not preclude additional follow-up of suspicious palpable abnormalities. Note on Yamilet scores and lifetime risk: 1. A Yamilet score greater than 3% is considered moderate risk. If this is the case, consider specialist referral to assess eligibility for a risk reducing agent. 2. If overall lifetime risk for the development of breast cancer is 20% or higher, the patient may qualify for future screening with alternating mammogram and breast MRI. Electronically signed and approved by: Bowen Pop DO
== END | disposition home or self-care (01) ==
LOC: RADMAMWWP 12:44
PROVIDERS: ATTEND Internal Medicine
DX: R92.8 Other abnormal and inconclusive findings on diagnostic imaging of breast (principal); Z78.0 Asymptomatic menopausal state
CPT/HCPCS: 77066; G0279; 77062

== ENCOUNTER → 2024-01-05 | Outpatient (CLI) | payer MEDICARE, BC ==
--- NOTE | 2024-01-13 21:35 | MM ---
Reason for Exam: Screening (asymptomatic). Last mammogram was performed 1 year(s) and 2 month(s) ago. Patient History: Menarche at age 15. First Full-Term at age 22. Left ovary removed at age 53. Right ovary removed at age 53. Hysterectomy at age 53. Postmenopausal. Patient used Estrogen and Progesterone for 1 year. Benign Excisional Biopsy on the left side. 08/21/2021, Benign Core Biopsy on the left side. 07/24/2020, Benign Core Biopsy on the left side. 12/03/2016, Benign Core Biopsy on the right side. 03/27/2016, Benign Core Biopsy on the right side. 09/13/2015, Benign Core Biopsy on the right side. Risk Values: Yamilet 5 year model risk: 1.9%. NCI Lifetime model risk: 2.6%. Prior Study Comparison: 07/28/2021 Bilateral Diagnostic Mammogram, [facility]. 02/18/2022 Left MG 3D diag mammo w/cad LT, [facility]. 11/11/2022 Bilateral MG 3D diag mammo w/cad YASMANI, [facility]. Tissue Density: The breasts are heterogeneously dense, which may obscure small masses. Findings: Analyzed By CAD. Diffuse bilateral round and punctate calcifications as well as vascular calcifications. At least 3 microclips in the right breast and 2 in the left breast from prior biopsies. Areas of asymmetric density are also unchanged. There is no suspicious group of microcalcifications or new suspicious mass in either breast. Overall Assessment: Benign, BI-RAD 2 Management: Screening Mammogram of both breasts in 1 year. . Patient should continue monthly self-breast exams. A clinical breast exam by your physician is recommended on an annual basis. This exam should not preclude additional follow-up of suspicious palpable abnormalities. Note on Yamilet scores and lifetime risk: 1. A Yamilet score greater than 3% is considered moderate risk. If this is the case, consider specialist referral to assess eligibility for a risk reducing agent. 2. If overall lifetime risk for the development of breast cancer is 20% or higher, the patient may qualify for future screening with alternating mammogram and breast MRI. Electronically signed and approved by: Candace Olivo M.D. Radiologist
== END | disposition home or self-care (01) ==
LOC: RADMAMWWP 14:10
PROVIDERS: ATTEND Internal Medicine
DX: Z12.31 Encounter for screening mammogram for malignant neoplasm of breast (principal); R92.333 Mammographic heterogeneous density, bilateral breasts; Z78.0 Asymptomatic menopausal state
CPT/HCPCS: 77063; 77067

== ENCOUNTER 2024-06-11 16:30 | Observation (INO) | payer MEDICARE, BC ==
--- NOTE | 2024-06-11 17:03 | ED ---
General Adult HPI - General Chief complaint: Chest Pain Stated complaint: Chest Pain Time Seen by Provider: 06/11/24 16:32 Source: patient, EMS, RN notes reviewed Mode of arrival: EMS Limitations: no limitations - History of Present Illness Initial comments: Patient is an 84-year-old female present to the emergency department with concerns with chest discomfort. Onset of symptoms was prior to arrival while reviewing the menu at [facility]. Patient suddenly had pressure in her chest that did radiate up to her neck. Symptoms resolved with nitroglycerin and aspirin by EMS and patient is symptom-free at this time. Patient denies history of similar symptoms previously - Related Data Home Medications Medication Instructions Recorded Confirmed Magnesium Oxide [Mag-Ox] 400 mg PO DAILY 12/14/17 08/24/21 Potassium Chloride ER [K-Dur 10] 10 meq PO DAILY 12/14/17 08/24/21 Simvastatin 40 mg PO HS 12/14/17 08/24/21 Furosemide [Lasix] 40 mg PO DAILY 02/06/19 08/24/21 allopurinoL [Zyloprim] 100 mg PO HS 02/06/19 08/24/21 Warfarin [Coumadin] 2.5 mg PO SUTUWETHSA 04/30/20 08/24/21 Pantoprazole [Protonix] 40 mg PO DAILY 07/19/20 08/24/21 Oxybutynin Chloride [oxyBUTYnin 15 mg PO DAILY 08/24/21 08/24/21 chloride ER] Venlafaxine HCl ER [Effexor XR] 37.5 mg PO DAILY 08/24/21 08/24/21 Warfarin [Coumadin] 5 mg PO MOFR 08/24/21 08/24/21 Previous Rx's Medication Instructions Recorded Metoprolol Tartrate [Lopressor] 50 mg PO BID #60 tab 02/16/19 ALPRAZolam [Xanax] 0.5 mg PO BID #6 tab 08/26/21 Acetaminophen Tab [Tylenol] 650 mg PO Q6HR PRN tab 08/26/21 Docusate [Colace] 100 mg PO BID PRN cap 08/26/21 HYDROcodone/APAP 7.5-325MG [[place] 1 each PO Q6HR PRN #12 tab 08/26/21 7.5-325] Losartan-Hctz 50-12.5 mg [Hyzaar 1 tab PO DAILY #0 08/26/21 50-12.5] polyethylene glycoL 3350 [Miralax] 17 gm PO DAILY #527 gm 08/26/21 Allergies Allergy/AdvReac Type Severity Reaction Status Date / Time iodine Allergy Nausea & Verified 08/24/21 15:42 Vomiting & Diarrhea shellfish derived Allergy Nausea & Verified 08/24/21 15:42 Vomiting & Diarrhea Review of Systems ROS Statement: Those systems with pertinent positive or pertinent negative responses have been documented in the HPI. ROS Other: All systems not noted in ROS Statement are negative. Constitutional: Denies: fever Eyes: Denies: eye pain ENT: Denies: ear pain Respiratory: Denies: dyspnea Cardiovascular: Reports: as per HPI, chest pain Endocrine: Denies: fatigue Gastrointestinal: Denies: abdominal pain, nausea Musculoskeletal: Denies: back pain Past Medical History Past Medical History: Atrial Fibrillation, Cancer, COPD, Hyperlipidemia, Hypertension, Pneumonia Additional Past Medical History / Comment(s): Skin cancer. Osteopenia. 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 thyroid tumors. Colonoscopy 2019. Past Anesthesia/Blood Transfusion Reactions: Previous Problems w/ Anesthesia Additional Past Anesthesia/Blood Transfusion Reaction / Comment(s): pt states vomiting with anesthesia when she gave , she states she had a gas mask Past Psychological History: Anxiety Smoking Status: Former smoker Past Alcohol Use History: Daily Past Drug Use History: None Reported - Past Family History Mother Family Medical History: Cancer Additional Family Medical History / Comment(s): Maternal grandfather had an HI, maternal aunt had rectal cancer. Mother at age 91 from old age. Father Family Medical History: COPD Additional Family Medical History / Comment(s): Father at age 69 from competitions of COPD and alcohol abuse. Brother(s) Family Medical History: Diabetes Mellitus Additional Family Medical History / Comment(s): Patient has one brother with diabetes. She does not have any sisters. Patient has 4 children with no major medical problems. General Exam Limitations: no limitations General appearance: alert, in no apparent distress Head exam: Present: normocephalic Eye exam: Present: normal appearance ENT exam: Present: normal oropharynx Neck exam: Present: normal inspection Respiratory exam: Present: normal lung sounds bilaterally. Absent: chest wall tenderness Cardiovascular Exam: Present: irregular rhythm, normal heart sounds Expanded Peripheral pulses: 2+: Dorsalis Pedis (R), Dorsalis Pedis (L) GI/Abdominal exam: Present: soft. Absent: tenderness Extremities exam: Present: normal inspection. Absent: pedal edema, calf tenderness Neurological exam: Present: alert Psychiatric exam: Present: normal affect, normal mood Skin exam: Present: normal color Course Vital Signs 06/11/24 06/11/24 16:34 19:13 Temperature 98.0 F Pulse Rate 52 L 55 L Respiratory 18 18 Rate Blood Pressure 108/76 119/63 O2 Sat by Pulse 96 96 Oximetry EKG Findings - EKG Results: EKG: interpreted by HARISH ([place] L, poor R wave progression. Nonspecific T waves) EKG shows: atrial fibrillation Medical Decision Making - Medical Decision Making Was pt. sent in by a medical professional or institution (, PA, UNDERCOLLAR MAKER, urgent care, hospital, or long term...) When possible be specific @ -No Did you speak to anyone other than the patient for history (EMS, parent, family, police, friend...)? What history was obtained from this source @ -EMS helps provide history of resolution of symptoms with nitroglycerin Did you review nursing and triage notes (agree or disagree)? Why? @ -I reviewed and agree with nursing and triage notes Were old charts reviewed (outside hosp., previous admission, EMS record, old EKG, old radiological studies, urgent care reports/EKG's, long term records)? Report findings @ -Old chest x-ray reviewed Differential Diagnosis (chest pain, altered mental status, abdominal pain women, abdominal pain men, vaginal bleeding, weakness, fever, dyspnea, syncope, headache, dizziness, GI bleed, back pain, seizure, CVA, palpatations, mental health, musculoskeletal)? @ -Differential Chest Pain: Stable Angina, Unstable Angina, STEMI, NSTEMI Aortic Dissection, Pneumothorax, Musculoskeletal, Esophageal Spasm GERD, Cholecystitis, Pancreatitis, Zoster, this is not meant to be an all-inclusive list. EKG interpreted by me (3pts min.). @ -As above X-rays interpreted by me (1pt min.). @ -X-ray shows no acute process CT interpreted by me (1pt min.). @ -None done U/S interpreted by me (1pt. min.). @ -None done What testing was considered but not performed or refused? (CT, X-rays, U/S, labs)? Why? @ -None What meds were considered but not given or refused? Why? @ -None Did you discuss the management of the patient with other professionals (professionals i.e. Dr., PA, UNDERCOLLAR MAKER, lab, RT, psych nurse, oncology social work, tax lawyer, teacher, protective services officer, renal case manager)? Give summary @ -Case was discussed with Dr. Dao who will admit his patient Was smoking cessation discussed for >3mins.? @ -No Was critical care preformed (if so, how long)? @ -No Were there social determinants of health that impacted care today? How? (Homelessness, low income, unemployed, alcoholism, drug addiction, transportation, low edu. Level, literacy, decrease access to med. care, senior care, rehab)? @ -No Was there de-escalation of care discussed even if they declined (Discuss DNR or withdrawal of care, Hospice)? DNR status @ -No What co-morbidities impacted this encounter? (DM, HTN, Smoking, COPD, CAD, Cancer, CVA, ARF, Chemo, Hep., AIDS, mental health diagnosis, sleep apnea, morbid obesity)? @ -None Was patient admitted / discharged? Hospital course, mention meds given and route, prescriptions, significant lab abnormalities, going to OR and other pertinent info. @ -Patient presents with chest discomfort prior to arrival resolved with aspirin and nitroglycerin. Patient remained symptom free on reevaluation. Patient updated. Patient will be admitted, admission orders written Undiagnosed new problem with uncertain prognosis? @ -No Drug Therapy requiring intensive monitoring for toxicity (Heparin, Nitro, Insulin, Cardizem)? @ -No Were any procedures done? @ -No Diagnosis/symptom? @ -Chest pain Acute, or Chronic, or Acute on Chronic? @ -Acute Uncomplicated (without systemic symptoms) or Complicated (systemic symptoms)? @ -Default Side effects of treatment? @ -No Exacerbation, Progression, or Severe Exacerbation? @ -No Poses a threat to life or bodily function? How? (Chest pain, [place], HI, pneumonia, PE, COPD, DKA, ARF, appy, cholecystitis, CVA, Diverticulitis, Homicidal, Suicidal, threat to staff... and all critical care pts) @ -Threat to cardiac function - Lab Data Result diagrams: 06/11/24 17:23 06/11/24 17:23 Lab Results 06/11/24 06/11/24 06/11/24 Range/Units 17:23 17:23 17:23 WBC 4.9 (3.8-10.6) k/uL RBC 4.47 (3.80-5.40) m/uL Hgb 13.9 (11.4-16.0) gm/dL Hct 42.7 (34.0-46.0) % MCV 95.6 (80.0-100.0) fL MCH 31.1 (25.0-35.0) pg MCHC 32.6 (31.0-37.0) g/dL RDW 13.1 (11.5-15.5) % Plt Count 176 (150-450) k/uL MPV 7.4 Neutrophils % 49 % Lymphocytes % 23 % Monocytes % 9 % Eosinophils % 16 % Basophils % 1 % Neutrophils # 2.4 (1.3-7.7) k/uL Lymphocytes # 1.1 (1.0-4.8) k/uL Monocytes # 0.4 (0-1.0) k/uL Eosinophils # 0.8 H (0-0.7) k/uL Basophils # 0.0 (0-0.2) k/uL PT 46.3 H (10.0-12.5) sec INR 4.7 H (<1.2) APTT 49.5 H (22.0-30.0) sec D-Dimer <0.17 (<0.60) mg/L FEU Sodium 137 (137-145) mmol/L Potassium 3.6 (3.5-5.1) mmol/L Chloride 103 (98-107) mmol/L Carbon Dioxide 28 (22-30) mmol/L Anion Gap 6 mmol/L BUN 38 H (7-17) mg/dL Creatinine 1.02 (0.52-1.04) mg/dL Est GFR (CKD-EPI)AfAm 59 (>60 ml/min/1.73 sqM) Est GFR (CKD-EPI)NonAf 51 (>60 ml/min/1.73 sqM) Glucose 121 H (74-99) mg/dL Calcium 8.8 (8.4-10.2) mg/dL Magnesium 1.7 (1.6-2.3) mg/dL Total Bilirubin 1.2 (0.2-1.3) mg/dL AST 32 (14-36) U/L ALT 23 (4-34) U/L Alkaline Phosphatase 81 (38-126) U/L Troponin I (0.000-0.034) ng/mL Total Protein 6.2 L (6.3-8.2) g/dL Albumin 3.8 (3.5-5.0) g/dL Amylase 42 (30-110) U/L Lipase 179 (23-300) U/L 06/11/24 Range/Units 17:23 WBC (3.8-10.6) k/uL RBC (3.80-5.40) m/uL Hgb (11.4-16.0) gm/dL Hct (34.0-46.0) % MCV (80.0-100.0) fL MCH (25.0-35.0) pg MCHC (31.0-37.0) g/dL RDW (11.5-15.5) % Plt Count (150-450) k/uL MPV Neutrophils % % Lymphocytes % % Monocytes % % Eosinophils % % Basophils % % Neutrophils # (1.3-7.7) k/uL Lymphocytes # (1.0-4.8) k/uL Monocytes # (0-1.0) k/uL Eosinophils # (0-0.7) k/uL Basophils # (0-0.2) k/uL PT (10.0-12.5) sec INR (<1.2) APTT (22.0-30.0) sec D-Dimer (<0.60) mg/L FEU Sodium (137-145) mmol/L Potassium (3.5-5.1) mmol/L Chloride (98-107) mmol/L Carbon Dioxide (22-30) mmol/L Anion Gap mmol/L BUN (7-17) mg/dL Creatinine (0.52-1.04) mg/dL Est GFR (CKD-EPI)AfAm (>60 ml/min/1.73 sqM) Est GFR (CKD-EPI)NonAf (>60 ml/min/1.73 sqM) Glucose (74-99) mg/dL Calcium (8.4-10.2) mg/dL Magnesium (1.6-2.3) mg/dL Total Bilirubin (0.2-1.3) mg/dL AST (14-36) U/L ALT (4-34) U/L Alkaline Phosphatase (38-126) U/L Troponin I <0.012 (0.000-0.034) ng/mL Total Protein (6.3-8.2) g/dL Albumin (3.5-5.0) g/dL Amylase (30-110) U/L Lipase (23-300) U/L Disposition Clinical Impression: Chest pain Disposition: ADMITTED IP TO THIS HOSP Is patient prescribed a controlled substance at d/c from ED?: No Referrals: Melissa Hardin MD [Primary Care Provider] - 1-2 days Time of Disposition: 19:32
[2024-06-11] MEDS: ASPIRIN 81 MG PO STA (17:12)
[2024-06-11] MEDS: NITROGLYCERIN OINT 1 INCH/GM PACKET TOPICAL STA (17:12)
[2024-06-11 17:30] LABS: Basophils % (A) 1 %; Eosinophils # (A) 0.8 k/uL (0-0.7); Eosinophils % (A) 16 %; HCT 42.7 % (34.0-46.0); HGB 13.9 gm/dL (11.4-16.0); Lymphocytes # (A) 1.1 k/uL (1.0-4.8); Lymphocytes % (A) 23 %; MCH 31.1 pg (25.0-35.0); MCHC 32.6 g/dL (31.0-37.0); MCV 95.6 fL (80.0-100.0); Mean Platelet Volume 7.4; Monocytes # (A) 0.4 k/uL (0-1.0); Monocytes % (A) 9 %; Neutrophils # (A) 2.4 k/uL (1.3-7.7); Neutrophils % (A) 49 %; Platelet Count 176 k/uL (150-450); RBC 4.47 m/uL (3.80-5.40); RDW 13.1 % (11.5-15.5); WBC 4.9 k/uL (3.8-10.6)
--- NOTE | 2024-06-11 17:35 | XR ---
EXAMINATION TYPE: XR chest 2V DATE OF EXAM: 06/11/2024 5:29 PM COMPARISON: Previous chest radiograph 02/09/2019. CLINICAL INDICATION: Female, 84 years old with history of Chest Pain; [facility] TECHNIQUE: XR chest 2V Frontal and lateral views of the chest. FINDINGS: Cardiomegaly. Cardiac device overlying the left chest wall. No acute focal consolidation. Minimal left midlung scarring/atelectasis. No finding of pleural effusi on or pneumothorax. No acute osseous abnormality. IMPRESSION: No acute cardiopulmonary disease/process. [facility], , 06/11/2024 5:33 PM
[2024-06-11 17:48] LABS: INR 4.7 (<1.2); Partial Thromboplastin Time 49.5 sec (22.0-30.0); Prothrombin Time 46.3 sec (10.0-12.5)
[2024-06-11 17:58] LABS: ALT 23 U/L (4-34); AST 32 U/L (14-36); African American GFR (CKD) 59 (>60 ml/min/1.73 sqM); Albumin 3.8 g/dL (3.5-5.0); Alkaline Phosphatase 81 U/L (38-126); Amylase 42 U/L (30-110); Anion Gap 6 mmol/L; Blood Urea Nitrogen 38 mg/dL (7-17); Calcium 8.8 mg/dL (8.4-10.2); Carbon Dioxide 28 mmol/L (22-30); Chloride 103 mmol/L (98-107); Glucose 121 mg/dL (74-99); Lipase 179 U/L (23-300); Magnesium 1.7 mg/dL (1.6-2.3); Non-African American GFR(CKD) 51 (>60 ml/min/1.73 sqM); Sodium 137 mmol/L (137-145); Total Bilirubin 1.2 mg/dL (0.2-1.3); Total Protein 6.2 g/dL (6.3-8.2)
[2024-06-11 18:48] LABS: Potassium 3.6 mmol/L (3.5-5.1)
[2024-06-11] MEDS ORDERED: NITROGLYCERIN SL TABS 0.4 MG TAB SUBLINGUAL PRN (19:32)
[2024-06-11] MEDS ORDERED: ATORVASTATIN 40 MG TAB PO SCH (21:00)
[2024-06-11] MEDS: ALPRAZolam 0.5 MG TAB PO SCH (21:01)
[2024-06-11] MEDS: ATORVASTATIN 20 MG TAB PO SCH (21:04)
[2024-06-11] MEDS: METOPROLOL TARTRATE 50 MG TAB PO SCH (21:05)
[2024-06-12] MEDS: NITROGLYCERIN OINT 1 INCH/GM PACKET TOPICAL SCH (01:25)
[2024-06-12 08:48] LABS: Chol/HDL Ratio 2.91 Ratio; LDL Cholesterol,Calculated 59.8 mg/dL (0.0-131.0)
[2024-06-12] MEDS ORDERED: ASPIRIN 325 MG TAB PO SCH (09:00)
[2024-06-12] MEDS ORDERED: FUROSEMIDE 40 MG TAB PO SCH (09:00)
[2024-06-12] MEDS: LOSARTAN-HCTZ 50-12.5 MG 1 EACH TAB PO SCH (09:11)
[2024-06-12] MEDS: POTASSIUM CHLORIDE ER 10 MEQ TAB.ER.PRT PO SCH (09:32)
[2024-06-12] MEDS: PANTOPRAZOLE 40 MG TABLET PO SCH (09:32)
[2024-06-12] MEDS: METOPROLOL TARTRATE 25 MG TAB PO SCH (09:32)
[2024-06-12] MEDS: FUROSEMIDE 20 MG TAB PO SCH (09:32)
[2024-06-12] MEDS: MAGNESIUM OXIDE 400 MG TAB PO SCH (09:32)
--- NOTE | 2024-06-12 10:05 | P.CRDCN ---
History of Present Illness History of present illness: HISTORY OF PRESENT ILLNESS: This is a 84-year-old female with a past medical history significant for atrial fibrillation, hypertension, LVH, COPD, and hyperlipidemia. Patient follows in t office with Dr. Arzate. We have been asked to see the patient in consultation for chest pain. Patient examined at the bedside in the emergency room. Patient states yesterday she was sitting at her computer when she began to have a weird sensation in her chest. She states it was not a painful s ensation. She states that then she got a weird feeling in her head and thought as if she was going to pass out. She states this only lasted for a few seconds. She currently denies any chest pain or pressure. She denies any shortness of breath. She states that she did not lose consciousness. She states that she has had feelings like this in the past when she was dehydrated. She believes she may have been dehydrated this time as well. Patient's heart rate was noted to be in the 40s upon admission. She is prescribed metoprolol 50 mg twice a day. The patient was seen in the office a few days ago and she was given a 1 week Holter monitor. Additionally, patient's INR was found to be 4.7. Patient states she has not had her INR checked in quite a long time. DIAGNOSTICS: - EKG reveals A-fib with slow ventricular rate. - Chest xray negative for acute process - Laboratory data: WBC 4.9. Hemoglobin 13.9. Platelet count 176. INR 4.7. D- dimer 0.17. Sodium 137. Potassium 3.6. BUN 30. Creatinine 1.02. Magnesium 1.7. Troponin negative x 3. - Current home cardiac medications include Lasix 40 mg daily, losartanhydrochlorothiazide 50-12.5 mg daily, metoprolol tartrate 50 mg twice a day, simvastatin 40 mg at night, and Coumadin 5 mg on Wednesday and Wednesday and 2.5 mg the remaining days - Most recent echocardiogram obtained in January 2019 revealed ejection fraction 55 to 60%, mild TR - Patient underwent dobutamine stress test in June 2022 which was negative for ischemia - Cardiac catheterization history: Unknown REVIEW OF SYSTEMS: At the time of my exam: CONSTITUTIONAL: Denies fever or chills. HEENT: Denies blurred vision, vision changes, or eye pain. Denies hemoptysis CARDIOVASCULAR: Denies chest pain. Denies orthopnea. Denies PND. Denies palpitations RESPIRATORY: Denies shortness of breath. GASTROINTESTINAL: Denies abdominal pain. Denies nausea or vomiting. HEMATOLOGIC: Denies bleeding disorders. GENITOURINARY: Denies any blood in urine. SKIN: Denies pruitis. Denies rash. PHYSICAL EXAM: VITAL SIGNS: Reviewed. GENERAL: Well-developed in no acute distress. HEENT: Head is normocephalic. Pupils are equal, round. Sclerae anicteric. Mucous membranes of the mouth are moist. Neck supple. No JVD or thyromegaly LUNGS: Respirations even and unlabored. Lungs essentially clear to auscultation bilaterally. HEART: Bradycardic. Irregular rate and rhythm. S1 and S2 heard. ABDOMEN: Soft. Nondistended. Nontender. EXTREMITIES: Normal range of motion. No clubbing or cyanosis. Peripheral pulses intact. No lower extremity edema NEUROLOGIC: Awake and alert. Oriented x 3. ASSESSMENT: Presyncope Persistent atrial fibrillation with slow ventricular rate, 40s Supratherapeutic INR, 4.7 on admission Mild dehydration Hypertension COPD Hyperlipidemia History of LVH Obesity: BMI 39.5 PLAN: Obtain 2D echo to assess cardiac structure and function Decrease metoprolol to 25 mg twice a day Decrease Lasix to 20 mg daily Hold Coumadin. Monitor INR. Resume when coagulopathy resolves. Continue telemetry monitoring Continue to monitor blood pressure Patient's symptoms atypical for ACS. No plans for stress testing at this time. Further recommendations pending patient course Nurse practitioner note has been reviewed by physician. Signing provider agrees with the documented findings, assessment, and plan of care documented by RECORDS SECTION SUPERVISOR as a scribe. Past Medical History Past Medical History: Atrial Fibrillation, Cancer, COPD, Hyperlipidemia, Hypertension, Pneumonia Additional Past Medical History / Comment(s): Skin cancer. Osteopenia. 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 thyroid tumors. Colonoscopy 2019. Past Anesthesia/Blood Transfusion Reactions: Previous Problems w/ Anesthesia Additional Past Anesthesia/Blood Transfusion Reaction / Comment(s): pt states vomiting with anesthesia when she gave , she states she had a gas mask Past Psychological History: Anxiety Smoking Status: Former smoker Past Alcohol Use History: Daily Additional Past Alcohol Use History / Comment(s): States currently smokes on/off depending on the people she is around. Pt states she does not drink daily but she has over 7 drinks per week Past Drug Use History: None Reported - Past Family History Mother Family Medical History: Cancer Additional Family Medical History / Comment(s): Maternal grandfather had an CT, maternal aunt had rectal cancer. Mother at age 91 from old age. Father Family Medical History: COPD Additional Family Medical History / Comment(s): Father at age 69 from competitions of COPD and alcohol abuse. Brother(s) Family Medical History: Diabetes Mellitus Additional Family Medical History / Comment(s): Patient has one brother with diabetes. She does not have any sisters. Patient has 4 children with no major medical problems. Medications and Allergies Home Medications Medication Instructions Recorded Confirmed Type Magnesium Oxide [Mag-Ox] 400 mg PO DAILY 12/14/17 06/11/24 History Potassium Chloride ER [K-Dur 10] 10 meq PO DAILY 12/14/17 06/11/24 History Simvastatin 40 mg PO HS 12/14/17 06/11/24 History Furosemide [Lasix] 40 mg PO DAILY 02/06/19 06/11/24 History allopurinoL [Zyloprim] 100 mg PO HS 02/06/19 06/11/24 History Metoprolol Tartrate [Lopressor] 50 mg PO BID #60 tab 02/16/19 06/11/24 Rx Warfarin [Coumadin] 2.5 mg PO SUTUWETHSA 04/30/20 06/11/24 History Pantoprazole [Protonix] 40 mg PO DAILY 07/19/20 06/11/24 History Warfarin [Coumadin] 5 mg PO MOFR 08/24/21 06/11/24 History ALPRAZolam [Xanax] 0.5 mg PO BID #6 tab 08/26/21 06/11/24 Rx Losartan-Hctz 50-12.5 mg [Hyzaar 1 tab PO DAILY #0 08/26/21 06/11/24 Rx 50-12.5] Allergies Allergy/AdvReac Type Severity Reaction Status Date / Time iodine AdvReac Nausea & Verified 06/11/24 20:12 Vomiting & Diarrhea shellfish derived AdvReac Nausea & Verified 06/11/24 20:12 Vomiting & Diarrhea Physical Exam Vitals: Vital Signs Temp Pulse Pulse Resp BP BP Pulse Ox 06/12/24 09:04 97.8 F 62 16 114/58 96 06/12/24 08:33 98.0 F 58 L 18 94/69 98 06/12/24 01:17 97.9 F 56 L 19 123/50 97 06/12/24 00:00 53 L 18 138/62 97 06/11/24 23:00 46 L 19 149/58 97 06/11/24 22:00 48 L 21 127/63 97 06/11/24 21:00 53 L 16 129/59 96 06/11/24 19:13 55 L 18 119/63 96 06/11/24 19:00 55 L 19 96 06/11/24 16:34 98.0 F 52 L 18 108/76 96 Intake and Output 06/11/24 06/12/24 06/12/24 22:59 06:59 14:59 Other: Weight 111.13 kg 111.13 kg Results 06/11/24 17:23 06/11/24 17:23 Cardiac Enzymes 06/11/24 06/11/24 06/11/24 Range/Units 17:23 17:23 20:50 AST 32 (14-36) U/L Troponin I <0.012 <0.012 (0.000-0.034) ng/mL 06/11/24 Range/Units 23:55 AST (14-36) U/L Troponin I <0.012 (0.000-0.034) ng/mL Coagulation 06/11/24 Range/Units 17:23 PT 46.3 H (10.0-12.5) sec APTT 49.5 H (22.0-30.0) sec Lipids 06/11/24 Range/Units 17:23 Triglycerides 206.00 H (0.00-149.00) mg/dL Cholesterol 154.00 (0.00-200.00) mg/dL HDL Cholesterol 53.00 (40.00-60.00) mg/dL Cholesterol/HDL Ratio 2.91 Ratio CBC 06/11/24 Range/Units 17:23 WBC 4.9 (3.8-10.6) k/uL RBC 4.47 (3.80-5.40) m/uL Hgb 13.9 (11.4-16.0) gm/dL Hct 42.7 (34.0-46.0) % Plt Count 176 (150-450) k/uL Comprehensive Metabolic Panel 06/11/24 Range/Units 17:23 Sodium 137 (137-145) mmol/L Potassium 3.6 (3.5-5.1) mmol/L Chloride 103 (98-107) mmol/L Carbon Dioxide 28 (22-30) mmol/L BUN 38 H (7-17) mg/dL Creatinine 1.02 (0.52-1.04) mg/dL Glucose 121 H (74-99) mg/dL Calcium 8.8 (8.4-10.2) mg/dL AST 32 (14-36) U/L ALT 23 (4-34) U/L Alkaline Phosphatase 81 (38-126) U/L Total Protein 6.2 L (6.3-8.2) g/dL Albumin 3.8 (3.5-5.0) g/dL Current Medications Generic Name Dose Route Start Last Admin Trade Name Freq PRN Reason Stop Dose Admin Alprazolam 0.5 mg 06/11/24 21:00 06/11/24 21:01 Alprazolam 0.5 Mg Tab PO 0.5 mg BID TYRELL Administration Atorvastatin Calcium 20 mg 06/11/24 21:00 06/11/24 21:04 Atorvastatin 20 Mg Tab PO 20 mg HS TYRELL Administration Furosemide 20 mg 06/12/24 09:00 06/12/24 09:32 Furosemide 20 Mg Tab PO 20 mg DAILY TYRELL Administration HCTZ/Losartan Potassium 1 each 06/12/24 09:00 06/12/24 09:11 Losartan-Hctz 50-12.5 Mg 1 Each Tab PO Not Given DAILY TYRELL Magnesium Oxide 400 mg 06/12/24 09:00 06/12/24 09:32 Magnesium Oxide 400 Mg Tab PO 400 mg DAILY TYRELL Administration Metoprolol Tartrate 25 mg 06/12/24 09:00 06/12/24 09:32 Metoprolol Tartrate 25 Mg Tab PO 25 mg BID TYRELL Administration Nitroglycerin 0.4 mg 06/11/24 19:32 Nitroglycerin Sl Tabs 0.4 Mg Tab SUBLINGUAL Q5M PRN Chest Pain Pantoprazole Sodium 40 mg 06/12/24 07:30 06/12/24 09:32 Pantoprazole 40 Mg Tablet PO 40 mg [id number] TYRELL Administration Potassium Chloride 10 meq 06/12/24 09:00 06/12/24 09:32 Potassium Chloride Er 10 Meq Tab.Er.Prt PO 10 meq DAILY TYRELL Administration Intake and Output 06/11/24 06/12/24 06/12/24 22:59 06:59 14:59 Other: Weight 111.13 kg 111.13 kg Patient Weight 06/13/24 06:59 Weight 111.13 kg 06/11/24 17:23 06/11/24 17:23
[2024-06-12 10:38] LABS: INR 4.2 (<1.2); Prothrombin Time 41.9 sec (10.0-12.5)
[2024-06-12 10:43] LABS: African American GFR (CKD) 63 (>60 ml/min/1.73 sqM); Anion Gap 10 mmol/L; Blood Urea Nitrogen 33 mg/dL (7-17); Calcium 8.7 mg/dL (8.4-10.2); Carbon Dioxide 24 mmol/L (22-30); Chloride 103 mmol/L (98-107); Glucose 180 mg/dL (74-99); Non-African American GFR(CKD) 55 (>60 ml/min/1.73 sqM); Sodium 137 mmol/L (137-145)
--- NOTE | 2024-06-12 17:21 | CA ---
Transthoracic Echo Report Name: Shani Thayer Age: 84 Gender: F : 1940 Exam Date: 06/12/2024 14:28 Exam Location: [facility] Ht (in): 66 Wt (lb): 245 Ordering Physician: Ronda Charlton Attending/Referring Phys: [id number], Zoltan Job Boss Radha Cleaning RDCS Procedure CPT: Indications: LV function, presyncope Cardiac Hx: Technical Quality: Fair Contrast 1: Total Dose (mL): Contrast 2: Total Dose (mL): MEASUREMENTS (Male / Female) Normal Values 2D ECHO LV Diastolic Diameter PLAX 4.5 cm 4.2 - 5.9 / 3.9 - 5.3 cm LV Systolic Diameter PLAX 2.9 cm IVS Diastolic Thickness 1.1 cm 0.6 - 1.0 / 0.6 - 0.9 cm LVPW Diastolic Thickness 1.0 cm 0.6 - 1.0 / 0.6 - 0.9 cm LV Relative Wall Thickness 0.5 RV Internal Dim ED PLAX 4.1 cm LA Systolic Diameter LX 4.2 cm 3.0 - 4.0 / 2.7 - 3.8 cm LV Diastolic Volume MOD 4C 70.6 cm??? LV Systolic Volume MOD 4C 29.0 cm??? LV Ejection Fraction MOD 4C 58.9 % LV Cardiac Index MOD 4C 1589.1 cm???/min???m??? LV Diastolic Length 4C 7.2 cm LV Systolic Length 4C 5.7 cm LV Diastolic Volume MOD 2C 81.1 cm??? LV Systolic Volume MOD 2C 32.6 cm??? LV Ejection Fraction MOD 2C 59.8 % LV Cardiac Index MOD 2C 1855.1 cm???/min???m??? LV Diastolic Length 2C 7.4 cm LV Systolic Length 2C 6.2 cm LA Volume 62.7 cm??? 18 - 58 / 22 - 52 cm??? LA Volume Index 26.9 cm???/m??? 16 - 28 cm???/m??? M-MODE Aortic Root Diameter MM 3.2 cm AV Cusp Separation MM 2.1 cm DOPPLER AV Peak Velocity 177.7 cm/s AV Peak Gradient 12.6 mmHg MV Area PHT 3.0 cm??? MV Deceleration Time 190.8 ms TR Peak Velocity 303.5 cm/s TR Peak Gradient 36.8 mmHg Right Ventricular Systolic Press 41.7 mmHg FINDINGS Left Ventricle Left ventricular ejection fraction is estimated at 55-60 %. Left ventricular cavity size normal. Mildly increased septal wall thickness. No obvious regional wall motion abnormalities. Right Ventricle Severe right ventricular dilatation. Mild pulmonary hypertension. Right Atrium Mild right atrial dilatation. No right atrial thrombus or mass seen. Left Atrium Mildly increased left atrial diameter. Mildly increased left atrial volume. Mildly increased left atrial area. No left atrial thrombus or mass present. Mitral Valve Structurally normal mitral valve. Mitral annular calcification. Trace mitral regurgitation. Aortic Valve Trileaflet aortic valve. No aortic valve stenosis or regurgitation. Tricuspid Valve Structurally normal tricuspid valve. Mild tricuspid regurgitation. Pulmonic Valve Structurally normal pulmonic valve. No pulmonic regurgitation. Pericardium No pericardial or pleural effusion. Aorta Normal size aortic root and proximal ascending aorta. CONCLUSIONS Normal LV function Mild pulmonary hypertension Mild left atrial enlargement Previewed by: Dr. James Wylie MD (Electronically Signed) Final Date: 12 June 2024 17:20
--- NOTE | 2024-06-12 17:54 | P.HPIM ---
History of Present Illness H&P Date: 06/12/24 Chief Complaint: Chest pain HISTORY OF PRESENT ILLNESS This is an 84-year-old female patient with past medical history of hypertension, hyperlipidemia, paroxysmal atrial fibrillation, aortic valve replacement on Coumadin, gastroesophageal reflux disease, mellitus type II, generalized anxiety disorder and recurrent depression, Parkinson's disease, history of C. difficile colitis patient was in her usual state of health at about yesterday when she was eating at [employer] and all of a sudden developed to have a significant chest pain ended up coming to the emergency department at [facility] yesterday, twelve-lead EKG did not show evidence of acute abnormalities, patient did receive nitroglycerin that made her pain goes away, because of the presentation because of her multiple risk factors, she was admitted to the hospital for evaluation by cardiology patient follows with cardiology on a regular basis, not sure when the last time she was seen in the office by them, patient will be admitted to the hospital for further evaluation and treatment, her cardiac enzymes were negative, we will monitor the patient very closely. The patient will likely be scheduled for stress test tomorrow morning. REVIEW OF SYSTEMS Constitutional: No fever, no chills, no night sweats. No weight change. No weakness, fatigue or lethargy. No daytime sleepiness. EENT: No headache. No blurred vision or double vision, no loss of vision. No loss of Hearing, reports dry mouth. No nasal drainage or congestion. No epist axis. No sore throat. Lungs: No shortness of breath, cough, no sputum production. No wheezing. Cardiovascular: Positive for chest pain, positive for lower extremity edema. No palpitations. No paroxysmal nocturnal dyspnea. No orthopnea. No lightheadedness or dizziness. No syncopal episodes. Abdominal: No abdominal pain. No nausea, vomiting. No diarrhea. No constipation. No bloody or tarry stools. Reports loss of appetite. Genitourinary: No dysuria, increased frequency, urgency. No urinary retention. Musculoskeletal: No myalgias. No muscle weakness, Reports gait dysfunction, no frequent falls. Reports back pain. No neck pain. Integumentary: No wounds, no lesions. No rash or pruritus. No unusual bruising. No change in hair or nails. Neurologic: No aphasia. No facial droop. No change in mentation. No head injury. No headache. No paralysis. No paresthesia. Psychiatric: No depression. No anxiety. No mood swings. Endocrine: Positive abnormal blood sugars. Positive weight change. No excessive sweating or thirst. No cold intolerance. MEDICAL HISTORY Hypertension Hyperlipidemia Paroxysmal atrial fibrillation Aortic valve replacement on Coumadin Gastroesophageal reflux disease Overactive bladder diabetes mellitus type 2 with Generalized anxiety disorder Diverticulosis Obesity with possible obstructive sleep apnea. SURGICAL HISTORY Tubal ligation Hysterectomy Right kidney removed for benign masses ERCP Breast surgery right side Laparoscopic cholecystectomy in 2019 Colonoscopy 03/2019 SOCIAL HISTORY Patient was a smoker of 2 packs per day for 40 years and continues to smoke a pack a day. She drinks socially. No illicit drug use. FAMILY HISTORY Father at age 69 from complications of COPD and alcohol abuse. Mother at age 91 from old age. Patient has one brother with diabetes. She has 2 sons and 2 daughters with no major medical problems. She has a maternal grandfather with history of IN and maternal aunt with rectal cancer. PHYSICAL EXAMINATION Gen: This is an 84-year-old female. Patient is resting in bed in no acute distress HEENT: Head is atraumatic, normocephalic. Pupils equal, round. Sclerae is anicteric. NECK: Supple. No JVD. No lymphadenopathy. No thyromegaly. LUNGS: decreased breath sound at bases, few rhonchi, no expiratory wheezes, no chest wall tenderness, no intercostal retractions HEART: First heart sound is depressed, second heart sound is normal, 2/6 systolic ejection murmur at the left sternal border, no S3, no S4. ABDOMEN: Soft. Bowel sounds are present. No masses. No tenderness. EXTREMITIES: +1 pedal edema. No calf tenderness. Dorsalis pedis +2 bilaterally. NEUROLOGICAL: Patient is awake, alert and oriented x3. Cranial nerves 2 through 12 are grossly intact, muscle power 5 out of 5 in upper extremities and 4 out of 5 in bilateral lower extremities, deep tendon flexes were depressed. ASSESSMENT AND PLAN 1. Chest pain in a patient with multiple risk factors for coronary artery disease. Cardiac enzymes were negative for acute coronary syndrome patient will be seen in consultation by cardiology she will likely go for stress test today for further evaluation of coronary artery disease 2. Mild prerenal azotemia. Continue IV fluid in the form of normal saline repeat the patient CMP tomorrow morning. 3. Diabetes mellitus type 2. Continue with diet and exercise and weight loss, monitor the patient very closely as an outpatient. 4. Subtherapeutic INR. hold the patient Coumadin for now, repeat the INR tomorrow morning. 5. Hypertension and hypertensive cardiovascular disease continue losartan 50 mg daily, Lopressor 25 mg twice daily, continue patient on hydrochlorothiazide as well. 6. Mixed hyperlipidemia continue Lipitor 20 mg at bedtime. Monitor the patient blood panel, keep LDL 55-70. 7. Aortic valve replacement on Coumadin. Continue Coumadin, pharmacy dosing. Hold Coumadin repeat INR tomorrow morning. 8. Gastroesophageal reflux disease and GI prophylaxis. Continue Protonix 40 mg orally once every day. 9. Overactive bladder. stable we will continue with kegel exercises 10. Generalized anxiety disorder. Continue Xanax 0.5 mg twice daily. 11. Chronic gout. stable 12. Observation. 13. Full code. Past Medical History Past Medical History: Atrial Fibrillation, Cancer, COPD, Hyperlipidemia, Hypertension, Pneumonia Additional Past Medical History / Comment(s): Skin cancer. Osteopenia. 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 thyroid tumors. Colonoscopy 2019. Past Anesthesia/Blood Transfusion Reactions: Previous Problems w/ Anesthesia Additional Past Anesthesia/Blood Transfusion Reaction / Comment(s): pt states vomiting with anesthesia when she gave , she states she had a gas mask Past Psychological History: Anxiety Smoking Status: Former smoker Past Alcohol Use History: Daily Past Drug Use History: None Reported - Past Family History Mother Family Medical History: Cancer Additional Family Medical History / Comment(s): Maternal grandfather had an IN, maternal aunt had rectal cancer. Mother at age 91 from old age. Father Family Medical History: COPD Additional Family Medical History / Comment(s): Father at age 69 from competitions of COPD and alcohol abuse. Brother(s) Family Medical History: Diabetes Mellitus Additional Family Medical History / Comment(s): Patient has one brother with diabetes. She does not have any sisters. Patient has 4 children with no major medical problems. Medications and Allergies Home Medications Medication Instructions Recorded Confirmed Type Magnesium Oxide [Mag-Ox] 400 mg PO DAILY 12/14/17 06/11/24 History Potassium Chloride ER [K-Dur 10] 10 meq PO DAILY 12/14/17 06/11/24 History Simvastatin 40 mg PO HS 12/14/17 06/11/24 History Furosemide [Lasix] 40 mg PO DAILY 02/06/19 06/11/24 History allopurinoL [Zyloprim] 100 mg PO HS 02/06/19 06/11/24 History Metoprolol Tartrate [Lopressor] 50 mg PO BID #60 tab 02/16/19 06/11/24 Rx Warfarin [Coumadin] 2.5 mg PO SUTUWETHSA 04/30/20 06/11/24 History Pantoprazole [Protonix] 40 mg PO DAILY 07/19/20 06/11/24 History Warfarin [Coumadin] 5 mg PO MOFR 08/24/21 06/11/24 History ALPRAZolam [Xanax] 0.5 mg PO BID #6 tab 08/26/21 06/11/24 Rx Losartan-Hctz 50-12.5 mg [Hyzaar 1 tab PO DAILY #0 08/26/21 06/11/24 Rx 50-12.5] Allergies Allergy/AdvReac Type Severity Reaction Status Date / Time iodine AdvReac Nausea & Verified 06/11/24 20:12 Vomiting & Diarrhea shellfish derived AdvReac Nausea & Verified 06/11/24 20:12 Vomiting & Diarrhea Physical Exam Vitals: Vital Signs Temp Pulse Resp BP Pulse Ox 06/12/24 01:17 97.9 F 56 L 19 123/50 97 06/12/24 00:00 53 L 18 138/62 97 06/11/24 23:00 46 L 19 149/58 97 06/11/24 22:00 48 L 21 127/63 97 06/11/24 21:00 53 L 16 129/59 96 06/11/24 19:13 55 L 18 119/63 96 06/11/24 19:00 55 L 19 96 06/11/24 16:34 98.0 F 52 L 18 108/76 96 Intake and Output 06/11/24 06/11/24 06/12/24 14:59 22:59 06:59 Other: Weight 111.13 kg Results CBC & Chem 7: 06/11/24 17:23 06/12/24 10:10 Labs: Abnormal Lab Results - Last 24 Hours (Table) 06/11/24 06/11/24 06/11/24 Range/Units 17:23 17:23 17:23 Eosinophils # 0.8 H (0-0.7) k/uL PT 46.3 H (10.0-12.5) sec INR 4.7 H (<1.2) APTT 49.5 H (22.0-30.0) sec BUN 38 H (7-17) mg/dL Glucose 121 H (74-99) mg/dL Total Protein 6.2 L (6.3-8.2) g/dL
[2024-06-12] MEDS: POTASSIUM CHLORIDE ER 20 MEQ TAB.ER PO STA (19:05)
[2024-06-13 07:18] VITALS: RESP 15; TEMP 97.7
[2024-06-13 08:10] VITALS: BP 158/62; PULSE 59
[2024-06-13 08:39] LABS: ALT 22 U/L (8-44); AST 21 U/L (13-35); Albumin/Globulin Ratio 1.74 Ratio (1.60-3.17); Alkaline Phosphatase 81 U/L (41-126); BUN/Creat Ratio 29.22 Ratio (12.00-20.00); Blood Urea Nitrogen 26.3 mg/dL (9.0-27.0); Calcium 8.7 mg/dL (8.7-10.3); Chloride 106 mmol/L (96-109); Globulin 2.3 g/dL (1.6-3.3); Glucose 109 mg/dL (70-110); Potassium 3.8 mmol/L (3.5-5.5); Sodium 142 mmol/L (135-145); Total Bilirubin 0.6 mg/dL (0.3-1.2); Total Protein 6.3 g/dL (6.2-8.2)
[2024-06-13 09:06] LABS: Basophils # (A) 0.06 X 10*3/uL (0.00-0.10); Basophils % (A) 1.1 %; Eosinophils # (A) 0.91 X 10*3/uL (0.04-0.35); Eosinophils % (A) 16.6 %; HCT 41.5 % (37.2-46.3); HGB 13.7 g/dL (12.0-15.0); Lymphocytes % (A) 34.7 %; MCV 93.9 FL (80.0-97.0); Mean Platelet Volume 10.9 FL (9.5-12.2); Monocytes # (A) 0.58 X 10*3/uL (0.20-1.00); Monocytes % (A) 10.6 %; NRBC Per 100 WBC 0 X 10*3/uL (0.00-0.01); Neutrophils # (A) 2.02 X 10*3/uL (1.80-7.70); Neutrophils % (A) 36.8 %; Platelet Count 178 X 10*3/uL (140-440); RBC 4.42 X 10*6/uL (4.10-5.20); RDW 13.2 % (11.5-14.5); WBC 5.48 X 10*3/uL (4.50-10.00)
[2024-06-13 10:07] LABS: INR 3.99 sec (0.93-1.11); Prothrombin Time 40.3 sec (9.9-11.9)
--- NOTE | 2024-06-13 10:51 | P.PN ---
Subjective HISTORY OF PRESENT ILLNESS: This is a 84-year-old female with a past medical history significant for atrial fibrillation, hypertension, LVH, COPD, and hyperlipidemia. Patient follows in the office with Dr. Arzate. We have been asked to see the patient in consultation for chest pain. Patient examined at the bedside in the emergency room. Patient states yesterday she was sitting at her computer when she began to have a weird sensation in her chest. She states it was not a painful sensation. She states that then she got a weird feeling in her head and thought as if she was going to pass out. She states this only lasted for a few seconds. She currently denies any chest pain or pressure. She denies any shortness of breath. She states that she did not lose consciousness. She states that she has had feelings like this in the past when she was dehydrated. She believes she may have been dehydrated this time as well. Patient's heart rate was noted to be in the 40s upon admission. She is prescribed metoprolol 50 mg twice a day. The patient was seen in the office a few days ago and she was given a 1 week Holter monitor. Additionally, patient's INR was found to be 4.7. Patient states she has not had her INR checked in quite a long time. DIAGNOSTICS: - EKG reveals A-fib with slow ventricular rate. - Chest xray negative for acute process - Laboratory data: WBC 4.9. Hemoglobin 13.9. Platelet count 176. INR 4.7. D-dimer 0.17. Sodium 137. Potassium 3.6. BUN 30. Creatinine 1.02. Magnesium 1.7. Troponin negative x 3. - Current home cardiac medications include Lasix 40 mg daily, losartanhydrochlorothiazide 50-12.5 mg daily, metoprolol tartrate 50 mg twice a day, simvastatin 40 mg at night, and Coumadin 5 mg on Wednesday and Wednesday and 2.5 mg the remaining days - Most recent echocardiogram obtained in January 2019 revealed ejection fraction 55 to 60%, mild TR - Patient underwent dobutamine stress test in June 2022 which was negative for ischemia - Cardiac catheterization history: Unknown 06/13/2024 Patient examined this morning the bedside. Patient currently denies chest pain or pressure. She denies shortness of breath. Denies dizziness or lightheadedness. Orthostatic blood pressures obtained this morning which were negative. INR 3.99. Patient's Coumadin remains on hold. Patient's heart rate has improved and is in the 60s and 70s during the day. She does dip down into the 50s at night. Echocardiogram completed revealing ejection fraction 55 to 60%, mild pulmonary hypertension, mild left atrial enlargement. PHYSICAL EXAM: VITAL SIGNS: Reviewed. GENERAL: Well-developed in no acute distress. HEENT: Head is normocephalic. Pupils are equal, round. Sclerae anicteric. Mucous membranes of the mouth are moist. Neck supple. No JVD or thyromegaly LUNGS: Respirations even and unlabored. Lungs essentially clear to auscultation bilaterally. HEART: Bradycardic. Irregular rate and rhythm. S1 and S2 heard. ABDOMEN: Soft. Nondistended. Nontender. EXTREMITIES: Normal range of motion. No clubbing or cyanosis. Peripheral pulses intact. No lower extremity edema NEUROLOGIC: Awake and alert. Oriented x 3. ASSESSMENT: Presyncope Persistent atrial fibrillation with slow ventricular rate, 40s Supratherapeutic INR, 4.7 on admission Mild dehydration Hypertension COPD Hyperlipidemia History of LVH Obesity: BMI 39.5 PLAN: Continue decreased dose of metoprolol 25 mg twice a day Lasix decreased yesterday to 20 mg daily Hold Coumadin. Monitor INR. Resume when coagulopathy resolves. Continue telemetry monitoring Continue to monitor blood pressure Patient's symptoms atypical for ACS. No plans for stress testing at this time. Further recommendations pending patient course Nurse practitioner note has been reviewed by physician. Signing provider agrees with the documented findings, assessment, and plan of care documented by CUSTOMER SUPPORT ASSOCIATE as a scribe. Objective - Vital Signs Vital signs: Vital Signs Temp 97.7 F 06/13/24 07:00 Pulse 59 L 06/13/24 08:08 Resp 15 06/13/24 07:00 BP 158/62 06/13/24 08:08 Pulse Ox 96 06/13/24 07:00 FiO2 Intake & Output 06/12/24 06/13/24 06/13/24 18:59 06:59 18:59 Intake Total 118 Balance 118 Weight 111.13 kg Intake: Oral 118 Other: # Voids 3 1 - Labs CBC & Chem 7: 06/13/24 05:21 06/13/24 05:21 Labs: Abnormal Lab Results - Last 24 Hours (Table) 06/13/24 06/13/24 06/13/24 Range/Units 05:21 05:21 05:21 Eosinophils # 0.91 H (0.04-0.35) X 10*3/uL PT 40.3 H (9.9-11.9) sec INR 3.99 H (0.93-1.11) sec Anion Gap 13.00 H (4.00-12.00) mmol/L BUN/Creatinine Ratio 29.22 H (12.00-20.00) Ratio
--- NOTE | 2024-06-13 11:37 | P.DS ---
Providers Date of admission: 06/11/24 19:33 Expected date of discharge: 06/13/24 Attending physician: Melissa Hardin Consults: 06/11/24 19:32 Consult Physician Urgent Consulting Provider: Tyrone Arzate Consult Reason/Comments: cp Do you want consulting provider notified?: Yes Primary care physician: Melissa Hardin Hospital Course: HISTORY OF PRESENT ILLNESS This is an 84-year-old female patient with past medical history of hypertension, hyperlipidemia, paroxysmal atrial fibrillation, aortic valve replacement on Coumadin, gastroesophageal reflux disease, mellitus type II, generalized anxiety disorder and recurrent depression, Parkinson's disease, history of C. difficile colitis patient was in her usual state of health at about yesterday when she was eating at [employer] and all of a sudden developed to have a significant chest pain ended up coming to the emergency department at [facility] yesterday, twelve-lead EKG did not show evidence of acute abnormalities, patient did receive nitroglycerin that made her pain goes away, because of the presentation because of her multiple risk factors, she was admitted to the hospital for evaluation by cardiology patient follows with cardiology on a regular basis, not sure when the last time she was seen in the office by them, patient will be admitted to the hospital for further evaluation and treatment, her cardiac enzymes were negative, we will monitor the patient very closely. The patient will likely be scheduled for stress test tomorrow morning. 06/13: Patient sitting up in bed in no apparent distress, patient underwent echocardiogram yesterday that did show evidence of LVH with ejection fraction 55 to 60%, mild left atrial enlargement, severely dilated right ventricle, likely due to underlying sleep apnea that has not been treated, mild pulmonary hypertension as well, her Lasix was decreased to 20 mg once every day, metoprolol was decreased to 25 mg orally twice every day, we will continue to monitor the patient very closely, her INR is down to 3.9, I will switch her Coumadin to 2.5 mg orally once every day and recheck her INR in the next week or so. I will follow-up with the patient in the next 1 or 2 days per Discharge diagnoses: 1. Chest pain ruled out for acute coronary syndrome still have underlying risk factor for CAD 2. Mild prerenal azotemia. 3. Diabetes mellitus type 2. 4. Subtherapeutic INR. 5. Hypertension and hypertensive cardiovascular disease 6. Mixed hyperlipidemia 7. Aortic valve replacement on Coumadin. 9. Generalized anxiety disorder. 10. Obesity with possible obstructive sleep apnea will need a sleep study as an outpatient 11. Mild cognitive impairment. Patient Condition at Discharge: Stable Plan - Discharge Summary Discharge Rx Participant: No New Discharge Prescriptions: No Action Magnesium Oxide [Mag-Ox] 400 mg PO DAILY Simvastatin 40 mg PO HS Potassium Chloride ER [K-Dur 10] 10 meq PO DAILY Furosemide [Lasix] 40 mg PO DAILY allopurinoL [Zyloprim] 100 mg PO HS Metoprolol Tartrate [Lopressor] 50 mg PO BID #60 tab Warfarin [Coumadin] 2.5 mg PO SUTUWETHSA Pantoprazole [Protonix] 40 mg PO DAILY Warfarin [Coumadin] 5 mg PO MOFR ALPRAZolam [Xanax] 0.5 mg PO BID #6 tab Losartan-Hctz 50-12.5 mg [Hyzaar 50-12.5] 1 tab PO DAILY #0 Discharge Medication List Magnesium Oxide [Mag-Ox] 400 mg PO DAILY 12/14/17 [History] Potassium Chloride ER [K-Dur 10] 10 meq PO DAILY 12/14/17 [History] Simvastatin 40 mg PO HS 12/14/17 [History] Furosemide [Lasix] 40 mg PO DAILY 02/06/19 [History] allopurinoL [Zyloprim] 100 mg PO HS 02/06/19 [History] Metoprolol Tartrate [Lopressor] 50 mg PO BID #60 tab 02/16/19 [Rx] Warfarin [Coumadin] 2.5 mg PO SUTUWETHSA 04/30/20 [History] Pantoprazole [Protonix] 40 mg PO DAILY 07/19/20 [History] Warfarin [Coumadin] 5 mg PO MOFR 08/24/21 [History] ALPRAZolam [Xanax] 0.5 mg PO BID #6 tab 08/26/21 [Rx] Losartan-Hctz 50-12.5 mg [Hyzaar 50-12.5] 1 tab PO DAILY #0 08/26/21 [Rx] Follow up Appointment(s)/Referral(s): Tyrone Arzate MD [STAFF PHYSICIAN] - 06/22/24 8:30 am Melissa Hardin MD [Primary Care Provider] - 1-2 days
== END 2024-06-13 13:44 | disposition home health service (06) ==
LOC: EC 16:30 → 6NMEDSUR 19:33
PROVIDERS: ADMIT Internal Medicine; ATTEND Internal Medicine
DX: R07.89 Other chest pain (principal); R79.89 Other specified abnormal findings of blood chemistry; E86.0 Dehydration; R79.1 Abnormal coagulation profile; E11.9 Type 2 diabetes mellitus without complications; R55 Syncope and collapse; I48.19 Other persistent atrial fibrillation; E78.2 Mixed hyperlipidemia; I11.9 Hypertensive heart disease without heart failure; J44.9 Chronic obstructive pulmonary disease, unspecified; F41.1 Generalized anxiety disorder; K21.9 Gastro-esophageal reflux disease without esophagitis; N32.81 Overactive bladder; M1A.9XX0 Chronic gout, unspecified, without tophus (tophi); E66.9 Obesity, unspecified; F17.200 Nicotine dependence, unspecified, uncomplicated; G31.84 Mild cognitive impairment of uncertain or unknown etiology; Z68.39 Body mass index [BMI] 39.0-39.9, adult; Z85.828 Personal history of other malignant neoplasm of skin; Z95.2 Presence of prosthetic heart valve; Z79.01 Long term (current) use of anticoagulants; Z79.899 Other long term (current) drug therapy
CPT/HCPCS: 99285; 36415; 93005 ×2; 93306; 85379; 80061; 80053 ×2; 80048; 82150; 83690; 83735; 84484; 85025 ×2; 85610 ×3; 85730; 71046; G0378 ×3